=== PATIENT | male | born 1940 | race Caucasian/White ===

== ENCOUNTER → 2016-09-28 | Outpatient (CLI) | payer OTHER, MEDICARE ==
[~2016-09-28] MED LIST: ALBUAER2 INH; AMLO-110 PO; ASPI81TA28 PO; BROM0.07 OPR; CABE0.5T PO; CHOL100010 PO; DOCU-94 PO; DOXE10CA PO; LEVO100T PO; LORA-741 PO; MULT-506 PO; NAPR1TAB9 PO; ONDA8TAB6 PO; OXYC20TA50 PO; PRED1SUS3 OPR; PRED20TA PO; SYMIN160 INH; TEST1INJ2 SQ; VALA1TAB2 PO; [UNRECOGNIZED DRUG - OTHER] PO
== END | disposition home or self-care (01) ==
LOC: C.LABPBG 13:45
PROVIDERS: ATTEND Internal Medicine Endocrinology, Diabetes & Metabolism
DX: E03.8 Other specified hypothyroidism (principal)

== ENCOUNTER → 2016-10-18 | Outpatient (CLI) | payer OTHER, MEDICARE ==
[2016-10-18 15:52] LABS: HEMATOCRIT 49.6 % (42-52); MEAN CELL VOLUME 88.1 fL (80-100); MEAN CORPUSCULAR HEMOGLOBIN 30.2 pg (25-34); MEAN CORPUSCULAR HGB CONC 34.3 g/dl (32-36); MEAN PLATELET VOLUME 9.1 fL (7.4-10.4); PLATELET COUNT 107 K/uL (130-400); RED BLOOD COUNT 5.63 M/uL (4.7-6.1); WHITE BLOOD COUNT 9.86 K/uL (4.8-10.8)
== END | disposition home or self-care (01) ==
LOC: C.LAB1850 14:08
PROVIDERS: ATTEND Internal Medicine Pulmonary Disease
DX: R06.02 Shortness of breath (principal)

== ENCOUNTER → 2016-11-01 | Outpatient (CLI) | payer OTHER, MEDICARE ==
[2016-11-01 17:50] LABS: BASO % 0.7 %; BASO ABS # 0.07 K/uL (0-0.2); COMPLETE YES; EOS % 6.7 %; HEMATOCRIT 50.7 % (42-52); IG% 1.1 %; LYMPH % 38.9 %; LYMPH ABS # 3.64 K/uL (1.2-3.4); MEAN CELL VOLUME 88.6 fL (80-100); MEAN CORPUSCULAR HEMOGLOBIN 29.7 pg (25-34); MEAN CORPUSCULAR HGB CONC 33.5 g/dl (32-36); MEAN PLATELET VOLUME 9.7 fL (7.4-10.4); MONO % 7.3 %; NEUT % 45.3 %; PLATELET COUNT 114 K/uL (130-400); RED BLOOD COUNT 5.72 M/uL (4.7-6.1); WHITE BLOOD COUNT 9.36 K/uL (4.8-10.8)
== END | disposition home or self-care (01) ==
LOC: C.LABPBG 13:36
PROVIDERS: ATTEND Internal Medicine Pulmonary Disease
DX: Z00.00 Encounter for general adult medical examination without abnormal findings (principal); I10 Essential (primary) hypertension; E03.8 Other specified hypothyroidism; R06.02 Shortness of breath; I25.10 Atherosclerotic heart disease of native coronary artery without angina pectoris; E55.9 Vitamin D deficiency, unspecified

== ENCOUNTER → 2016-11-17 | Outpatient (CLI) | payer OTHER, MEDICARE | END | disposition home or self-care (01) | LOC: C.LAB 14:02 | PROVIDERS: ATTEND Internal Medicine Endocrinology, Diabetes & Metabolism | DX: E03.8 Other specified hypothyroidism (principal); E29.1 Testicular hypofunction ==

== ENCOUNTER → 2017-01-06 | Outpatient (CLI) | payer OTHER, MEDICARE ==
[2017-01-10 22:30] LABS: HUMAN GROWTH HORMONE 0.6 ng/mL (<=7.1)
== END | disposition home or self-care (01) ==
LOC: C.LABPBG 09:29
PROVIDERS: ATTEND Internal Medicine Endocrinology, Diabetes & Metabolism
DX: E29.1 Testicular hypofunction (principal); Z87.898 Personal history of other specified conditions; R53.83 Other fatigue

== ENCOUNTER → 2017-01-09 | Outpatient (CLI) | payer OTHER, MEDICARE ==
--- NOTE | 2017-01-09 12:25 | DIAGNOSTIC IMAGING REPORT ---
CT OF THE CHEST WITHOUT IV CONTRAST CLINICAL HISTORY: Adenocarcinoma. History of right upper lobectomy COMPARISON STUDY: 06/21/2016 CT DOSE: 654.12 mGy.cm TECHNIQUE: CT of the thorax was performed from the thoracic inlet to the lung bases. Images are reviewed in the axial, sagittal, and coronal planes. IV contrast was not administered for this examination. FINDINGS: Thyroid: Imaged portions of the thyroid gland are normal in appearance. Thoracic aorta: The thoracic aorta is normal in course and caliber, noting standard 3 vessel arch anatomy. Heart: The heart is within normal limits in size. There are coronary artery calcifications present. Lungs and pleural spaces: There is a small right pleural effusion which has decreased in size when compared the preceding study. There are postsurgical changes of a right upper lobectomy. There are no suspicious bony masses. There is no focal pulmonary consolidation. There is a 3 mm left lower lobe pulmonary nodule, similar in size the prior study. There is scattered calcified granulomas present. Mediastinum: There is been interval enlargement in the subcarinal adenopathy. There are enlarging mediastinal lymph nodes which are now mildly enlarged. Lou: There is probable hilar adenopathy although the hilar structures are difficult to assess without intravenous contrast Axilla: There is moderately bulky bilateral axillary lymphadenopathy. Upper abdomen: There are enlarging lymph nodes in the nuria hepatis gastrohepatic ligament and peripancreatic region. There is a suspected midline subcutaneous sebaceous cyst. Skeletal structures: There are no lytic or blastic osseous lesions. IMPRESSION: 1. Increasing pathologic axillary mediastinal, hilar and upper abdominal lymphadenopathy. Lymphoma is the diagnosis of exclusion. 2. Postsurgical changes of a right upper lobectomy. No evidence of local recurrence. Electronically signed by: Gideon Grande M.D. 01/09/2017 12:24 PM Dictated Date/Time: 01/09/2017 12:15 PM
== END | disposition home or self-care (01) ==
LOC: C.CTS 11:59
PROVIDERS: ATTEND Surgery
DX: C34.90 Malignant neoplasm of unspecified part of unspecified bronchus or lung (principal); R59.1 Generalized enlarged lymph nodes

== ENCOUNTER 2017-01-14 08:57 | Emergency (ER) | payer OTHER, MEDICARE ==
[~2017-01-14] VITALS: Ht 180.3 cm; Wt 93.4 kg
[~2017-01-14 08:57] MED LIST changes: -PRED20TA PO; -VALA1TAB2 PO
[2017-01-14 08:59] VITALS: TEMP 36.6; Ht 180.3 cm; Wt 93.4 kg
[2017-01-14] MEDS ORDERED: ONDANSETRON INJ 2 MG/ML 2 ML VIAL IV STA (09:07)
[2017-01-14] MEDS ORDERED: SODIUM CHLORIDE 0.9% 1000ML 1,000 ML IV STA (09:07)
[2017-01-14] MEDS ORDERED: SODIUM CHLORIDE 0.9% 1000ML 500 ML IV STA (09:07)
[2017-01-14 09:47] LABS: HEMATOCRIT 46.4 % (42-52); MEAN CELL VOLUME 87.1 fL (80-100); MEAN CORPUSCULAR HEMOGLOBIN 29.6 pg (25-34); MEAN CORPUSCULAR HGB CONC 34.1 g/dl (32-36); RED BLOOD COUNT 5.33 M/uL (4.7-6.1); WHITE BLOOD COUNT 6.47 K/uL (4.8-10.8)
--- NOTE | 2017-01-14 09:55 | EMERGENCY ROOM VISIT NOTE ---
History Report prepared by Kaitlin: Joyce Figueredo Under the Supervision of: Dr. Suman Awan M.D. First contact with patient: 09:03 Chief Complaint: KIDNEY STONE Stated Complaint: KIDNEY STONE History of Present Illness The patient is a 76 year old male who presents to the Emergency Room with complaints of persistent right flank pain starting 5 days ago. He has a history of kidney stones and believes that it might be one. He took an oxycodone and an Aleve which helped somewhat. He also started developing a rash on his back a couple days ago. He reports nausea and urinary frequency. He has been drinking a lot of water. He is not diabetic. He is currently not on steroids. Source of History: patient Onset: 5 days ago Position: other (right flank) Quality: other (pain) Timing: other (persistent) Modifying Factors (Relieving): other (oxycodone, Aleve) Associated Symptoms: + nausea, + rash Note: Pt reports urinary frequency. Review of Systems See HPI for pertinent positives & negatives. A total of 10 systems reviewed and were otherwise negative. Past Medical & Surgical Medical Problems: (1) HTN (hypertension) (2) Lung cancer (3) Non-Hodgkin lymphoma Family History Cancer Kidney disease Social History Smoking Status: Former Smoker Alcohol Use: none Marital Status: Housing Status: lives with significant other Occupation Status: retired Current/Historical Medications Scheduled Amlodipine (Norvasc), 5 MG PO NOON Aspirin (Aspirin Ec), 81 MG PO HS Bromfenac Sodium (Ophth) (Prolensa), 1 DROP OPR DAILY Cabergoline (Cabergoline), 0.25 MG PO 2XWK Cholecalciferol (Vitamin D), 1,000 INTER.UNIT PO QAM Docusate Sodium (Colace), 1 CAP PO HS Levothyroxine Sodium (Synthroid), 100 MCG PO QAM Lorazepam (Ativan), 0.5 MG PO HS Multivitamin (Multivitamin), 1 TAB PO QAM Naproxen (Aleve), 220 MG PO QAM Oxycodone Hcl (Oxycontin), 20 MG PO Q12 Prednisolone Acetate 1% Oph (Pred Forte 1% Oph), 1 DROP OPR DAILY Prednisone (Prednisone), 2 TAB PO DAILY Testosterone Cypionate (Testosterone Cypionate), 1 DOSE SQ EVERY 2 WEEKS Valacyclovir Hcl (Valtrex), 1,000 MG PO TID Scheduled PRN Albuterol (Ventolin Hfa), 2 PUFFS INH Q4-6 PRN for SOB/Wheezing Budesonide/Formoterol Fumarate (Symbicort 160/4.5 Inhaler ), 2 PUFFS INH BID PRN for Shortness of Breath Doxepin Hcl (Sinequan), 10 MG PO TID PRN for Anxiety Hydroxyzine Hcl (Atarax Unknown Dose), 25 MG PO HS PRN for Itching Ondansetron Hcl (Zofran), 8 MG PO Q6 PRN for Nausea Allergies Coded Allergies: Lisinopril (Verified Allergy, Unknown, itching, 06/07/16) Metoprolol (Verified Allergy, Unknown, itching, 06/07/16) Losartan (Verified Adverse Reaction, Unknown, RASH, 06/07/16) Physical Exam Vital Signs Date Time Temp Pulse Resp B/P Pulse Ox O2 Delivery O2 Flow Rate FiO2 01/14/17 10:26 62 16 129/67 94 Room Air 01/14/17 08:59 36.6 70 18 159/86 94 Room Air Physical Exam GENERAL: Patient is in no acute distress. HEENT: No acute trauma, normocephalic atraumatic, mucous membranes moist, no nasal congestion, no scleral icterus. NECK: No stridor, no adenopathy, no meningismus, trachea is midline. LUNGS: Clear to auscultation bilaterally, no wheeze, no rhonchi, breath sounds equal. HEART: Without murmurs gallops or rubs, regular rate and rhythm. ABDOMEN: Soft, nontender, bowel sounds positive, no hernias, no peritonitis. EXTREMITIES: No cyanosis or edema, full range of motion of all the joints without pain or difficulty, no signs for acute trauma. NEUROLOGIC: Oriented x 3, no acute motor or sensory deficits, no focal weakness. SKIN: Raised, reddened, patchy rash in a dermatomal distribution along the right flank wrapping around the right upper abdomen, no drainage. Medical Decision & Procedures ER Provider Diagnostic Interpretation: Radiology results as stated below per my review and radiologist interpretation: ABDOMEN AND PELVIS CT WITHOUT CONTRAST CT DOSE: 1608.99 mGy.cm HISTORY: Flank pain EVALUATE FLANK PAIN/HEMATURIA TECHNIQUE: Multiaxial CT images of the abdomen and pelvis were performed without the use of intravenous and oral contrast according to the standard department stone protocol. COMPARISON STUDY: 11/08/2011 FINDINGS: Lung bases are considered clear. Liver spleen and pancreas appear unremarkable. Please 1 nonobstructing left renal calcification. No evidence for hydronephrosis. Progressive mesenteric/retroperitoneal kali pathology. These are progressive compared to the prior study measure up to 3.5 cm. Mildly progressive upper abdominal nodes. Retroperitoneal nodes measure to 3.8 cm. . Bowel pattern overall is considered nonobstructive. Ureters normal in course and caliber. There is no evidence for an obstructing urinary tract calculus. Bladder is midline. There are no contained calcifications. Mild to moderate pelvic sidewall adenopathy is progressive from the prior study. Right-sided nodes measure up to 2.6 cm with the left-sided kali pathology within the pelvis measures 2.4 cm. There is a least mild inguinal adenopathy. Bowel pattern overall is nonobstructive. IMPRESSION: 1. Progressive abdominal and pelvic and to lesser extent inguinal kali pathology. 2. A lymphomatous process is a diagnosis of exclusion. 3. Nonobstructive bowel pattern. 4. left renal nephrocalcinosis considered nonobstructive. Electronically signed by: Yaakov Vasquez M.D. 01/14/2017 10:06 AM Dictated Date/Time: 01/14/2017 9:58 AM Laboratory Results 01/14/17 09:25 01/14/17 09:25 Test 01/14/17 09:25 01/14/17 10:20 Red Blood Count 5.33 M/uL (4.7-6.1) Mean Corpuscular Volume 87.1 fL (80-100) Mean Corpuscular Hemoglobin 29.6 pg (25-34) Mean Corpuscular Hemoglobin Concent 34.1 g/dl (32-36) RDW Standard Deviation 45.5 fL (36.4-46.3) RDW Coefficient of Variation 14.2 % (11.5-14.5) Mean Platelet Volume 9.0 fL (7.4-10.4) Platelet Estimate DECREASED Anion Gap 7.0 mmol/L (3-11) Est Creatinine Clear Calc Drug Dose 61.1 ml/min Estimated GFR () 67.7 Estimated GFR (Non- 58.4 BUN/Creatinine Ratio 9.4 (10-20) Calcium Level 8.8 mg/dl (8.5-10.1) Total Bilirubin 1.1 mg/dl (0.2-1) Aspartate Amino Transf (AST/SGOT) 35 U/L (15-37) Alanine Aminotransferase (ALT/SGPT) 43 U/L (12-78) Alkaline Phosphatase 79 U/L (45-117) Total Protein 6.9 gm/dl (6.4-8.2) Albumin 4.0 gm/dl (3.4-5.0) Globulin 2.9 gm/dl (2.5-4.0) Albumin/Globulin Ratio 1.4 (0.9-2) Urine Color YELLOW Urine Appearance CLEAR (CLEAR) Urine pH 7.0 (4.5-7.5) Urine Specific Delano 1.012 (1.000-1.030) Urine Protein NEG (NEG) Urine Glucose (UA) NEG (NEG) Urine Ketones NEG (NEG) Urine Occult Blood NEG (NEG) Urine Nitrite NEG (NEG) Urine Bilirubin NEG (NEG) Urine Urobilinogen NEG (NEG) Urine Leukocyte Esterase NEG (NEG) Laboratory results reviewed by me. Medications Administered Medications (Trade) Dose Ordered Sig/Maribel Route Start Time Stop Time Status Last Admin Dose Admin Sodium Chloride (Nss 1000ml) 500 ml @ 999 mls/hr Q31M STAT IV 01/14/17 09:07 01/14/17 09:37 DC 01/14/17 09:27 999 MLS/HR Ondansetron HCl 4 mg 4 mg NOW STAT IV 01/14/17 09:07 01/14/17 09:16 DC 01/14/17 09:27 4 MG Sodium Chloride (Nss 1000ml) 1,000 ml @ 200 mls/hr Q5H STAT IV 01/14/17 09:07 01/14/17 11:50 DC 01/14/17 09:27 200 MLS/HR Prednisone (PredniSONE TAB) 40 mg NOW STAT PO 01/14/17 09:07 01/14/17 09:16 DC 01/14/17 09:28 40 MG Valacyclovir HCl (Valtrex Tab) 1,000 mg NOW ONCE PO 01/14/17 09:15 01/14/17 09:16 DC 01/14/17 09:27 1,000 MG ED Course 0906: The patient was evaluated in room B9. A complete history and physical exam was performed. 0907: Prednisone 40 mg PO, NSS 1000 ml @ 200 mls/hr IV, Zofran Inj 4 mg IV, NSS 500 ml @ 999 mls/hr IV. 0915: Valacyclovir HCl 1000 mg PO. 1052: Reevaluated the patient. Discussed results and discharge instructions: He verbalized understanding and agreement. The patient is ready for discharge. Medical Decision Differential diagnoses considered include renal stone, musculoskeletal pain, pyelonephritis, renal failure, shingles, pneumonia. There is no leukocytosis or concerning anemia. No significant electrolyte abnormality, kidney failure or hepatitis. Urinalysis does not show hematuria or evidence for infection. Abdominal and pelvis CT shows adenopathy consistent with his history and his cancer. There was no ureteral obstruction, no hydronephrosis. No evidence for bowel obstruction. The patient did not want anything for pain. He was not toxic, he was not febrile. I believe his discomfort is from herpes zoster. He was given IV saline, IV Zofran, oral Valtrax and oral prednisone. The patient is being discharged with Valtrex and prednisone. He does have pain medication to use at home. He was encouraged to keep the area covered, he was warned about the spread of chickenpox. He was encouraged to return for worsening symptoms. Impression Primary Impression: Right flank pain Additional Impression: Herpes zoster Scribe Attestation The scribe's documentation has been prepared under my direction and personally reviewed by me in its entirety. I confirm that the note above accurately reflects all work, treatment, procedures, and medical decision making performed by me. Departure Information Dispostion Home / Self-Care Prescriptions Valacyclovir Hcl (VALTREX) 1 Gm Tab 1000 MG PO TID for 7 Days, #21 TAB Prov: Suman Awan M.D. 01/14/17 Prednisone (Prednisone) 20 Mg Tab 2 TAB PO DAILY for 5 Days, #10 TAB Prov: Suman Awan M.D. 01/14/17 Referrals Siddhartha Castle M.D. (PCP) Forms HOME CARE DOCUMENTATION FORM, IMPORTANT VISIT INFORMATION Patient Instructions My [facility] Additional Instructions valtrex 3x per day for 1 week prednisone as directed keep the rash covered--especially if it weeps follow with konrad osuna for a recheck return for fever or if worsening use your pain meds at home as prescribed Problem Qualifiers
--- NOTE | 2017-01-14 10:07 | DIAGNOSTIC IMAGING REPORT ---
ABDOMEN AND PELVIS CT WITHOUT CONTRAST CT DOSE: 1608.99 mGy.cm HISTORY: Flank pain EVALUATE FLANK PAIN/HEMATURIA TECHNIQUE: Multiaxial CT images of the abdomen and pelvis were performed without the use of intravenous and oral contrast according to the standard department stone protocol. COMPARISON STUDY: 11/08/2011 FINDINGS: Lung bases are considered clear. Liver spleen and pancreas appear unremarkable. Please 1 nonobstructing left renal calcification. No evidence for hydronephrosis. Progressive mesenteric/retroperitoneal kali pathology. These are progressive compared to the prior study measure up to 3.5 cm. Mildly progressive upper abdominal nodes. Retroperitoneal nodes measure to 3.8 cm. . Bowel pattern overall is considered nonobstructive. Ureters normal in course and caliber. There is no evidence for an obstructing urinary tract calculus. Bladder is midline. There are no contained calcifications. Mild to moderate pelvic sidewall adenopathy is progressive from the prior study. Right-sided nodes measure up to 2.6 cm with the left-sided kali pathology within the pelvis measures 2.4 cm. There is a least mild inguinal adenopathy. Bowel pattern overall is nonobstructive. IMPRESSION: 1. Progressive abdominal and pelvic and to lesser extent inguinal kali pathology. 2. A lymphomatous process is a diagnosis of exclusion. 3. Nonobstructive bowel pattern. 4. left renal nephrocalcinosis considered nonobstructive. Electronically signed by: Yaakov Vasquez M.D. 01/14/2017 10:06 AM Dictated Date/Time: 01/14/2017 9:58 AM
[2017-01-14 10:26] VITALS: BP 129/67; PULSE 62; O2SAT 94
[2017-01-14 10:33] LABS: PLATELET COUNT 84 K/uL (130-400); PLT ESTIMATE DECREASED
[2017-01-14 10:33] LABS: URINE APPEARANCE CLEAR (CLEAR); URINE BILIRUBIN NEG (NEG); URINE COLOR YELLOW; URINE NITRITE NEG (NEG); URINE SPECIFIC GRAVITY 1.012 (1.000-1.030); UROBILINOGEN NEG (NEG); ZZUR CULT IF INDIC CLEAN CATCH NO
[2017-01-14 10:36] LABS: MANUAL MICROSCOPIC REQUIRED? NO; REVIEW REQ? NO
[2017-01-14 10:43] LABS: BUN/CREATININE RATIO 9.4 (10-20); CALCIUM 8.8 mg/dl (8.5-10.1); CREATININE 1.2 mg/dl (0.60-1.40); POTASSIUM 4.4 mmol/L (3.5-5.1)
[2017-01-14 10:45] LABS: ALB/GLOB RATIO 1.4 (0.9-2)
[2017-01-14] MEDS ORDERED: PRED20TA PO (11:01)
[2017-01-14] MEDS ORDERED: VALA1TAB2 PO (11:01)
== END 2017-01-14 11:10 | disposition home or self-care (01) ==
LOC: C.EDB 08:59
DX: R10.30 Lower abdominal pain, unspecified (principal); B02.9 Zoster without complications; I10 Essential (primary) hypertension; Z85.72 Personal history of non-Hodgkin lymphomas; Z87.891 Personal history of nicotine dependence; Z79.82 Long term (current) use of aspirin; Z79.899 Other long term (current) drug therapy; Z88.8 Allergy status to other drugs, medicaments and biological substances; Z80.9 Family history of malignant neoplasm, unspecified; Z84.1 Family history of disorders of kidney and ureter

== ENCOUNTER → 2017-05-15 | Outpatient (CLI) | payer OTHER, MEDICARE ==
--- NOTE | 2017-05-15 12:25 | DIAGNOSTIC IMAGING REPORT ---
PET/CT SKULL-THIGH CLINICAL HISTORY: LYMPHOMA COMPARISON STUDY: 01/18/2017, 11/04/2015 FINDINGS: The patient was injected with 12.5 mCi of F 18 labeled FDG. Findings standard induction phase, PET/CT scanning is performed from the skull base the upper thigh region. Activity within the neck is felt to be physiologic. There is interval decrease in the size of a left subclavian tibial lymph node which currently measures 12 mm. This is not FDG avid. There are stable subcutaneous nodules within the upper back/spacer neck which are not FDG avid. These likely represent sebaceous cyst. Within the chest, there is been interval resolution of the pathologic axillary kali activity. The previously identified axillary lymph nodes are now of normal size. There is no pathologic mediastinal or hilar activity. There is no pathologic parenchymal activity. There is a trace right pleural effusion. Within the abdomen, there is no evidence of pathologic kali activity. The previously identified right inguinal lymph node is smaller in size and has normalized in activity. There is mild residual activity within the colon with decreased colonic wall thickening as compared the preceding study. There are no FDG avid bony lesions. IMPRESSION: 1. Treatment response. The previously identified pathologic lymph nodes have decreased in size, and no longer demonstrate pathologic FDG uptake 2. Persistent but diminished nonspecific colonic activity with decreased colonic wall thickening. Electronically signed by: Gideon Grande M.D. 05/15/2017 12:24 PM Dictated Date/Time: 05/15/2017 12:13 PM
== END | disposition home or self-care (01) ==
LOC: C.PET 09:21
PROVIDERS: ATTEND Internal Medicine Hematology
DX: C83.00 Small cell B-cell lymphoma, unspecified site (principal)

== ENCOUNTER → 2017-05-18 | Outpatient (CLI) | payer OTHER, MEDICARE ==
[2017-05-18 16:46] LABS: BASO % 1.3 %; BASO ABS # 0.05 K/uL (0-0.2); COMPLETE YES; EOS % 12.4 %; IG% 1.3 %; LYMPH % 19.8 %; LYMPH ABS # 0.75 K/uL (1.2-3.4); MEAN CELL VOLUME 90.9 fL (80-100); MEAN CORPUSCULAR HEMOGLOBIN 30.4 pg (25-34); MEAN CORPUSCULAR HGB CONC 33.4 g/dl (32-36); MEAN PLATELET VOLUME 8.5 fL (7.4-10.4); MONO % 10.6 %; NEUT % 54.6 %; PLATELET COUNT 124 K/uL (130-400); RED BLOOD COUNT 4.18 M/uL (4.7-6.1); WHITE BLOOD COUNT 3.78 K/uL (4.8-10.8)
[2017-05-18 16:51] LABS: URINE APPEARANCE CLOUDY (CLEAR); URINE BILIRUBIN NEG (NEG); URINE COLOR DK YELLOW; URINE NITRITE NEG (NEG); URINE PH 5.5 (4.5-7.5); URINE SPECIFIC GRAVITY 1.028 (1.000-1.030); UROBILINOGEN NEG (NEG); ZZUR CULT IF INDIC CLEAN CATCH NO
[2017-05-18 16:52] LABS: MANUAL MICROSCOPIC REQUIRED? NO; REVIEW REQ? NO
[2017-05-18 17:03] LABS: BLOOD UREA NITROGEN 12 mg/dl (7-18); CALCIUM 9.2 mg/dl (8.5-10.1); CARBON DIOXIDE 29 mmol/L (21-32); CHLORIDE 106 mmol/L (98-107); GLUCOSE 93 mg/dl (70-99); POTASSIUM 3.9 mmol/L (3.5-5.1); SODIUM 142 mmol/L (136-145)
[2017-05-18 17:14] LABS: THYROID STIMULATING HORMONE 0.295 uIu/ml (0.300-4.500)
== END | disposition home or self-care (01) ==
LOC: C.LABBC 14:29
PROVIDERS: ATTEND Physician Assistant Medical
DX: R42 Dizziness and giddiness (principal)

== ENCOUNTER → 2017-08-02 | Outpatient (CLI) | payer OTHER, MEDICARE | END | disposition home or self-care (01) | LOC: C.LAB1850 13:37 | PROVIDERS: ATTEND Internal Medicine Endocrinology, Diabetes & Metabolism | DX: Z87.898 Personal history of other specified conditions (principal); R53.83 Other fatigue; E22.9 Hyperfunction of pituitary gland, unspecified ==

== ENCOUNTER → 2018-04-11 | Outpatient (CLI) | payer OTHER, MEDICARE ==
[~2018-04-11] MED LIST changes: -AMLO-110 PO; +AMLO5TAB3 PO; +BRIM0.1S OPL; +ONDA-170 PO; -ONDA8TAB6 PO; -OXYC20TA50 PO
--- NOTE | 2018-04-11 11:47 | DIAGNOSTIC IMAGING REPORT ---
CHEST 2 VIEWS ROUTINE CLINICAL HISTORY: 77 years-old Male presenting with COUGH. TECHNIQUE: PA and lateral views of the chest were obtained. COMPARISON: Chest CT from 01/09/2017 and chest x-ray from 01/12/2016. FINDINGS: Prominence of pulmonary arteries as on prior exam. Cardiac silhouette normal in size. Atherosclerosis of aortic arch. A suture margin is evident at the right hilum system with prior right upper lobectomy. Pleural thickening on the right is unchanged and likely represents prominent extrapleural fat. No pleural effusion or pneumothorax. Degenerative changes of the thoracic spine. Upper abdomen normal. IMPRESSION: 1. No acute cardiopulmonary disease. 2. Postsurgical changes of right upper lobectomy. Electronically signed by: Brent Avilez M.D. 04/11/2018 11:46 AM Dictated Date/Time: 04/11/2018 11:43 AM
== END | disposition home or self-care (01) ==
LOC: C.RADBC 11:15
PROVIDERS: ATTEND Physician Assistant Medical
DX: R05 Cough (principal)

== ENCOUNTER 2019-03-14 12:39 | Inpatient (IN) ==
[2019-03-14] MEDS ORDERED: SODIUM CHLORIDE 0.9% 1000ML 1,000 ML IV STA (13:29)
[2019-03-14] MEDS ORDERED: ACETAMINOPHEN 500 MG TAB PO STA (13:56)
--- NOTE | 2019-03-14 14:10 | XRay Report ---
XR chest 1V portable CLINICAL HISTORY: 78 years-old Male presenting with fever. TECHNIQUE: Portable upright AP view of the chest was obtained. COMPARISON: 05/23/2018. FINDINGS: Right internal jugular Mediport terminates in the right brachiocephalic vein. Atherosclerosis of the aortic arch. Cardiac silhouette mildly enlarged. Suture margin projects over the right hilum. No foca l opacity. No large effusion or pneumothorax. Degenerative changes of the thoracic spine. Upper abdom en normal. IMPRESSION: 1. Postsurgical changes of the right lung suspected. No acute cardiopulmonary disease. Electronically signed by: Brent Avilez M.D. 03/14/2019 2:09 PM
[2019-03-14 14:33] LABS: Hematocrit (blood only) 32.7 % (42-52); Mean Corpuscular Hgb Conc 33.6 g/dL (32-36); Mean Corpuscular Volume 91.9 fL (80-100); Platelet Count 7 K/uL (130-400); RDW Coefficient of Variation 14.5 % (11.5-14.5); RDW Standard Deviation 49.1 fL (36.4-46.3); Red Blood Count 3.56 M/uL (4.7-6.1); White Blood Count 5.84 K/uL (4.8-10.8)
[2019-03-14 14:48] LABS: Carbon Dioxide 26 mmol/L (21-32); Chloride 103 mmol/L (98-107); Potassium 3.8 mmol/L (3.5-5.1); Sodium 134 mmol/L (136-145)
[2019-03-14 14:49] LABS: Anion Gap 5 (3-11); BUN Creatinine Ratio 11.3 (10-20); Blood Urea Nitrogen 12 mg/dl (7-18); Calcium 8.2 mg/dl (8.5-10.1); Creatinine Clr Calc Pharmacy 66.5 ml/min; Est GFR (African American) 77.5; Est GFR (Non-African American) 66.9; Glucose 86 mg/dl (70-99)
[2019-03-14 14:50] LABS: Alanine Aminotransferase 59 U/L (12-78); Albumin Level 3.1 gm/dl (3.4-5.0); Alkaline Phosphatase 109 U/L (45-117); Aspartate Aminotransferase 36 U/L (15-37); Bilirubin,Total 1.4 mg/dl (0.2-1); Globulin 3.1 gm/dl (2.5-4.0); Total Protein 6.2 gm/dl (6.4-8.2); Troponin I < 0.015 ng/ml (0-0.045)
[2019-03-14 15:25] LABS: Toxic Granulation 1+
[2019-03-14 15:43] LABS: ALC (manual) 5.22 K/uL (1.2-3.4); Basophils # (manual) 0.11 K/uL (0-0.2); Basophils % (manual) 1.8 %; Eosinophils # (manual) 0.16 K/uL (0-0.5); Eosinophils % (manual) 2.7 %; Lymphocytes # (manual) 5.22 K/uL (1.2-3.4); Lymphocytes % (manual) 89.3 %; Monocytes # (manual) 0.16 K/uL (0.11-0.59); Monocytes % (manual) 2.7 %; Neutrophils % (manual) 3.5 %
[2019-03-14] MEDS ORDERED: CEFEPIME 2,000 MG/20 ML VIAL IV STA (15:48)
[2019-03-14] MEDS ORDERED: VANCOMYCIN HCL 2,000 MG in SODIUM CHLORIDE 0.9% 500 ML IV ONE (16:05)
[2019-03-14] MEDS ORDERED: VANCOMYCIN CONSULT ACTIVE PRN (16:05)
[2019-03-14 16:37] LABS: Appearance Urine Cloudy (Clear); Bacteria Urine Automated Negative (Negative); Bilirubin Urine Negative (Negative); Blood Urine Trace (Negative); Color Urine Orange; Epithelial Cell Urine Auto 20-30 /lpf (0-5); Glucose Urine UA Negative (Negative); Ketones Urine Negative (Negative); Leukocyte Esterase Urine Negative (Negative); Nitrite Urine Negative (Negative); Protein Urine Trace (Negative); Specific Gravity Urine 1.018 (1.000-1.030); Urobilinogen Urine Negative (Negative); pH Urine 5.5 (4.5-7.5)
--- NOTE | 2019-03-14 16:45 | History & Physical Report ---
Date of Service March 14, 2019 Assessment & Plan (1) Fever: -Admit to tele -started on IV vancomycin and cefepime, continue -Neutropenic precautions -Follow a.m. CBC with differential, Neulasta injection was completed on 03/08/2019 -Consult oncology, Dr. Chaparro -No need for platelet transfusion at this time although plt = 7 ER attending held discussion with Dr. Mojica, oncologist at [facility], who recommended no need for transfusion at this time, thought it would take a few more days for plt count to increase with recent Neulasta injection. (2) History of non-Hodgkin's lymphoma: -Large B-cell lymphoma, initially diagnosed 2007 -Currently undergoing chemotherapy with R-ICE, initiated treatment with ICE portion on 03/04/19-03/07/19, and scheduled to have Rituxan starting tomorrow on 03/15/19. He had Neulasta inj on 03/08/19. - Had received a total of 6 cycles of R-CHOP, last dosing of this was September 28, 2018 - Follow with Dr. Mojica in [facility], oncology - HIM consult requested for records - PT/OT consults (3) Neutropenia: - Abs neutrophils = 0.20, monitor daily ANC with cbc w/ diff. (4) Thrombocytopenia: - Plt = 7, monitor daily, no transfusion at this time, see above. (5) History of adenocarcinoma of lung: -Right upper lobe adenocarcinoma S/PE resection followed by lobectomy and mediastinal lymph node dissection, November 2015 -Dr. Marcano -T1 N0 M0 (6) History of pituitary tumor: -History of such in 2001, s/p resection -Patient is on testosterone and thyroid hormone replacement therapy -Continue cabergoline 0.25 mg UD (7) Pituitary hypothyroidism: (8) Pituitary hypogonadism: (9) Benign prostatic hyperplasia with urinary obstruction: - Pt with c/o urinary incontinence, notes this specifically with R-CHOP therapy which ended in September, monitor for worsening sx during this chemo with R-ICE (10) Vitamin D deficiency: -Continue vitamin D supplementation (11) Restless leg syndrome: -Continue Requip 2 mg at night (12) Depression with anxiety: - Cont hydroxyzine 25 mg at bedtime (13) Coronary artery calcification: - cont asa 81 mg daily (14) Postherpetic neuralgia: -S/P zoster outbreak, 3 years ago, continue acyclovir (15) Gout: - hx of such, no acute flare, cont allopurinol (16) DVT prophylaxis: - lovenox sarahq, teds, ambulatory Dispo: From home, likely will be here for at least 2 days. History of Present Illness Primary Care Provider: Ryne Corrigan MD This is a 78 yo M with PMHx of NHL, currently undergoing treatment, BPH, chronic pain, CAD, depression with anxiety, herpetic neuropathy, history of adenocarcinoma of the lung status post lung resection, history of pituitary neoplasm, restless leg syndrome, and vitamin D deficiency. Patient's , daughter and son are in room with the patient. Pt is currently undergoing chemotherapy with R-ICE, initiated treatment with ICE portion on 03/04/19-03/07/19, and scheduled to have Rituxan starting tomorrow on 03/15/19. He had Neulasta inj on 03/08/19. Since then the pt has been having a low grade fever and has been taking tylenol intermittently. Patient's family members report that he spiked a temperature of 103 last evening, then had chills and tremors this morning. Upon attempting to get up out of bed, the patient had difficulty moving his legs. Patient's son reports that he eventually was able to get up and support all of his weight, with a partial one assist. Patient complains of having lost bladder control specifically during her last chemotherapy with R-CHOP, also increased diarrhea during this chemotherapy. He has not yet experienced that while being on R-ICE but seems very worried about this happening. He denies any acute complaints or specific symptoms other than this. Allergies Allergy/AdvReac Type Severity Reaction Status Date / Time lisinopril Allergy Mild itching Verified 03/14/19 14:14 metoprolol Allergy Mild itching Verified 03/14/19 14:14 losartan AdvReac Mild RASH Verified 03/14/19 14:14 Home Medications Home Medications Medication Instructions Recorded Confirmed Type testosterone cypionate 1.25 ml IM MONTHLY 05/10/18 03/14/19 History albuterol sulfate HFA 90 2 puff INHALATION Q4H PRN #18 gm 01/29/19 03/14/19 Rx mcg/actuation aerosol inhaler aspirin 81 mg tablet,delayed 81 mg PO DAILY #90 tab 01/29/19 03/14/19 Rx release cabergoline 0.5 mg tablet 0.25 mg PO DIRECTED #8 tab 01/29/19 03/14/19 Rx diclofenac 1 % topical gel 2 gm TOP ONCE #100 gm 01/29/19 03/14/19 Rx fluocinonide 0.05 % topical 1 appln TOP BID #30 gm 01/29/19 03/14/19 Rx ointment fluticasone 250 mcg-salmeterol 50 1 puffs INH BID #60 ea 01/29/19 03/14/19 Rx mcg/dose blistr powdr for inhalation hydroxyzine HCl 25 mg tablet 25 mg PO HS PRN #60 tab 01/29/19 03/14/19 Rx levothyroxine 125 mcg capsule 125 mcg PO QAM #90 cap 01/29/19 03/14/19 Rx metronidazole 0.75 % lotion 1 appln TOP BID #59 ml 01/29/19 03/14/19 Rx multivitamin tablet 1 tab PO DAILY #90 tab 01/29/19 03/14/19 Rx ondansetron 8 mg disintegrating 8 mg PO Q8H PRN #10 tab 01/29/19 03/14/19 Rx tablet ropinirole 2 mg tablet 2 mg PO HS #90 tab 01/29/19 03/14/19 Rx triamcinolone acetonide 0.1 % 1 appln TOP BID #80 gm 01/29/19 03/14/19 Rx topical cream acyclovir 400 mg PO BID 03/14/19 03/14/19 History allopurinol 300 mg PO QAM 03/14/19 03/14/19 History carboxymethylcellulose sodium 1 drp OPB TID 03/14/19 03/14/19 History [Refresh Tears] cholecalciferol (vitamin D3) 1,000 units PO QDL 03/14/19 03/14/19 History ciprofloxacin HCl 500 mg PO BID 03/14/19 03/14/19 History fluticasone propionate 2 sprays INTNAS DAILY PRN 03/14/19 03/14/19 History gabapentin 200 mg PO HS 03/14/19 03/14/19 History Past Med/Surg History Medical History Balance disorder (Acute) Benign prostatic hyperplasia with urinary obstruction (Acute) Cellulitis (Acute) Chronic pain (Acute) Coronary artery calcification (Acute) Cough (Acute) Depression with anxiety (Acute) Dermatitis (Acute) Elevated prolactin level (Acute) Fatigue (Acute) Herpes zoster (Acute) History of adenocarcinoma of lung (Acute) Infected sebaceous cyst (Acute) Lightheadedness (Acute) Low back pain (Acute) Lymphoma, small lymphocytic (Acute) Mild cognitive impairment (Acute) Obesity, Class I, BMI 30-34.9 (Acute) Pituitary hypothyroidism (Acute) Pituitary neoplasm (Acute) Pruritus (Acute) Seroma complicating a procedure (Acute) Non-Hodgkin lymphoma (Resolved) Anxiety (Acute) Erectile dysfunction (Acute) Glaucoma (Acute) Nephrolithiasis (Acute) Pituitary hypogonadism (Acute) Restless leg syndrome (Acute) Vitamin D deficiency (Acute) Encounter for pre-operative examination (Acute) Carcinoma of tonsil, palatine (Acute) Expected difficult intubation (Acute) Related to tonsillar mass, likely cancer. HTN (hypertension) (Chronic) BPH (benign prostatic hyperplasia) (Acute) Depression (Acute) History of pituitary tumor (Acute) Hypothyroidism Insomnia Lung cancer Postherpetic neuralgia Cancer LUNG CANCER BCC AND SCC TONSILLAR CANCER (RECENT DX) CHEMO CURRENTLY Chronic back pain Chronic obstructive pulmonary disease "MILD" GERD (gastroesophageal reflux disease) Glaucoma Kidney stones Non-Hodgkin lymphoma CHEMO (2017) Obesity Osteoarthritis Surgical History Difficult intubation DIRECT LARYNGOSCOPY/BIOPSY= 05/15/18= MULTIPLE ATTEMPTS AT AWAKE FIBEROPTIC. PATIENT GIVEN GLYCO FOR SECRETIONS THEN TRANSTRACHEAL BLOCK. SUCCESSFUL ETT 7. SEE ANESTHESIA PROGRESS NOTE 05/15/18 FOR FURTHER ANESTHESIA INTUBATION DETAILS. S/P lobectomy of lung H/O lymph node biopsy History of ankle surgery History of arthroscopy B/L KNEE History of cataract surgery B/L History of colonoscopy History of esophagogastroduodenoscopy History of knee surgery History of laryngoscopy DIRECT LARYNGOSCOPY/BIOPSY= 05/15/18 AT [facility] History of lithotripsy History of lobectomy of lung RT LOBE History of tooth extraction Family History Brother Cancer Mother Dementia Hypertension Social History Preferred Language: Italian Communication Ability: Effective Visual Impairment: No Limitations Clerical Associate Required: No Beliefs That Will Affect Care: None and Yazidism Yazidism Beliefs: Epis copalian Current Living Situation: Spouse Feels Safe at Home: Yes Safety Concerns: Feels Safe At This Time Smoking Status: Never smoker Tobacco Type: smokeless tobacco Cigarettes Per Day: QUIT "MANY" YEARS AGO Second Hand Exposure: No Hx Alcohol Use: No Hx Substance Use: No Review of Systems Review of Systems: Constitutional: As per HPI. Eyes: No diplopia, no worsening or blurred vision ENT: normal hearing, no trouble swallowing, no mucositis, no sore mouth Respiratory: No cough, sputum, dyspnea at rest or on exertion Cardiovascular: No chest pain, tightness or palpitations Abdomen: No pain, nausea, vomiting, diarrhea or constipation Musculoskeletal: No joint pain, calf pain, swelling Neurologic: + Generalized weakness earlier today, now resolved, no numbness/tingling, or balance problems Psychiatric: + Anxiety and depression, well controlled Skin: No rash or itch Physical Exam Physical Exam: General: awake, alert, no apparent distress, appears much younger than stated age Head: Normocephalic, atraumatic ENT: PERRL, EOMI, no pharyngeal exudate, mucous membranes moist Chest: Medi-port accessed in right chest wall, clear to auscultation, on room air, no adventitious breath sounds Cardiac: Regular rate and rhythm, no murmur, no JVD, normal peripheral pulses Abdominal: NABS x 4 quadrants, soft, nontender to palpation, no rebound, guarding or tenderness Extremities: Normal inspection, no peripheral edema or erythema, calfs nontender to palpation Psych: Normal mood and affect, + good spirits with family Neuro: AAO x 3, strength intact bilaterally and related 5/5, no motor deficits, speech is clear Skin: no rash or erythema Constitutional: WD/WN, vitals as above Eyes: normal visual ayala by confrontation and + anicteric sclerae Neck: normal visual inspection and trachea midline Respiratory: normal respiratory effort, lungs clear to auscultation Cardiovascular: Rate/Rhythm: regular rate and regular rhythm Gastrointestinal (Abdomen): Inspection/Auscultation: abdomen not distended Percussion/Palpation: abdomen soft; abdomen nontender Musculoskeletal: Head/Neck/Chest: normocephalic and head atraumatic Neg for peripheral LE edema, + pedal pulses Skin: no rashes, warm and dry Neurologic: awake; not confused Speech / Cognition: normal speech Psychiatric: A+Ox3, euthymic affect Lymphatic: Exam as done by Marva Mcgrath DO Results & Data Vital Signs (Past 12 Hours) Vital Signs Temp Pulse Resp BP Pulse Ox 03/14/19 14:31 82 25 H 96 03/14/19 14:30 75 17 111/65 97 03/14/19 14:21 78 26 H 97 03/14/19 14:19 80 23 119/69 96 03/14/19 13:01 38.2 C H 82 20 111/74 96 Diagnostic Findings XR chest 1V portable CLINICAL HISTORY: 78 years-old Male presenting with fever. TECHNIQUE: Portable upright AP view of the chest was obtained. COMPARISON: 05/23/2018. FINDINGS: Right internal jugular Mediport terminates in the right brachiocephalic vein. Atherosclerosis of the aortic arch. Cardiac silhouette mildly enlarged. Suture margin projects over the right hilum. No focal opacity. No large effusion or pneumothorax. Degenerative changes of the thoracic spine. Upper abdomen normal. IMPRESSION: 1. Postsurgical changes of the right lung suspected. No acute cardiopulmonary disease. ECG Additional Comments: 14-MAR-2019 13:37:01 [facility]-EDSTAT ROUTINE RETRIEVAL Normal sinus rhythm Normal ECG When compared with ECG of 10-MAY-2018 21:49, Premature ventricular complexes are no longer Present 25mm/s 10mm/mV 150Hz 9.0.8 12SL 241 SWATHI: 15 Referred by: ED Unconfirmed Vent. rate 82 BPM [place] interval 142 ms QRS duration 82 ms QT/QTc 370/432 ms P-R-T axes 44 50 61 Code Status & VTE Plan Code Status Full code-discussed with patient and family at bedside Supervising Physician Co-Signing Physician Notes Pt seen and examined by me. Denies chest pain or SOB. Tolerating PO without issue. States he was a bit disoriented earlier today and this is mostly resolved now. Agree with HPI/ROS as noted by PA See above for my exam in PE section Agree with plan as outlined above Neutropenic fever Non-Hodgkin's pt, follows with Dr. Snyder at [facility] Chemo and neulasta last week Abx coverage until cx neg No clear source on admission, but feeling better s/p IVF and abx Platelets are low, reported to me that [facility] onc is hopeful that this is just in the mitchell of neulasta tx and will improve on its own PG Care Time/CCT Total # of Minutes Spent Total Time Spent with Patient: Total time spent is greater than 50% in coordination of care (as documented) at patient's floor/unit and/or counseling patient: (1) Fever Fever type: unspecified Qualified Code(s): R50.9 - Fever, unspecified (2) Neutropenia Neutropenia type: unspecified Qualified Code(s): D70.9 - Neutropenia, unspecified
--- NOTE | 2019-03-14 18:05 | Emergency Department Note ---
Entered by Alina Ledesma acting as a scribe for Ramírez Cortés MD ED Provider Note CHIEF COMPLAINT: Fever HISTORY OF PRESENT ILLNESS: The patient is a 78 year old male who presents to the Emergency Room with complaints of a fever. The patient states that he has been experiencing a fever for the past 3 days. The patients reports that the patient received chemotherapy at [place] on . She states that the patient has lymphoma. She reports that the patient has appeared weaker after they returned from [place]. The patient denies taking any Tylenol. He states that he started Zepro yesterday, but states that he became disoriented so he did not take his dosage today. He notes that his oncologist is Dr. Gaming at [place]. Pt denies LOC, headache, chills, diaphoresis, visual changes, neck pain, chest pain, breathing difficulties, nausea, vomiting, abdominal pain, back pain, melena, hematochezia, urinary symptoms, numbness, lymphadenopathy, rash, or other complaints. REVIEW OF SYSTEMS: See HPI for pertinent positives and negatives. A total of ten systems were revi ewed and were otherwise negative. PMHx/PSHx: Lymphoma SOCIAL HISTORY: Patient lives at home. PHYSICAL EXAM: GENERAL: Awake, alert, tired-appearing, in no distress, port in right upper chest. HENT: Normocephalic, atraumatic. Oropharynx unremarkable. EYES: PERRL. Normal conjunctiva. Sclera non-icteric. NECK: Inspection normal. Non-tender. Supple. No nuchal rigidity. FROM. No masses. RESPIRATORY: Clear to auscultation. No wheezes. No rales. Normal respiratory ef fort. CARDIAC: Normal rate. Normal rhythm. No murmurs. No rubs. Extremities warm and well perfused. Pulses equal. No JVD. GI: Soft, non-distended. No tenderness to palpation. No rebound or guarding. No masses. RECTAL: Deferred. MUSCULOSKELETAL: Atraumatic. Chest examination reveals no tenderness. The back is symmetrical on inspection without obvious abnormality. There is no CVA tenderness to palpation. No joint edema. LOWER EXTREMITIES: Calves are equal size bilaterally and non-tender. No edema. No discoloration. NEURO: Normal sensorium. No sensory or motor deficits noted. SKIN: No rash or jaundice noted. EMERGENCY DEPARTMENT COURSE: 1355: Past medical records reviewed. The patient was evaluated in room A11B, and a complete history and physical examination were performed. 1545: I discussed the patient's case with Dr. Gaming- [facility]. 1552: I revaluated the patient and updated him on his results, he is resting comfortably. 1558: I discussed the patient's case with Dr. Gaming, she recommends that the patient will be admitted to [facility] for further evaluation. 1558: I reviewed the patient's case with Brain Putnam. Dr. Janie Putnam Hospitalist will evaluate the patient for further management. MEDICAL DECISION MAKING: Triage Nursing notes reviewed and agree them. Additional history obtained from family. The patient's history was concerning for fever and recent chemotherapy Differential diagnosis: Etiologies such febrile neutropenia, malignancy, pneumonia, influenza,men ingitis, urinary tract infection, sepsis, bacteremia, viral syndrome, as well as others were entertained. Physical examination: Patient was non--appearing with no focal findings. ER treatment provided: Oral Tylenol IV cefepime IV vancomycin On reassessment the patient felt better. Diagnostics interpreted by me: ECG: No acute ischemia. The labs revealed a normal white blood cell count in total however the patient was neutropenic with an ANC of 0.20. The patient does have mild anemia. He is significantly thrombocytopenic with a platelet count of 7. His chemistry panel and troponin were negative. Urinalysis pending. Imaging studies: Chest x-ray negative. Consultation: A consultation was placed with the patient's oncologist, Venita. The case was discussed and diagnostics were reviewed. She recommended IV cefepime and vancomycin with monitoring here. The patient and family were in agreement. A consultation was placed with the [facility] hospitalist, Dr. Mcgrath. The case was discussed and diagnostics were reviewed. [facility] recommendations given. The patient was evaluated in the ER for further treatment. IMPRESSION: Fever, neutropenia, thrombocytopenia, history of NHL PLAN: Admitted. The scribe's documentation has been prepared under my direction and personally reviewed by me in its entirety. I confirm that the note above accurately reflects all work, treatment, procedures, and medical decision making performed by me. Impression & Plan Fever, Neutropenia, Thrombocytopenia, History of non-Hodgkin's lymphoma Past Med/Surg History Medical History Balance disorder (Acute) Benign prostatic hyperplasia with urinary obstruction (Acute) Cellulitis (Acute) Chronic pain (Acute) Coronary artery calcification (Acute) Cough (Acute) Depression with anxiety (Acute) Dermatitis (Acute) Elevated prolactin level (Acute) Fatigue (Acute) Herpes zoster (Acute) History of adenocarcinoma of lung (Acute) Infected sebaceous cyst (Acute) Lightheadedness (Acute) Low back pain (Acute) Lymphoma, small lymphocytic (Acute) Mild cognitive impairment (Acute) Obesity, Class I, BMI 30-34.9 (Acute) Pituitary hypothyroidism (Acute) Pituitary neoplasm (Acute) Pruritus (Acute) Seroma complicating a procedure (Acute) Non-Hodgkin lymphoma (Resolved) Anxiety (Acute) Erectile dysfunction (Acute) Glaucoma (Acute) Nephrolithiasis (Acute) Pituitary hypogonadism (Acute) Restless leg syndrome (Acute) Vitamin D deficiency (Acute) Encounter for pre-operative examination (Acute) Carcinoma of tonsil, palatine (Acute) Expected difficult intubation (Acute) Related to tonsillar mass, likely cancer. HTN (hypertension) (Chronic) BPH (benign prostatic hyperplasia) (Acute) Depression (Acute) History of pituitary tumor (Acute) Hypothyroidism Insomnia Lung cancer Postherpetic neuralgia Cancer LUNG CANCER BCC AND SCC TONSILLAR CANCER (RECENT DX) CHEMO CURRENTLY Chronic back pain Chronic obstructive pulmonary disease "MILD" GERD (gastroesophageal reflux disease) Glaucoma Kidney stones Non-Hodgkin lymphoma CHEMO (2017) Obesity Osteoarthritis Surgical History Difficult intubation DIRECT LARYNGOSCOPY/BIOPSY= 05/15/18= MULTIPLE ATTEMPTS AT [facility]. PATIENT GIVEN GLYCO FOR SECRETIONS THEN TRANSTRACHEAL BLOCK. SUCCESSFUL ETT 7. SEE ANESTHESIA PROGRESS NOTE 05/15/18 FOR FURTHER ANESTHESIA INTUBATION DETAILS. S/P lobectomy of lung H/O lymph node biopsy History of ankle surgery History of arthroscopy B/L KNEE History of cataract surgery B/L History of colonoscopy History of esophagogastroduodenoscopy History of knee surgery History of laryngoscopy DIRECT LARYNGOSCOPY/BIOPSY= 05/15/18 AT [facility] History of lithotripsy History of lobectomy of lung RT LOBE History of tooth extraction Family History Brother Cancer Mother Dementia Hypertension Social History Preferred Language: [place] Communication Ability: Effective Visual Impairment: No Limitations Cupola Patcher Helper Required: No Beliefs That Will Affect Care: None and Buddhism Buddhism Beliefs: Yazidi Current Living Situation: Spouse Feels Safe at Home: Yes Safety Concerns: Feels Safe At This Time Smoking Status: Never smoker Tobacco Type: smokeless tobacco Cigarettes Per Day: QUIT "MANY" YEARS AGO Second Hand Exposure: No Hx Alcohol Use: No Hx Substance Use: No Results & Data Vital Signs Vital Signs - 24 hr 03/14/19 13:01 03/14/19 14:19 03/14/19 14:21 Temperature 38.2 C H Temperature Source Oral Sepsis Recent Fever Within 48 Hours Yes Sepsis New/Unexplained Change in Mental Status Yes Sepsis Action Taken by Nursing No Action Required Pulse Rate 82 80 78 Pulse Rate from SpO2 Sensor 80 77 Respiratory Rate 20 23 26 H Blood Pressure 111/74 119/69 Blood Pressure Mean 86 85 Blood Pressure Position Sitting Pulse Oximetry 96 96 97 Oxygen Delivery Method 03/14/19 14:30 03/14/19 14:31 03/14/19 15:00 Temperature Temperature Source Sepsis Recent Fever Within 48 Hours Sepsis New/Unexplained Change in Mental Status Sepsis Action Taken by Nursing Pulse Rate 75 82 77 Pulse Rate from SpO2 Sensor 76 81 77 Respiratory Rate 17 25 H 13 Blood Pressure 111/65 102/66 Blood Pressure Mean 80 78 Blood Pressure Position Pulse Oximetry 97 96 96 Oxygen Delivery Method Room Air 03/14/19 15:30 03/14/19 16:00 03/14/19 16:30 Temperature Temperature Source Sepsis Recent Fever Within 48 Hours Sepsis New/Unexplained Change in Mental Status Sepsis Action Taken by Nursing Pulse Rate 75 75 74 Pulse Rate from SpO2 Sensor 75 74 74 Respiratory Rate 13 27 H 29 H Blood Pressure 114/70 111/66 102/57 L Blood Pressure Mean 84 81 72 Blood Pressure Position Pulse Oximetry 96 95 96 Oxygen Delivery Method Room Air Room Air Room Air 03/14/19 17:00 03/14/19 17:14 03/14/19 17:30 Temperature Temperature Source Sepsis Recent Fever Within 48 Hours Sepsis New/Unexplained Change in Mental Status Sepsis Action Taken by Nursing Pulse Rate 76 74 Pulse Rate from SpO2 Sensor 74 74 Respiratory Rate 15 17 Blood Pressure 99/49 L 97/53 L Blood Pressure Mean 65 67 Blood Pressure Position Pulse Oximetry 96 95 Oxygen Delivery Method Room Air Room Air Room Air Home Medications Current Medication List: was personally reviewed by me Laboratory Data Attestation: I reviewed the patient's lab results. Result diagrams: 03/14/19 13:59 03/14/19 13:59 Lab Results 03/14/19 03/14/19 03/14/19 Range/Units 13:59 13:59 Unknown WBC 5.84 (4.8-10.8) K/uL RBC 3.56 L (4.7-6.1) M/uL Hgb 11.0 L (14.0-18.0) g/dL Hct 32.7 L (42-52) % MCV 91.9 (80-100) fL MCH 30.9 (25-34) pg MCHC 33.6 (32-36) g/dL RDW Std Deviation 49.1 H (36.4-46.3) fL RDW Coeff of Sveta 14.5 (11.5-14.5) % Plt Count 7 L* (130-400) K/uL Neutrophils % (Manual) 3.5 % Lymphocytes % (Manual) 89.3 % Monocytes % (Manual) 2.7 % Eosinophils % (Manual) 2.7 % Basophils % (Manual) 1.8 % Neutrophils # (Manual) 0.20 L (1.4-6.5) K/uL Total Absolute Neuts 0.20 L* (1.4-6.5) K/uL Lymphocytes # (Manual) 5.22 H (1.2-3.4) K/uL Total Abs Lymphocytes 5.22 H (1.2-3.4) K/uL Monocytes # (Manual) 0.16 (0.11-0.59) K/uL Eosinophils # (Manual) 0.16 (0-0.5) K/uL Basophils # (Manual) 0.11 (0-0.2) K/uL Toxic Granulation 1+ Sodium 134 L (136-145) mmol/L Potassium 3.8 (3.5-5.1) mmol/L Chloride 103 (98-107) mmol/L Carbon Dioxide 26 (21-32) mmol/L Anion Gap 5 (3-11) BUN 12 (7-18) mg/dl Creatinine 1.06 (0.6-1.4) mg/dl Est Cr Clr Drug Dosing 66.5 ml/min Est GFR ( Amer) 77.5 Est GFR (Non-Af Amer) 66.9 BUN/Creatinine Ratio 11.3 (10-20) Glucose 86 (70-99) mg/dl Calcium 8.2 L (8.5-10.1) mg/dl Total Bilirubin 1.4 H (0.2-1) mg/dl AST 36 (15-37) U/L ALT 59 (12-78) U/L Alkaline Phosphatase 109 (45-117) U/L Troponin I < 0.015 (0-0.045) ng/ml Total Protein 6.2 L (6.4-8.2) gm/dl Albumin 3.1 L (3.4-5.0) gm/dl Globulin 3.1 (2.5-4.0) gm/dl Albumin/Globulin Ratio 1.0 (0.9-2) Urine Color [place] Urine Appearance Cloudy A (Clear) Urine pH 5.5 (4.5-7.5) Ur Specific [place] 1.018 (1.000-1.030) Urine Protein Trace H (Negative) Urine Glucose (UA) Negative (Negative) Urine Ketones Negative (Negative) Urine Blood Trace H (Negative) Urine Nitrite Negative (Negative) Urine Bilirubin Negative (Negative) Urine Urobilinogen Negative (Negative) Ur Leukocyte Esterase Negative (Negative) Urine WBC (Auto) 1-5 (0-5) /hpf Urine RBC (Auto) 5-10 H (0-4) /hpf U Hyaline Cast (Auto) 10-30 H (0-5) /lpf U Epithel Cells (Auto) 20-30 H (0-5) /lpf Urine Bacteria (Auto) Negative (Negative) Administered Medications Sodium Chloride (Nss 1000ml) 1,000 mls @ 125 mls/hr IV .Q8H STA Stop: 03/14/19 21:28 Last Admin: 03/14/19 14:16 Dose: 125 mls/hr Documented by: [id number] Vancomycin HCl 2,000 mg/ (Sodium Chloride) 540 mls @ 200 mls/hr IV NOW ONE; Protocol Stop: 03/14/19 18:46 Last Admin: 03/14/19 16:46 Dose: 200 mls/hr Documented by: [id number] Discontinued Medications Acetaminophen (Tylenol) 1,000 mg PO NOW STA Stop: 03/14/19 13:57 Last Admin: 03/14/19 14:16 Dose: 1,000 mg Documented by: [id number] Cefepime HCl (Maxipime) 2,000 mg in 20 mls @ 5 mls/min IV NOW STA; Protocol Stop: 03/14/19 15:51 Last Admin: 03/14/19 16:45 Dose: 5 mls/min Documented by: [id number] Imaging Data Radiologist's Impression: Radiology results as stated below per my review and the radiologist's interpretation: XR chest 1V portable CLINICAL HISTORY: 78 years-old Male presenting with fever. TECHNIQUE: Portable upright AP view of the chest was obtained. COMPARISON: 05/23/2018. FINDINGS: Right internal jugular Mediport terminates in the right brachiocephalic vein. Atherosclerosis of the aortic arch. Cardiac silhouette mildly enlarged. Suture margin projects over the right hilum. No focal opacity. No large effusion or pneumothorax. Degenerative changes of the thoracic spine. Upper abdomen normal. IMPRESSION: 1. Postsurgical changes of the right lung suspected. No acute cardiopulmonary disease. Electronically signed by: Brent Avilez M.D. 03/14/2019 2:09 PM ECG Data Attestation: I personally reviewed and interpreted this ECG as follows: Indication: weakness Rate (beats per minute): 82 Rhythm: normal sinus Findings: no PAC, no PVC, no ST depression and no ST elevation Blood Pressure Blood Pressure Findings: Normal blood pressure Blood Pressure Disposition: did not require urgent referral Discharge Plan Visit Data Chief Complaint: Fever Stated Complaint: FEVER,STIFFNESS, ON CHEMO ED Provider: Ramírez Cortés Discharge Problem: Fever, Neutropenia, Thrombocytopenia, History of non-Hodgkin's lymphoma Patient Disposition: Being Evaluated by Hospitalist Forms Stand Alone Forms: My [employer] Prescriptions Prescriptions: No Action albuterol sulfate 90 mcg/actuation HFA aerosol inhaler 2 puff INHALATION Q4H PRN (Reason: Wheezing) Qty: 18 RF: 2 cabergoline 0.5 mg tablet 0.25 mg PO DIRECTED Qty: 8 RF: 1 levothyroxine 125 mcg capsule 125 mcg PO QAM Qty: 90 RF: 0 multivitamin tablet 1 tab PO DAILY Qty: 90 RF: 0 ondansetron 8 mg tablet,disintegrating 8 mg PO Q8H PRN (Reason: Nausea) Qty: 10 RF: 0 ropinirole 2 mg tablet 2 mg PO HS Qty: 90 RF: 0 fluticasone propion-salmeterol [Advair Diskus] 250-50 mcg/dose blister with device 1 puffs INH BID Qty: 60 RF: 3 aspirin [Adult Aspirin Regimen] 81 mg tablet,delayed release (DR/EC) 81 mg PO DAILY Qty: 90 RF: 3 diclofenac sodium [Voltaren] 1 % gel 2 gm TOP ONCE Qty: 100 RF: 0 fluocinonide 0.05 % ointment 1 appln TOP BID Qty: 30 RF: 1 hydroxyzine HCl 25 mg tablet 25 mg PO HS PRN (Reason: insomnia) Qty: 60 RF: 2 metronidazole [MetroLotion] 0.75 % lotion 1 appln TOP BID Qty: 59 RF: 0 triamcinolone acetonide 0.1 % cream 1 appln TOP BID Qty: 80 RF: 3 acyclovir 400 mg tablet 400 mg PO BID RF: 0 ciprofloxacin HCl 500 mg tablet 500 mg PO BID RF: 0 Refresh Tears 0.5 % Drops 1 drp OPB TID RF: 0 allopurinol 300 mg tablet 300 mg PO QAM RF: 0 gabapentin 100 mg capsule 200 mg PO HS RF: 0 fluticasone propionate 50 mcg/actuation spray,suspension 2 sprays INTNAS DAILY PRN (Reason: Congestion) RF: 0 cholecalciferol (vitamin D3) 1,000 unit capsule 1,000 units PO QDL RF: 0 testosterone cypionate 200 mg/mL Kit 1.25 ml IM MONTHLY RF: 0 Referrals Referrals: Ryne Corrigan MD [Primary Care Provider] - Discharge Problem: Fever Qualifiers: Fever type: unspecified Qualified Code(s): R50.9 - Fever, unspecified Neutropenia Qualifiers: Neutropenia type: unspecified Qualified Code(s): D70.9 - Neutropenia, unspecified The scribe's documentation has been prepared under my direction and personally reviewed by me in its entirety. I confirm that the note above accurately reflects all work, treatment, procedures, and medical decision making performed by me.
[2019-03-14] MEDS ORDERED: FLUTICASONE PROPIONATE NA SPR 16 GM BTL NAE PRN (19:29)
[2019-03-14] MEDS ORDERED: ONDANSETRON 8MG OD TAB PO PRN (19:29)
--- NOTE | 2019-03-14 20:39 | Pharmacy Report ---
Pharmacy Abx Dose Short Note - Date of Service March 14, 2019 - Assessment & Plan A/p Vanco/Cefepime ordered empirically. Pt's population p'kinetics: t1/2=11.5, ke=0.06. Vanco 2000mg IV x1 given in ER then Vanco (13mg/kg) q12 will check trough 03/16/19 @1530, reflective of Css goal trough 15-20mcg/mL Pharmacy will continue to follow and will adjust dose/frequency as necessary. Thank you.
[2019-03-14] MEDS: FLUTICASONE/SALMETEROL 250/50 (ADVAIR) 14 PUFF/1 INHALER INH SCH (21:07)
[2019-03-14] MEDS: TRIAMCINOLONE ACET 0.1% CR 15 GM TUBE TOP SCH (21:08)
[2019-03-14] MEDS: metroNIDAZOLE 0.75% TOPICAL GEL 45 GM TUBE TOP SCH (21:09)
[2019-03-14] MEDS: ARTIFICIAL TEARS OP OINT 3.5 GM TUBE OPB SCH (21:09)
[2019-03-14] MEDS: GABAPENTIN 100 MG CAP PO SCH (21:10)
[2019-03-14] MEDS: ROPINIROLE HCL 1 MG TABLET PO SCH (21:11)
[2019-03-14] MEDS: DICLOFENAC SOD 1% GEL 100 GM TUBE EXT SCH (21:11)
[2019-03-14] MEDS: FLUOCINONIDE 0.05% OINT 15 GM TUBE EXT SCH (21:12)
[2019-03-14] MEDS: ACYCLOVIR 400 MG TAB PO SCH (21:12)
[2019-03-14] MEDS ORDERED: ACETAMINOPHEN 325 MG TAB PO PRN (23:48)
[2019-03-15] MEDS: CEFEPIME 1,000 MG in SYRINGE 0 ML IV SCH ×4 (00:44→23:35)
[2019-03-15] MEDS: VANCOMYCIN HCL 1,250 MG in SODIUM CHLORIDE 0.9% 250 ML IV SCH ×2 (04:04→16:02)
[2019-03-15 05:12] LABS: Albumin Level 2.9 gm/dl (3.4-5.0); Calcium 8.1 mg/dl (8.5-10.1); Creatinine Clr Calc Pharmacy 67.7 ml/min; Est GFR (African American) 79.3; Est GFR (Non-African American) 68.4
[2019-03-15 05:15] LABS: Bilirubin,Total 1.4 mg/dl (0.2-1); Globulin 2.9 gm/dl (2.5-4.0); Total Protein 5.8 gm/dl (6.4-8.2)
[2019-03-15] MEDS: LEVOTHYROXINE SODIUM 125 MCG TABLET PO SCH (05:42)
[2019-03-15 06:09] LABS: Hematocrit (blood only) 30.7 % (42-52); Hemoglobin 10.4 g/dL (14.0-18.0); Mean Corpuscular Hgb Conc 33.9 g/dL (32-36); Mean Corpuscular Volume 91.9 fL (80-100); Mean Platelet Volume 9.8 fL (7.4-10.4); Platelet Count 4 K/uL (130-400); RDW Coefficient of Variation 14.6 % (11.5-14.5); RDW Standard Deviation 48.9 fL (36.4-46.3); Red Blood Count 3.34 M/uL (4.7-6.1); White Blood Count 4.84 K/uL (4.8-10.8)
[2019-03-15 06:11] LABS: Platelet Estimate SIGNIFIC DECREASED (Normal); Toxic Granulation 2+
[2019-03-15 06:13] LABS: ALC (manual) 4.12 K/uL (1.2-3.4); Lymphocytes # (manual) 4.12 K/uL (1.2-3.4); Lymphocytes % (manual) 85.1 %; Monocytes # (manual) 0.04 K/uL (0.11-0.59); Monocytes % (manual) 0.9 %
[2019-03-15 07:28] LABS: INR 1.2 (0.9-1.1); Prothrombin Time 11.7 Seconds (9.0-12.0)
[2019-03-15] MEDS: FLUTICASONE/SALMETEROL 250/50 (ADVAIR) 14 PUFF/1 INHALER INH SCH ×2 (08:57→19:59)
[2019-03-15] MEDS: ALLOPURINOL 300 MG TAB PO SCH (08:57)
[2019-03-15] MEDS: MULTIVITAMIN TAB PO SCH (08:57)
[2019-03-15] MEDS: ACYCLOVIR 400 MG TAB PO SCH ×2 (08:57→20:01)
[2019-03-15] MEDS: ARTIFICIAL TEARS OP OINT 3.5 GM TUBE OPB SCH ×3 (09:00→20:04)
[2019-03-15] MEDS: FLUOCINONIDE 0.05% OINT 15 GM TUBE EXT SCH ×2 (09:00→20:04)
[2019-03-15] MEDS ORDERED: ASPIRIN 81 MG ECTAB PO SCH (09:00)
[2019-03-15] MEDS: TRIAMCINOLONE ACET 0.1% CR 15 GM TUBE TOP SCH ×2 (09:00→20:00)
[2019-03-15] MEDS ORDERED: ENOXAPARIN INJ 40 MG/0.4 ML SYR SQ SCH (09:00)
[2019-03-15] MEDS: DICLOFENAC SOD 1% GEL 100 GM TUBE EXT SCH ×2 (09:01→20:00)
[2019-03-15] MEDS: metroNIDAZOLE 0.75% TOPICAL GEL 45 GM TUBE TOP SCH ×2 (09:01→20:04)
[2019-03-15] MEDS: CHOLECALCIFEROL 1,000 UNITS TAB PO SCH (10:45)
[2019-03-15 11:37] LABS: Influenza A virus by PCR Neg for Influ A (Neg); Influenza B virus by PCR Neg for Influ B (Neg)
[2019-03-15] MEDS ORDERED: SODIUM CHLORIDE 0.9% 250 ML IV PRN (15:16)
--- NOTE | 2019-03-15 16:25 | Hospitalist Progress Note ---
Date of Service March 15, 2019 Assessment & Plan (1) Fever: - Neutropenic fever following recent chemotherapy; has been afebrile >12 hours. - U/a negative; BC negative to date; CXR negative for PNA. - Continue Cefepime and Vancomycin IV for empiric coverage. - ID ppx: Acyclovir BID; does not currently take fungal ppx. - Follows with Dr. George Newberry, consider inpt consult. - Consider additional work up if fevers persist. (2) History of non-Hodgkin's lymphoma: - H/o Large B-Cell lymphoma, initially diagnosed in 2007. - Previously received R-CHOP; started cycle 1 ICE (has not received Rituximab infusion yet during cycle) from 03/04-03/07. - S/p Neulasta on 03/08/19. - [place] with Dr. George Newberry at [facility] and [place] [facility] [place] (3) Neutropenia: - In setting of recent chemotherapy (cycle 1 ICE). - Monitor CBC with diff daily. (4) Thrombocytopenia: - In setting of recent chemotherapy; plt count 4K today. - Will transfuse 1 unit platelets. - No evidence of active bleeding at this time. (5) History of adenocarcinoma of lung: - Right upper lobe adenocarcinoma S/PE resection followed by lobectomy and mediastinal lymph node dissection, November [address] Marcano. (6) History of pituitary tumor: - History of such in 2001, s/p resection - Patient is on testosterone and thyroid hormone replacement therapy - Continue cabergoline 0.25 mg UD (7) Pituitary hypothyroidism: - Followed as outpatient. - Continue Levothyroxine 125 mcg daily. - Most recent TSH is not documented -- likely obtained at outside hospital. (8) Pituitary hypogonadism: - Followed as outpatient. (9) Benign prostatic hyperplasia with urinary obstruction: - Developed urinary incontinence, notes this specifically with R-CHOP therapy. - Will monitor. (10) Vitamin D deficiency: - Continue vitamin D supplementation (11) Restless leg syndrome: - Continue Requip and Gabapentin as prescribed. (12) Depression with anxiety: - Cont hydroxyzine 25 mg qhs. (13) Coronary artery calcification: - Hold ASA in setting of thrombocytopenia. (14) Postherpetic neuralgia: - S/p herpes zoster; continue Acyclovir BID. (15) Gout: - Continue allopurinol. (16) DVT prophylaxis: - SCDs; hold pharmacologic ppx in setting of thrombocytopenia. Dispo: Discharge to home pending resolution of fevers (>24 hours). Supervising Physician Co-Signing Physician Notes Attending Attestation - Pt seen/examined, chart reviewed, care plan d/w LAILA Mccall. I agree w/ the lopez components of her documentation. Pt w/o fevers/chills. NO abd pain, cough, vomiting, rashes, etc. Tele stable overnight. Blood cx's neg to date. Flu PCR negative. Consent obtained during my visit to give platelet transfusion today. Exam- gen - looks younger than stated age, NAD, nontoxic mouth - no thrush, no mucositis heart - RRR, s1, s2 lungs - CTA b/l abd - soft NT ND BS+ ext - no edema A/P: Large B-Cell lymphoma - currently under Rx via [facility]. Neutropenic fever - fever resolved, cultures neg to date but not yet at 48 hours. Cont empiric antibiotics. Severe chemotherapy-associated thrombocytopenia - Tx 1 unit of apheresed platelets, irradiated. CBC in am. Bleeding precautions. Santos Barrientos MD Subjective Afebrile >12 hours. Pt. is feeling slightly better overall, more "coherent" today. Is eating/drinking as tolerated. Has cough with exertion, denies sputum production. C/o SOB with heavy exertion. Denies abd pain; last BM was yesterday. Review of Systems Review of Systems: All systems reviewed & are unremarkable except as noted in HPI & below Constitutional: + fever, + fatigue and + weakness; no chills and no anorexia Respiratory: + cough and + dyspnea on exertion; no dyspnea and no sputum production Cardiovascular: no chest pain, no palpitations and no edema Gastrointestinal: no abdominal pain, no nausea, no vomiting and no constipation Genitourinary: no dysuria and no difficulty urinating Musculoskeletal: no back pain and no joint pain Integumentary: no non-healing lesions Allergy / Immunological: no rash Physical Exam Physical Exam: General: Resting comfortably HEENT: NC/AT; PERRLA with EOMI; [place] conjunctiva, MMM. No erythema of posterior pharynx Neck: Supple and nontender Cardiac: RRR Lungs: CTA bilaterally; No rhonchi, wheezing, or rales Abdomen: Bowel normoactive X 4; Nontender to palpation Extremities: Warm. No edema present Neuro: No focal weakness Skin: No rash Results & Data Vital Signs (Past 12 Hours) Vital Signs Temp Pulse Pulse Resp BP Pulse Ox 03/15/19 11:02 36.7 C 94 H 19 103/66 96 03/15/19 08:00 73 03/15/19 07:12 36.8 C 81 20 102/63 98 Laboratory Results 03/15/19 03/15/19 03/15/19 Range/Units 10:40 07:05 04:42 WBC (4.8-10.8) K/uL RBC (4.7-6.1) M/uL Hgb (14.0-18.0) g/dL Hct (42-52) % MCV (80-100) fL MCH (25-34) pg MCHC (32-36) g/dL RDW Std Deviation (36.4-46.3) fL RDW Coeff of Sveta (11.5-14.5) % Plt Count (130-400) K/uL MPV (7.4-10.4) fL Neutrophils % (Manual) % Lymphocytes % (Manual) % Monocytes % (Manual) % Neutrophils # (Manual) (1.4-6.5) K/uL Total Absolute Neuts (1.4-6.5) K/uL Lymphocytes # (Manual) (1.2-3.4) K/uL Total Abs Lymphocytes (1.2-3.4) K/uL Monocytes # (Manual) (0.11-0.59) K/uL Toxic Granulation Platelet Estimate (Normal) PT 11.7 (9.0-12.0) Seconds INR 1.2 H (0.9-1.1) Sodium 137 (136-145) mmol/L Potassium 4.0 (3.5-5.1) mmol/L Chloride 106 (98-107) mmol/L Carbon Dioxide 26 (21-32) mmol/L Anion Gap 5.0 (3-11) BUN 11 (7-18) mg/dl Creatinine 1.04 (0.6-1.4) mg/dl Est Cr Clr Drug Dosing 67.7 ml/min Est GFR ( Amer) 79.3 Est GFR (Non-Af Amer) 68.4 BUN/Creatinine Ratio 11.0 (10-20) Glucose 88 (70-99) mg/dl Calcium 8.1 L (8.5-10.1) mg/dl Total Bilirubin 1.4 H (0.2-1) mg/dl AST 25 (15-37) U/L ALT 50 (12-78) U/L Alkaline Phosphatase 94 (45-117) U/L Total Protein 5.8 L (6.4-8.2) gm/dl Albumin 2.9 L (3.4-5.0) gm/dl Globulin 2.9 (2.5-4.0) gm/dl Albumin/Globulin Ratio 1.0 (0.9-2) Urine Color Urine Appearance (Clear) Urine pH (4.5-7.5) Ur Specific [place] (1.000-1.030) Urine Protein (Negative) Urine Glucose (UA) (Negative) Urine Ketones (Negative) Urine Blood (Negative) Urine Nitrite (Negative) Urine Bilirubin (Negative) Urine Urobilinogen (Negative) Ur Leukocyte Esterase (Negative) Urine WBC (Auto) (0-5) /hpf Urine RBC (Auto) (0-4) /hpf U Hyaline Cast (Auto) (0-5) /lpf U Epithel Cells (Auto) (0-5) /lpf Urine Bacteria (Auto) (Negative) Influenza Type A (PCR) Neg for Influ A (Neg) Influenza Type B (PCR) Neg for Influ B (Neg) Flow Cytometry Comment 03/15/19 03/14/19 03/14/19 Range/Units 04:42 Unknown 16:25 WBC 4.84 (4.8-10.8) K/uL RBC 3.34 L (4.7-6.1) M/uL Hgb 10.4 L (14.0-18.0) g/dL Hct 30.7 L (42-52) % MCV 91.9 (80-100) fL MCH 31.1 (25-34) pg MCHC 33.9 (32-36) g/dL RDW Std Deviation 48.9 H (36.4-46.3) fL RDW Coeff of Sveta 14.6 H (11.5-14.5) % Plt Count 4 L* (130-400) K/uL MPV 9.8 (7.4-10.4) fL Neutrophils % (Manual) 14.0 % Lymphocytes % (Manual) 85.1 % Monocytes % (Manual) 0.9 % Neutrophils # (Manual) 0.68 L (1.4-6.5) K/uL Total Absolute Neuts 0.68 L* (1.4-6.5) K/uL Lymphocytes # (Manual) 4.12 H (1.2-3.4) K/uL Total Abs Lymphocytes 4.12 H (1.2-3.4) K/uL Monocytes # (Manual) 0.04 L (0.11-0.59) K/uL Toxic Granulation 2+ Platelet Estimate SIGNIFIC DECREASED (Normal) PT (9.0-12.0) Seconds INR (0.9-1.1) Sodium (136-145) mmol/L Potassium (3.5-5.1) mmol/L Chloride (98-107) mmol/L Carbon Dioxide (21-32) mmol/L Anion Gap (3-11) BUN (7-18) mg/dl Creatinine (0.6-1.4) mg/dl Est Cr Clr Drug Dosing ml/min Est GFR ( Amer) Est GFR (Non-Af Amer) BUN/Creatinine Ratio (10-20) Glucose (70-99) mg/dl Calcium (8.5-10.1) mg/dl Total Bilirubin (0.2-1) mg/dl AST (15-37) U/L ALT (12-78) U/L Alkaline Phosphatase (45-117) U/L Total Protein (6.4-8.2) gm/dl Albumin (3.4-5.0) gm/dl Globulin (2.5-4.0) gm/dl Albumin/Globulin Ratio (0.9-2) Urine Color [place] Urine Appearance Cloudy A (Clear) Urine pH 5.5 (4.5-7.5) Ur Specific [place] 1.018 (1.000-1.030) Urine Protein Trace H (Negative) Urine Glucose (UA) Negative (Negative) Urine Ketones Negative (Negative) Urine Blood Trace H (Negative) Urine Nitrite Negative (Negative) Urine Bilirubin Negative (Negative) Urine Urobilinogen Negative (Negative) Ur Leukocyte Esterase Negative (Negative) Urine WBC (Auto) 1-5 (0-5) /hpf Urine RBC (Auto) 5-10 H (0-4) /hpf U Hyaline Cast (Auto) 10-30 H (0-5) /lpf U Epithel Cells (Auto) 20-30 H (0-5) /lpf Urine Bacteria (Auto) Negative (Negative) Influenza Type A (PCR) (Neg) Influenza Type B (PCR) (Neg) Flow Cytometry Comment Pending PG Care Time/CCT Total # of Minutes Spent Total Time Spent with Patient: Total time spent is greater than 50% in coordination of care (as documented) at patient's floor/unit and/or counseling patient: (1) Fever Fever type: unspecified Qualified Code(s): R50.9 - Fever, unspecified (2) Neutropenia Neutropenia type: unspecified Qualified Code(s): D70.9 - Neutropenia, unspecified
[2019-03-15] MEDS: GABAPENTIN 100 MG CAP PO SCH (20:00)
[2019-03-15] MEDS: ROPINIROLE HCL 1 MG TABLET PO SCH (20:01)
[2019-03-16] MEDS ORDERED: HEPARIN 100 UNIT/ML 5ML FLUSH FLUSH PRN (00:50)
[2019-03-16] MEDS: VANCOMYCIN HCL 1,250 MG in SODIUM CHLORIDE 0.9% 250 ML IV SCH (04:15)
[2019-03-16 05:41] LABS: BUN Creatinine Ratio 9.4 (10-20); Calcium 8.5 mg/dl (8.5-10.1); Creatinine Clr Calc Pharmacy 73.1 ml/min; Est GFR (African American) 86.3; Est GFR (Non-African American) 74.5
[2019-03-16 05:43] LABS: Albumin Globulin Ratio 0.9 (0.9-2); Bilirubin,Total 1.3 mg/dl (0.2-1); Globulin 3.2 gm/dl (2.5-4.0); Total Protein 6.2 gm/dl (6.4-8.2)
[2019-03-16 05:44] LABS: Hematocrit (blood only) 30.6 % (42-52); Hemoglobin 10.3 g/dL (14.0-18.0); Mean Corpuscular Hgb Conc 33.7 g/dL (32-36); Mean Corpuscular Volume 92.2 fL (80-100); Mean Platelet Volume 11.6 fL (7.4-10.4); Platelet Count 12 K/uL (130-400); RDW Coefficient of Variation 14.5 % (11.5-14.5); RDW Standard Deviation 48.9 fL (36.4-46.3); Red Blood Count 3.32 M/uL (4.7-6.1); White Blood Count 5.15 K/uL (4.8-10.8)
[2019-03-16] MEDS: LEVOTHYROXINE SODIUM 125 MCG TABLET PO SCH (06:12)
[2019-03-16 06:16] LABS: Basophils # (auto) 0.01 K/uL (0-0.2); Basophils % (auto) 0.2 %; Dohle Bodies 2+; Eosinophils # (auto) 0.08 K/uL (0-0.5); Eosinophils % (auto) 1.6 %; Immature Granulocytes # (auto) 0.07 K/uL (0.00-0.02); Immature Granulocytes % (auto) 1.4 %; Lymphocytes # (auto) 2.77 K/uL (1.2-3.4); Lymphocytes % (auto) 53.8 %; Monocytes # (auto) 0.44 K/uL (0.11-0.59); Monocytes % (auto) 8.5 %; Neutrophils # (auto) 1.78 K/uL (1.4-6.5); Neutrophils % (auto) 34.5 %; Polychromasia 1+; Toxic Granulation 2+
[2019-03-16] MEDS: TRIAMCINOLONE ACET 0.1% CR 15 GM TUBE TOP SCH (08:37)
[2019-03-16] MEDS: metroNIDAZOLE 0.75% TOPICAL GEL 45 GM TUBE TOP SCH (08:37)
[2019-03-16] MEDS: FLUTICASONE/SALMETEROL 250/50 (ADVAIR) 14 PUFF/1 INHALER INH SCH ×2 (08:37→08:57)
[2019-03-16] MEDS: FLUOCINONIDE 0.05% OINT 15 GM TUBE EXT SCH (08:38)
[2019-03-16] MEDS: ARTIFICIAL TEARS OP OINT 3.5 GM TUBE OPB SCH (08:38)
[2019-03-16] MEDS: MULTIVITAMIN TAB PO SCH (08:39)
[2019-03-16] MEDS: ACYCLOVIR 400 MG TAB PO SCH (08:39)
[2019-03-16] MEDS: ALLOPURINOL 300 MG TAB PO SCH (08:39)
[2019-03-16] MEDS: DICLOFENAC SOD 1% GEL 100 GM TUBE EXT SCH (08:40)
[2019-03-16] MEDS: CEFEPIME 1,000 MG in SYRINGE 0 ML IV SCH (09:08)
[2019-03-16] MEDS ORDERED: CIPROFLOXACIN 500 MG TAB PO SCH (09:15)
[2019-03-16] MEDS: CHOLECALCIFEROL 1,000 UNITS TAB PO SCH (13:50)
--- NOTE | 2019-03-16 14:51 | Discharge Summary ---
Date of Service March 16, 2019 Admission HPI Per Admitting Provider This is a 78 yo M with PMHx of NHL, currently undergoing treatment, BPH, chronic pain, CAD, depression with anxiety, herpetic neuropathy, history of adenocarcinoma of the lung status post lung resection, history of pituitary neoplasm, restless leg syndrome, and vitamin D deficiency. Patient's , daughter and son are in room with the patient. Pt is currently undergoing chemotherapy with R-ICE, initiated treatment with ICE portion on 03/04/19-03/07/19, and scheduled to have Rituxan starting tomorrow on 03/15/19. He had Neulasta inj on 03/08/19. Since then the pt has been having a low grade fever and has been taking tylenol intermittently. Patient's family members report that he spiked a temperature of 103 last evening, then had chills and tremors this morning. Upon attempting to get up out of bed, the patient had difficulty moving his legs. Patient's son reports that he eventually was able to get up and support all of his weight, with a partial one assist. Patient complains of having lost bladder control specifically during her last chemotherapy with R-CHOP, also increased diarrhea during this chemotherapy. He has not yet experienced that while being on R-ICE but seems very worried about this happening. He denies any acute complaints or specific symptoms other than this. Admission Exam Per Admitting Provider General: awake, alert, no apparent distress, appears much younger than stated age Head: Normocephalic, atraumatic ENT: PERRL, EOMI, no pharyngeal exudate, mucous membranes moist Chest: Medi-port accessed in right chest wall, clear to auscultation, on room air, no adventitious breath sounds Cardiac: Regular rate and rhythm, no murmur, no JVD, normal peripheral pulses Abdominal: NABS x 4 quadrants, soft, nontender to palpation, no rebound, guarding or tenderness Extremities: Normal inspection, no peripheral edema or erythema, calfs nontender to palpation Psych: Normal mood and affect, + good spirits with family Neuro: AAO x 3, strength intact bilaterally and related 5/5, no motor deficits, speech is clear Skin: no rash or erythema Principal Diagnosis Neutropenic Fever Discharge Exam General: Resting comfortably HEENT: NC/AT; PERRLA with EOMI; [place] conjunctiva, MMM. No erythema of posterior pharynx Neck: Supple and nontender Cardiac: RRR Lungs: CTA bilaterally; No rhonchi, wheezing, or rales Abdomen: Bowel normoactive X 4; Nontender to palpation Extremities: Warm. No edema present Neuro: No focal weakness Skin: No rash; mediport, no TTP or erythema. Discharge Data Allergies Allergy/AdvReac Type Severity Reaction Status Date / Time lisinopril Allergy Mild itching Verified 03/14/19 14:14 metoprolol Allergy Mild itching Verified 03/14/19 14:14 losartan AdvReac Mild RASH Verified 03/14/19 14:14 Consultations 03/14/19 16:05 ED Decision to Admit Stat 03/14/19 17:22 Consult Health Information Management Stat 03/14/19 19:29 Consult Case Management - Discharge Planning Routine Consult Oncology Routine Ordered Studies CXR 03/14/19 Hospital Course (1) Fever: Neutropenic fever following recent chemotherapy; afebrile >36 hours prior to discharge. U/a negative; BC negative to date; CXR negative for PNA. Received Cefepime and Vancomycin IV at admission; transitioned to Cipro 500 mg BID at discharge. ID ppx: Acyclovir BID; does not currently take fungal ppx. Follows with Dr. George Newberry and Dr. Snyder. (2) History of non-Hodgkin's lymphoma: H/o Large B-Cell lymphoma, initially diagnosed in 2007. Previously received R-CHOP; started cycle 1 ICE (has not received Rituximab infusion yet during cycle) from 03/04-03/07. S/p Neulasta on 03/08/19. Follows with Dr. George Newberry at [facility] and Dr. Snyder at [facility] [place]. (3) Neutropenia: In setting of recent chemotherapy (cycle 1 ICE). Likely reached mitchell, expect improvement in counts over next 3-4 days. (4) Thrombocytopenia: In setting of recent chemotherapy; plt count decreased to 4K on 03/15. Transfused 1 unit plt; post plt count was 12K. Will have f/u labs qMon/Thurs. (5) History of adenocarcinoma of lung: Right upper lobe adenocarcinoma S/PE resection followed by lobectomy and mediastinal lymph node dissection, November [address] Marcano. (6) History of pituitary tumor: History of such in 2001, s/p resection Patient is on testosterone and thyroid hormone replacement therapy Continued cabergoline 0.25 mg UD (7) Pituitary hypothyroidism: Followed as outpatient. Continued Levothyroxine 125 mcg daily. Most recent TSH is not documented -- likely obtained at outside hospital. (8) Pituitary hypogonadism: Followed as outpatient. (9) Benign prostatic hyperplasia with urinary obstruction: Developed urinary incontinence, notes this specifically with R-CHOP therapy. (10) Vitamin D deficiency: Continuef vitamin D supplementation (11) Restless leg syndrome: Continued Requip and Gabapentin as prescribed. (12) Depression with anxiety: Continued hydroxyzine 25 mg qhs. (13) Coronary artery calcification: Holding ASA in setting of thrombocytopenia. (14) Postherpetic neuralgia: S/p herpes zoster; continue Acyclovir BID. (15) Gout: Continuef allopurinol. (16) DVT prophylaxis: SCDs; hrld pharmacologic ppx in setting of thrombocytopenia. Stable for discharge to home on 03/16/19. Total Time Total Time Spent Total Time Spent (In Minutes): >30 minutes Total Time Includes: Examination of the Patient, Discharge Planning, Medication Reconciliation, Communication With Other Providers and Other Discharge Plan Discharge Items Patient Disposition: Home - Home Health Services Reason For Visit: FEBRILE NEUTROPENIA Discharge Diagnosis: Neutropenic Fever Condition: Good Discharge Goals: Decrease discomfort, Improve disease control, Improve function, Increase independence, Improve nutritional status and Prevent disease Activity: As commented below Exercise/Sports: None Exercise Comment: Due to low platelet levels and risk of bleeding. Non-emergency contact: Primary Care Provider and Oncologist Call non-emergency contact if: you have any medication questions, your symptoms worsen and your temperature is above 101 Follow-up/Referrals: Ryne Corrigan MD [Primary Care Provider] - George Newberry MD [Surgeon] - (Please follow up with Dr. Newberry in 5-7 days to discuss rescheduling Rituximab infusion.) Diet: Heart Healthy Addtl Provider Instructions: 1. Neutropenic Fever * Fevers are now resolved; please take Ciprofloxacin 500 mg twice daily at home. * Continue acyclovir 500 mg twice daily for anti-viral prophylaxis. * Please resume lab work every Monday and to monitor blood counts. * Please monitor temperature at home daily or if you begin to develop chills -- call your nurse navigator if temp is above 101 degrees F. 2. Non-Hodgkin's Lymphoma * Please schedule appointment with Dr. George Newberry to discuss rescheduling Rituximab infusion. * Please follow up at [facility] on 03/25/[address] Snyder. * Continue lab work monitoring as noted above. 3. Please schedule a follow up with your primary care provider in 1-2 weeks to discuss this hospital admission. Prescriptions: Continued albuterol sulfate 90 mcg/actuation HFA aerosol inhaler 2 puff INHALATION Q4H PRN (Reason: Wheezing) Qty: 18 RF: 2 cabergoline 0.5 mg tablet 0.25 mg PO DIRECTED Qty: 8 RF: 1 levothyroxine 125 mcg capsule 125 mcg PO QAM Qty: 90 RF: 0 multivitamin tablet 1 tab PO DAILY Qty: 90 RF: 0 ondansetron 8 mg tablet,disintegrating 8 mg PO Q8H PRN (Reason: Nausea) Qty: 10 RF: 0 ropinirole 2 mg tablet 2 mg PO HS Qty: 90 RF: 0 fluticasone propion-salmeterol [Advair Diskus] 250-50 mcg/dose blister with device 1 puffs INH BID Qty: 60 RF: 3 diclofenac sodium [Voltaren] 1 % gel 2 gm TOP ONCE Qty: 100 RF: 0 fluocinonide 0.05 % ointment 1 appln TOP BID Qty: 30 RF: 1 hydroxyzine HCl 25 mg tablet 25 mg PO HS PRN (Reason: insomnia) Qty: 60 RF: 2 metronidazole [MetroLotion] 0.75 % lotion 1 appln TOP BID Qty: 59 RF: 0 triamcinolone acetonide 0.1 % cream 1 appln TOP BID Qty: 80 RF: 3 acyclovir 400 mg tablet 400 mg PO BID RF: 0 ciprofloxacin HCl 500 mg tablet 500 mg PO BID RF: 0 Refresh Tears 0.5 % Drops 1 drp OPB TID RF: 0 allopurinol 300 mg tablet 300 mg PO QAM RF: 0 gabapentin 100 mg capsule 200 mg PO HS RF: 0 fluticasone propionate 50 mcg/actuation spray,suspension 2 sprays INTNAS DAILY PRN (Reason: Congestion) RF: 0 cholecalciferol (vitamin D3) 1,000 unit capsule 1,000 units PO QDL RF: 0 testosterone cypionate 200 mg/mL Kit 1.25 ml IM MONTHLY RF: 0 Discontinued aspirin [Adult Aspirin Regimen] 81 mg tablet,delayed release (DR/EC) 81 mg PO DAILY Qty: 90 RF: 3 Stand-Alone Forms: My [facility]/Other Patient Handouts: Neutropenia Discharge Orders: Discharge Order (Routine); Ordered 03/16/19 Ordered By: Danica Mccall Admission Data Admit Date/Time: 03/14/19 16:56 Attending Provider: Santos Barrientos Admit Provider: Marva Mcgrath Primary Care Provider: Ryne Corrigan Other Providers: Marva Mcgrath ; George Newberry Service: Telemetry Other Interventions: Discharge Summary Assessment (RN) Last Done: 03/16/19 13:46 Pending Studies at Discharge: Yes Studies:: Blood cultures 03/14: negative DC Date/Time DO NOT enter until pt leaves facility: 03/16/19 15:33 Supervising Physician Co-Signing Physician Notes Attending Attestation and Discharge Note: Pt seen/examined, chart reviewed, care plan d/w PA Danica Mccall. I agree w/ the lopez components of her discharge documentation. 78yo male with B-Cell lymphoma, currently getting Rx via [facility], who presented with neutropenic fever and severe chemo-induced thrombocytopenia. Admitted for both issues; received 1 unit apheresed platelets for low platelet count of 4; discharge platelet count of 12. Blood cx's neg while here. U/a unremarkable. CXR w/o pneumonia. Fevers resolved during the stay. Will d/c home on prophylactic cipro while awaiting neutropenic state to resolve. Exam- gen - looks younger than stated age, NAD, nontoxic mouth - no thrush, no mucositis heart - RRR, s1, s2 lungs - CTA b/l abd - soft NT ND BS+ ext - no edema f/u with his local oncologist (Dr Dominique Newberry) and/or [facility] in the next few days advised. Santos Barrientos MD
[2019-03-16] MEDS ORDERED: VANCOMYCIN TROUGH ONE (15:30)
== END 2019-03-16 15:33 | disposition home health service (06) | DRG 864 ==
LOC: ED 12:39 → SUATTDRO 16:56 → 2S 16:56
DX: E23.0 Hypopituitarism; Z85.6 Personal history of leukemia; N40.1 Benign prostatic hyperplasia with lower urinary tract symptoms; E03.9 Hypothyroidism, unspecified; M10.9 Gout, unspecified; R50.9 Fever, unspecified; I25.10 Atherosclerotic heart disease of native coronary artery without angina pectoris; B02.29 Other postherpetic nervous system involvement; D70.9 Neutropenia, unspecified; D69.6 Thrombocytopenia, unspecified; E55.9 Vitamin D deficiency, unspecified; Z85.72 Personal history of non-Hodgkin lymphomas

== ENCOUNTER 2019-06-06 12:28 | Inpatient (IN) ==
[2019-06-06] MEDS ORDERED: SODIUM CHLORIDE 0.9% 1000ML 1,000 ML IV SCH (12:45)
[2019-06-06] MEDS ORDERED: ACETAMINOPHEN 500 MG TAB PO STA (12:56)
--- NOTE | 2019-06-06 13:08 | XRay Report ---
XR chest 1V portable CLINICAL HISTORY: weakness COMPARISON STUDY: 03/14/2019 FINDINGS: There is elevation right hemidiaphragm. There is a right internal jugular A-Port central ve nous catheter. The heart is the upper limits of normal in size. There is no failure. There is no loba r consolidation. Slightly prominent right basilar markings likely represent atelectatic change[ IMPRESSION: Mild elevation of the right hemidiaphragm. No evidence of focal pulmonary consolidation. No evidence of failure. Electronically signed by: Gideon Grande M.D. 06/06/2019 1:06 PM
[2019-06-06 13:18] LABS: INR 1.1 (0.9-1.1); Prothrombin Time 11.4 Seconds (9.0-12.0)
[2019-06-06 13:22] LABS: Hematocrit (blood only) 35.9 % (42-52); Hemoglobin 11.9 g/dL (14.0-18.0); Mean Corpuscular Hemoglobin 34.1 pg (25-34); Mean Corpuscular Volume 102.9 fL (80-100); Mean Platelet Volume 9.8 fL (7.4-10.4); RDW Coefficient of Variation 15.2 % (11.5-14.5); RDW Standard Deviation 57.2 fL (36.4-46.3); Red Blood Count 3.49 M/uL (4.7-6.1); White Blood Count 11.21 K/uL (4.8-10.8)
[2019-06-06 13:25] LABS: Mean Corpuscular Hgb Conc 33.1 g/dL (32-36)
[2019-06-06 13:26] LABS: Platelet Count 26 K/uL (130-400)
[2019-06-06 13:28] LABS: Alanine Aminotransferase 105 U/L (12-78); Albumin Level 2.6 gm/dl (3.4-5.0); Aspartate Aminotransferase 50 U/L (15-37); BUN Creatinine Ratio 16.2 (10-20); Blood Urea Nitrogen 15 mg/dl (7-18); Carbon Dioxide 28 mmol/L (21-32); Chloride 100 mmol/L (98-107); Est GFR (African American) 88.5; Est GFR (Non-African American) 76.4; Glucose 91 mg/dl (70-99); Lipase 97 U/L (73-393); Potassium 3.9 mmol/L (3.5-5.1); Sodium 134 mmol/L (136-145)
[2019-06-06] MEDS ORDERED: CEFEPIME 2,000 MG/20 ML VIAL IV STA (13:33)
[2019-06-06 13:39] LABS: Albumin Globulin Ratio 0.8 (0.9-2); Alkaline Phosphatase 104 U/L (45-117); Bilirubin,Total 1.9 mg/dl (0.2-1); Globulin 3.2 gm/dl (2.5-4.0); Thyroid Stimulating Hormone 0.178 uIu/ml (0.300-4.500); Total Protein 5.8 gm/dl (6.4-8.2); Troponin I < 0.015 ng/ml (0-0.045)
[2019-06-06 13:49] LABS: Appearance Urine Clear (Clear); Bacteria Urine Automated Negative (Negative); Bilirubin Urine Negative (Negative); Blood Urine Negative (Negative); Cast Urine Automated 0 /lpf (0-5); Color Urine Yellow; Epithelial Cell Urine Auto 0-5 /lpf (0-5); Glucose Urine UA Negative (Negative); Ketones Urine Negative (Negative); Leukocyte Esterase Urine Negative (Negative); Nitrite Urine Negative (Negative); RBC Urine Automated 0-4 /hpf (0-4); Specific Gravity Urine 1.017 (1.000-1.030); Urobilinogen Urine Negative (Negative); pH Urine 8.5 (4.5-7.5)
[2019-06-06 13:54] LABS: Basophils # (auto) 0.01 K/uL (0-0.2); Basophils % (auto) 0.1 %; Immature Granulocytes # (auto) 0.16 K/uL (0.00-0.02); Immature Granulocytes % (auto) 1.4 %; Lymphocytes # (auto) 10.45 K/uL (1.2-3.4); Lymphocytes % (auto) 93.2 %; Monocytes # (auto) 0.23 K/uL (0.11-0.59); Monocytes % (auto) 2.1 %; Neutrophils # (auto) 0.36 K/uL (1.4-6.5); Neutrophils % (auto) 3.2 %; Smudge Cells Present
[2019-06-06 13:55] LABS: T4 Free Thyroxine 1.53 ng/dl (0.8-1.6)
[2019-06-06 14:03] LABS: Protein Urine 1+ (Negative); Sulfosalicylic Acid Urine Positive (Negative)
--- NOTE | 2019-06-06 15:39 | History & Physical Report ---
Date of Service June 06, 2019 Assessment & Plan (1) Neutropenic fever: Patient febrile at 39.1, tachycardic to 103 in ER, Neutrophil = 0.36, was 0 on 06/03/19. Blood pressure is stable. No obvious source of infection as yet - UA negative, CXR with no PNA, no rash/cellullitis. He does have mildly abnormal LFTs to include Tbili of 1.9, AST of 50 and ALT of 105. AP is normal. Elevated Procalcitonin at 0.71. -Follow cultures -Check RUQUS -Cefepime 2gm IV q 8 hours, first dose given in ER -NSS at 125mL/hr x 2 liters -If patient fails to improve will add Vancomycin, fungal culture -Oncology consultation - assistance appreciated -Neutropenic precautions Present on Admission?: Yes (2) Thrombocytopenia: Platelets = 26. No active bleeding. No petechiae -Continue to monitor -Transfuse if < 10 or active bleed Present on Admission?: Yes (3) Weakness: Patient with diffuse weakness, inability to walk. Most likely secondary to underlying infection. He is neurologically intact. No back pain/trauma or radicular symptoms. No evidence of cauda equina -PT/OT evaluation appreciated -Fall precautions -Treat ongoing medical issues -Continue to monitor Present on Admission?: Yes (4) Thrush: Small amount of thrush on right lateral tongue. No dysphagia/odynophagia -PO Nystatin Present on Admission?: Yes (5) Diffuse large B-cell lymphoma: Patient follows with [facility]. Last seen on 05/27/19. Presently undergoing chemotherapy with Venetoclax (decreased to 50mg daily as of 05/24), Rituxan q weekly x 6 treatments, last on 27 May 2019. Allopurinol prophylaxis. Last treatment on 27 May. -Continue to monitor blood counts -Treat for presumed infection as above -Oncology consultation appreciated -Continue Allopurinol -Holding antiemetics - Compazine, Zofran -Continue Neurontin - patient states that the bottom of his feet "feel funny", possible neuropathy. Consider increasing this medication Present on Admission?: Yes (6) Hypertension: Blood pressure stable at present. -Continue to monitor -Presently not on any medications Present on Admission?: Yes (7) Benign prostatic hyperplasia with urinary obstruction: Chronic. Stable. Patient urinating without difficulty -Currently no medications Present on Admission?: Yes (8) Restless leg syndrome: Chronic. Stable -Continue Requip (9) GERD (gastroesophageal reflux disease): Chronic. Stable -Continue Omeprazole Present on Admission?: Yes (10) Hypothyroidism: Chronic. TFTs suggest sick euthyroid -Continue Levoxyl 125mcg po daily Present on Admission?: Yes (11) COPD (chronic obstructive pulmonary disease): Chronic. Stable. No respiratory distress. No wheezing on exam. Adequ ate oxygenation on room air -Continue Advair -Albuterol PRN F/E/N - NSS at 125mL/hr x 2 liters, monitor electrolytes and replete as needed, regular diet as tolerated/neutropenic precautions Ppx - Hold chemoppx for now in setting of TCP. SCDs Code - Full per discussion with patient Disposition - Admit to medical floor with telemetry History of Present Illness Chief Complaint: Neutropenic fever Primary Care Provider: Ryne Corrigan MD Jem Clarke is a pleasant 78-year-old male with history of diffuse large B-cell lymphoma involving the supra and infra-diaphragmatic region diagnosed initially and 2007. He follows with Dr. Newberry of [facility] oncology. Presently on patient presently receiving Venetoclax 50 mg daily as of 05/24/2019. He was recently started on Rituxan q. weekly. Treatment last received on 05/27/2019. Patient had labs collected on 06/03/2019 which showed neutropenia, 0% neutrophils. He presents today with neutropenic fever and diffuse weakness. His symptoms began yesterday. His and [id number] had gone to [place] for an appointment and the patient was at home alone. He tried to get up around 9:20 but was weak and tired. States that both of his legs felt heavy and he was having a difficult time walking. He spent most of the day on the couch but continued to feel weak and tired. He did fairly okay overnight but required family assistance with ambulation. This morning the patient rolled off the couch onto the floor. He states he was unable to get up. His son helped him up and subsequently called EMS. He denies fevers, chills, sweats. Denies headache, visual disturbance, ear pain, sore throat. He did have some sores in his mouth about a week and a half ago but they have since resolved. He denies chest pain, palpitations, cough, shortness of breath, wheeze. Denies nausea, vomiting, abdominal pain, diarrhea or constipation. No rashes, joint swelling. No additional complaints at this time. ER course: Cefepime x2 g, Tylenol x1 g, normal saline Allergies Allergy/AdvReac Type Severity Reaction Status Date / Time lisinopril Allergy Mild itching Verified 06/06/19 14:19 metoprolol Allergy Mild itching Verified 06/06/19 14:19 losartan AdvReac Mild RASH Verified 06/06/19 14:19 Home Medications Home Medications Medication Instructions Recorded Confirmed Type ondansetron 8 mg disintegrating 8 mg PO Q8H PRN #10 tab 01/29/19 06/06/19 Rx tablet Refresh Tears 1 drp OPB QID PRN 03/14/19 06/06/19 History allopurinol [Zyloprim] 300 mg PO QAM 03/14/19 06/06/19 History albuterol sulfate [Ventolin HFA] 2 puff INHALATION Q4H PRN 06/06/19 06/06/19 History cabergoline 0.25 mg PO UD 06/06/19 06/06/19 History cholecalciferol (vitamin D3) 400 unit PO DAILY 06/06/19 06/06/19 History [Vitamin D3] clobetasol 1 applic TOPICAL BID PRN 06/06/19 06/06/19 History fexofenadine [Maura Allergy] 180 mg PO DAILY 06/06/19 06/06/19 History fluticasone propion-salmeterol 1 puffs INHALATION BID 06/06/19 06/06/19 History [Advair Diskus] gabapentin [Neurontin] 200 mg PO HS 06/06/19 06/06/19 History levothyroxine [Levoxyl] 125 mcg PO QAM 06/06/19 06/06/19 History bxwbmmzb-cxe-TR-lycopen-lutein 1 tab PO DAILY 06/06/19 06/06/19 History [Centrum Silver] omeprazole 20 mg PO DAILY 06/06/19 06/06/19 History prochlorperazine maleate 10 mg PO Q6H PRN 06/06/19 06/06/19 History [Compazine] ropinirole [Requip] 0.25 mg PO HS 06/06/19 06/06/19 History testosterone [AndroGel] 2 pump TOPICAL DAILY 06/06/19 06/06/19 History tobramycin-dexamethasone 1 drp TID PRN 06/06/19 06/06/19 History Past Med/Surg History Medical History Benign prostatic hyperplasia with urinary obstruction (Acute) Depression with anxiety (Acute) Non-Hodgkin lymphoma (Resolved) Erectile dysfunction (Acute) 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 Followed by endocrine. Managed with testosterone replacement. 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 Managed with levothyroxine supplementation Balance disorder Cellulitis Chronic back pain Chronic obstructive pulmonary disease "MILD" Dermatitis GERD (gastroesophageal reflux disease) Glaucoma Herpes zoster Infected sebaceous cyst Kidney stones Obesity Osteoarthritis Surgical History H/O lymph node biopsy History of ankle surgery History of arthroscopy B/L KNEE History of cataract surgery B/L History of colonoscopy History of esophagogastroduodenoscopy History of knee surgery History of laryngoscopy DIRECT LARYNGOSCOPY/BIOPSY= 05/15/18 AT [facility] History of lithotripsy History of lobectomy of lung RT LOBE History of tooth extraction S/P lobectomy of lung Family History Brother Cancer Mother Dementia Hypertension Social History Preferred Language: Micronesian Communication Ability: Effective Visual Impairment: No Limitations Wares Sorter Required: No Beliefs That Will Affect Care: None Current Living Situation: Spouse Other Information That Helps Us Care for You: No Feels Safe at Home: Yes Safety Concerns: Feels Safe At This Time Smoking Status: Never smoker Tobacco Type: smokeless tobacco ; Cigarettes Per Day: QUIT "MANY" YEARS AGO ; Second Hand Exposure: No ; Hx Alcohol Use: No Hx Substance Use: No Review of Systems Review of Systems: All systems reviewed & are unremarkable except as noted in HPI & below Physical Exam Physical Exam: General: patient resting comfortably, NAD, non-toxic in appearance, AA&O x 4 Skin: warm, dry, intact, no rashes or lesions, no jaundice or cellulitis, no petechiae HEENT: NC/AT, PERRL, EOMI, anicteric sclera, conjunctiva without injection, external ear normal to inspection and nontender, nares patent, moist mucus membranes, dentition intact, small amount of thrush on right lateral tongue, neck supple, trachea midline, no LAD, no thyromegaly, no JVD Heart: +S1/S2, regular, no m/r/g, port in anterior right chest wall, no erythema/drainage/tenderness Lungs: equal air entry bilaterally, no rales/rhonchi/wheezes Abd: +BS, soft, NT/ND, no masses/organomegaly/ascites, no spinal or cva tenderness, large lipoma on right upper back nontender, no RUQ tenderness Ext: warm, 2+ pulses in UE/LE bilaterally, no clubbing/cyanosis, trace edema Neuro: nonfocal, patient AA&O x 4, speech intact, no facial droop, moving all extremities on command with equal strength 5/5 Results & Data Vital Signs (Past 12 Hours) Vital Signs Temp Pulse Resp BP Pulse Ox 06/06/19 14:30 84 25 H 108/65 94 06/06/19 14:27 37.4 C 06/06/19 14:25 87 23 115/70 94 06/06/19 13:00 103 H 18 94 06/06/19 12:35 98 H 24 125/68 06/06/19 12:30 39.1 C H 103 H 18 125/68 94 Laboratory Results Lab Results 06/06/19 06/06/19 06/06/19 Range/Units 12:53 12:53 12:53 WBC 11.21 H (4.8-10.8) K/uL RBC 3.49 L (4.7-6.1) M/uL Hgb 11.9 L (14.0-18.0) g/dL Hct 35.9 L (42-52) % MCV 102.9 H (80-100) fL MCH 34.1 H (25-34) pg MCHC 33.1 (32-36) g/dL RDW Std Deviation 57.2 H (36.4-46.3) fL RDW Coeff of Sveta 15.2 H (11.5-14.5) % Plt Count 26 L* (130-400) K/uL MPV 9.8 (7.4-10.4) fL Immature Gran % (Auto) 1.4 % Neut % (Auto) 3.2 % Lymph % (Auto) 93.2 % Gilliam % (Auto) 2.1 % Eos % (Auto) 0.0 % Baso % (Auto) 0.1 % Immature Gran # (Auto) 0.16 H (0.00-0.02) K/uL Neut # (Auto) 0.36 L* (1.4-6.5) K/uL Lymph # (Auto) 10.45 H (1.2-3.4) K/uL Gilliam # (Auto) 0.23 (0.11-0.59) K/uL Eos # (Auto) 0.00 (0-0.5) K/uL Baso # (Auto) 0.01 (0-0.2) K/uL Smudge Cells Present PT 11.4 (9.0-12.0) Seconds INR 1.1 (0.9-1.1) Sodium 134 L (136-145) mmol/L Potassium 3.9 (3.5-5.1) mmol/L Chloride 100 (98-107) mmol/L Carbon Dioxide 28 (21-32) mmol/L Anion Gap 6.0 (3-11) BUN 15 (7-18) mg/dl Creatinine 0.95 (0.6-1.4) mg/dl Est Cr Clr Drug Dosing 76.0 ml/min Est GFR ( Amer) 88.5 Est GFR (Non-Af Amer) 76.4 BUN/Creatinine Ratio 16.2 (10-20) Glucose 91 (70-99) mg/dl POC Lactic Acid Dominic (0.90-1.70) mmol/L Calcium 8.0 L (8.5-10.1) mg/dl Phosphorus (2.5-4.9) mg/dl Magnesium 2.0 (1.8-2.4) mg/dl Total Bilirubin 1.9 H (0.2-1) mg/dl AST 50 H (15-37) U/L ALT 105 H (12-78) U/L Alkaline Phosphatase 104 (45-117) U/L Troponin I < 0.015 (0-0.045) ng/ml Total Protein 5.8 L (6.4-8.2) gm/dl Albumin 2.6 L (3.4-5.0) gm/dl Globulin 3.2 (2.5-4.0) gm/dl Albumin/Globulin Ratio 0.8 L (0.9-2) Lipase 97 (73-393) U/L Procalcitonin (0-0.5) ng/ml TSH 0.178 L (0.300-4.500) uIu/ml Free T4 1.53 (0.8-1.6) ng/dl Urine Color Urine Appearance (Clear) Urine pH (4.5-7.5) Ur Specific Mounds (1.000-1.030) Urine Protein (Negative) Urine Glucose (UA) (Negative) Urine Ketones (Negative) Urine Blood (Negative) Urine Nitrite (Negative) Urine Bilirubin (Negative) Urine Urobilinogen (Negative) Ur Leukocyte Esterase (Negative) Urine WBC (Auto) (0-5) /hpf Urine RBC (Auto) (0-4) /hpf U Hyaline Cast (Auto) (0-5) /lpf U Epithel Cells (Auto) (0-5) /lpf Urine Bacteria (Auto) (Negative) Blood Type Antibody Screen 06/06/19 06/06/19 06/06/19 Range/Units 12:53 13:00 13:13 WBC (4.8-10.8) K/uL RBC (4.7-6.1) M/uL Hgb (14.0-18.0) g/dL Hct (42-52) % MCV (80-100) fL MCH (25-34) pg MCHC (32-36) g/dL RDW Std Deviation (36.4-46.3) fL RDW Coeff of Sveta (11.5-14.5) % Plt Count (130-400) K/uL MPV (7.4-10.4) fL Immature Gran % (Auto) % Neut % (Auto) % Lymph % (Auto) % Gilliam % (Auto) % Eos % (Auto) % Baso % (Auto) % Immature Gran # (Auto) (0.00-0.02) K/uL Neut # (Auto) (1.4-6.5) K/uL Lymph # (Auto) (1.2-3.4) K/uL Gilliam # (Auto) (0.11-0.59) K/uL Eos # (Auto) (0-0.5) K/uL Baso # (Auto) (0-0.2) K/uL Smudge Cells PT (9.0-12.0) Seconds INR (0.9-1.1) Sodium (136-145) mmol/L Potassium (3.5-5.1) mmol/L Chloride (98-107) mmol/L Carbon Dioxide (21-32) mmol/L Anion Gap (3-11) BUN (7-18) mg/dl Creatinine (0.6-1.4) mg/dl Est Cr Clr Drug Dosing ml/min Est GFR ( Amer) Est GFR (Non-Af Amer) BUN/Creatinine Ratio (10-20) Glucose (70-99) mg/dl POC Lactic Acid Dmoinic 0.76 L (0.90-1.70) mmol/L Calcium (8.5-10.1) mg/dl Phosphorus (2.5-4.9) mg/dl Magnesium (1.8-2.4) mg/dl Total Bilirubin (0.2-1) mg/dl AST (15-37) U/L ALT (12-78) U/L Alkaline Phosphatase (45-117) U/L Troponin I (0-0.045) ng/ml Total Protein (6.4-8.2) gm/dl Albumin (3.4-5.0) gm/dl Globulin (2.5-4.0) gm/dl Albumin/Globulin Ratio (0.9-2) Lipase (73-393) U/L Procalcitonin 0.71 H (0-0.5) ng/ml TSH (0.300-4.500) uIu/ml Free T4 (0.8-1.6) ng/dl Urine Color Urine Appearance (Clear) Urine pH (4.5-7.5) Ur Specific Mounds (1.000-1.030) Urine Protein (Negative) Urine Glucose (UA) (Negative) Urine Ketones (Negative) Urine Blood (Negative) Urine Nitrite (Negative) Urine Bilirubin (Negative) Urine Urobilinogen (Negative) Ur Leukocyte Esterase (Negative) Urine WBC (Auto) (0-5) /hpf Urine RBC (Auto) (0-4) /hpf U Hyaline Cast (Auto) (0-5) /lpf U Epithel Cells (Auto) (0-5) /lpf Urine Bacteria (Auto) (Negative) Blood Type A Positive Antibody Screen NEGATIVE 06/06/19 06/06/19 Range/Units 13:29 17:39 WBC (4.8-10.8) K/uL RBC (4.7-6.1) M/uL Hgb (14.0-18.0) g/dL Hct (42-52) % MCV (80-100) fL MCH (25-34) pg MCHC (32-36) g/dL RDW Std Deviation (36.4-46.3) fL RDW Coeff of Sveta (11.5-14.5) % Plt Count (130-400) K/uL MPV (7.4-10.4) fL Immature Gran % (Auto) % Neut % (Auto) % Lymph % (Auto) % Gilliam % (Auto) % Eos % (Auto) % Baso % (Auto) % Immature Gran # (Auto) (0.00-0.02) K/uL Neut # (Auto) (1.4-6.5) K/uL Lymph # (Auto) (1.2-3.4) K/uL Gilliam # (Auto) (0.11-0.59) K/uL Eos # (Auto) (0-0.5) K/uL Baso # (Auto) (0-0.2) K/uL Smudge Cells PT (9.0-12.0) Seconds INR (0.9-1.1) Sodium (136-145) mmol/L Potassium (3.5-5.1) mmol/L Chloride (98-107) mmol/L Carbon Dioxide (21-32) mmol/L Anion Gap (3-11) BUN (7-18) mg/dl Creatinine (0.6-1.4) mg/dl Est Cr Clr Drug Dosing ml/min Est GFR ( Amer) Est GFR (Non-Af Amer) BUN/Creatinine Ratio (10-20) Glucose (70-99) mg/dl POC Lactic Acid Dominic (0.90-1.70) mmol/L Calcium (8.5-10.1) mg/dl Phosphorus 2.4 L (2.5-4.9) mg/dl Magnesium 2.0 (1.8-2.4) mg/dl Total Bilirubin (0.2-1) mg/dl AST (15-37) U/L ALT (12-78) U/L Alkaline Phosphatase (45-117) U/L Troponin I (0-0.045) ng/ml Total Protein (6.4-8.2) gm/dl Albumin (3.4-5.0) gm/dl Globulin (2.5-4.0) gm/dl Albumin/Globulin Ratio (0.9-2) Lipase (73-393) U/L Procalcitonin (0-0.5) ng/ml TSH (0.300-4.500) uIu/ml Free T4 (0.8-1.6) ng/dl Urine Color Yellow Urine Appearance Clear (Clear) Urine pH 8.5 H (4.5-7.5) Ur Specific Mounds 1.017 (1.000-1.030) Urine Protein 1+ H (Negative) Urine Glucose (UA) Negative (Negative) Urine Ketones Negative (Negative) Urine Blood Negative (Negative) Urine Nitrite Negative (Negative) Urine Bilirubin Negative (Negative) Urine Urobilinogen Negative (Negative) Ur Leukocyte Esterase Negative (Negative) Urine WBC (Auto) 1-5 (0-5) /hpf Urine RBC (Auto) 0-4 (0-4) /hpf U Hyaline Cast (Auto) 0 (0-5) /lpf U Epithel Cells (Auto) 0-5 (0-5) /lpf Urine Bacteria (Auto) Negative (Negative) Blood Type Antibody Screen Diagnostic Findings XR chest 1V portable CLINICAL HISTORY: weakness COMPARISON STUDY: 03/14/2019 FINDINGS: There is elevation right hemidiaphragm. There is a right internal jugular A-Port central venous catheter. The heart is the upper limits of normal in size. There is no failure. There is no lobar consolidation. Slightly prominent right basilar markings likely represent atelectatic change[ IMPRESSION: Mild elevation of the right hemidiaphragm. No evidence of focal pulmonary consolidation. No evidence of failure. Electronically signed by: Gideon Grande M.D. 06/06/2019 1:06 PM Dictated: 06/06/19 1306 Transcribed: 06/06/19 1306 ECG Additional Comments: Normal sinus rhythm Nonspecific ST and T wave abnormality Abnormal ECG When compared with ECG of 14-MAR-2019 13:37, No significant change was found Confirmed by Noel Dawson ([id number]) on 06/06/2019 8:10:02 PM Code Status & VTE Plan Code Status Full code VTE Prophylaxis Plan VTE Prophylaxis will be ordered: Yes PG Care Time/CCT Total # of Minutes Spent Total Time Spent with Patient: Total time spent is greater than 50% in coordination of care (as documented) at patient's floor/unit and/or counseling patient: (1) Diffuse large B-cell lymphoma Lymphoma site: multiple regions Qualified Code(s): C83.38 - Diffuse large B- cell lymphoma, lymph nodes of multiple sites (2) Hypothyroidism Hypothyroidism type: unspecified Qualified Code(s): E03.9 - Hypothyroidism, unspecified (3) COPD (chronic obstructive pulmonary disease) COPD type: unspecified COPD Qualified Code(s): J44.9 - Chronic obstructive pulmonary disease, unspecified (4) GERD (gastroesophageal reflux disease) Esophagitis presence: esophagitis presence not specified Qualified Code(s): K21.9 - Gastro-esophageal reflux disease without esophagitis (5) Hypertension Hypertension type: essential hypertension Qualified Code(s): I10 - Essential (primary) hypertension
[2019-06-06] MEDS ORDERED: ALBUTEROL HFA 8 GM INHALER INH PRN (17:27)
[2019-06-06] MEDS ORDERED: ONDANSETRON INJ 2 MG/ML 2 ML VIAL IV PRN (17:27)
[2019-06-06] MEDS ORDERED: TOBRAMYCIN/DEXAMETHASONE OPH SUSP 2.5 ML BTL PRN (17:27)
[2019-06-06] MEDS: SODIUM CHLORIDE 0.9% 1000ML 1,000 ML IV SCH (17:56)
[2019-06-06] MEDS ORDERED: ARTIFICIAL TEARS OP PRN (18:00)
[2019-06-06] MEDS: NYSTATIN SUSP 500,000 U/5 ML UDC PO SCH ×3 (18:16→20:12)
[2019-06-06 18:18] LABS: Phosphorus 2.4 mg/dl (2.5-4.9)
--- NOTE | 2019-06-06 19:18 | Emergency Department Note ---
Entered by Rosio Richardson acting as a scribe for History of Present Illness General Chief complaint: Weakness Source: patient and family Mode of arrival: ambulatory Limitations: no limitations History of Present Illness Onset (ago): day(s) 1 Radiation: non-radiation Pain Consistency: + constant Relieved By: + none Exacerbated By: + none Associated symptoms: + fever/chills and + other (-sore throat, +swelling in the legs, -abdominal pain, -diarrhea); no cough and no nausea/vomiting Treatments prior to arrival: none The patient is a 78 year old male who presents to the ED with complaints of weakness for the past 1 day. He is currently receiving chemotherapy for a history of diffuse large B-cell lymphoma and Non-Hodgkin's lymphoma. His last chemotherapy was last week. His Oncologist is Dr. Newberry with [facility]. He reports he has been so weak he has been unable to ambulate recently. He did have a fever of 102 degrees earlier today. The patient did receive a flu shot a few days [employer]. He states last night when he tried to go outside, he could not get his feet off the ground. His daughter in law reports he did not eat much yesterday, which may have exacerbated his symptoms. His family gave him protein shakes yesterday, and the patient seemed to "move a little better" after that. This morning, the patient did collapse to the ground while trying to get to the telephone, but states he did not sustain any injuries. The patient denies any recent cold symptoms like a cough or sore throat. His daughter in law admits to increased swelling in his legs. The patient last had a bowel movement earlier this morning. He denies any recent abdominal pain, nausea, vomiting or diarrhea. Home Medications Home Medications Medication Instructions Recorded Confirmed Type ondansetron 8 mg disintegrating 8 mg PO Q8H PRN #10 tab 01/29/19 06/06/19 Rx tablet Refresh Tears 1 drp OPB QID PRN 03/14/19 06/06/19 History allopurinol [Zyloprim] 300 mg PO QAM 03/14/19 06/06/19 History albuterol sulfate [Ventolin HFA] 2 puff INHALATION Q4H PRN 06/06/19 06/06/19 History cabergoline 0.25 mg PO UD 06/06/19 06/06/19 History cholecalciferol (vitamin D3) 400 unit PO DAILY 06/06/19 06/06/19 History [Vitamin D3] clobetasol 1 applic TOPICAL BID PRN 06/06/19 06/06/19 History fexofenadine [Maura Allergy] 180 mg PO DAILY 06/06/19 06/06/19 History fluticasone propion-salmeterol 1 puffs INHALATION BID 06/06/19 06/06/19 History [Advair Diskus] gabapentin [Neurontin] 200 mg PO HS 06/06/19 06/06/19 History levothyroxine [Levoxyl] 125 mcg PO QAM 06/06/19 06/06/19 History viftawkl-hij-OW-lycopen-lutein 1 tab PO DAILY 06/06/19 06/06/19 History [Centrum Silver] omeprazole 20 mg PO DAILY 06/06/19 06/06/19 History prochlorperazine maleate 10 mg PO Q6H PRN 06/06/19 06/06/19 History [Compazine] ropinirole [Requip] 0.25 mg PO HS 06/06/19 06/06/19 History testosterone [AndroGel] 2 pump TOPICAL DAILY 06/06/19 06/06/19 History tobramycin-dexamethasone 1 drp TID PRN 06/06/19 06/06/19 History Allergies Allergy/AdvReac Type Severity Reaction Status Date / Time lisinopril Allergy Mild itching Verified 06/06/19 14:19 metoprolol Allergy Mild itching Verified 06/06/19 14:19 losartan AdvReac Mild RASH Verified 06/06/19 14:19 Past Med/Surg History Medical History History of non-Hodgkin's lymphoma (Acute) Benign prostatic hyperplasia with urinary obstruction (Acute) Depression with anxiety (Acute) Non-Hodgkin lymphoma (Resolved) Erectile dysfunction (Acute) Glaucoma (Acute) 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 Followed by endocrine. Managed with testosterone replacement. 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) CHEMO CURRENTLY Cellulitis Chronic back pain Chronic obstructive pulmonary disease "MILD" Dermatitis GERD (gastroesophageal reflux disease) Glaucoma Herpes zoster Infected sebaceous cyst Kidney stones Non-Hodgkin lymphoma CHEMO (2017) Obesity Osteoarthritis Surgical History H/O lymph node biopsy History of ankle surgery History of arthroscopy B/L KNEE History of cataract surgery B/L History of colonoscopy History of esophagogastroduodenoscopy History of knee surgery History of laryngoscopy DIRECT LARYNGOSCOPY/BIOPSY= 05/15/18 AT [facility] History of lithotripsy History of lobectomy of lung RT LOBE History of tooth extraction S/P lobectomy of lung Family History Brother Cancer Mother Dementia Hypertension Social History Preferred Language: Syrian Communication Ability: Effective Visual Impairment: No Limitations Technical Advisor Required: No Beliefs That Will Affect Care: None Current Living Situation: Spouse Other Information That Helps Us Care for You: No Feels Safe at Home: Yes Safety Concerns: Feels Safe At This Time Smoking Status: Never smoker Tobacco Type: smokeless tobacco ; Cigarettes Per Day: QUIT "MANY" YEARS AGO ; Second Hand Exposure: No ; Hx Alcohol Use: No Hx Substance Use: No Review of Systems See HPI for pertinent positives & negatives. and A total of 10 systems reviewed and were otherwise negative Physical Exam Vital Signs Vital Signs - 24 hr 06/06/19 12:30 06/06/19 12:35 06/06/19 13:00 Temperature 39.1 C H Temperature Source Oral Sepsis Recent Fever Within 48 Hours Yes Sepsis New/Unexplained Change in Mental Status Yes Sepsis Action Taken by Nursing No Action Required Pulse Rate 103 H 98 H 103 H Pulse Rate from SpO2 Sensor Pulse Rhythm Regular Regular Respiratory Rate 18 24 18 Respiratory Effort / Characteristics Non-Labored Respiratory Depth Normal Respiratory Pattern Regular Blood Pressure 125/68 125/68 Blood Pressure Mean 87 87 Pulse Oximetry 94 94 Oxygen Delivery Method Room Air Room Air 06/06/19 14:25 06/06/19 14:27 06/06/19 14:30 Temperature 37.4 C Temperature Source Oral Sepsis Recent Fever Within 48 Hours Sepsis New/Unexplained Change in Mental Status Sepsis Action Taken by Nursing Pulse Rate 87 84 Pulse Rate from SpO2 Sensor 84 79 Pulse Rhythm Respiratory Rate 23 25 H Respiratory Effort / Characteristics Respiratory Depth Respiratory Pattern Blood Pressure 115/70 108/65 Blood Pressure Mean 85 79 Pulse Oximetry 94 94 Oxygen Delivery Method Room Air Room Air 06/06/19 15:00 06/06/19 15:30 Temperature Temperature Source Sepsis Recent Fever Within 48 Hours Sepsis New/Unexplained Change in Mental Status Sepsis Action Taken by Nursing Pulse Rate 82 81 Pulse Rate from SpO2 Sensor 77 81 Pulse Rhythm Respiratory Rate 11 L 24 Respiratory Effort / Characteristics Respiratory Depth Respiratory Pattern Blood Pressure 108/64 108/69 Blood Pressure Mean 78 82 Pulse Oximetry 94 90 Oxygen Delivery Method GENERAL: Awake, alert, fatigued-appearing HENT: Normocephalic, atraumatic.Slight yellowing of the face. EYES: Normal conjunctiva. Sclera non-icteric. NECK: Supple. No nuchal rigidity. RESPIRATORY: Clear to auscultation. No wheezes. Normal respiratory effort. CARDIAC: Normal rate. Normal rhythm. Extremities warm and well perfused. GI: Soft, non-distended. No tenderness to palpation. No rebound or guarding. RECTAL: Deferred. MUSCULOSKELETAL: Atraumatic. Chest examination reveals no tenderness. There is no CVA tenderness to palpation. LOWER EXTREMITIES: Calves are equal size bilaterally and non-tender. 2+ bilateral LE edema. NEURO: Normal sensorium. No sensory or motor deficits noted. No facial droop. No slurred speech. SKIN: Warm and dry. No rash or jaundice noted. Slight abrasion on sacrum no fluctuance or decub. Course 1246: The patient was evaluated in room C3 and a complete history and physical were performed. 1344: I reevaluated the patient. I discussed his results so far. 1412: [facility] The patient will be further evaluated. Consultations Consultation #1: I discussed the [facility] The patient will be further evaluated. Time: 14:12 Administered Medications Sodium Chloride (Nss 1000ml) 1,000 mls @ 125 mls/hr IV .Q8H BOBO Stop: 06/07/19 09:26 Last Admin: 06/06/19 17:56 Dose: 125 mls/hr Documented by: [id number] Nystatin (Mycostatin) 5 ml PO QID BOBO Stop: 06/16/19 17:26 Last Admin: 06/06/19 18:23 Dose: 5 ml Documented by: [id number] Discontinued Medications Acetaminophen (Tylenol) 1,000 mg PO NOW STA Stop: 06/06/19 12:57 Last Admin: 06/06/19 13:24 Dose: 1,000 mg Documented by: [id number] Sodium Chloride (Nss 1000ml) 1,000 mls @ 999 mls/hr IV .Q1H1M BOBO Stop: 06/06/19 13:45 Last Infusion: 06/06/19 14:30 Dose: 0 mls/hr Documented by: [id number] Admin: 06/06/19 13:23 Dose: 999 mls/hr Documented by: [id number] Cefepime HCl (Maxipime) 2,000 mg in 20 mls @ 5 mls/min IV NOW STA; Protocol Stop: 06/06/19 13:36 Last Admin: 06/06/19 14:25 Dose: 5 mls/min Documented by: [id number] Medical Decision Making Differential Diagnosis Differential Diagnosis includes but is not limited to dehydration, stroke, anemia, hypoglycemia, hyponatremia, hypernatremia, urinary tract infection, pneumonia, bronchitis, sepsis, gastroenteritis, additional abdominal pathology, metabolic abnormalities and infections. Medical Records Attestation: I reviewed the patient's medical records. Home Medications Current Medication List: was personally reviewed by me Laboratory Data Attestation: I reviewed the patient's lab results. Result diagrams: 06/06/19 12:53 06/06/19 12:53 Lab Results 06/06/19 06/06/19 06/06/19 Range/Units 12:53 12:53 12:53 WBC 11.21 H (4.8-10.8) K/uL RBC 3.49 L (4.7-6.1) M/uL Hgb 11.9 L (14.0-18.0) g/dL Hct 35.9 L (42-52) % MCV 102.9 H (80-100) fL MCH 34.1 H (25-34) pg MCHC 33.1 (32-36) g/dL RDW Std Deviation 57.2 H (36.4-46.3) fL RDW Coeff of Sveta 15.2 H (11.5-14.5) % Plt Count 26 L* (130-400) K/uL MPV 9.8 (7.4-10.4) fL Immature Gran % (Auto) 1.4 % Neut % (Auto) 3.2 % Lymph % (Auto) 93.2 % [place] % (Auto) 2.1 % Eos % (Auto) 0.0 % Baso % (Auto) 0.1 % Immature Gran # (Auto) 0.16 H (0.00-0.02) K/uL Neut # (Auto) 0.36 L* (1.4-6.5) K/uL Lymph # (Auto) 10.45 H (1.2-3.4) K/uL [place] # (Auto) 0.23 (0.11-0.59) K/uL Eos # (Auto) 0.00 (0-0.5) K/uL Baso # (Auto) 0.01 (0-0.2) K/uL Smudge Cells Present PT 11.4 (9.0-12.0) Seconds INR 1.1 (0.9-1.1) Sodium 134 L (136-145) mmol/L Potassium 3.9 (3.5-5.1) mmol/L Chloride 100 (98-107) mmol/L Carbon Dioxide 28 (21-32) mmol/L Anion Gap 6.0 (3-11) BUN 15 (7-18) mg/dl Creatinine 0.95 (0.6-1.4) mg/dl Est Cr Clr Drug Dosing 76.0 ml/min Est GFR ( Amer) 88.5 Est GFR (Non-Af Amer) 76.4 BUN/Creatinine Ratio 16.2 (10-20) Glucose 91 (70-99) mg/dl POC Lactic Acid Dominic (0.90-1.70) mmol/L Calcium 8.0 L (8.5-10.1) mg/dl Magnesium 2.0 (1.8-2.4) mg/dl Total Bilirubin 1.9 H (0.2-1) mg/dl AST 50 H (15-37) U/L ALT 105 H (12-78) U/L Alkaline Phosphatase 104 (45-117) U/L Troponin I < 0.015 (0-0.045) ng/ml Total Protein 5.8 L (6.4-8.2) gm/dl Albumin 2.6 L (3.4-5.0) gm/dl Globulin 3.2 (2.5-4.0) gm/dl Albumin/Globulin Ratio 0.8 L (0.9-2) Lipase 97 (73-393) U/L Procalcitonin (0-0.5) ng/ml TSH 0.178 L (0.300-4.500) uIu/ml Free T4 1.53 (0.8-1.6) ng/dl Urine Color Urine Appearance (Clear) Urine pH (4.5-7.5) Ur Specific [place] (1.000-1.030) Urine Protein (Negative) Urine Glucose (UA) (Negative) Urine Ketones (Negative) Urine Blood (Negative) Urine Nitrite (Negative) Urine Bilirubin (Negative) Urine Urobilinogen (Negative) Ur Leukocyte Esterase (Negative) Urine WBC (Auto) (0-5) /hpf Urine RBC (Auto) (0-4) /hpf U Hyaline Cast (Auto) (0-5) /lpf U Epithel Cells (Auto) (0-5) /lpf Urine Bacteria (Auto) (Negative) Blood Type Antibody Screen 06/06/19 06/06/19 06/06/19 Range/Units 12:53 13:00 13:13 WBC (4.8-10.8) K/uL RBC (4.7-6.1) M/uL Hgb (14.0-18.0) g/dL Hct (42-52) % MCV (80-100) fL MCH (25-34) pg MCHC (32-36) g/dL RDW Std Deviation (36.4-46.3) fL RDW Coeff of Sveta (11.5-14.5) % Plt Count (130-400) K/uL MPV (7.4-10.4) fL Immature Gran % (Auto) % Neut % (Auto) % Lymph % (Auto) % [place] % (Auto) % Eos % (Auto) % Baso % (Auto) % Immature Gran # (Auto) (0.00-0.02) K/uL Neut # (Auto) (1.4-6.5) K/uL Lymph # (Auto) (1.2-3.4) K/uL [place] # (Auto) (0.11-0.59) K/uL Eos # (Auto) (0-0.5) K/uL Baso # (Auto) (0-0.2) K/uL Smudge Cells PT (9.0-12.0) Seconds INR (0.9-1.1) Sodium (136-145) mmol/L Potassium (3.5-5.1) mmol/L Chloride (98-107) mmol/L Carbon Dioxide (21-32) mmol/L Anion Gap (3-11) BUN (7-18) mg/dl Creatinine (0.6-1.4) mg/dl Est Cr Clr Drug Dosing ml/min Est GFR ( Amer) Est GFR (Non-Af Amer) BUN/Creatinine Ratio (10-20) Glucose (70-99) mg/dl POC Lactic Acid Dominic 0.76 L (0.90-1.70) mmol/L Calcium (8.5-10.1) mg/dl Magnesium (1.8-2.4) mg/dl Total Bilirubin (0.2-1) mg/dl AST (15-37) U/L ALT (12-78) U/L Alkaline Phosphatase (45-117) U/L Troponin I (0-0.045) ng/ml Total Protein (6.4-8.2) gm/dl Albumin (3.4-5.0) gm/dl Globulin (2.5-4.0) gm/dl Albumin/Globulin Ratio (0.9-2) Lipase (73-393) U/L Procalcitonin 0.71 H (0-0.5) ng/ml TSH (0.300-4.500) uIu/ml Free T4 (0.8-1.6) ng/dl Urine Color Urine Appearance (Clear) Urine pH (4.5-7.5) Ur Specific [place] (1.000-1.030) Urine Protein (Negative) Urine Glucose (UA) (Negative) Urine Ketones (Negative) Urine Blood (Negative) Urine Nitrite (Negative) Urine Bilirubin (Negative) Urine Urobilinogen (Negative) Ur Leukocyte Esterase (Negative) Urine WBC (Auto) (0-5) /hpf Urine RBC (Auto) (0-4) /hpf U Hyaline Cast (Auto) (0-5) /lpf U Epithel Cells (Auto) (0-5) /lpf Urine Bacteria (Auto) (Negative) Blood Type A Positive Antibody Screen NEGATIVE 06/06/19 Range/Units 13:29 WBC (4.8-10.8) K/uL RBC (4.7-6.1) M/uL Hgb (14.0-18.0) g/dL Hct (42-52) % MCV (80-100) fL MCH (25-34) pg MCHC (32-36) g/dL RDW Std Deviation (36.4-46.3) fL RDW Coeff of Sveta (11.5-14.5) % Plt Count (130-400) K/uL MPV (7.4-10.4) fL Immature Gran % (Auto) % Neut % (Auto) % Lymph % (Auto) % [place] % (Auto) % Eos % (Auto) % Baso % (Auto) % Immature Gran # (Auto) (0.00-0.02) K/uL Neut # (Auto) (1.4-6.5) K/uL Lymph # (Auto) (1.2-3.4) K/uL [place] # (Auto) (0.11-0.59) K/uL Eos # (Auto) (0-0.5) K/uL Baso # (Auto) (0-0.2) K/uL Smudge Cells PT (9.0-12.0) Seconds INR (0.9-1.1) Sodium (136-145) mmol/L Potassium (3.5-5.1) mmol/L Chloride (98-107) mmol/L Carbon Dioxide (21-32) mmol/L Anion Gap (3-11) BUN (7-18) mg/dl Creatinine (0.6-1.4) mg/dl Est Cr Clr Drug Dosing ml/min Est GFR ( Amer) Est GFR (Non-Af Amer) BUN/Creatinine Ratio (10-20) Glucose (70-99) mg/dl POC Lactic Acid Dominic (0.90-1.70) mmol/L Calcium (8.5-10.1) mg/dl Magnesium (1.8-2.4) mg/dl Total Bilirubin (0.2-1) mg/dl AST (15-37) U/L ALT (12-78) U/L Alkaline Phosphatase (45-117) U/L Troponin I (0-0.045) ng/ml Total Protein (6.4-8.2) gm/dl Albumin (3.4-5.0) gm/dl Globulin (2.5-4.0) gm/dl Albumin/Globulin Ratio (0.9-2) Lipase (73-393) U/L Procalcitonin (0-0.5) ng/ml TSH (0.300-4.500) uIu/ml Free T4 (0.8-1.6) ng/dl Urine Color Yellow Urine Appearance Clear (Clear) Urine pH 8.5 H (4.5-7.5) Ur Specific [place] 1.017 (1.000-1.030) Urine Protein 1+ H (Negative) Urine Glucose (UA) Negative (Negative) Urine Ketones Negative (Negative) Urine Blood Negative (Negative) Urine Nitrite Negative (Negative) Urine Bilirubin Negative (Negative) Urine Urobilinogen Negative (Negative) Ur Leukocyte Esterase Negative (Negative) Urine WBC (Auto) 1-5 (0-5) /hpf Urine RBC (Auto) 0-4 (0-4) /hpf U Hyaline Cast (Auto) 0 (0-5) /lpf U Epithel Cells (Auto) 0-5 (0-5) /lpf Urine Bacteria (Auto) Negative (Negative) Blood Type Antibody Screen Imaging Data Radiologist's Impression: Radiology results as stated below per my review and the radiologist's interpretation: XR chest 1V portable CLINICAL HISTORY: weakness COMPARISON STUDY: 03/14/2019 FINDINGS: There is elevation right hemidiaphragm. There is a right internal jugular A-Port central venous catheter. The heart is the upper limits of normal in size. There is no failure. There is no lobar consolidation. Slightly prominent right basilar markings likely represent atelectatic change. IMPRESSION: Mild elevation of the right hemidiaphragm. No evidence of focal pulmonary consolidation. No evidence of failure. Electronically signed by: Gideon Grande M.D. 06/06/2019 1:06 PM ECG Data Attestation: I personally reviewed and interpreted this ECG as follows: Indication: weakness Rate (beats per minute): 95 Rhythm: normal sinus Findings: + other (Non specific t-wave changes, normal intervals); no PVC and no ST elevation Blood Pressure Blood Pressure Findings: Elevated blood pressure Blood Pressure Disposition: further management by hospitalist [place] Narrative Patient is a 78-year-old gentleman presenting via ambulance today with a complaint of weakness. Does unfortunately have a significant medical history including hypertension, hypothyroidism, non-Hodgkin's lymphoma, CAD, GERD, kidney stones reports over the last 24 hours increasing weakness. Is unable to get off the couch overnight. Had some Ensure but did not eat very much yesterday. Little bit of diarrhea this morning. Patient febrile upon arrival. Took Tylenol last night. Denies URI symptoms or significant cough. Denies abdominal pain. Some baseline lower extremity swelling. Patient does have a slight yellowish hue to his face that is reportedly new. Denies significant headache and does not appear grossly meningitic. Chemotherapy recently. Is on Cipro on Mondays. Patient given Tylenol here IV fluid. Broad infectious work- up was entertained. Cultures lactate sent. X-ray obtained. Lactate not significantly elevated today. WBC count of 11 however the patient is neutropenic. Thrombocytopenia persists with a platelet count of 26. Bilirubin and AST and ALT slightly elevated; unclear reason. TSH low free T4 pending. Chest x-ray evidence of pneumonia. Again I doubt meningitis. Benign abdomen. Urinalysis is negative. Discussed with the hospitalist and the patient admission given neutropenic fever of unclear source. Impression & Plan Neutropenic fever, Thrombocytopenia, Weakness Critical Care Time Critical Care Time: Yes Total Critical Care Time: 35 I have personally spent 35 minutes of critical care time in the direct management of this patient. This includes bedside care, interpretation of diagnostic studies, and testing, discussion with consultants, patient, and family members, and other required patient management activities. These 35 mi nutes is in excess of all separately billable procedures. Discharge Plan Visit Data *Final* Discharge Date/Time: 06/06/19 16:55 Chief Complaint: Weakness ED Provider: Ruddy Murray Discharge Problem: Neutropenic fever, Thrombocytopenia, Weakness Patient Disposition: Admitted As Inpatient Discharge Instructions Interventions: ED Discharge Assessment Last Done: 06/06/19 16:55 The scribe's documentation has been prepared under my direction and personally reviewed by me in its entirety. I confirm that the note above accurately reflects all work, treatment, procedures, and medical decision making performed by me.
[2019-06-06] MEDS: ACETAMINOPHEN 325 MG TAB PO PRN (20:10)
[2019-06-06] MEDS: FLUTICASONE/SALMETEROL 250/50 (ADVAIR) 14 PUFF/1 INHALER INH SCH (20:12)
[2019-06-06] MEDS: GABAPENTIN 100 MG CAP PO SCH (20:13)
[2019-06-06] MEDS: ROPINIROLE HCL 0.25 MG TABLET PO SCH (20:13)
[2019-06-06] MEDS: CEFEPIME 2,000 MG in SYRINGE 7.5 ML IV SCH (22:49)
[2019-06-07] MEDS: ACETAMINOPHEN 325 MG TAB PO PRN ×3 (01:39→23:37)
[2019-06-07] MEDS: SODIUM CHLORIDE 0.9% 1000ML 1,000 ML IV SCH (01:51)
[2019-06-07] MEDS: CEFEPIME 2,000 MG in SYRINGE 7.5 ML IV SCH ×3 (05:23→21:27)
[2019-06-07] MEDS: LEVOTHYROXINE SODIUM 125 MCG TABLET PO SCH (05:24)
[2019-06-07 06:16] LABS: Hematocrit (blood only) 31.5 % (42-52); Hemoglobin 10.6 g/dL (14.0-18.0); Mean Corpuscular Hemoglobin 34.5 pg (25-34); Mean Corpuscular Hgb Conc 33.7 g/dL (32-36); Mean Corpuscular Volume 102.6 fL (80-100); Platelet Count 19 K/uL (130-400); RDW Standard Deviation 55.9 fL (36.4-46.3); Red Blood Count 3.07 M/uL (4.7-6.1); White Blood Count 5.59 K/uL (4.8-10.8)
[2019-06-07 06:34] LABS: Albumin Level 2.2 gm/dl (3.4-5.0); Bilirubin Direct 0.6 mg/dl (0-0.2); Calcium 7.9 mg/dl (8.5-10.1); Est GFR (African American) 97.7; Est GFR (Non-African American) 84.3; Potassium 3.7 mmol/L (3.5-5.1)
[2019-06-07 06:38] LABS: Bilirubin,Total 1.3 mg/dl (0.2-1); Total Protein 5.2 gm/dl (6.4-8.2)
--- NOTE | 2019-06-07 07:07 | Ultrasound Report ---
US liver CLINICAL HISTORY: 78 years-old Male presenting with Abnormal LFTs. TECHNIQUE: Real-time grayscale and limited color Doppler ultrasound imaging of the abdomen limited to the right upper quadrant was performed. COMPARISON: CT from 01/14/2017. FINDINGS: Pancreas: Visualized portions of the pancreatic head and body normal. Liver: Normal echogenicity though mild heterogeneity of echotexture. The liver measures 13.4 cm in ma ximal sagittal dimension. No sonographic evidence of hepatic mass. Main portal vein patent with amarilys l directional flow. Biliary: No intrahepatic biliary ductal dilatation. Common bile duct measures up to 5 mm in diameter. Gallbladder: No evidence of gallstones, gallbladder wall thickening, gallbladder distention, or peric holecystic fluid or inflammatory change. Right kidney: Cortical thinning. No evidence of hydronephrosis. Ascites: None. Other: None. IMPRESSION: 1. No cholelithiasis or biliary ductal dilatation. 2. Nonspecific mild heterogeneity of liver parenchyma. Early steatosis or fibrosis not excluded. 3. Possible medical renal disease given suggestion of right renal cortical thinning. Electronically signed by: Brent Avilez M.D. 06/07/2019 7:04 AM
[2019-06-07 07:18] LABS: Basophils # (auto) 0.01 K/uL (0-0.2); Basophils % (auto) 0.2 %; Immature Granulocytes # (auto) 0.06 K/uL (0.00-0.02); Immature Granulocytes % (auto) 1.1 %; Lymphocytes # (auto) 4.91 K/uL (1.2-3.4); Lymphocytes % (auto) 87.8 %; Monocytes # (auto) 0.24 K/uL (0.11-0.59); Monocytes % (auto) 4.3 %; Neutrophils # (auto) 0.37 K/uL (1.4-6.5); Neutrophils % (auto) 6.6 %
[2019-06-07] MEDS: FEXOFENADINE HCL 180 MG TAB PO SCH (09:45)
[2019-06-07] MEDS: FLUTICASONE/SALMETEROL 250/50 (ADVAIR) 14 PUFF/1 INHALER INH SCH ×2 (09:45→20:07)
[2019-06-07] MEDS: allopurinoL 300 MG TAB PO SCH (09:46)
[2019-06-07] MEDS: NYSTATIN SUSP 500,000 U/5 ML UDC PO SCH ×4 (09:46→20:08)
[2019-06-07] MEDS: PANTOprazole 40 MG TAB PO SCH (09:46)
[2019-06-07] MEDS: HEPARIN 100 UNIT/ML 5ML FLUSH FLUSH PRN ×3 (10:17→21:27)
[2019-06-07] MEDS: TESTOSTERONE TOP SCH (13:32)
--- NOTE | 2019-06-07 17:25 | Family Medicine Progress Note ---
Date of Service June 07, 2019 Assessment & Plan (1) Neutropenic fever: #Neutropenic fever: On admission Patient febrile at 39.1, tachycardic to 103 in ER, Neutrophil = 0.36, was 0 on 06/03/19. Blood pressure is stable. No obvious source of infection as yet - UA negative, CXR with no PNA, no rash/cellullitis. He does have mildly abnormal LFTs to include Tbili of 1.9, AST of 50 and ALT of 105. AP is normal. Elevated Procalcitonin at 0.71. Patient did well overnight very mild fever at 8:00 yesterday evening. Today has been afebrile -Cultures still demonstrate no growth to date -RUQUS WNL -Continue Cefepime 2gm IV q 8 hours, pending culture results -Oncology consultation -Recommended a dose of Neupogen -Filgrastim 300 mcg subcu every 24 hours -Neutropenic precautions #Thrombocytopenia: Platelets = 26 on admission. No active bleeding. No petechiae -Continue to trend am cbc --> -Transfuse if < 10 or active bleed #Weakness: Patient with diffuse weakness, inability to walk. Most likely secondary to underlying infection. He is neurologically intact. No back pain/trauma or radicular symptoms. No evidence of cauda equina -PT/OT consulted -Fall precautions -Treat ongoing medical issues -Continue to monitor #Thrush: Small amount of thrush on right lateral tongue. No dysphagia/odynophagia, improving. -PO Nystatin #Diffuse large B-cell lymphoma: Patient follows with [facility]. Last seen on 05/27/19. Presently undergoing chemotherapy with Venetoclax (decreased to 50mg daily as of 05/24), Rituxan q weekly x 6 treatments, last on 27 May 2019. Allopurinol prophylaxis. Last treatment on 27 May. -Continue to trend daily CBC -Treat for presumed infection as above, DC antibiotics if cultures remain negative -Oncology consulted see above -Continue Allopurinol -Holding antiemetics - Compazine, Zofran -Continue Neurontin - patient states that the bottom of his feet "feel funny", possible neuropathy. Consider increasing this medication #Hypertension: Blood pressure stable at present. 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 Stable. Patient urinating without difficulty -Currently no medications -Could consider tamsulosin defer to outpatient PCP #Restless leg syndrome: Chronic. Stable -Continue Requip #GERD (gastroesophageal reflux disease): Chronic. Stable -Continue Omeprazole #Hypothyroidism: Chronic. TFTs suggest sick euthyroid -Continue Levoxyl 125mcg po daily #COPD (chronic obstructive pulmonary disease): Chronic. Stable. No respiratory distress. No wheezing on exam. Adequate oxygenation on room air -Continue Advair -Albuterol PRN FENa: Regular diet as tolerated neutropenic precautions Code Status: Full code DVT PPX:Holding chemoprophylaxis SCDs PT/OT: Consulted Dispo: MedSurg with telemetry Lamin Guerra MD PGY 2, FCM This chart was completed utilizing [employer] voice recognition software. Grammatical errors, random word insertions, pronoun errors, and in complete sentences are an occasional consequence of the system. Any questions or concerns about the content, text, or information contained within the body of this dictation should be addressed directly to the physician for clarification. Supervising Physician Co-Signing Physician Notes Attending attestation Pt seen and examined in concert with Dr. Ceja and Charlie. In agreement with the documented findings as noted in the resident documentation with any exceptions or additions as noted here. Overall feeling of weakness has improved since admission, sitting up and comfortable. On examination, S1/S2 nl RRR no MCG. CTAB. Abd NT/ND BS+ve Neutropenic fever w. diffuse large B cell lymphoma - oncology consultation - follow up cultures. Continue cefepime. Neupogen today at oncology recommendation 2/2 low ANC. Continue gabapentin and allopurinol Thrombocytopenia - trend CBC, transfuse at 10 or with symptoms Diffuse weakness - likely 2/2 infection - follow up PT/OT Else see resident documentation as noted. Subjective Patient laying in bed in no acute distress. Tolerating a diet, voiding, stooling, sleeping. Acute concerns are present related to mouth are otherwise patient is doing well. All questions answered Physical Exam Physical Exam: General: No acute distress HEENT: Normocephalic atraumatic, mouth sores present nasal congestion Neck: No significant lymphadenopathy, trachea midline, normal to visual inspection Cardiac: Regular rate and rhythm, normal S1, normal S2, I did not appreciated any significant murmurs rubs or gallops, I did not appreciate any significant pedal edema, No calf tenderness, capillary refill is less than 3 seconds Respiratory: Clear to auscultation bilaterally with symmetrical chest rise, I did not appreciate any significant wheezes, rales, rhonchi, no increased work of breathing GI: Normal bowel sounds, soft, nontender in all 4 quadrants, nondistended MSK: No sensory or motor changes, moves all extremities without issue, extremities are warm and well-perfused Skin: [place], clean, dry, intact. Neuro: Alert and oriented x4 Psych: Calm, cooperative, logical thought process Results & Data Vital Signs (Past 12 Hours) Vital Signs Temp Pulse Pulse Resp BP Pulse Ox 06/07/19 15:29 36.8 C 71 16 103/66 96 06/07/19 11:15 36.8 C 71 18 108/65 94 06/07/19 07:25 37.0 C 72 18 124/74 96 06/07/19 07:12 74 Laboratory Results 06/07/19 06/07/19 06/06/19 Range/Units 05:44 05:44 17:39 WBC 5.59 (4.8-10.8) K/uL RBC 3.07 L (4.7-6.1) M/uL Hgb 10.6 L (14.0-18.0) g/dL Hct 31.5 L (42-52) % MCV 102.6 H (80-100) fL MCH 34.5 H (25-34) pg MCHC 33.7 (32-36) g/dL RDW Std Deviation 55.9 H (36.4-46.3) fL RDW Coeff of Sveta 15.0 H (11.5-14.5) % Plt Count 19 L* (130-400) K/uL MPV 10.0 (7.4-10.4) fL Immature Gran % (Auto) 1.1 % Neut % (Auto) 6.6 % Lymph % (Auto) 87.8 % [place] % (Auto) 4.3 % Eos % (Auto) 0.0 % Baso % (Auto) 0.2 % Immature Gran # (Auto) 0.06 H (0.00-0.02) K/uL Neut # (Auto) 0.37 L* (1.4-6.5) K/uL Lymph # (Auto) 4.91 H (1.2-3.4) K/uL [place] # (Auto) 0.24 (0.11-0.59) K/uL Eos # (Auto) 0.00 (0-0.5) K/uL Baso # (Auto) 0.01 (0-0.2) K/uL Sodium 139 (136-145) mmol/L Potassium 3.7 (3.5-5.1) mmol/L Chloride 108 H (98-107) mmol/L Carbon Dioxide 27 (21-32) mmol/L Anion Gap 4.0 (3-11) BUN 13 (7-18) mg/dl Creatinine 0.83 (0.6-1.4) mg/dl Est Cr Clr Drug Dosing 87.0 ml/min Est GFR ( Amer) 97.7 Est GFR (Non-Af Amer) 84.3 BUN/Creatinine Ratio 16.0 (10-20) Glucose 88 (70-99) mg/dl Calcium 7.9 L (8.5-10.1) mg/dl Phosphorus 2.4 L (2.5-4.9) mg/dl Magnesium 2.0 (1.8-2.4) mg/dl Total Bilirubin 1.3 H (0.2-1) mg/dl Direct Bilirubin 0.6 H (0-0.2) mg/dl AST 31 (15-37) U/L ALT 76 (12-78) U/L Alkaline Phosphatase 93 (45-117) U/L Total Protein 5.2 L (6.4-8.2) gm/dl Albumin 2.2 L (3.4-5.0) gm/dl Medications Administered Current Inpatient Medications Acetaminophen (Tylenol) 650 mg PO Q4H PRN PRN Reason: pain/fever Stop: 07/06/19 17:26 Last Admin: 06/07/19 09:52 Dose: 650 mg Documented by: Albuterol (Ventolin Hfa) 2 puffs INH Q4H PRN PRN Reason: Wheezing Stop: 07/06/19 17:26 Allopurinol (Zyloprim) 300 mg PO QAM [facility] Stop: 07/07/19 08:59 Last Admin: 06/07/19 09:46 Dose: 300 mg Documented by: Artificial Tears (Artificial Tears) 1 drops OP QID PRN PRN Reason: DRY EYE Stop: 07/06/19 17:59 Fexofenadine HCl (Maura) 180 mg PO DAILY [facility] Stop: 07/07/19 08:59 Last Admin: 06/07/19 09:45 Dose: 180 mg Documented by: Filgrastim (Neupogen) 300 mcg SQ Q24H [facility]; Protocol Stop: 07/07/19 16:29 Gabapentin (Neurontin) 200 mg PO HS [facility] Stop: 07/06/19 20:59 Last Admin: 06/06/19 20:13 Dose: 200 mg Documented by: Heparin Sodium (Porcine) (Heparin Sod 100 Unit/Ml Flush) 5 ml FLUSH PRN PRN PRN Reason: Flush Stop: 07/07/19 09:49 Last Admin: 06/07/19 13:39 Dose: 5 ml Documented by: Cefepime HCl 2,000 mg/ Syringe 20 mls @ 5.5 mls/min IV Q8 [facility]; Protocol Stop: 06/08/19 21:59 Last Admin: 06/07/19 13:38 Dose: 5.5 mls/min Documented by: Levothyroxine Sodium (Synthroid) 125 mcg PO DAILYBB [facility] Stop: 07/07/19 06:29 Last Admin: 06/07/19 05:24 Dose: 125 mcg Documented by: Testosterone Topical Gel = Non-Formulary Patient's Own Med 1 ea TOP DAILY [facility] Stop: 07/07/19 11:59 Last Admin: 06/07/19 13:32 Dose: 1 ea Documented by: Nystatin (Mycostatin) 5 ml PO QID [facility] Stop: 06/16/19 17:26 Last Admin: 06/07/19 15:35 Dose: 5 ml Documented by: Ondansetron HCl (Zofran) 4 mg IV Q6H PRN PRN Reason: Nausea Stop: 07/06/19 17:26 Pantoprazole Sodium (Protonix) 40 mg PO DAILY [facility] Stop: 07/07/19 08:59 Last Admin: 06/07/19 09:46 Dose: 40 mg Documented by: Ropinirole HCl (Requip) 0.25 mg PO HS [facility] Stop: 07/06/19 20:59 Last Admin: 06/06/19 20:13 Dose: 0.25 mg Documented by: Fluticasone/Salmeterol (Advair Diskus 250/50) 1 puffs INH BID [facility] Stop: 07/06/19 20:59 Last Admin: 06/07/19 09:45 Dose: 1 puffs Documented by: Tobramycin/Dexamethasone (Tobradex Oph) 1 drops NA TID PRN PRN Reason: Unknown Stop: 07/06/19 17:26 PG Care Time/CCT Total # of Minutes Spent Total Time Spent with Patient: Total time spent is greater than 50% in coordination of care (as documented) at patient's floor/unit and/or counseling patient: Resident Activity Tracking Resident Involvement: Resident Care Provided Care Provided: Adult Hospital Medicine
[2019-06-07] MEDS: FILGRASTIM 300 MCG/ML VIAL SQ SCH (17:54)
[2019-06-07] MEDS: GABAPENTIN 100 MG CAP PO SCH (20:09)
[2019-06-07] MEDS: ROPINIROLE HCL 0.25 MG TABLET PO SCH (20:09)
[2019-06-08] MEDS: CEFEPIME 2,000 MG in SYRINGE 7.5 ML IV SCH ×2 (05:46→13:38)
[2019-06-08] MEDS: LEVOTHYROXINE SODIUM 125 MCG TABLET PO SCH (05:46)
[2019-06-08] MEDS: HEPARIN 100 UNIT/ML 5ML FLUSH FLUSH PRN ×2 (05:47→13:47)
[2019-06-08 06:38] LABS: Albumin Level 2.2 gm/dl (3.4-5.0); Bilirubin Direct 0.3 mg/dl (0-0.2); Bilirubin,Total 0.8 mg/dl (0.2-1); Total Protein 5.4 gm/dl (6.4-8.2)
[2019-06-08] MEDS: FLUTICASONE/SALMETEROL 250/50 (ADVAIR) 14 PUFF/1 INHALER INH SCH ×2 (07:39→20:48)
[2019-06-08] MEDS: FEXOFENADINE HCL 180 MG TAB PO SCH (07:40)
[2019-06-08] MEDS: allopurinoL 300 MG TAB PO SCH (07:40)
[2019-06-08] MEDS: PANTOprazole 40 MG TAB PO SCH (07:40)
[2019-06-08] MEDS: NYSTATIN SUSP 500,000 U/5 ML UDC PO SCH ×4 (07:40→20:49)
[2019-06-08] MEDS: TESTOSTERONE TOP SCH (07:43)
[2019-06-08 09:16] LABS: Hematocrit (blood only) 32.3 % (42-52); Hemoglobin 10.9 g/dL (14.0-18.0); Mean Corpuscular Hemoglobin 34.3 pg (25-34); Mean Corpuscular Hgb Conc 33.7 g/dL (32-36); Mean Corpuscular Volume 101.6 fL (80-100); Mean Platelet Volume 9.9 fL (7.4-10.4); Platelet Count 28 K/uL (130-400); RDW Coefficient of Variation 14.7 % (11.5-14.5); RDW Standard Deviation 54.8 fL (36.4-46.3); Red Blood Count 3.18 M/uL (4.7-6.1); White Blood Count 6.21 K/uL (4.8-10.8)
[2019-06-08 09:51] LABS: Basophils # (auto) 0.01 K/uL (0-0.2); Basophils % (auto) 0.2 %; Echinocytes 2+; Eosinophils # (auto) 0.01 K/uL (0-0.5); Eosinophils % (auto) 0.2 %; Immature Granulocytes # (auto) 0.14 K/uL (0.00-0.02); Immature Granulocytes % (auto) 2.3 %; Lymphocytes # (auto) 5.03 K/uL (1.2-3.4); Monocytes # (auto) 0.31 K/uL (0.11-0.59); Neutrophils # (auto) 0.71 K/uL (1.4-6.5); Neutrophils % (auto) 11.3 %; Smudge Cells Present
--- NOTE | 2019-06-08 10:59 | Family Medicine Progress Note ---
Date of Service June 08, 2019 Assessment & Plan (1) Neutropenic fever: - neutropenic precautions - empirically started on Cefepime 2gm IV q8; now stopped given pt has been afebrile >24 hours and no source of infection found - blood cultures negative at 48 hours - UA negative for infection - Lungs clear; no sign of consolidation or infection on CXR - no cellulitis noted on body - Generally appears to be asx for infection at this time. (2) Thrombocytopenia: - uptrending after brief dip yesterday - no active bleeds - holding DVT ppx at this time - monitoring closely (3) Thrush: - Nystatin swish (4) COPD (chronic obstructive pulmonary disease): - continuining home medications of advair disk - albuterol inhaler PRN (5) GERD (gastroesophageal reflux disease): - pantoprazole 40 PO daily (6) Diffuse large B-cell lymphoma: - Neupogen 300 mcg Q24H for neutropenia - oncology consult in place; appreciate recommendations for management of concurrent cancers (7) Adenocarcinoma of lung: (8) Pituitary macroadenoma: (9) Depression with anxiety: (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 Persaud. In agreement with the documented findings as noted in the resident documentation with any exceptions or additions as noted here. Feeling closer to baseline, still having residual weakness of b/l LE and unsteadiness of gait. On examination, S1/S2 nl RRR no MCG. CTAB. Abd NT/ND BS+ve Neutropenic fever in the setting of multiple neoplastic processes - oncology consultation appreciated. 24 hours afebrile and cultures negative without complaint or source of infection apparent. D/C abx. Continue gabapentin, allopurinol Thrombocytopenia - uptrending, monitor CBC Diffuse weakness - likely 2/2 infection - dispo to rehab, care management pending Else see resident documentation as noted. Subjective 78 M with extensive PMH of diffuse B cell lymphoma, adenocarcinoma of lung, recently diagnosed CLL/SLL who was admitted on 06/06 for neutropenic fever. Today he denies any fevers, chills, chest pain, SOB, N/V/C/D. He overall feels well, though he attests to feeling weaker than normal in his legs when trying to stand and walk around. He expressed interest in going to a physical therapy rehab placement after discharge to strengthen himself prior to going home. Review of Systems Constitutional: + weakness; no fever, no chills, no sweats, no fatigue and no malaise Respiratory: no cough, no change in sputum, no dyspnea and no pain on inspiration Cardiovascular: no chest pain, no dyspnea on exertion, no palpitations and no edema Gastrointestinal: no abdominal pain, no nausea, no vomiting, no cramping, no constipation and no diarrhea/loose stools Physical Exam Constitutional: cooperative; no acute distress and not ill appearing Neck: normal visual inspection Respiratory: normal respiratory effort and able to speak in complete sentences; no respiratory distress, no labored breathing, no retractions, no cough and no audible wheezes Auscultation: lungs clear to auscultation bilaterally; no crackles, no rales, no rhonchi and no wheezes Cardiovascular: Rate/Rhythm: regular rate and regular rhythm Heart Sounds: normal S1 and normal S2; no gallop, no murmur and no cardiac rub Vessels: posterior tibial pulses present Extremities: no pedal edema and no edema Gastrointestinal (Abdomen): Inspection/Auscultation: abdomen normal to inspection and normal bowel sounds; abdomen not distended Percussion/Palpation: abdomen soft; abdomen nontender, no guarding, abdomen not rigid and no abdominal mass Results & Data Vital Signs (Past 12 Hours) Vital Signs Temp Pulse Pulse Resp BP BP Pulse Ox 06/08/19 10:11 64 06/08/19 07:20 36.8 C 69 18 113/65 99 06/08/19 04:10 36.6 C 74 18 121/75 94 06/08/19 00:00 81 06/07/19 23:48 36.9 C 82 20 128/69 96 Laboratory Results WBC 6.21 K/uL (4.8-10.8) 06/08/19 05:25 RBC 3.18 M/uL (4.7-6.1) L 06/08/19 05:25 Hgb 10.9 g/dL (14.0-18.0) L 06/08/19 05:25 Hct 32.3 % (42-52) L 06/08/19 05:25 MCV 101.6 fL (80-100) H 06/08/19 05:25 MCH 34.3 pg (25-34) H 06/08/19 05:25 MCHC 33.7 g/dL (32-36) 06/08/19 05:25 RDW Std Deviation 54.8 fL (36.4-46.3) H 06/08/19 05:25 RDW Coeff of Sveta 14.7 % (11.5-14.5) H 06/08/19 05:25 Plt Count 28 K/uL (130-400) L* 06/08/19 05:25 MPV 9.9 fL (7.4-10.4) 06/08/19 05:25 Immature Gran % (Auto) 2.3 % 06/08/19 05:25 Neut % (Auto) 11.3 % 06/08/19 05:25 Lymph % (Auto) 81.0 % 06/08/19 05:25 [place] % (Auto) 5.0 % 06/08/19 05:25 Eos % (Auto) 0.2 % 06/08/19 05:25 Baso % (Auto) 0.2 % 06/08/19 05:25 Immature Gran # (Auto) 0.14 K/uL (0.00-0.02) H 06/08/19 05:25 Neut # (Auto) 0.71 K/uL (1.4-6.5) L* 06/08/19 05:25 Lymph # (Auto) 5.03 K/uL (1.2-3.4) H 06/08/19 05:25 [place] # (Auto) 0.31 K/uL (0.11-0.59) 06/08/19 05:25 Eos # (Auto) 0.01 K/uL (0-0.5) 06/08/19 05:25 Baso # (Auto) 0.01 K/uL (0-0.2) 06/08/19 05:25 Smudge Cells Present 06/08/19 05:25 Echinocytes 2+ 06/08/19 05:25 PT 11.4 Seconds (9.0-12.0) 06/06/19 12:53 INR 1.1 (0.9-1.1) 06/06/19 12:53 Sodium 139 mmol/L (136-145) 06/07/19 05:44 Potassium 3.7 mmol/L (3.5-5.1) 06/07/19 05:44 Chloride 108 mmol/L (98-107) H 06/07/19 05:44 Carbon Dioxide 27 mmol/L (21-32) 06/07/19 05:44 Anion Gap 4.0 (3-11) 06/07/19 05:44 BUN 13 mg/dl (7-18) 06/07/19 05:44 Creatinine 0.83 mg/dl (0.6-1.4) 06/07/19 05:44 Est Cr Clr Drug Dosing 87.0 ml/min 06/07/19 05:44 Est GFR ( Amer) 97.7 06/07/19 05:44 Est GFR (Non-Af Amer) 84.3 06/07/19 05:44 BUN/Creatinine Ratio 16.0 (10-20) 06/07/19 05:44 Glucose 88 mg/dl (70-99) 06/07/19 05:44 POC Lactic Acid Dominic 0.76 mmol/L (0.90-1.70) L 06/06/19 13:00 Calcium 7.9 mg/dl (8.5-10.1) L 06/07/19 05:44 Phosphorus 2.4 mg/dl (2.5-4.9) L 06/06/19 17:39 Magnesium 2.0 mg/dl (1.8-2.4) 06/06/19 17:39 Total Bilirubin 0.8 mg/dl (0.2-1) D 06/08/19 05:33 Direct Bilirubin 0.3 mg/dl (0-0.2) H 06/08/19 05:33 AST 29 U/L (15-37) 06/08/19 05:33 ALT 68 U/L (12-78) 06/08/19 05:33 Alkaline Phosphatase 98 U/L (45-117) 06/08/19 05:33 Troponin I < 0.015 ng/ml (0-0.045) 06/06/19 12:53 Total Protein 5.4 gm/dl (6.4-8.2) L 06/08/19 05:33 Albumin 2.2 gm/dl (3.4-5.0) L 06/08/19 05:33 Globulin 3.2 gm/dl (2.5-4.0) 06/06/19 12:53 Albumin/Globulin Ratio 0.8 (0.9-2) L 06/06/19 12:53 Lipase 97 U/L (73-393) 06/06/19 12:53 Procalcitonin 0.71 ng/ml (0-0.5) H 06/06/19 12:53 TSH 0.178 uIu/ml (0.300-4.500) L 06/06/19 12:53 Free T4 1.53 ng/dl (0.8-1.6) 06/06/19 12:53 Urine Color Yellow 06/06/19 13:29 Urine Appearance Clear (Clear) 06/06/19 13:29 Urine pH 8.5 (4.5-7.5) H 06/06/19 13:29 Ur Specific [place] 1.017 (1.000-1.030) 06/06/19 13:29 Urine Protein 1+ (Negative) H 06/06/19 13:29 Urine Glucose (UA) Negative (Negative) 06/06/19 13:29 Urine Ketones Negative (Negative) 06/06/19 13:29 Urine Blood Negative (Negative) 06/06/19 13:29 Urine Nitrite Negative (Negative) 06/06/19 13:29 Urine Bilirubin Negative (Negative) 06/06/19 13:29 Urine Urobilinogen Negative (Negative) 06/06/19 13:29 Ur Leukocyte Esterase Negative (Negative) 06/06/19 13:29 Urine WBC (Auto) 1-5 /hpf (0-5) 06/06/19 13:29 Urine RBC (Auto) 0-4 /hpf (0-4) 06/06/19 13:29 U Hyaline Cast (Auto) 0 /lpf (0-5) 06/06/19 13:29 U Epithel Cells (Auto) 0-5 /lpf (0-5) 06/06/19 13:29 Urine Bacteria (Auto) Negative (Negative) 06/06/19 13:29 Blood Type A Positive 06/06/19 13:13 Antibody Screen NEGATIVE 06/06/19 13:13 PG Care Time/CCT Total # of Minutes Spent Total Time Spent with Patient: Total time spent is greater than 50% in coordination of care (as documented) at patient's floor/unit and/or counseling patient: Resident Activity Tracking Resident Involvement: Resident Care Provided Care Provided: Adult Hospital Medicine (1) COPD (chronic obstructive pulmonary disease) COPD type: unspecified COPD Qualified Code(s): J44.9 - Chronic obstructive pulmonary disease, unspecified (2) GERD (gastroesophageal reflux disease) Esophagitis presence: esophagitis presence not specified Qualified Code(s): K21.9 - Gastro-esophageal reflux disease without esophagitis (3) Diffuse large B-cell lymphoma Lymphoma site: multiple regions Qualified Code(s): C83.38 - Diffuse large B- cell lymphoma, lymph nodes of multiple sites (4) Hypothyroidism Hypothyroidism type: unspecified Qualified Code(s): E03.9 - Hypothyroidism, unspecified
[2019-06-08] MEDS: ACETAMINOPHEN 325 MG TAB PO PRN (16:12)
[2019-06-08] MEDS: FILGRASTIM 300 MCG/ML VIAL SQ SCH (16:17)
[2019-06-08] MEDS: ROPINIROLE HCL 0.25 MG TABLET PO SCH (20:49)
[2019-06-08] MEDS: GABAPENTIN 100 MG CAP PO SCH (20:49)
[2019-06-09] MEDS: HEPARIN 100 UNIT/ML 5ML FLUSH FLUSH PRN (05:34)
[2019-06-09] MEDS: LEVOTHYROXINE SODIUM 125 MCG TABLET PO SCH (05:36)
[2019-06-09 06:16] LABS: Hematocrit (blood only) 33.7 % (42-52); Mean Corpuscular Hemoglobin 33.6 pg (25-34); Mean Corpuscular Hgb Conc 32.6 g/dL (32-36); Mean Corpuscular Volume 103.1 fL (80-100); Mean Platelet Volume 11.3 fL (7.4-10.4); Platelet Count 32 K/uL (130-400); RDW Coefficient of Variation 15.1 % (11.5-14.5); RDW Standard Deviation 57.2 fL (36.4-46.3); Red Blood Count 3.27 M/uL (4.7-6.1); White Blood Count 6.82 K/uL (4.8-10.8)
[2019-06-09 06:48] LABS: Albumin Level 2.4 gm/dl (3.4-5.0); BUN Creatinine Ratio 14.1 (10-20); Creatinine Clr Calc Pharmacy 73.8 ml/min; Est GFR (African American) 86.3; Est GFR (Non-African American) 74.5; Potassium 3.8 mmol/L (3.5-5.1)
[2019-06-09 06:50] LABS: Albumin Globulin Ratio 0.7 (0.9-2); Bilirubin,Total 0.7 mg/dl (0.2-1); Globulin 3.5 gm/dl (2.5-4.0); Total Protein 5.9 gm/dl (6.4-8.2)
--- NOTE | 2019-06-09 07:40 | Family Medicine Progress Note ---
Date of Service June 09, 2019 Assessment & Plan (1) Neutropenic fever: - neutropenic precautions - empirically started on Cefepime 2gm IV q8; now stopped given pt has been afebrile >24 hours and no source of infection found - blood cultures negative at 48 hours - UA negative for infection - Lungs clear; no sign of consolidation or infection on CXR - no cellulitis noted on body - Generally appears to be asx for infection at this time. (2) Thrombocytopenia: - uptrending after brief dip yesterday - no active bleeds - holding DVT ppx at this time - monitoring closely (3) Thrush: - Nystatin swish (4) COPD (chronic obstructive pulmonary disease): - continuining home medications of advair disk - albuterol inhaler PRN (5) GERD (gastroesophageal reflux disease): - pantoprazole 40 PO daily (6) Diffuse large B-cell lymphoma: - Neupogen 300 mcg Q24H for neutropenia - oncology consult in place; appreciate recommendations for management of concurrent cancers (7) Adenocarcinoma of lung: (8) Pituitary macroadenoma: (9) Depression with anxiety: (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 Persaud. In agreement with the documented findings as noted in the resident documentation with any exceptions or additions as noted here. Improved overall, though still complaining of weakness and unsteady gait while walking. On examination, S1/S2 nl RRR no MCG. CTAB. Abd NT/ND BS+ve Neutropenic fever in the setting of multiple neoplastic processes - oncology co nsultation - 24 hours afebrile w/ neg Cx. Off abx. Trend CBC, monitor for sx. Continue gabapentin, allopurinol Thrombocytopenia - uptrending, monitor CBC Diffuse weakness - likely 2/2 infection - dispo to rehab, care management pending Else see resident documentation as noted. Subjective Pleasant 78 yo m with extensive PMH admitted for neutropenic fever. Doing well today. No complaints of CP, SOB, N/V/D. COmplaining of mild constipation since being admitted. Afebrile, no chills. agree with PT/OT recommendation for physical therapy rehab. Will discuss with case management regarding placement. Review of Systems Constitutional: no fever, no chills, no body aches and no fatigue Respiratory: no cough and no dyspnea Cardiovascular: no chest pain, no dyspnea and no edema Gastrointestinal: + constipation; no abdominal pain, no nausea, no vomiting and no diarrhea/loose stools Physical Exam Constitutional: cooperative; no acute distress and not ill appearing Neck: normal visual inspection Respiratory: normal respiratory effort and able to speak in complete sentences; no respiratory distress, no labored breathing, no retractions, no cough and no audible wheezes Auscultation: lungs clear to auscultation bilaterally; no crackles, no rales, no rhonchi and no wheezes Cardiovascular: Rate/Rhythm: regular rate and regular rhythm Heart Sounds: normal S1 and normal S2; no gallop, no murmur and no cardiac rub Vessels: posterior tibial pulses present Extremities: no pedal edema and no edema Gastrointestinal (Abdomen): Inspection/Auscultation: abdomen normal to inspection and normal bowel sounds; abdomen not distended Percussion/Palpation: abdomen soft; abdomen nontender, no guarding, abdomen not rigid and no abdominal mass Results & Data Vital Signs (Past 12 Hours) Vital Signs Temp Pulse Pulse Resp BP BP Pulse Ox 06/09/19 06:40 36.6 C 77 19 115/73 93 06/09/19 04:24 37.0 C 81 20 116/73 95 06/09/19 00:00 84 06/08/19 23:38 37.0 C 79 20 115/73 93 06/08/19 21:00 36.8 C Laboratory Results WBC 6.82 K/uL (4.8-10.8) 06/09/19 05:39 RBC 3.27 M/uL (4.7-6.1) L 06/09/19 05:39 Hgb 11.0 g/dL (14.0-18.0) L 06/09/19 05:39 Hct 33.7 % (42-52) L 06/09/19 05:39 MCV 103.1 fL (80-100) H 06/09/19 05:39 MCH 33.6 pg (25-34) 06/09/19 05:39 MCHC 32.6 g/dL (32-36) 06/09/19 05:39 RDW Std Deviation 57.2 fL (36.4-46.3) H 06/09/19 05:39 RDW Coeff of Sveta 15.1 % (11.5-14.5) H 06/09/19 05:39 Plt Count 32 K/uL (130-400) L 06/09/19 05:39 MPV 11.3 fL (7.4-10.4) H 06/09/19 05:39 Immature Gran % (Auto) 2.8 % 06/09/19 05:39 Neut % (Auto) 12.3 % 06/09/19 05:39 Lymph % (Auto) 78.3 % 06/09/19 05:39 [place] % (Auto) 6.5 % 06/09/19 05:39 Eos % (Auto) 0.0 % 06/09/19 05:39 Baso % (Auto) 0.1 % 06/09/19 05:39 Immature Gran # (Auto) 0.19 K/uL (0.00-0.02) H 06/09/19 05:39 Neut # (Auto) 0.84 K/uL (1.4-6.5) L* 06/09/19 05:39 Lymph # (Auto) 5.34 K/uL (1.2-3.4) H 06/09/19 05:39 [place] # (Auto) 0.44 K/uL (0.11-0.59) 06/09/19 05:39 Eos # (Auto) 0.00 K/uL (0-0.5) 06/09/19 05:39 Baso # (Auto) 0.01 K/uL (0-0.2) 06/09/19 05:39 Smudge Cells Present 06/08/19 05:25 Tear Drop Cells 1+ 06/09/19 05:39 Echinocytes 2+ 06/08/19 05:25 PT 11.4 Seconds (9.0-12.0) 06/06/19 12:53 INR 1.1 (0.9-1.1) 06/06/19 12:53 Sodium 138 mmol/L (136-145) 06/09/19 05:39 Potassium 3.8 mmol/L (3.5-5.1) 06/09/19 05:39 Chloride 107 mmol/L (98-107) 06/09/19 05:39 Carbon Dioxide 26 mmol/L (21-32) 06/09/19 05:39 Anion Gap 5.0 (3-11) 06/09/19 05:39 BUN 14 mg/dl (7-18) 06/09/19 05:39 Creatinine 0.97 mg/dl (0.6-1.4) 06/09/19 05:39 Est Cr Clr Drug Dosing 73.8 ml/min 06/09/19 05:39 Est GFR ( Amer) 86.3 06/09/19 05:39 Est GFR (Non-Af Amer) 74.5 06/09/19 05:39 BUN/Creatinine Ratio 14.1 (10-20) 06/09/19 05:39 Glucose 70 mg/dl (70-99) 06/09/19 05:39 POC Lactic Acid Dominic 0.76 mmol/L (0.90-1.70) L 06/06/19 13:00 Calcium 8.0 mg/dl (8.5-10.1) L 06/09/19 05:39 Phosphorus 2.4 mg/dl (2.5-4.9) L 06/06/19 17:39 Magnesium 2.0 mg/dl (1.8-2.4) 06/06/19 17:39 Total Bilirubin 0.7 mg/dl (0.2-1) 06/09/19 05:39 Direct Bilirubin 0.3 mg/dl (0-0.2) H 06/08/19 05:33 AST 40 U/L (15-37) H 06/09/19 05:39 ALT 71 U/L (12-78) 06/09/19 05:39 Alkaline Phosphatase 111 U/L (45-117) 06/09/19 05:39 Troponin I < 0.015 ng/ml (0-0.045) 06/06/19 12:53 Total Protein 5.9 gm/dl (6.4-8.2) L 06/09/19 05:39 Albumin 2.4 gm/dl (3.4-5.0) L 06/09/19 05:39 Globulin 3.5 gm/dl (2.5-4.0) 06/09/19 05:39 Albumin/Globulin Ratio 0.7 (0.9-2) L 06/09/19 05:39 Lipase 97 U/L (73-393) 06/06/19 12:53 Procalcitonin 0.71 ng/ml (0-0.5) H 06/06/19 12:53 TSH 0.178 uIu/ml (0.300-4.500) L 06/06/19 12:53 Free T4 1.53 ng/dl (0.8-1.6) 06/06/19 12:53 Urine Color Yellow 06/06/19 13:29 Urine Appearance Clear (Clear) 06/06/19 13:29 Urine pH 8.5 (4.5-7.5) H 06/06/19 13:29 Ur Specific [place] 1.017 (1.000-1.030) 06/06/19 13:29 Urine Protein 1+ (Negative) H 06/06/19 13:29 Urine Glucose (UA) Negative (Negative) 06/06/19 13:29 Urine Ketones Negative (Negative) 06/06/19 13:29 Urine Blood Negative (Negative) 06/06/19 13:29 Urine Nitrite Negative (Negative) 06/06/19 13:29 Urine Bilirubin Negative (Negative) 06/06/19 13:29 Urine Urobilinogen Negative (Negative) 06/06/19 13:29 Ur Leukocyte Esterase Negative (Negative) 06/06/19 13:29 Urine WBC (Auto) 1-5 /hpf (0-5) 06/06/19 13:29 Urine RBC (Auto) 0-4 /hpf (0-4) 06/06/19 13:29 U Hyaline Cast (Auto) 0 /lpf (0-5) 06/06/19 13:29 U Epithel Cells (Auto) 0-5 /lpf (0-5) 06/06/19 13:29 Urine Bacteria (Auto) Negative (Negative) 06/06/19 13:29 Blood Type A Positive 06/06/19 13:13 Antibody Screen NEGATIVE 06/06/19 13:13 PG Care Time/CCT Total # of Minutes Spent Total Time Spent with Patient: Total time spent is greater than 50% in coordination of care (as documented) at patient's floor/unit and/or counseling patient: Resident Activity Tracking Resident Involvement: Resident Care Provided Care Provided: Adult [facility] (1) Diffuse large B-cell lymphoma Lymphoma site: multiple regions Qualified Code(s): C83.38 - Diffuse large B- cell lymphoma, lymph nodes of multiple sites (2) Hypothyroidism Hypothyroidism type: unspecified Qualified Code(s): E03.9 - Hypothyroidism, unspecified (3) COPD (chronic obstructive pulmonary disease) COPD type: unspecified COPD Qualified Code(s): J44.9 - Chronic obstructive pulmonary disease, unspecified (4) GERD (gastroesophageal reflux disease) Esophagitis presence: esophagitis presence not specified Qualified Code(s): K21.9 - Gastro-esophageal reflux disease without esophagitis
[2019-06-09 07:51] LABS: Basophils # (auto) 0.01 K/uL (0-0.2); Basophils % (auto) 0.1 %; Immature Granulocytes # (auto) 0.19 K/uL (0.00-0.02); Immature Granulocytes % (auto) 2.8 %; Lymphocytes # (auto) 5.34 K/uL (1.2-3.4); Lymphocytes % (auto) 78.3 %; Monocytes # (auto) 0.44 K/uL (0.11-0.59); Monocytes % (auto) 6.5 %; Neutrophils # (auto) 0.84 K/uL (1.4-6.5); Neutrophils % (auto) 12.3 %; Tear Drop Cells 1+
[2019-06-09] MEDS: FEXOFENADINE HCL 180 MG TAB PO SCH (09:29)
[2019-06-09] MEDS: FLUTICASONE/SALMETEROL 250/50 (ADVAIR) 14 PUFF/1 INHALER INH SCH ×2 (09:29→21:48)
[2019-06-09] MEDS: allopurinoL 300 MG TAB PO SCH (09:29)
[2019-06-09] MEDS: PANTOprazole 40 MG TAB PO SCH (09:29)
[2019-06-09] MEDS: TESTOSTERONE TOP SCH (09:29)
[2019-06-09] MEDS: NYSTATIN SUSP 500,000 U/5 ML UDC PO SCH ×4 (09:29→21:48)
[2019-06-09] MEDS ORDERED: DOCUSATE SODIUM 100 MG CAP PO PRN (10:20)
[2019-06-09] MEDS ORDERED: POLYETHYLENE (MIRALAX) 17 GM PACK PO PRN (10:20)
[2019-06-09] MEDS ORDERED: DOCUSATE SODIUM 100 MG CAP PO ONE (10:30)
[2019-06-09] MEDS: FILGRASTIM 300 MCG/ML VIAL SQ SCH (16:29)
[2019-06-09] MEDS: ACETAMINOPHEN 325 MG TAB PO PRN (18:38)
[2019-06-09] MEDS: GABAPENTIN 100 MG CAP PO SCH (21:48)
[2019-06-09] MEDS: ROPINIROLE HCL 0.25 MG TABLET PO SCH (21:48)
[2019-06-10] MEDS: LEVOTHYROXINE SODIUM 125 MCG TABLET PO SCH (05:32)
[2019-06-10] MEDS: HEPARIN 100 UNIT/ML 5ML FLUSH FLUSH PRN ×3 (05:34→12:23)
[2019-06-10 06:23] LABS: Hematocrit (blood only) 30.2 % (42-52); Hemoglobin 10.1 g/dL (14.0-18.0); Mean Corpuscular Hemoglobin 34.2 pg (25-34); Mean Corpuscular Hgb Conc 33.4 g/dL (32-36); Mean Corpuscular Volume 102.4 fL (80-100); Mean Platelet Volume 10.3 fL (7.4-10.4); Platelet Count 21 K/uL (130-400); RDW Coefficient of Variation 14.9 % (11.5-14.5); RDW Standard Deviation 55.7 fL (36.4-46.3); Red Blood Count 2.95 M/uL (4.7-6.1); White Blood Count 4.68 K/uL (4.8-10.8)
--- NOTE | 2019-06-10 06:52 | Discharge Summary ---
Date of Service June 10, 2019 Admission HPI Per Admitting Provider Jem Clarke is a pleasant 78-year-old male with history of diffuse large B-cell lymphoma involving the supra and infra-diaphragmatic region diagnosed initially and 2007. He follows with Dr. Newberry of [facility] oncology. Presently on patient presently receiving Venetoclax 50 mg daily as of 05/24/2019. He was recently started on Rituxan q. weekly. Treatment last received on 05/27/2019. Patient had labs collected on 06/03/2019 which showed neutropenia, 0% neutrophils. He presents today with neutropenic fever and diffuse weakness. His symptoms began yesterday. His and [id number] had gone to [facility] for an appointment and the patient was at home alone. He tried to get up around 9:20 but was weak and tired. States that both of his legs felt heavy and he was having a difficult time walking. He spent most of the day on the couch but continued to feel weak and tired. He did fairly okay overnight but required family assistance with ambulation. This morning the patient rolled off the couch onto the floor. He states he was unable to get up. His son helped him up and subsequently called EMS. He denies fevers, chills, sweats. Denies headache, visual disturbance, ear pain, sore throat. He did have some sores in his mouth about a week and a half ago but they have since resolved. He denies chest pain, palpitations, cough, shortness of breath, wheeze. Denies nausea, vomiting, abdominal pain, diarrhea or constipation. No rashes, joint swelling. No additional complaints at this time. ER course: Cefepime x2 g, Tylenol x1 g, normal saline Admission Exam Per Admitting Provider General: patient resting comfortably, NAD, non-toxic in appearance, AA&O x 4 Skin: warm, dry, intact, no rashes or lesions, no jaundice or cellulitis, no petechiae HEENT: NC/AT, PERRL, EOMI, anicteric sclera, conjunctiva without injection, external ear normal to inspection and nontender, nares patent, moist mucus membranes, dentition intact, small amount of thrush on right lateral tongue, neck supple, trachea midline, no LAD, no thyromegaly, no JVD Heart: +S1/S2, regular, no m/r/g, port in anterior right chest wall, no erythema/drainage/tenderness Lungs: equal air entry bilaterally, no rales/rhonchi/wheezes Abd: +BS, soft, NT/ND, no masses/organomegaly/ascites, no spinal or cva tenderness, large lipoma on right upper back nontender, no RUQ tenderness Ext: warm, 2+ pulses in UE/LE bilaterally, no clubbing/cyanosis, trace edema Neuro: nonfocal, patient AA&O x 4, speech intact, no facial droop, moving all extremities on command with equal strength 5/5 Principal Diagnosis Neutropenic Fever Discharge Exam Constitutional WD/WN, vitals as above Eyes PERRL, conjunctivae normal, anicteric sclerae ENMT external ear and nose normal, oropharynx normal Small oral ulcer present on R lower gum line Neck trachea midline, no thyromegaly Respiratory normal respiratory effort, lungs clear to auscultation Auscultation: no crackles, no rales, no rhonchi, no wheezes and no pleural rub Cardiovascular RRR, no murmur, no edema Heart Sounds: normal S1 and normal S2; no gallop, no murmur and no cardiac rub Gastrointestinal (Abdomen) normal bowel sounds, soft, nontender, no hepatosplenomegaly Skin no rashes, warm and dry No petechiae Psychiatric A+Ox3, euthymic affect Discharge Data Allergies Allergy/AdvReac Type Severity Reaction Status Date / Time lisinopril Allergy Mild itching Verified 06/06/19 14:19 metoprolol Allergy Mild itching Verified 06/06/19 14:19 losartan AdvReac Mild RASH Verified 06/06/19 14:19 Consultations 06/06/19 14:13 ED Decision to Admit Stat 06/06/19 17:27 Consult Oncology Routine Ordered Studies 06/06/19 17:27 US liver Routine US liver CLINICAL HISTORY: 78 years-old Male presenting with Abnormal LFTs. TECHNIQUE: Real-time grayscale and limited color Doppler ultrasound imaging of the abdomen limited to the right upper quadrant was performed. COMPARISON: CT from 01/14/2017. FINDINGS: Pancreas: Visualized portions of the pancreatic head and body normal. Liver: Normal echogenicity though mild heterogeneity of echotexture. The liver measures 13.4 cm in maximal sagittal dimension. No sonographic evidence of hepatic mass. Main portal vein patent with normal directional flow. Biliary: No intrahepatic biliary ductal dilatation. Common bile duct measures up to 5 mm in diameter. Gallbladder: No evidence of gallstones, gallbladder wall thickening, gallbladder distention, or pericholecystic fluid or inflammatory change. Right kidney: Cortical thinning. No evidence of hydronephrosis. Ascites: None. Other: None. IMPRESSION: 1. No cholelithiasis or biliary ductal dilatation. 2. Nonspecific mild heterogeneity of liver parenchyma. Early steatosis or fib rosis not excluded. 3. Possible medical renal disease given suggestion of right renal cortical thinning. Electronically signed by: Brent Avilez M.D. 06/07/2019 7:04 AM Dictated: 06/07/19701 Transcribed: 06/07/19701 Hospital Course (1) Neutropenic fever: Mr. Dowell arrived to [facility] on 06/06/19 with a fever of 39.1 degrees celcius, a HR of 103 and a WBC of 11.21 (neutrophil 3.2%). He was empirically started on Cefepime 2gm IV q8 and placed on neutropenic precautions. As for the infectious source: UA negative, CXR showed no sign of consolidation or infection, 2/2 blood cultures negative at 48 hours, and there was no cellulitis noted on body. Mr. Dowell was found to have a small oral ulcer on the R lower gum line, as well as nasal congestion throughout his hospital stay. He was discharged to an acute rehab facility (per recommendation by physical and occupational therapy). Oncology was consulted and recommended Mr. Dowell receive Neupogen injections, 300mcg per day during his hospitalization to improve his neutrophil count. This was discontinued at discharge as his ANC exceeded 1100. Outpatient items to do: monitor WBC and ANC with CBC (2) Thrombocytopenia: On admission, platelet count was 26 but dropped as low as 19. Etiology lik kyung chemotherapy regimen. Trended up to 21 at day of discharge. No active bleeds or petechiae present on physial exam. No transfusion preformed. Outpatient items to do: monitor CBC (3) Diffuse large B-cell lymphoma: On chemotherapy with Venteclox and receiving Rituxin treatments every 6 weeks. [facility]. Neupogen 300 mcg Q24H for neutropenia (4) Thrush: - Present on admission exam. Nystatin swish ordered. 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: (11) Restless leg syndrome: continuing home ropinirole and gabapentin regimen (12) Hypothyroidism: continuing 125 mcg of levothyroxine daily Total Time Total Time Spent Total Time Spent (In Minutes): see attending attestation Discharge Plan Discharge Items Patient Disposition: Transfer Inpatient Rehab Fac Reason For Visit: NEUTROPENIC FEVER Discharge Diagnosis: Neutropenic Fever Condition on Discharge: Good Activity: Resume your previous activity Non-emergency contact: Primary Care Provider and Oncologist Call non-emergency contact if: you have a fever Follow-up/Referrals: Ryne Corrigan MD [Primary Care Provider] - Diet: Regular Addtl Attending Provider Instructions: You were admitted to [facility] 06/06/19 to 06/10/19 for evaluation of a fever. Your fever was of great concern given your immunosuppression from chemotherapy and your B-cell lymphoma. Fever A chest xray was done, which showed no evidence of pneumonia. A urine analysis was done, which showed no evidence of infection. Both of the blood cultures drawn were negative for infectious growth. Thus, the source of your infection was unknown. You were initially started on IV antibiotics, but these were discontinued once your blood cultures returned as negative. The oncology doctors were consulted during your stay, who recommended you be treated with a medication called "Neupogen" which helps increase your neutrophil (white blood cell) count. This medication was discontinued at discharge as your neutrophil count improved. Please follow up routinely scheduled with your oncologist. Low Platelets Your platelet count was found to be low during your hospital stay, although you showed no signs of an active bleed. You did not require a platelet transfusion. The cause of your low platelets is likely from being on chemotherapy. Physical Therapy recommended you have an acute rehab stay following your hospitalization for continued therapy. Please follow up with your primary care doctor within one week after leaving the rehab facility. Pending Studies at Discharge: No Stand-Alone Forms: My [facility] Skilled Items Patient informed of condition?: Yes DNR: No Discharge Level of Care: Acute rehab Communicable Disease: No Discharge Prognosis: Stable Lines: None Urinary Catheter: No Medications and DC Order Prescriptions: Continued ondansetron 8 mg tablet,disintegrating 8 mg PO Q8H PRN (Reason: Nausea) Qty: 10 RF: 0 Refresh Tears 0.5 % Drops 1 drp OPB QID PRN (Reason: Dry Eye(S)) RF: 0 allopurinol [Zyloprim] 300 mg tablet 300 mg PO QAM RF: 0 fexofenadine [Maura Allergy] 180 mg Tablet 180 mg PO DAILY RF: 0 prochlorperazine maleate [Compazine] 10 mg Tablet 10 mg PO Q6H PRN (Reason: Nausea) RF: 0 ropinirole [Requip] 0.25 mg Tablet 0.25 mg PO HS RF: 0 omeprazole 20 mg Capsule,Delayed Release(Dr/Ec) 20 mg PO DAILY RF: 0 clobetasol 0.05 % solution 1 applic topical BID PRN (Reason: Dermatitis) RF: 0 tobramycin-dexamethasone 0.3-0.1 % drops,suspension 1 drp TID PRN (Reason: Unknown) RF: 0 cholecalciferol (vitamin D3) [Vitamin D3] 400 unit Capsule 400 unit PO DAILY RF: 0 Centrum Silver 0.4-300-250 mg-mcg-mcg Tablet 1 tab PO DAILY RF: 0 fluticasone propion-salmeterol [Advair Diskus] 250-50 mcg/dose blister with device 1 puffs inhalation BID RF: 0 levothyroxine [Levoxyl] 125 mcg tablet 125 mcg PO QAM RF: 0 cabergoline 0.5 mg tablet 0.25 mg PO UD RF: 0 gabapentin [Neurontin] 100 mg capsule 200 mg PO HS RF: 0 albuterol sulfate [Ventolin HFA] 90 mcg/actuation HFA aerosol inhaler 2 puff INHALATION Q4H PRN (Reason: Wheezing) RF: 0 testosterone [AndroGel] 20.25 mg/1.25 gram (1.62 %) gel in metered-dose pump 2 pump topical DAILY RF: 0 Discharge Orders: Discharge Order (Routine); Ordered 06/10/19 Ordered By: Deandra Ceja Admission Data Admit Date/Time: 06/06/19 15:32 Attending Provider: Addi Parish Admit Provider: Kathy Guerra Primary Care Provider: Ryne Corrigan Other Providers: George Newberry Other Interventions: Discharge Summary Assessment (RN) Last Done: 06/10/19 12:07 DC Date/Time DO NOT enter until pt leaves facility: 06/10/19 15:23 Supervising Physician Co-Signing Physician Notes Patient seen and examined with Dr. Ceja. I agree with their exam findings, review of systems, assessment and plan. I have personally reviewed the lab work and imaging from today. Patient feeling better compared to the time of admission, much more energy but still needs rehab. He is eating well. Reviewed labs, WBC up to normal Exam: AAOX3, NAD. Lungs CTA bilaterally, heart regular S1 and S2, no murmurs. Abdomen soft, NT, ND, +BS - Neutropenic fevers: resolved after several doses of Neupogen, WBC normal on discharge treated with Cefepime for several days, empirically no growth on cultures, no clear signs of infection still very weak, will go to rehab all questions answered please refer to resident's discharge summary for full details Resident Activity Tracking Resident Involvement: Resident Care Provided Care Provided: Adult Hospital Medicine
[2019-06-10 07:30] LABS: Basophils # (auto) 0.01 K/uL (0-0.2); Basophils % (auto) 0.2 %; Immature Granulocytes # (auto) 0.27 K/uL (0.00-0.02); Immature Granulocytes % (auto) 5.8 %; Lymphocytes # (auto) 3.25 K/uL (1.2-3.4); Lymphocytes % (auto) 69.4 %; Monocytes # (auto) 0.29 K/uL (0.11-0.59); Monocytes % (auto) 6.2 %; Neutrophils # (auto) 0.86 K/uL (1.4-6.5); Neutrophils % (auto) 18.4 %
[2019-06-10] MEDS: PANTOprazole 40 MG TAB PO SCH (07:36)
[2019-06-10] MEDS: FLUTICASONE/SALMETEROL 250/50 (ADVAIR) 14 PUFF/1 INHALER INH SCH (07:36)
[2019-06-10] MEDS: allopurinoL 300 MG TAB PO SCH (07:36)
[2019-06-10] MEDS: NYSTATIN SUSP 500,000 U/5 ML UDC PO SCH ×2 (07:37→12:53)
[2019-06-10] MEDS: TESTOSTERONE TOP SCH (07:37)
[2019-06-10] MEDS: FEXOFENADINE HCL 180 MG TAB PO SCH (07:37)
== END 2019-06-10 15:23 | DRG 809 ==
LOC: ED 12:28 → SUATTDRO 15:32 → 2W 15:32

== ENCOUNTER 2019-06-21 13:51 | Inpatient (IN) ==
[2019-06-21] MEDS ORDERED: ACETAMINOPHEN 325 MG TAB PO STA (14:24)
--- NOTE | 2019-06-21 14:45 | XRay Report ---
SINGLE VIEW CHEST CLINICAL HISTORY: Cough. FINDINGS: An AP, portable, upright chest radiograph is compared to study dated 06/06/2019 and correla shanice with chest CT dated 01/09/2017. The examination is degraded by portable technique, apical lordotic positioning, and patient rotation. A right internal jugular central venous infusion port is unchange d in position. The heart is enlarged noting atherosclerotic calcification of the thoracic aorta. The pulmonary vasculature is noncongested. Emphysema and chronic interstitial thickening are similar to p revious. There is postoperative change from right-sided pulmonary resection. There is patchy airspace consolidation seen at both lung bases, left greater than right. A small right pleural effusion is no shanice. No pneumothorax is seen. The skeletal structures are osteopenic. The bony thorax is grossly inta ct. IMPRESSION: 1. Cardiomegaly, emphysema, and postoperative change from right-sided pulmonary resection. 2. There is patchy airspace consolidation at both lung bases, left greater than right. The appearance is typical for pneumonia/aspiration pneumonitis. Clinical correlation will be required and radiograp hic follow-up to resolution is recommended. 3. There is a small right pleural effusion. Electronically signed by: Suman Dailey M.D. 06/21/2019 2:44 PM
[2019-06-21] MEDS ORDERED: CEFEPIME 2,000 MG/20 ML VIAL IV STA (14:58)
[2019-06-21 15:03] LABS: Hematocrit (blood only) 30.1 % (42-52); Mean Corpuscular Hemoglobin 32.7 pg (25-34); Mean Corpuscular Hgb Conc 33.2 g/dL (32-36); Mean Corpuscular Volume 98.4 fL (80-100); RDW Coefficient of Variation 14.9 % (11.5-14.5); RDW Standard Deviation 53.1 fL (36.4-46.3); Red Blood Count 3.06 M/uL (4.7-6.1); White Blood Count 4.29 K/uL (4.8-10.8)
[2019-06-21 15:32] LABS: Alanine Aminotransferase 37 U/L (12-78); Albumin Level 2.5 gm/dl (3.4-5.0); Aspartate Aminotransferase 41 U/L (15-37); BUN Creatinine Ratio 10.4 (10-20); Blood Urea Nitrogen 10 mg/dl (7-18); Calcium 8.2 mg/dl (8.5-10.1); Carbon Dioxide 27 mmol/L (21-32); Chloride 104 mmol/L (98-107); Est GFR (African American) 89.6; Est GFR (Non-African American) 77.3; Glucose 90 mg/dl (70-99); Potassium 3.6 mmol/L (3.5-5.1); Sodium 137 mmol/L (136-145)
[2019-06-21 15:36] LABS: Albumin Globulin Ratio 0.8 (0.9-2); Alkaline Phosphatase 142 U/L (45-117); Bilirubin,Total 0.7 mg/dl (0.2-1); Globulin 3.1 gm/dl (2.5-4.0); Total Protein 5.6 gm/dl (6.4-8.2); Troponin I 0.019 ng/ml (0-0.045)
[2019-06-21 15:47] LABS: Basophils # (auto) 0.03 K/uL (0-0.2); Basophils % (auto) 0.7 %; Eosinophils # (auto) 0.03 K/uL (0-0.5); Eosinophils % (auto) 0.7 %; Immature Granulocytes # (auto) 0.07 K/uL (0.00-0.02); Immature Granulocytes % (auto) 1.6 %; Lymphocytes # (auto) 2.06 K/uL (1.2-3.4); Mean Platelet Volume 9.4 fL (7.4-10.4); Monocytes # (auto) 0.57 K/uL (0.11-0.59); Monocytes % (auto) 13.3 %; Neutrophils # (auto) 1.53 K/uL (1.4-6.5); Neutrophils % (auto) 35.7 %; Platelet Count 36 K/uL (130-400)
--- NOTE | 2019-06-21 16:03 | History & Physical Report ---
Date of Service June 21, 2019 Assessment & Plan (1) Bilateral pneumonia: (2) Neutropenic fever: - Admit to tele - Likely secondary to multifocal pneumonia as described on CXR, WBC= 4.29, ANC>3500, this may be a false normal WBC in the setting of infection - Neutropenic precautions - Follow blood cultures x2 - Continue IV cefepime, started in the ER - UA appears clean, no other obvious signs of infection at this point, influenza swab negative, checking MRSA swab, will add vancomycin if positive. (3) Thrombocytopenia: -Platelet count = 36, monitor daily labs -Noted blood-tinged sputum as well as GI bleed with BRBPR with BM today -Follow repeat H&H at 2100 tonight, type and screen, blood consent has not been obtained, no need for whole blood or platelet transfusion at this time (4) BRBPR (bright red blood per rectum): - Repeat H&H as above, hemmocult all stools - Last colonscopy within past 6 yrs. I could not find most recent c-scope results in our system. (5) Diffuse large B-cell lymphoma: -Follows with Dr. George Newberry, [facility] as outpatient - consulted, appreciate recs -Allopurinol prophylaxis -Previously had been on acyclovir with hx of shingles, currently not on ppx, consider initiation if per oncology -No fungal ppx -Continue Neurontin for possibly neuropathy seconday to chemotherapy -Last cycle of chemotherapy was 06/04/2019, Venteclox, followed by dose of neupogen, next session has not been determined secondary to low blood counts and recent admissions. 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, s/p resection - Continue testosterone and thyroid hormone replacement therapy - Continue cabergoline 0.25 mg UD (8) Adenocarcinoma of lung: (9) COPD (chronic obstructive pulmonary disease): -Stable, does not wear supplemental O2 at baseline, continue levalbuterol nebs QID and Q2H prn, Advair inh BID (10) Hypertension: -BP well controlled, 102/59 at time of admission (11) Benign prostatic hyperplasia with urinary obstruction: -Reports no issues with urination, no hematuria -Bladder scan as needed, strict I's and O's - Cr.= 0.94 and BUN =10 (12) Sarcopenia: -Albumin equal 2.5, will order boost supplementation with meals and at bedtime, if patient appetite is severely poor then would request at least suggest drinking boost prior to going to bed at night. (13) Depression with anxiety: -Uses coping mechanisms, does not take medication, possibly gets some axiety stabilization with low-dose gabapentin at night (14) Hypothyroidism: -Continue levothyroxine 125 mcg daily (15) Vitamin D deficiency: -Continue vitamin D supplementation (16) Restless leg syndrome: -Continue Requip 0.25 mg nightly (17) GERD (gastroesophageal reflux disease): -stable, diminished issues with lack of appetite (18) DVT prophylaxis: teds, scds, no chemical ppx in setting of thrombocytopenia and GIB CODE: Full Dispo: From home, likely to remain in the hospital for at least 2 days. History of Present Illness Primary Care Provider: Ryne Corrigan MD This is a 78 yo M who has recently been admitted to our facility for two separate inpatient admissions for febrile neutropenia in the setting of Large B- cell lymphoma involving the supra and infra-diaphragnmatic region initially diagnosed in 2007, and today represents with similar presentation. Pt follow with Dr. Newberry of [facility] oncology. Pt is currently receiving Venetoclax chemotherapy, with last session being on 06/04/19. He has not since had chemo due to low blood counts. Other past medical hx includes HTN, HLD, thrombocytopenia, COPD, adenocarcinoma of the lung, pituitary macroadenoma, restless leg syndrome, hypothyroidism, depression with anxiety and thrush. His family including and son present at bedside support the history. He was previously discharged from our facility to [facility]. He left there this past Monday, but prior to leaving patient developed worsening difficulty breathing, cough, congestion, and today has coughed up blood tinged sputum. His notes that he developed intermittent fevers and chills, T-max = 102 during his stay at [facility]. Pt was being treated with Tylenol throughout his stay there. He reports that during the stay he was active only during PT sessions, otherwise felt very weak and was lying in bed. His reports that he did not come back up to his baseline since being in therapy. Pt also notes significant lack of appetite and food aversions. Also c/o difficulty with bowel movements, goes about 3 days in between having a routine bowel movement. Upon using the restroom this morning she had bright red blood on toilet paper. The patient nor his are able to quantify. He notes that he does have issues with constipation and admits to straining. He denies dark tarry stools or blood streaking in stool. Patient had a colonoscopy within the past 6 years and everything was normal to his knowledge. Recent admissions: 06/07/19-06/10/19 03/14/19-03/16/19 Allergies Allergy/AdvReac Type Severity Reaction Status Date / Time lisinopril Allergy Mild itching Verified 06/21/19 14:59 metoprolol Allergy Mild itching Verified 06/21/19 14:59 losartan AdvReac Mild RASH Verified 06/21/19 14:59 Home Medications Home Medications Medication Instructions Recorded Confirmed Type ondansetron 8 mg disintegrating 8 mg PO Q8H PRN #10 tab 01/29/19 06/21/19 Rx tablet allopurinol [Zyloprim] 300 mg PO QAM 03/14/19 06/21/19 History Centrum Silver 1 tab PO DAILY 06/06/19 06/21/19 History albuterol sulfate [Ventolin HFA] 2 puff INHALATION Q4H PRN 06/06/19 06/21/19 History cabergoline 0.25 mg PO UD 06/06/19 06/21/19 History cholecalciferol (vitamin D3) 400 unit PO DAILY 06/06/19 06/21/19 History [Vitamin D3] clobetasol 1 applic TOPICAL BID PRN 06/06/19 06/21/19 History fluticasone propion-salmeterol 1 puffs INHALATION BID 06/06/19 06/21/19 History [Advair Diskus] gabapentin [Neurontin] 200 mg PO HS 06/06/19 06/21/19 History levothyroxine [Levoxyl] 125 mcg PO QAM 06/06/19 06/21/19 History omeprazole 20 mg PO DAILY PRN 06/06/19 06/21/19 History ropinirole [Requip] 0.25 mg PO HS 06/06/19 06/21/19 History testosterone [AndroGel] 2 pump TOPICAL DAILY 06/06/19 06/21/19 History ciprofloxacin 500 mg tablet 500 mg PO BID #60 tab 06/19/19 06/21/19 Rx multivitamin tablet 1 tab PO DAILY #30 tab 06/19/19 06/21/19 Rx vitamin E topical cream 1 appln TOP TID PRN #60 gm 06/19/19 06/21/19 Rx docusate sodium 100 mg PO DAILY 06/21/19 06/21/19 History Past Med/Surg History Medical History Benign prostatic hyperplasia with urinary obstruction (Acute) Depression with anxiety (Acute) Non-Hodgkin lymphoma (Resolved) Erectile dysfunction (Acute) 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 Followed by endocrine. Managed with testosterone replacement. 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 Managed with levothyroxine supplementation Balance disorder Cellulitis Chronic back pain Chronic obstructive pulmonary disease "MILD" Dermatitis GERD (gastroesophageal reflux disease) Glaucoma Herpes zoster Infected sebaceous cyst Kidney stones Obesity Osteoarthritis Surgical History H/O lymph node biopsy History of ankle surgery History of arthroscopy B/L KNEE History of cataract surgery B/L History of colonoscopy History of esophagogastroduodenoscopy History of knee surgery History of laryngoscopy DIRECT LARYNGOSCOPY/BIOPSY= 05/15/18 AT [facility] History of lithotripsy History of lobectomy of lung RT LOBE History of tooth extraction S/P lobectomy of lung Family History Brother Cancer Mother Dementia Hypertension Social History Preferred Language: Hebrew Communication Ability: Effective Visual Impairment: No Limitations Building Wrecker Required: No Beliefs That Will Affect Care: None marital status: Current Living Situation: Spouse current occupational status: retired Other Information That Helps Us Care for You: No Feels Safe at Home: Yes Safety Concerns: Feels Safe At This Time Smoking Status: Former smoker Tobacco Type: smokeless tobacco ; Cigarettes Per Day: QUIT "MANY" YEARS AGO ; Second Hand Exposure: No ; Hx Alcohol Use: No Hx Substance Use: No Review of Systems Review of Systems: Constitutional: No fever, sweats or chills Eyes: No diplopia, no worsening or blurred vision ENT: normal hearing, no trouble swallowing Respiratory: Worsening cough, + blood tinged sputum, +dyspnea with nearly all activity Cardiovascular: No chest pain, tightness or palpitations Abdomen: No pain, +nausea with smelling certain foods, + food aversion, no vomiting, no diarrhead. + Constipation as per HPI, +BRBPR. Musculoskeletal: No joint pain, calf pain, + swelling BLE Neurologic: + generalized weakness,no numbness/tingling, uses walker for ambulation Psychiatric: + anxiety and depression on medication Skin: No rash or itch, + dry skin Physical Exam Physical Exam: General: awake, alert, no apparent distress, + pallor Head: Normocephalic, atraumatic ENT: PERRL, EOMI, no pharyngeal exudate, mucous membranes moist, no thrush Chest: Absent breath sounds at R base, otherwise clear throughout, + cough, + sputum at bedside is blood tinged and white, on 2 L via NC Cardiac: Regular rate and rhythm, no murmur, no JVD, normal peripheral pulses, good capillary refill Abdominal: NABS x 4 quadrants, soft, nontender to palpation, no rebound, guarding or tenderness Extremities: Normal inspection, 1+ peripheral edema BLE, no erythema, calfs nontender to palpation Psych: Normal mood and affect, + slightly anxious Neuro: AAO x 3, strength intact bilaterally and rated 4/5 throughout, no motor deficits, speech is clear, no peripheral sensory deficits Skin: no rash or erythema, + dry skin, + few small abrasions on lower extremities Results & Data Vital Signs (Past 12 Hours) Vital Signs Temp Pulse Pulse Resp BP BP Pulse Ox 06/21/19 16:01 77 20 102/59 L 93 06/21/19 15:01 88 95 06/21/19 14:18 84 L 06/21/19 13:56 38.1 C H 93 H 22 118/68 87 L Diagnostic Findings SINGLE VIEW CHEST CLINICAL HISTORY: Cough. FINDINGS: An AP, portable, upright chest radiograph is compared to study dated 06/06/2019 and correlated with chest CT dated 01/09/2017. The examination is degraded by portable technique, apical lordotic positioning, and patient rotation. A right internal jugular central venous infusion port is unchanged in position. The heart is enlarged noting atherosclerotic calcification of the thoracic aorta. The pulmonary vasculature is noncongested. Emphysema and chronic interstitial thickening are similar to previous. There is postoperative change from right-sided pulmonary resection. There is patchy airspace consolidation seen at both lung bases, left greater than right. A small right pleural effusion is noted. No pneumothorax is seen. The skeletal structures are osteopenic. The bony thorax is grossly intact. IMPRESSION: 1. Cardiomegaly, emphysema, and postoperative change from right-sided pulmonary resection. 2. There is patchy airspace consolidation at both lung bases, left greater than right. The appearance is typical for pneumonia/aspiration pneumonitis. Clinical correlation will be required and radiographic follow-up to resolution is recommended. 3. There is a small right pleural effusion. ECG Additional Comments: 21-JUN-2019 14:14:46 [facility]-EDSTAT ROUTINE RETRIEVAL Normal sinus rhythm Nonspecific ST and T wave abnormality Abnormal ECG When compared with ECG of 06-JUN-2019 12:32, Nonspecific T wave abnormality no longer evident in Lateral leads 25mm/s 10mm/mV 150Hz 9.0.9 12SL 241 SWATHI: 10 Referred by: ED Unconfirmed Vent. rate 90 BPM [place] interval 142 ms QRS duration 78 ms QT/QTc 374/457 ms P-R-T axes 42 45 40 Code Status & VTE Plan Code Status Full Code -discussed with the patient and family at bedside. Discussion was held regarding risks versus benefits of code, including broken ribs, organ puncture, low probability of survival and long recovery. Supervising Physician Co-Signing Physician Notes I have seen the patient with Alisha Membreno and agree with exam , assessment and plan. PG Care Time/CCT Total # of Minutes Spent Total Time Spent with Patient: Total time spent is greater than 50% in coordination of care (as documented) at patient's floor/unit and/or counseling patient: (1) Diffuse large B-cell lymphoma Lymphoma site: multiple regions Qualified Code(s): C83.38 - Diffuse large B- cell lymphoma, lymph nodes of multiple sites (2) Hypothyroidism Hypothyroidism type: unspecified Qualified Code(s): E03.9 - Hypothyroidism, unspecified (3) COPD (chronic obstructive pulmonary disease) COPD type: unspecified COPD Qualified Code(s): J44.9 - Chronic obstructive pulmonary disease, unspecified (4) Bilateral pneumonia Lung location: lower lobe of lung Pneumonia type: due to unspecified organism Qualified Code(s): J18.1 - Lobar pneumonia, unspecified organism (5) GERD (gastroesophageal reflux disease) Esophagitis presence: esophagitis presence not specified Qualified Code(s): K21.9 - Gastro-esophageal reflux disease without esophagitis (6) Hypertension Hypertension type: essential hypertension Qualified Code(s): I10 - Essential (primary) hypertension
[2019-06-21] MEDS ORDERED: ONDANSETRON 8MG OD TAB PO PRN (17:57)
[2019-06-21] MEDS ORDERED: NON-FORMULARY MEDICATION (Clobetasol 1 APPLN) TOP PRN (17:57)
[2019-06-21] MEDS ORDERED: ALBUTEROL HFA 8 GM INHALER INH PRN (17:57)
[2019-06-21] MEDS ORDERED: ONDANSETRON INJ 2 MG/ML 2 ML VIAL IV PRN (17:57)
[2019-06-21] MEDS ORDERED: VITAMIN E TOP PRN (17:57)
[2019-06-21] MEDS ORDERED: LEVALBUTEROL 1.25MG/0.5ML NEB NEB PRN (18:06)
[2019-06-21] MEDS ORDERED: PANTOprazole 40 MG TAB PO PRN (18:15)
[2019-06-21] MEDS ORDERED: PATIENT'S HEIGHT AND/OR WEIGHT NEEDED SCH (18:30)
[2019-06-21] MEDS: LEVALBUTEROL 1.25MG/0.5ML NEB NEB SCH (19:08)
--- NOTE | 2019-06-21 19:13 | Emergency Department Note ---
Entered by Jeannette Rabaog acting as a scribe for History of Present Illness General Chief complaint: Shortness of Breath/Dyspnea Stated complaint: PNEUMONIA Source: patient and family () Mode of arrival: ambulatory Limitations: no limitations History of Present Illness Provider complaint: Hypoxia Onset (ago): hour(s) (today) Location: chest Pain Consistency: + other (worsening) Maximum Pain Intensity: 10 Quality: + other (hypoxia) Associated symptoms: + cough (productive with white phlegm), + fever/chills and + other (Additional symptoms: hematochezia, chronic back pain, chronic ankle swelling. Denies: leg pain, abdominal pain); no chest pain, no nausea/vomiting and no shortness of breath The patient is a 78 year old male with a history of neutropenic fevers, non- Hodgkin lymphoma, BPH, restless leg syndrome, hypothyroidism, pituitary tumor, COPD, glaucoma, GERD, kidney stones, osteoarthritis, chronic back pain, and a lung lobectomy who presents to the Emergency Room with complaints of worsening hypoxia starting today. Per the patient's medical records, the patient's SpO2 was 88% at his PCP's office today, so he was referred to the ED. Per , the patient has been experiencing intermittent fevers for the past 2 weeks and was admitted to the hospital for neutropenic fevers. She states that, since his hospitalization, the patient's fevers have not resolved and that his temperature was still 100.4 F yesterday. She notes that his fevers only temporarily improve with Tylenol. Per , the patient also started experiencing a slightly productive cough with white phlegm 2 days ago during his last day at [facility]. She adds that the patient had some bright red hematochezia today. The patient also complains of chronic low back pain and ankle swelling but otherwise denies any vomiting, shortness of breath, chest pain, leg pain, black stools and abdominal pain. The indicates that the patient does not take any blood thinners and has no history of PEs. She mentions that the power port on his right side was last accessed 2 weeks ago during his hospitalization. Home Medications Home Medications Medication Instructions Recorded Confirmed Type ondansetron 8 mg disintegrating 8 mg PO Q8H PRN #10 tab 01/29/19 06/21/19 Rx tablet allopurinol [Zyloprim] 300 mg PO QAM 03/14/19 06/21/19 History Centrum Silver 1 tab PO DAILY 06/06/19 06/21/19 History albuterol sulfate [Ventolin HFA] 2 puff INHALATION Q4H PRN 06/06/19 06/21/19 History cabergoline 0.25 mg PO UD 06/06/19 06/21/19 History cholecalciferol (vitamin D3) 400 unit PO DAILY 06/06/19 06/21/19 History [Vitamin D3] clobetasol 1 applic TOPICAL BID PRN 06/06/19 06/21/19 History fluticasone propion-salmeterol 1 puffs INHALATION BID 06/06/19 06/21/19 History [Advair Diskus] gabapentin [Neurontin] 200 mg PO HS 06/06/19 06/21/19 History levothyroxine [Levoxyl] 125 mcg PO QAM 06/06/19 06/21/19 History omeprazole 20 mg PO DAILY PRN 06/06/19 06/21/19 History ropinirole [Requip] 0.25 mg PO HS 06/06/19 06/21/19 History testosterone [AndroGel] 2 pump TOPICAL DAILY 06/06/19 06/21/19 History ciprofloxacin 500 mg tablet 500 mg PO BID #60 tab 06/19/19 06/21/19 Rx multivitamin tablet 1 tab PO DAILY #30 tab 06/19/19 06/21/19 Rx vitamin E topical cream 1 appln TOP TID PRN #60 gm 06/19/19 06/21/19 Rx docusate sodium 100 mg PO DAILY 06/21/19 06/21/19 History Allergies Allergy/AdvReac Type Severity Reaction Status Date / Time lisinopril Allergy Mild itching Verified 06/21/19 14:59 metoprolol Allergy Mild itching Verified 06/21/19 14:59 losartan AdvReac Mild RASH Verified 06/21/19 14:59 Past Med/Surg History Medical History Benign prostatic hyperplasia with urinary obstruction (Acute) Depression with anxiety (Acute) Non-Hodgkin lymphoma (Resolved) Erectile dysfunction (Acute) 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 Followed by endocrine. Managed with testosterone replacement. 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 Managed with levothyroxine supplementation Balance disorder Cellulitis Chronic back pain Chronic obstructive pulmonary disease "MILD" Dermatitis GERD (gastroesophageal reflux disease) Glaucoma Herpes zoster Infected sebaceous cyst Kidney stones Obesity Osteoarthritis Surgical History H/O lymph node biopsy History of ankle surgery History of arthroscopy B/L KNEE History of cataract surgery B/L History of colonoscopy History of esophagogastroduodenoscopy History of knee surgery History of laryngoscopy DIRECT LARYNGOSCOPY/BIOPSY= 05/15/18 AT [facility] History of lithotripsy History of lobectomy of lung RT LOBE History of tooth extraction S/P lobectomy of lung Family History Brother Cancer Mother Dementia Hypertension Social History Preferred Language: [place] Communication Ability: Effective Visual Impairment: No Limitations Word Processor Required: No Beliefs That Will Affect Care: None marital status: Current Living Situation: Spouse current occupational status: retired Other Information That Helps Us Care for You: No Feels Safe at Home: Yes Safety Concerns: Feels Safe At This Time Smoking Status: Former smoker Tobacco Type: smokeless tobacco ; Cigarettes Per Day: QUIT "MANY" YEARS AGO ; Second Hand Exposure: No ; Hx Alcohol Use: No Hx Substance Use: No Review of Systems See HPI for pertinent positives & negatives. and A total of 10 systems reviewed and were otherwise negative Physical Exam Vital Signs Vital Signs - 24 hr 06/21/19 13:56 06/21/19 14:18 06/21/19 15:01 Temperature 38.1 C H Temperature Source Oral Sepsis Recent Fever Within 48 Hours Yes Sepsis New/Unexplained Change in Mental Status No Sepsis Action Taken by Nursing Physician Notified Oxygen Flow Rate - Titration 4 Pulse Oximetry Post Tiitration 98 Pulse Rate 93 H Pulse Rate [Right Finger] 88 Pulse Rhythm [Right Finger] Pulse Strength [Right Finger] Respiratory Rate 22 Respiratory Effort / Characteristics Non-Labored Short of Breath Respiratory Depth Normal Respiratory Pattern Regular Blood Pressure 118/68 Blood Pressure [Right Arm] Blood Pressure Mean 84 Blood Pressure Mean [Right Arm] Blood Pressure Position [Right Arm] Pulse Oximetry 87 L 84 L 95 Oxygen Delivery Method Room Air Nasal Cannula Nasal Cannula Oxygen Flow Rate 0 2 06/21/19 16:01 Temperature 36.8 C Temperature Source Oral Sepsis Recent Fever Within 48 Hours Sepsis New/Unexplained Change in Mental Status Sepsis Action Taken by Nursing Oxygen Flow Rate - Titration Pulse Oximetry Post Tiitration Pulse Rate Pulse Rate [Right Finger] 77 Pulse Rhythm [Right Finger] Regular Pulse Strength [Right Finger] Normal Respiratory Rate 20 Respiratory Effort / Characteristics Non-Labored Spontaneous Respiratory Depth Normal Respiratory Pattern Regular Blood Pressure Blood Pressure [Right Arm] 102/59 L Blood Pressure Mean Blood Pressure Mean [Right Arm] 73 Blood Pressure Position [Right Arm] Lying Pulse Oximetry 93 Oxygen Delivery Method Nasal Cannula Oxygen Flow Rate 2 Constitutional: Vital signs reviewed. Eyes: Pupils are equal round reactive to light. Conjunctiva are noninjected. ENT: Pharynx is clear without erythema or exudate. Mucous membranes are moist. Neck supple without meningeal signs. Respiratory: Mild expiratory wheezes bilaterally. Breath sounds are equal bilaterally. Cardiovascular: Regular rate and rhythm. No rubs or gallops. GI: Soft, nondistended and nontender. Bowel sounds are present. Musculoskeletal: No peripheral edema. No lower extremity tenderness. Integumentary: No cyanosis. Neurological: The patient is awake and alert. No focal deficits. Psychiatric: Normal affect. Course 1415: The patient was evaluated in room B10, and a complete history and physical examination were performed. 1550: I checked on the patient and discussed his test results with him. He is agreeable to admission. 1551: I reviewed the patient's case with Dr. Esquivel - [place], [place]. Dr. Esquivel will evaluate the patient for further management. Consultations Consultation #1: I reviewed the patient's case with Dr. Esquivel - [place], [place]. Dr. Esquivel will evaluate the patient for further management. Time: 15:51 Administered Medications Levalbuterol HCl (Xopenex 1.25mg/0.5ml Neb) 1.25 mg NEB Q6R BOBO Stop: 07/21/19 18:59 Last Admin: 06/21/19 19:08 Dose: 1.25 mg Documented by: [id number] Discontinued Medications Acetaminophen (Tylenol) 650 mg PO ONE STA Stop: 06/21/19 14:25 Last Admin: 06/21/19 15:11 Dose: 650 mg Documented by: [id number] Cefepime HCl (Maxipime) 2,000 mg in 20 mls @ 5 mls/min IV NOW STA; Protocol Stop: 06/21/19 15:01 Last Admin: 06/21/19 15:11 Dose: 5 mls/min Documented by: [id number] Medical Decision Making Differential Diagnosis Differential diagnosis includes: PNA, neutropenic fever, bronchitis, influenza, viral syndrome. Medical Records Attestation: I reviewed the patient's medical records. I did perform a limited focused review of portions of the patient's old chart on the electronic medical record. The patient was admitted to the hospital earlier this month for neutropenic fever. His chest x-rya and cultures were negative. He was given a Neupogen shot. The patient saw his PCP today for a fever and cough. His SpO2 was 88% and he was subsequently sent to the ED. Home Medications Current Medication List: was personally reviewed by me Laboratory Data Attestation: I reviewed the patient's lab results. Result diagrams: 06/21/19 14:48 06/21/19 14:48 Lab Results 06/21/19 06/21/19 06/21/19 Range/Units 14:48 14:48 15:00 WBC 4.29 L (4.8-10.8) K/uL RBC 3.06 L (4.7-6.1) M/uL Hgb 10.0 L (14.0-18.0) g/dL Hct 30.1 L (42-52) % MCV 98.4 (80-100) fL MCH 32.7 (25-34) pg MCHC 33.2 (32-36) g/dL RDW Std Deviation 53.1 H (36.4-46.3) fL RDW Coeff of Sveta 14.9 H (11.5-14.5) % Plt Count 36 L (130-400) K/uL MPV 9.4 (7.4-10.4) fL Immature Gran % (Auto) 1.6 % Neut % (Auto) 35.7 % Lymph % (Auto) 48.0 % Dale % (Auto) 13.3 % Eos % (Auto) 0.7 % Baso % (Auto) 0.7 % Immature Gran # (Auto) 0.07 H (0.00-0.02) K/uL Neut # (Auto) 1.53 (1.4-6.5) K/uL Lymph # (Auto) 2.06 (1.2-3.4) K/uL Dale # (Auto) 0.57 (0.11-0.59) K/uL Eos # (Auto) 0.03 (0-0.5) K/uL Baso # (Auto) 0.03 (0-0.2) K/uL Sodium 137 (136-145) mmol/L Potassium 3.6 (3.5-5.1) mmol/L Chloride 104 (98-107) mmol/L Carbon Dioxide 27 (21-32) mmol/L Anion Gap 6.0 (3-11) BUN 10 (7-18) mg/dl Creatinine 0.94 (0.6-1.4) mg/dl Est Cr Clr Drug Dosing Not Reportable Est GFR ( Amer) 89.6 Est GFR (Non-Af Amer) 77.3 BUN/Creatinine Ratio 10.4 (10-20) Glucose 90 (70-99) mg/dl Calcium 8.2 L (8.5-10.1) mg/dl Total Bilirubin 0.7 (0.2-1) mg/dl AST 41 H (15-37) U/L ALT 37 (12-78) U/L Alkaline Phosphatase 142 H (45-117) U/L Troponin I 0.019 (0-0.045) ng/ml Total Protein 5.6 L (6.4-8.2) gm/dl Albumin 2.5 L (3.4-5.0) gm/dl Globulin 3.1 (2.5-4.0) gm/dl Albumin/Globulin Ratio 0.8 L (0.9-2) Influenza Type A Ag Neg for Influ A (Neg) Influenza Type B Ag Neg for Influ B (Neg) Imaging Data Radiologist's Impression: Radiology results as stated below per my review and the radiologist's interpretation: SINGLE VIEW CHEST CLINICAL HISTORY: Cough. FINDINGS: An AP, portable, upright chest radiograph is compared to study dated 06/06/2019 and correlated with chest CT dated 01/09/2017. The examination is degr aded by portable technique, apical lordotic positioning, and patient rotation. A right internal jugular central venous infusion port is unchanged in position. The heart is enlarged noting atherosclerotic calcification of the thoracic aorta. The pulmonary vasculature is noncongested. Emphysema and chronic interstitial thickening are similar to previous. There is postoperative change from right-sided pulmonary resection. There is patchy airspace consolidation seen at both lung bases, left greater than right. A small right pleural effusion is noted. No pneumothorax is seen. The skeletal structures are osteopenic. The bony thorax is grossly intact. IMPRESSION: 1. Cardiomegaly, emphysema, and postoperative change from right-sided pulmonary resection. 2. There is patchy airspace consolidation at both lung bases, left greater than right. The appearance is typical for pneumonia/aspiration pneumonitis. Clinical correlation will be required and radiographic follow-up to resolution is recommended. 3. There is a small right pleural effusion. Electronically signed by: Suman Dailey M.D. 06/21/2019 2:44 PM ECG Data Attestation: I personally reviewed and interpreted this ECG as follows: Indication: other (hypoxia) Rate (beats per minute): 90 Rhythm: normal sinus Findings: + T-wave inversion; no PVC and no ST elevation Comparison ECG Date: from (06/06/19) Change: no significant change Blood Pressure Blood Pressure Findings: Low blood pressure Blood Pressure Disposition: further management by hospitalist BAYRON Lopez I did evaluate the patient as noted above. Patient is presenting with hypoxemia and fever and cough. He was placed in neutropenic precautions as he previously was neutropenic. IV access was established. The patient was placed on a continuous stitch welder. I did order and personally review the patient's 12- lead EKG as described above. Twelve-lead EKG shows some T wave inversions in lead V3. I did order and personally reviewed the images of the patient's chest x-ray as described above. He has bilateral pneumonia. I did order a urine analysis. I did order blood cultures. I did treat the patient with cefepime IV. I did order and review the patient's blood work as noted in the electronic medical record. He is not neutropenic. His hemoglobin is 10. Electrolytes are unremarkable. I did discuss the test results with the patient. I did recommend hospitalization due to his hypoxemia. I did discuss the case with the hospitalist and manager willow. Impression & Plan Bilateral pneumonia, Hypoxemia, Anemia, Bright red rectal bleeding Discharge Plan Visit Data *Final* Discharge Date/Time: 06/21/19 17:23 Chief Complaint: Shortness of Breath/Dyspnea Stated Complaint: PNEUMONIA ED Provider: Jem Olsen Discharge Problem: Bilateral pneumonia, Hypoxemia, Anemia, Bright red rectal bleeding Patient Disposition: Admitted As Inpatient Discharge Instructions Interventions: ED Discharge Assessment Last Done: 06/21/19 17:23 The scribe's documentation has been prepared under my direction and personally reviewed by me in its entirety. I confirm that the note above accurately reflects all work, treatment, procedures, and medical decision making performed by me.
[2019-06-21] MEDS: FLUTICASONE/SALMETEROL 250/50 (ADVAIR) 14 PUFF/1 INHALER INH SCH (21:04)
[2019-06-21] MEDS: guaiFENesin 600 MG TABCR PO SCH (21:07)
[2019-06-21] MEDS: GABAPENTIN 100 MG CAP PO SCH (21:07)
[2019-06-21] MEDS: ROPINIROLE HCL 0.25 MG TABLET PO SCH (21:08)
[2019-06-21 21:19] LABS: Hematocrit (blood only) 33.3 % (42-52); Hemoglobin 10.7 g/dL (14.0-18.0)
[2019-06-22 00:17] LABS: Appearance Urine Clear (Clear); Bilirubin Urine Negative (Negative); Blood Urine Negative (Negative); Color Urine Yellow; Glucose Urine UA Negative (Negative); Ketones Urine Negative (Negative); Leukocyte Esterase Urine Negative (Negative); Nitrite Urine Negative (Negative); Protein Urine Negative (Negative); Specific Gravity Urine 1.017 (1.000-1.030); Urobilinogen Urine Negative (Negative)
[2019-06-22] MEDS: CEFEPIME 1,000 MG in SYRINGE 0 ML IV SCH ×3 (00:21→15:50)
[2019-06-22] MEDS: LEVALBUTEROL 1.25MG/0.5ML NEB NEB SCH ×4 (01:14→18:41)
[2019-06-22] MEDS: LEVOTHYROXINE SODIUM 125 MCG TABLET PO SCH (06:13)
[2019-06-22 06:47] LABS: Hematocrit (blood only) 27.7 % (42-52); Hemoglobin 9.2 g/dL (14.0-18.0); Mean Corpuscular Hgb Conc 33.2 g/dL (32-36); Mean Corpuscular Volume 99.3 fL (80-100); RDW Coefficient of Variation 14.9 % (11.5-14.5); RDW Standard Deviation 53.7 fL (36.4-46.3); Red Blood Count 2.79 M/uL (4.7-6.1); White Blood Count 3.42 K/uL (4.8-10.8)
[2019-06-22 07:22] LABS: BUN Creatinine Ratio 9.7 (10-20); Est GFR (African American) 98.2; Est GFR (Non-African American) 84.7; Potassium 3.6 mmol/L (3.5-5.1)
[2019-06-22 07:25] LABS: Albumin Globulin Ratio 0.6 (0.9-2); Bilirubin,Total 0.8 mg/dl (0.2-1); Globulin 3.2 gm/dl (2.5-4.0); Total Protein 5.2 gm/dl (6.4-8.2)
[2019-06-22 07:53] LABS: Mean Platelet Volume 9.7 fL (7.4-10.4); Platelet Count 31 K/uL (130-400)
[2019-06-22 07:56] LABS: Basophils # (auto) 0.01 K/uL (0-0.2); Basophils % (auto) 0.3 %; Eosinophils # (auto) 0.03 K/uL (0-0.5); Eosinophils % (auto) 0.9 %; Immature Granulocytes # (auto) 0.06 K/uL (0.00-0.02); Immature Granulocytes % (auto) 1.8 %; Lymphocytes # (auto) 1.75 K/uL (1.2-3.4); Lymphocytes % (auto) 51.2 %; Monocytes # (auto) 0.58 K/uL (0.11-0.59); Neutrophils # (auto) 0.99 K/uL (1.4-6.5); Neutrophils % (auto) 28.8 %; Platelet Estimate SIGNIFIC DECREASED (Normal); Smudge Cells Present
[2019-06-22] MEDS: CHOLECALCIFEROL (VITAMIN D) 400 UNITS TABLET PO SCH (08:20)
[2019-06-22] MEDS: FLUTICASONE/SALMETEROL 250/50 (ADVAIR) 14 PUFF/1 INHALER INH SCH ×2 (08:20→19:38)
[2019-06-22] MEDS: guaiFENesin 600 MG TABCR PO SCH ×2 (08:21→19:39)
[2019-06-22] MEDS: ALLOPURINOL 300 MG TAB PO SCH (08:22)
[2019-06-22] MEDS: DOCUSATE SODIUM 100 MG CAP PO SCH (08:22)
[2019-06-22] MEDS: CEROVITE ADV FORMULA TAB PO SCH (08:26)
[2019-06-22] MEDS ORDERED: MULTIVITAMIN TAB PO SCH (09:00)
--- NOTE | 2019-06-22 10:39 | Hospitalist Progress Note ---
Date of Service June 22, 2019 Assessment & Plan (1) Bilateral pneumonia: (2) Neutropenic fever: Patient with likely multifocal pneumonia, complicated by B-cell lymphoma and neutropenia. Patient should continue on cefepime. Sputum culture was obtained and we are waiting for results. Blood culture also pending. Patient was continued leukopenia and neutropenia, and ANC is slightly lower today. We are awaiting hematology consultation. (3) Thrombocytopenia: Still thrombocytopenic with a platelet count of 31. Hemoglobin down 1 g, will monitor for further bleeding. Hematology to comment. (4) BRBPR (bright red blood per rectum): Secondary to thrombocytopenia. Continue to monitor hemoglobin. (5) Diffuse large B-cell lymphoma: Hematology/oncology consult to see patient, await further recommendations. 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, s/p resection - Continue testosterone and thyroid hormone replacement therapy - Continue cabergoline 0.25 mg UD (8) Adenocarcinoma of lung: (9) COPD (chronic obstructive pulmonary disease): -Stable, does not wear supplemental O2 at baseline, continue levalbuterol nebs QID and Q2H prn, Advair inh BID (10) Hypertension: -BP well controlled, 102/59 at time of admission (11) Benign prostatic hyperplasia with urinary obstruction: -Reports no issues with urination, no hematuria -Bladder scan as needed, strict I's and O's - Cr.= 0.94 and BUN =10 (12) Sarcopenia: -Albumin equal 2.5, will order boost supplementation with meals and at bedtime, if patient appetite is severely poor then would request at least suggest drinking boost prior to going to bed at night. (13) Depression with anxiety: -Uses coping mechanisms, does not take medication, possibly gets some anxiety stabilization with low-dose gabapentin at night (14) Hypothyroidism: -Continue levothyroxine 125 mcg daily (15) Vitamin D deficiency: -Continue vitamin D supplementation (16) Restless leg syndrome: -Continue Requip 0.25 mg nightly (17) GERD (gastroesophageal reflux disease): -stable, diminished issues with lack of appetite (18) DVT prophylaxis: teds, scds, no chemical ppx in setting of thrombocytopenia and GIB CODE: Full Dispo: From home, likely to remain in the hospital for at least 2 days. Subjective Patient in no acute distress, was febrile to 38C earlier this morning. Patient seems to be depressed and asked me "am I going to ?" when I arrived. Patient otherwise is in no acute cardiopulmonary distress. Review of Systems Review of Systems: All systems reviewed & are unremarkable except as noted in HPI & below Physical Exam Physical Exam: GENERAL: Non-toxic in appearance. Obese. INTEGUMENTARY: Warm, dry, and [place]. HEAD: Normocephalic. EYES: without scleral icterus or trauma. ENT/OROPHARYNX: clear and moist. LYMPHADENOPATHY/NECK: Is supple without lymphadenopathy or meningismus. RESPIRATORY: Good airflow bilaterally, very minimal end expiratory wheeze. No overt rales or rhonchi. CARDIOVASCULAR: Regular rate and rhythm. GI/ABDOMEN: Soft and nontender. No organomegaly or pulsatile mass. No rebound or guarding. Normal bowel sounds. EXTREMITIES: Warm and well perfused. BACK: No CVA tenderness. NEUROLOGICAL: Intact without focal deficits. PSYCHIATRIC: normal affect. MUSCULOSKELETAL: Normally developed with good muscle tone. Results & Data Vital Signs (Past 12 Hours) Vital Signs Temp Pulse Pulse Resp BP Pulse Ox 06/22/19 08:00 79 06/22/19 07:18 36.7 C 86 19 116/68 90 06/22/19 06:50 90 20 90 06/22/19 03:59 38.0 C H 92 H 19 128/67 99 06/22/19 01:16 86 16 92 06/22/19 00:12 36.8 C 80 19 113/69 94 PG Care Time/CCT Total # of Minutes Spent Total Time Spent with Patient: Total time spent is greater than 50% in coordination of care (as documented) at patient's floor/unit and/or counseling patient: (1) Bilateral pneumonia Lung location: lower lobe of lung Pneumonia type: due to unspecified organism Qualified Code(s): J18.1 - Lobar pneumonia, unspecified organism (2) Diffuse large B-cell lymphoma Lymphoma site: multiple regions Qualified Code(s): C83.38 - Diffuse large B- cell lymphoma, lymph nodes of multiple sites (3) COPD (chronic obstructive pulmonary disease) COPD type: unspecified COPD Qualified Code(s): J44.9 - Chronic obstructive pulmonary disease, unspecified (4) Hypertension Hypertension type: essential hypertension Qualified Code(s): I10 - Essential (primary) hypertension (5) Hypothyroidism Hypothyroidism type: unspecified Qualified Code(s): E03.9 - Hypothyroidism, unspecified (6) GERD (gastroesophageal reflux disease) Esophagitis presence: esophagitis presence not specified Qualified Code(s): K21.9 - Gastro-esophageal reflux disease without esophagitis
[2019-06-22] MEDS: ACETAMINOPHEN 325 MG TAB PO PRN (15:59)
[2019-06-22] MEDS: ROPINIROLE HCL 0.25 MG TABLET PO SCH (19:40)
[2019-06-22] MEDS: GABAPENTIN 100 MG CAP PO SCH (19:40)
[2019-06-23] MEDS: CEFEPIME 1,000 MG in SYRINGE 0 ML IV SCH ×3 (00:21→15:45)
[2019-06-23] MEDS: LEVALBUTEROL 1.25MG/0.5ML NEB NEB SCH ×4 (00:38→19:25)
[2019-06-23] MEDS: LEVOTHYROXINE SODIUM 125 MCG TABLET PO SCH (06:21)
[2019-06-23 06:56] LABS: Hematocrit (blood only) 28.5 % (42-52); Hemoglobin 9.3 g/dL (14.0-18.0); Mean Corpuscular Hemoglobin 32.4 pg (25-34); Mean Corpuscular Hgb Conc 32.6 g/dL (32-36); Mean Corpuscular Volume 99.3 fL (80-100); RDW Coefficient of Variation 14.9 % (11.5-14.5); RDW Standard Deviation 54.1 fL (36.4-46.3); Red Blood Count 2.87 M/uL (4.7-6.1); White Blood Count 2.85 K/uL (4.8-10.8)
[2019-06-23 07:23] LABS: Albumin Level 2.2 gm/dl (3.4-5.0); BUN Creatinine Ratio 8.5 (10-20); Calcium 7.9 mg/dl (8.5-10.1); Creatinine Clr Calc Pharmacy 79.2 ml/min; Est GFR (African American) 94.5; Est GFR (Non-African American) 81.5; Potassium 3.6 mmol/L (3.5-5.1)
[2019-06-23 07:26] LABS: Albumin Globulin Ratio 0.8 (0.9-2); Bilirubin,Total 0.7 mg/dl (0.2-1); Globulin 2.9 gm/dl (2.5-4.0); Total Protein 5.1 gm/dl (6.4-8.2)
[2019-06-23 07:36] LABS: Mean Platelet Volume 10.4 fL (7.4-10.4); Platelet Count 30 K/uL (130-400)
[2019-06-23 07:52] LABS: Basophils # (auto) 0.02 K/uL (0-0.2); Basophils % (auto) 0.7 %; Eosinophils # (auto) 0.02 K/uL (0-0.5); Eosinophils % (auto) 0.7 %; Immature Granulocytes # (auto) 0.06 K/uL (0.00-0.02); Immature Granulocytes % (auto) 2.1 %; Lymphocytes # (auto) 1.54 K/uL (1.2-3.4); Monocytes # (auto) 0.53 K/uL (0.11-0.59); Monocytes % (auto) 18.6 %; Neutrophils # (auto) 0.68 K/uL (1.4-6.5); Neutrophils % (auto) 23.9 %
[2019-06-23] MEDS: FLUTICASONE/SALMETEROL 250/50 (ADVAIR) 14 PUFF/1 INHALER INH SCH ×2 (08:29→19:48)
[2019-06-23] MEDS: DOCUSATE SODIUM 100 MG CAP PO SCH (08:30)
[2019-06-23] MEDS: guaiFENesin 600 MG TABCR PO SCH ×2 (08:30→19:49)
[2019-06-23] MEDS: ALLOPURINOL 300 MG TAB PO SCH (08:30)
[2019-06-23] MEDS: CHOLECALCIFEROL (VITAMIN D) 400 UNITS TABLET PO SCH (08:30)
[2019-06-23] MEDS: CEROVITE ADV FORMULA TAB PO SCH (08:30)
--- NOTE | 2019-06-23 13:19 | Hospitalist Progress Note ---
Date of Service June 23, 2019 Assessment & Plan (1) Bilateral pneumonia: (2) Neutropenic fever: Patient with likely multifocal pneumonia, complicated by B-cell lymphoma and neutropenia. Blood cultures have been negative so far. Sputum Gram stain and culture are pending. Continue cefepime as ordered for now. I do note that his neutropenia is worsening. We are waiting oncology consultation. (3) Thrombocytopenia: Thrombocytopenia stable with a platelet count of 30. This may be contributing to the patient's bleeding, both GI and pulmonary. (4) BRBPR (bright red blood per rectum): With ongoing hematochezia, will ask GI to evaluate. Options for diagnostics may be limited while the patient remains thrombocytopenic and being treated for active pneumonia. (5) Diffuse large B-cell lymphoma: Hematology/oncology consult to see patient, await further recommendations. 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, s/p resection - Continue testosterone and thyroid hormone replacement therapy - Continue cabergoline 0.25 mg UD (8) Adenocarcinoma of lung: (9) COPD (chronic obstructive pulmonary disease): -Stable, does not wear supplemental O2 at baseline, continue levalbuterol nebs QID and Q2H prn, Advair inh BID (10) Hypertension: -BP well controlled, 102/59 at time of admission (11) Benign prostatic hyperplasia with urinary obstruction: -Reports no issues with urination, no hematuria -Bladder scan as needed, strict I's and O's - Cr.= 0.94 and BUN =10 (12) Sarcopenia: -Albumin equal 2.5, will order boost supplementation with meals and at bedtime, if patient appetite is severely poor then would request at least suggest drinking boost prior to going to bed at night. (13) Depression with anxiety: -Uses coping mechanisms, does not take medication, possibly gets some anxiety stabilization with low-dose gabapentin at night (14) Hypothyroidism: -Continue levothyroxine 125 mcg daily (15) Vitamin D deficiency: -Continue vitamin D supplementation (16) Restless leg syndrome: -Continue Requip 0.25 mg nightly (17) GERD (gastroesophageal reflux disease): -stable, diminished issues with lack of appetite (18) DVT prophylaxis: teds, scds, no chemical ppx in setting of thrombocytopenia and GIB CODE: Full Dispo: From home, likely to remain in the hospital for at least 2 days. Subjective Patient seen with son and in room. Patient sitting in chair. He seems to be in somewhat better spirits today and is in no distress. I do note he is satting only 91% on 2 L. The patient does note that he had a bowel movement this morning that had some dark red blood with clots. This was not painful. He also has occasional blood-streaked sputum. He has been afebrile. Blood pressure has been low but stable. Review of Systems Review of Systems: All systems reviewed & are unremarkable except as noted in HPI & below Physical Exam Physical Exam: GENERAL: Non-toxic in appearance. INTEGUMENTARY: Warm, dry, and [place]. HEAD: Normocephalic. EYES: without scleral icterus or trauma. ENT/OROPHARYNX: clear and moist. LYMPHADENOPATHY/NECK: Is supple without lymphadenopathy or meningismus. RESPIRATORY: Lungs clear and equal. No rales or rhonchi. CARDIOVASCULAR: Regular rate and rhythm. GI/ABDOMEN: Soft and nontender. No organomegaly or pulsatile mass. No rebound or guarding. Normal bowel sounds. EXTREMITIES: Warm and well perfused. BACK: No CVA tenderness. NEUROLOGICAL: Intact without focal deficits. PSYCHIATRIC: normal affect. MUSCULOSKELETAL: Normally developed with good muscle tone. Results & Data Vital Signs (Past 12 Hours) Vital Signs Temp Pulse Pulse Resp BP Pulse Ox 06/23/19 12:13 37.0 C 86 19 99/65 L 94 06/23/19 07:08 36.7 C 87 19 109/68 90 06/23/19 07:00 88 06/23/19 06:49 78 20 93 06/23/19 02:38 37.0 C 88 19 100/63 95 PG Care Time/CCT Total # of Minutes Spent Total Time Spent with Patient: Total time spent is greater than 50% in coordination of care (as documented) at patient's floor/unit and/or counseling patient: (1) Bilateral pneumonia Lung location: lower lobe of lung Pneumonia type: due to unspecified organism Qualified Code(s): J18.1 - Lobar pneumonia, unspecified organism (2) Diffuse large B-cell lymphoma Lymphoma site: multiple regions Qualified Code(s): C83.38 - Diffuse large B- cell lymphoma, lymph nodes of multiple sites (3) COPD (chronic obstructive pulmonary disease) COPD type: unspecified COPD Qualified Code(s): J44.9 - Chronic obstructive pulmonary disease, unspecified (4) Hypertension Hypertension type: essential hypertension Qualified Code(s): I10 - Essential (primary) hypertension (5) Hypothyroidism Hypothyroidism type: unspecified Qualified Code(s): E03.9 - Hypothyroidism, unspecified (6) GERD (gastroesophageal reflux disease) Esophagitis presence: esophagitis presence not specified Qualified Code(s): K21.9 - Gastro-esophageal reflux disease without esophagitis
[2019-06-23] MEDS: ROPINIROLE HCL 0.25 MG TABLET PO SCH (19:50)
[2019-06-23] MEDS: GABAPENTIN 100 MG CAP PO SCH (19:50)
[2019-06-24] MEDS: CEFEPIME 1,000 MG in SYRINGE 0 ML IV SCH ×2 (00:44→08:17)
[2019-06-24] MEDS: LEVALBUTEROL 1.25MG/0.5ML NEB NEB SCH ×4 (01:09→18:52)
[2019-06-24] MEDS: LEVOTHYROXINE SODIUM 125 MCG TABLET PO SCH (06:14)
[2019-06-24 07:33] LABS: Hematocrit (blood only) 27.7 % (42-52); Hemoglobin 9.2 g/dL (14.0-18.0); Mean Corpuscular Hemoglobin 32.4 pg (25-34); Mean Corpuscular Hgb Conc 33.2 g/dL (32-36); Mean Corpuscular Volume 97.5 fL (80-100); RDW Coefficient of Variation 14.9 % (11.5-14.5); RDW Standard Deviation 52.9 fL (36.4-46.3); Red Blood Count 2.84 M/uL (4.7-6.1)
[2019-06-24 07:53] LABS: Albumin Level 2.2 gm/dl (3.4-5.0); BUN Creatinine Ratio 10.9 (10-20); Calcium 8.2 mg/dl (8.5-10.1); Creatinine Clr Calc Pharmacy 88.8 ml/min; Est GFR (African American) 99.2; Est GFR (Non-African American) 85.6; Potassium 3.4 mmol/L (3.5-5.1)
[2019-06-24 07:56] LABS: Albumin Globulin Ratio 0.8 (0.9-2); Bilirubin,Total 0.7 mg/dl (0.2-1); Globulin 2.9 gm/dl (2.5-4.0); Total Protein 5.1 gm/dl (6.4-8.2)
[2019-06-24 07:57] LABS: Mean Platelet Volume 11.2 fL (7.4-10.4); Platelet Count 37 K/uL (130-400)
[2019-06-24 08:01] LABS: Basophils # (auto) 0.01 K/uL (0-0.2); Basophils % (auto) 0.3 %; Eosinophils # (auto) 0.04 K/uL (0-0.5); Eosinophils % (auto) 1.3 %; Immature Granulocytes # (auto) 0.05 K/uL (0.00-0.02); Immature Granulocytes % (auto) 1.7 %; Lymphocytes # (auto) 1.75 K/uL (1.2-3.4); Lymphocytes % (auto) 58.3 %; Monocytes # (auto) 0.55 K/uL (0.11-0.59); Monocytes % (auto) 18.3 %; Neutrophils % (auto) 20.1 %; Tear Drop Cells 1+
[2019-06-24] MEDS: CEROVITE ADV FORMULA TAB PO SCH (08:17)
[2019-06-24] MEDS: CHOLECALCIFEROL (VITAMIN D) 400 UNITS TABLET PO SCH (08:17)
[2019-06-24] MEDS: DOCUSATE SODIUM 100 MG CAP PO SCH (08:17)
[2019-06-24] MEDS: FLUTICASONE/SALMETEROL 250/50 (ADVAIR) 14 PUFF/1 INHALER INH SCH ×2 (08:17→20:56)
[2019-06-24] MEDS: guaiFENesin 600 MG TABCR PO SCH ×2 (08:17→20:58)
[2019-06-24] MEDS: ALLOPURINOL 300 MG TAB PO SCH (08:17)
--- NOTE | 2019-06-24 10:42 | Gastrointestinal Consultation ---
Date of Consultation June 24, 2019 Assessment & Plan (1) BRBPR (bright red blood per rectum): Pt is a 78 y/o male w hx of diffuse B cell lymphoma (last chemo 06/04/19), neutropenic fever, pneumonia currently seen for one episode of BRBPR after straining during BM. Exam benign. His blood ct had been stable since admitted. Suspect outlet bleeding from ? hemorrhoid vs internal fissure. - Monitor H/H and transfuse prn - Avoid constipation, start Miralax 17g daily - Last colonoscopy in 2004, I was unable to pull up records. Consider outpt follow up colonoscopy upon DC Supervising Physician Co-Signing Physician Notes Attending attestation I have seen, examined this patient, and agree with the findings and above by our mid-level provider AURA Joya, with the following additions One small bm with streak of blood-no further bleeding Likely hemorrhoidal given history and lack of Hb change F/U with Dr. Newberry and if desire colonoscopy when counts recover, then can be arranged as outpt History of Present Illness Reason for Consultation: BRBPR Requesting Physician: Dr. Nain De La Paz Attending Physician: Dr. Jonn Rodriguez History of Present Illness Pt is a 78 y/o male currently seen for BRBPR x 4 day ago. He has a complex PMHx including Bcell lymphoma, neutropenic fever, pneumonia w blood tinged sputum currently on Cefepime. He has his last chemo session (Venotoclax) on 06/04/19. Recent blood counts reviewed - did have drop in H/H but it's since his last chemo. H/H stable since 4 days ago currently 05/24. Plt 37. Pt reports he was using bathroom a day prior to admission and noticed bright red blood on toilet paper. He denies rectal pain or itching. Denies hx of fissure or hemorrhoids. Denies associated abd pain, n/v. He did admit that day he was having cons tipation and strained during bowel movement. He did have hx of colonoscopy by Dr. Rivera in 2004, unfortunately I wasn't able to pull up images. . Allergies Allergy/AdvReac Type Severity Reaction Status Date / Time lisinopril Allergy Mild itching Verified 06/21/19 14:59 metoprolol Allergy Mild itching Verified 06/21/19 14:59 losartan AdvReac Mild RASH Verified 06/21/19 14:59 Home Medications Home Medications Medication Instructions Recorded Confirmed Type ondansetron 8 mg disintegrating 8 mg PO Q8H PRN #10 tab 01/29/19 06/21/19 Rx tablet allopurinol [Zyloprim] 300 mg PO QAM 03/14/19 06/21/19 History Centrum Silver 1 tab PO DAILY 06/06/19 06/21/19 History albuterol sulfate [Ventolin HFA] 2 puff INHALATION Q4H PRN 06/06/19 06/21/19 History cabergoline 0.25 mg PO UD 06/06/19 06/21/19 History cholecalciferol (vitamin D3) 400 unit PO DAILY 06/06/19 06/21/19 History [Vitamin D3] clobetasol 1 applic TOPICAL BID PRN 06/06/19 06/21/19 History fluticasone propion-salmeterol 1 puffs INHALATION BID 06/06/19 06/21/19 History [Advair Diskus] gabapentin [Neurontin] 200 mg PO HS 06/06/19 06/21/19 History levothyroxine [Levoxyl] 125 mcg PO QAM 06/06/19 06/21/19 History omeprazole 20 mg PO DAILY PRN 06/06/19 06/21/19 History ropinirole [Requip] 0.25 mg PO HS 06/06/19 06/21/19 History testosterone [AndroGel] 2 pump TOPICAL DAILY 06/06/19 06/21/19 History ciprofloxacin 500 mg tablet 500 mg PO BID #60 tab 06/19/19 06/21/19 Rx multivitamin tablet 1 tab PO DAILY #30 tab 06/19/19 06/21/19 Rx vitamin E topical cream 1 appln TOP TID PRN #60 gm 06/19/19 06/21/19 Rx docusate sodium 100 mg PO DAILY 06/21/19 06/21/19 History Patient History Medical History Benign prostatic hyperplasia with urinary obstruction (Acute) Depression with anxiety (Acute) Non-Hodgkin lymphoma (Resolved) Erectile dysfunction (Acute) 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 Followed by endocrine. Managed with testosterone replacement. 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 Managed with levothyroxine supplementation Balance disorder Cellulitis Chronic back pain Chronic obstructive pulmonary disease "MILD" Dermatitis GERD (gastroesophageal reflux disease) Glaucoma Herpes zoster Infected sebaceous cyst Kidney stones Obesity Osteoarthritis Surgical History H/O lymph node biopsy History of ankle surgery History of arthroscopy B/L KNEE History of cataract surgery B/L History of colonoscopy History of esophagogastroduodenoscopy History of knee surgery History of laryngoscopy DIRECT LARYNGOSCOPY/BIOPSY= 05/15/18 AT [facility] History of lithotripsy History of lobectomy of lung RT LOBE History of tooth extraction S/P lobectomy of lung Family History Brother Cancer Mother Dementia Hypertension Social History Preferred Language: Danish Communication Ability: Effective Visual Impairment: No 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 Required: No Beliefs That Will Affect Care: None marital status: Current Living Situation: Spouse current occupational status: retired Other Information That Helps Us Care for You: No Feels Safe at Home: Yes Safety Concerns: Feels Safe At This Time Smoking Status: Former smoker Tobacco Type: smokeless tobacco ; Cigarettes Per Day: QUIT "MANY" YEARS AGO ; Second Hand Exposure: No ; Hx Alcohol Use: No Hx Substance Use: No Review of Systems Review of Systems: All systems reviewed & are unremarkable except as noted in HPI & below Physical Exam Constitutional: well groomed, cooperative, comfortable and + lethargic Eyes: PERRL, conjunctivae normal, anicteric sclerae ENMT: external ear and nose normal, oropharynx normal Respiratory: normal respiratory effort, lungs clear to auscultation Cardiovascular: RRR, no murmur, no edema Gastrointestinal (Abdomen): normal bowel sounds, soft, nontender, no hepatosplenomegaly Rectal exam done w egg crater (Sudha machine records units supervisor) at bedside: no signs of int/external hemorrhoids, no skin tag/fissure. Noted speck of light brown stools on gloved finger Skin: no rashes, warm and dry no jaundice Psychiatric: A+Ox3, euthymic affect Lymphatic: no lymphedema Results & Data Vital Signs (Past 12 Hours) Vital Signs Temp Pulse Pulse Resp BP Pulse Ox 06/24/19 08:00 85 06/24/19 07:39 36.7 C 87 16 105/60 92 06/24/19 07:07 78 16 93 06/24/19 02:46 36.6 C 92 H 19 97/61 L 94 06/24/19 01:09 83 16 94 06/23/19 23:18 36.9 C 88 19 105/65 96
[2019-06-24] MEDS: POTASSIUM CHLORIDE 20 MEQ TABCR PO SCH ×2 (11:41→20:57)
[2019-06-24] MEDS: ACETAMINOPHEN 325 MG TAB PO PRN (15:05)
--- NOTE | 2019-06-24 15:50 | Hospitalist Progress Note ---
Date of Service June 24, 2019 Assessment & Plan (1) Pancytopenia due to antineoplastic chemotherapy: suspected that this is due to chemotherapy however, it has been over 3 weeks from last treatment could also be due to disease progression will reach out to Dr. Newberry to discuss use Neupogen for neutropenia platelets are 37 Hb > 9 and stable (2) Bilateral pneumonia: not due to aspiration, likely due to immunosuppression continue Cefepime 2gm IV q8 breathing is better, no fever, less sputum production and no recent hemoptysis will treat 7-10 days total (3) Thrombocytopenia: Thrombocytopenia stable with a platelet count of 37 no need for transfusion at this time (4) BRBPR (bright red blood per rectum): some episodes over the weekend appreciate GI consult, could follow up for colonoscopy outpatient most likely a rectal source such as hemorrhoids or fissure precipitated by thrombocytopenia Hb stable (5) Diffuse large B-cell lymphoma: Hematology/oncology consult - will d/w Dr. 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 Marcano was stage I, no further chemo/radiation needed (9) COPD (chronic obstructive pulmonary disease): -Stable, does not wear supplemental O2 at baseline, continue levalbuterol nebs QID and Q2H prn, Advair inh BID (10) Hypertension: -BP well controlled, 102/59 at time of admission (11) Benign prostatic hyperplasia with urinary obstruction: -Reports no issues with urination, no hematuria -Bladder scan as needed, strict I's and O's - Cr.= 0.94 and BUN =10 (12) Sarcopenia: -Albumin 2.5, continue supplements (13) Depression with anxiety: -Uses coping mechanisms, does not take medication, possibly gets some anxiety stabilization with low-dose gabapentin at night (14) Hypothyroidism: -Continue levothyroxine 125 mcg daily (15) Vitamin D deficiency: -Continue vitamin D supplementation (16) Restless leg syndrome: -Continue Requip 0.25 mg nightly (17) GERD (gastroesophageal reflux disease): -stable, diminished issues with lack of appetite (18) DVT prophylaxis: teds, scds, no chemical ppx in setting of thrombocytopenia and GIB CODE: Full Dispo: From home, he refuses to consider rehab again Subjective patient feeling better than when he was admitted, asks when he can go home still with cough, sputum production and occasional hemoptysis, but never kee blood, just blood tinged sputum no further hematochezia, appreciate GI consult, could consider colonoscopy outpatient patient is eating better he says he will never go back to [facility] for rehab, said that he had a terrible time there d/w pharmacy, will increase dose of Cefepime to 2gm q8 reviewed labs, WBC 3k and PMN are 0.6 Hb 9.2 and platelets 37 K slightly low at 3.4, Cr at baseline at 0.8 Review of Systems Review of Systems: All systems reviewed & are unremarkable except as noted in HPI & below Constitutional: + fatigue and + weakness; no fever, no chills and no sweats Respiratory: + cough, + dyspnea on exertion, + hemoptysis and + sputum production; no change in sputum and no pain with cough Cardiovascular: no chest pain, no palpitations, no syncope and no edema Gastrointestinal: + blood in stools; no abdominal pain, no nausea, no vomiting, no constipation, no diarrhea/loose stools and no melena Genitourinary: no dysuria and no hematuria Psychiatric: + depression and + irritability Physical Exam Constitutional: WD/WN, vitals as above Eyes: PERRL, conjunctivae normal, anicteric sclerae ENMT: external ear and nose normal, oropharynx normal Neck: trachea midline, no thyromegaly Respiratory: normal respiratory effort; no respiratory distress and no labored breathing Auscultation: + rhonchi (scattered, clear with cough); no crackles, no rales and no wheezes Cardiovascular: RRR, no murmur, no edema Gastrointestinal (Abdomen): normal bowel sounds, soft, nontender, no hepatosplenomegaly Musculoskeletal: no cyanosis or clubbing, extremities motor strength 5/5 Skin: no rashes, warm and dry Neurologic: patellar DTR's 2+ bilat, sensation intact and PERRL, EOMI, accommodation nl, no face palsy, no dysarthria Psychiatric: A+Ox3, euthymic affect Lymphatic: no cervical or axillary lymphadenopathy Results & Data Vital Signs (Past 12 Hours) Vital Signs Temp Pulse Pulse Resp BP BP Pulse Ox 06/24/19 15:20 37.5 C 88 19 100/62 94 06/24/19 11:19 06/24/19 11:06 36.8 C 86 18 96/54 L 95 06/24/19 08:00 85 06/24/19 07:39 36.7 C 87 16 105/60 92 06/24/19 07:07 78 16 93 Pulse Ox Pulse Ox Pulse Ox 06/24/19 15:20 06/24/19 11:19 98 91 88 L 06/24/19 11:06 06/24/19 08:00 06/24/19 07:39 06/24/19 07:07 Laboratory Results Laboratory Results - last 24 hr 06/24/19 06/24/19 07:13 07:13 WBC 3.00 L RBC 2.84 L Hgb 9.2 L Hct 27.7 L MCV 97.5 MCH 32.4 MCHC 33.2 RDW Std Deviation 52.9 H RDW Coeff of Sveta 14.9 H Plt Count 37 L MPV 11.2 H Immature Gran % (Auto) 1.7 Neut % (Auto) 20.1 Lymph % (Auto) 58.3 [place] % (Auto) 18.3 Eos % (Auto) 1.3 Baso % (Auto) 0.3 Immature Gran # (Auto) 0.05 H Neut # (Auto) 0.60 L* Lymph # (Auto) 1.75 [place] # (Auto) 0.55 Eos # (Auto) 0.04 Baso # (Auto) 0.01 Tear Drop Cells 1+ Sodium 141 Potassium 3.4 L Chloride 107 Carbon Dioxide 29 Anion Gap 5.0 BUN 9 Creatinine 0.80 Est Cr Clr Drug Dosing 88.8 Est GFR ( Amer) 99.2 Est GFR (Non-Af Amer) 85.6 BUN/Creatinine Ratio 10.9 Glucose 100 H Calcium 8.2 L Total Bilirubin 0.7 AST 39 H ALT 30 Alkaline Phosphatase 129 H Total Protein 5.1 L Albumin 2.2 L Globulin 2.9 Albumin/Globulin Ratio 0.8 L Medications Administered Current Inpatient Medications Acetaminophen (Tylenol) 650 mg PO Q4H PRN PRN Reason: Moderate Pain Stop: 07/21/19 17:56 Last Admin: 06/24/19 15:05 Dose: 650 mg Documented by: Albuterol (Ventolin Hfa) 2 puffs INH Q4H PRN PRN Reason: Wheezing Stop: 07/21/19 17:56 Allopurinol (Zyloprim) 300 mg PO QAM BOBO Stop: 07/22/19 08:59 Last Admin: 06/24/19 08:17 Dose: 300 mg Documented by: Gabapentin (Neurontin) 200 mg PO HS BOBO Stop: 07/21/19 20:59 Last Admin: 06/23/19 19:50 Dose: 200 mg Documented by: Guaifenesin (Mucinex) 1,200 mg PO Q12 BOBO Stop: 07/21/19 20:59 Last Admin: 06/24/19 08:17 Dose: 1,200 mg Documented by: Heparin Sodium (Porcine) (Heparin Sod 100 Unit/Ml Flush) 5 ml FLUSH PRN PRN PRN Reason: Flush Stop: 07/22/19 01:44 Cefepime HCl 2,000 mg/ Syringe 20 mls @ 5 mls/min IV Q8H BOBO Stop: 06/29/19 00:00 Levalbuterol HCl (Xopenex 1.25mg/0.5ml Neb) 1.25 mg NEB Q6R BOBO Stop: 07/21/19 18:59 Last Admin: 06/24/19 13:42 Dose: Not Given Documented by: Levalbuterol HCl (Xopenex 1.25mg/0.5ml Neb) 1.25 mg NEB Q2H PRN PRN Reason: Shortness Of Breath Stop: 07/21/19 18:05 Levothyroxine Sodium (Synthroid) 125 mcg PO DAILYBB BOBO Stop: 07/22/19 06:29 Last Admin: 06/24/19 06:14 Dose: 125 mcg Documented by: Miscellaneous (Order Awaiting Action) 1 ea N/A QS BOBO Stop: 07/21/19 18:29 Last Admin: 06/24/19 08:16 Dose: Not Given Documented by: Miscellaneous (Order Awaiting Action) 1 ea N/A QS BOBO Stop: 07/21/19 18:14 Last Admin: 06/24/19 08:16 Dose: Not Given Documented by: Multivitamins/Minerals (Multivitamin W/ Minerals Tab) 1 tab PO DAILY BOBO Stop: 07/22/19 08:59 Last Admin: 06/24/19 08:17 Dose: 1 tab Documented by: Ondansetron HCl (Zofran) 4 mg IV Q4H PRN PRN Reason: Nausea And Vomiting Stop: 07/21/19 17:56 Ondansetron HCl (Zofran Odt) 8 mg PO Q8H PRN PRN Reason: Nausea Stop: 07/21/19 17:56 Pantoprazole Sodium (Protonix) 40 mg PO DAILY PRN PRN Reason: Heartburn Stop: 07/21/19 18:14 Last Admin: 06/22/19 08:22 Dose: 40 mg Documented by: Polyethylene Glycol (Miralax Powder Packet) 17 gm PO DAILY BOBO Stop: 07/25/19 08:59 Potassium Chloride (Klor-Con M20) 20 meq PO BID BOBO Stop: 07/24/19 10:29 Last Admin: 06/24/19 11:41 Dose: 20 meq Documented by: Ropinirole HCl (Requip) 0.25 mg PO HS BOBO Stop: 07/21/19 20:59 Last Admin: 06/23/19 19:50 Dose: 0.25 mg Documented by: Fluticasone/Salmeterol (Advair Diskus 250/50) 1 puffs INH BID BOBO Stop: 07/21/19 20:59 Last Admin: 06/24/19 08:17 Dose: 1 puffs Documented by: Vitamin D (Vitamin D3) 400 units PO DAILY BOBO Stop: 07/22/19 08:59 Last Admin: 06/24/19 08:17 Dose: 400 units Documented by: PG Care Time/CCT Total # of Minutes Spent Total Time Spent with Patient: Total time spent is greater than 50% in coordination of care (as documented) at patient's floor/unit and/or counseling patient: (1) Diffuse large B-cell lymphoma Lymphoma site: multiple regions Qualified Code(s): C83.38 - Diffuse large B- cell lymphoma, lymph nodes of multiple sites (2) Hypothyroidism Hypothyroidism type: unspecified Qualified Code(s): E03.9 - Hypothyroidism, unspecified (3) COPD (chronic obstructive pulmonary disease) COPD type: unspecified COPD Qualified Code(s): J44.9 - Chronic obstructive pulmonary disease, unspecified (4) Bilateral pneumonia Lung location: lower lobe of lung Pneumonia type: due to unspecified organism Qualified Code(s): J18.1 - Lobar pneumonia, unspecified organism (5) GERD (gastroesophageal reflux disease) Esophagitis presence: esophagitis presence not specified Qualified Code(s): K21.9 - Gastro-esophageal reflux disease without esophagitis (6) Hypertension Hypertension type: essential hypertension Qualified Code(s): I10 - Essential (primary) hypertension
[2019-06-24] MEDS: CEFEPIME 2,000 MG in SYRINGE 7.5 ML IV SCH ×2 (16:18→23:19)
[2019-06-24] MEDS: HEPARIN 100 UNIT/ML 5ML FLUSH FLUSH PRN (16:22)
[2019-06-24] MEDS: ROPINIROLE HCL 0.25 MG TABLET PO SCH (20:57)
[2019-06-24] MEDS: GABAPENTIN 100 MG CAP PO SCH (20:57)
[2019-06-25] MEDS: LEVALBUTEROL 1.25MG/0.5ML NEB NEB SCH ×4 (00:52→19:48)
[2019-06-25] MEDS: LEVOTHYROXINE SODIUM 125 MCG TABLET PO SCH (06:10)
[2019-06-25 08:13] LABS: Hematocrit (blood only) 30.1 % (42-52); Hemoglobin 9.7 g/dL (14.0-18.0); Mean Corpuscular Hgb Conc 32.2 g/dL (32-36); Mean Corpuscular Volume 99.3 fL (80-100); RDW Coefficient of Variation 14.8 % (11.5-14.5); Red Blood Count 3.03 M/uL (4.7-6.1); White Blood Count 3.35 K/uL (4.8-10.8)
[2019-06-25] MEDS: CHOLECALCIFEROL (VITAMIN D) 400 UNITS TABLET PO SCH (08:13)
[2019-06-25] MEDS: guaiFENesin 600 MG TABCR PO SCH ×2 (08:13→20:38)
[2019-06-25] MEDS: CEROVITE ADV FORMULA TAB PO SCH (08:13)
[2019-06-25] MEDS: ALLOPURINOL 300 MG TAB PO SCH (08:13)
[2019-06-25] MEDS: FLUTICASONE/SALMETEROL 250/50 (ADVAIR) 14 PUFF/1 INHALER INH SCH ×2 (08:14→20:39)
[2019-06-25] MEDS: POTASSIUM CHLORIDE 20 MEQ TABCR PO SCH ×2 (08:14→20:39)
[2019-06-25] MEDS: POLYETHYLENE (MIRALAX) 17 GM PACK PO SCH (08:15)
[2019-06-25 08:20] LABS: Mean Platelet Volume 9.9 fL (7.4-10.4); Platelet Count 37 K/uL (130-400)
[2019-06-25] MEDS: CEFEPIME 2,000 MG in SYRINGE 7.5 ML IV SCH ×3 (08:20→23:32)
[2019-06-25 08:42] LABS: BUN Creatinine Ratio 13.2 (10-20); Calcium 8.8 mg/dl (8.5-10.1); Creatinine Clr Calc Pharmacy 85.1 ml/min; Est GFR (African American) 98.2; Est GFR (Non-African American) 84.7; Potassium 3.7 mmol/L (3.5-5.1)
[2019-06-25 09:18] LABS: Basophils # (auto) 0.02 K/uL (0-0.2); Basophils % (auto) 0.6 %; Eosinophils # (auto) 0.06 K/uL (0-0.5); Eosinophils % (auto) 1.8 %; Immature Granulocytes # (auto) 0.15 K/uL (0.00-0.02); Immature Granulocytes % (auto) 4.5 %; Lymphocytes # (auto) 1.98 K/uL (1.2-3.4); Lymphocytes % (auto) 59.1 %; Monocytes # (auto) 0.59 K/uL (0.11-0.59); Monocytes % (auto) 17.6 %; Neutrophils # (auto) 0.55 K/uL (1.4-6.5); Neutrophils % (auto) 16.4 %
[2019-06-25] MEDS ORDERED: FILGRASTIM 300 MCG/ML VIAL SQ ONE (12:00)
[2019-06-25] MEDS: ACETAMINOPHEN 325 MG TAB PO PRN (16:11)
[2019-06-25] MEDS: GABAPENTIN 100 MG CAP PO SCH (20:38)
[2019-06-25] MEDS: ROPINIROLE HCL 0.25 MG TABLET PO SCH (20:39)
--- NOTE | 2019-06-25 22:48 | Hospitalist Progress Note ---
Date of Service June 25, 2019 Assessment & Plan (1) Pancytopenia due to antineoplastic chemotherapy: suspected that this is due to chemotherapy however, it has been over 3 weeks from last treatment could also be due to disease progression discussed with Dr. Newberry on 06/25, he agrees with Neupogen to get PMN > 1.5 no need for platelet or PRBC transfusion will repeat CBC with diff in the morning goal is to improve PMN so he can be discharged and follow up with Dr. Newberry in clinic use Neupogen for neutropenia platelets are 37 Hb > 9 and stable (2) Bilateral pneumonia: not due to aspiration, likely due to immunosuppression continue Cefepime 2gm IV q8 breathing is better, no fever, less sputum production, very scant blood streaked sputum will continue antibiotics while PMN still low (3) Thrombocytopenia: Thrombocytopenia stable with a platelet count of 37 no need for transfusion at this time (4) BRBPR (bright red blood per rectum): some episodes over the weekend appreciate GI consult, could follow up for colonoscopy outpatient most likely a rectal source such as hemorrhoids or fissure precipitated by thrombocytopenia Hb stable (5) Diffuse large B-cell lymphoma: Hematology/oncology consult - appreciate call from Dr. 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 Marcano was stage I, no further chemo/radiation needed (9) COPD (chronic obstructive pulmonary disease): -Stable, does not wear supplemental O2 at baseline, continue levalbuterol nebs QID and Q2H prn, Advair inh BID (10) Hypertension: -BP well controlled, 102/59 at time of admission (11) Benign prostatic hyperplasia with urinary obstruction: -Reports no issues with urination, no hematuria -Bladder scan as needed, strict I's and O's - Cr.= 0.94 and BUN =10 (12) Sarcopenia: -Albumin 2.5, continue supplements eating better today encouraged him to have family bring in foods that he enjoys (13) Depression with anxiety: -Uses coping mechanisms, does not take medication, possibly gets some anxiety stabilization with low-dose gabapentin at night (14) Hypothyroidism: -Continue levothyroxine 125 mcg daily (15) Vitamin D deficiency: -Continue vitamin D supplementation (16) Restless leg syndrome: -Continue Requip 0.25 mg nightly (17) GERD (gastroesophageal reflux disease): -stable, diminished issues with lack of appetite (18) DVT prophylaxis: teds, scds, no chemical ppx in setting of thrombocytopenia and GIB CODE: Full Dispo: From home, he refuses to consider rehab again will be hospitalized until PMN improved Subjective patient frustrated that he cannot go home today discussed that his PMN are still very low at 0.55, will give Neupogen discussed that he is at risk for infection as long as his PMN remain low discussed case with Dr. Newberry, [facility], over the phone he agrees with neupogen, would want PMN > 1.5 prior to discharge is either due to chemotherapy or disease progression patient is eating okay, does not like hospital food intermittent cough, occasional blood streak in sputum but no kee hemoptysis he denies feeling weak Review of Systems Review of Systems: All systems reviewed & are unremarkable except as noted in HPI & below Constitutional: + fatigue; no fever Respiratory: + cough, + dyspnea on exertion, + hemoptysis (blood streaked sputum) and + sputum production Cardiovascular: no chest pain and no edema Gastrointestinal: no abdominal pain, no nausea, no vomiting, no constipation and no diarrhea/loose stools Physical Exam Constitutional: WD/WN, vitals as above Eyes: PERRL, conjunctivae normal, anicteric sclerae ENMT: external ear and nose normal, oropharynx normal Neck: trachea midline, no thyromegaly Respiratory: normal respiratory effort; no respiratory distress and no labored breathing Auscultation: + rhonchi (scattered, clear with cough); no crackles, no rales and no wheezes Cardiovascular: RRR, no murmur, no edema Gastrointestinal (Abdomen): normal bowel sounds, soft, nontender, no hepatosplenomegaly Musculoskeletal: no cyanosis or clubbing, extremities motor strength 5/5 Skin: no rashes, warm and dry Neurologic: patellar DTR's 2+ bilat, sensation intact and PERRL, EOMI, accommodation nl, no face palsy, no dysarthria Psychiatric: A+Ox3, euthymic affect Lymphatic: no cervical or axillary lymphadenopathy Results & Data Vital Signs (Past 12 Hours) Vital Signs Temp Pulse Resp BP BP Pulse Ox 06/25/19 19:50 71 16 96 06/25/19 19:34 36.6 C 78 21 101/64 99 06/25/19 15:13 36.9 C 87 23 101/58 L 91 06/25/19 14:16 90 06/25/19 13:11 89 18 96 Laboratory Results Laboratory Results - last 24 hr 06/25/19 06/25/19 08:02 08:02 WBC 3.35 L RBC 3.03 L Hgb 9.7 L Hct 30.1 L MCV 99.3 MCH 32.0 MCHC 32.2 RDW Std Deviation 53.0 H RDW Coeff of Sveta 14.8 H Plt Count 37 L MPV 9.9 Immature Gran % (Auto) 4.5 Neut % (Auto) 16.4 Lymph % (Auto) 59.1 [place] % (Auto) 17.6 Eos % (Auto) 1.8 Baso % (Auto) 0.6 Immature Gran # (Auto) 0.15 H Neut # (Auto) 0.55 L* Lymph # (Auto) 1.98 [place] # (Auto) 0.59 Eos # (Auto) 0.06 Baso # (Auto) 0.02 Sodium 140 Potassium 3.7 Chloride 106 Carbon Dioxide 27 Anion Gap 7.0 BUN 11 Creatinine 0.82 Est Cr Clr Drug Dosing 85.1 Est GFR ( Amer) 98.2 Est GFR (Non-Af Amer) 84.7 BUN/Creatinine Ratio 13.2 Glucose 114 H Calcium 8.8 Medications Administered Current Inpatient Medications Acetaminophen (Tylenol) 650 mg PO Q4H PRN PRN Reason: Moderate Pain Stop: 07/21/19 17:56 Last Admin: 06/25/19 16:11 Dose: 650 mg Documented by: Albuterol (Ventolin Hfa) 2 puffs INH Q4H PRN PRN Reason: Wheezing Stop: 07/21/19 17:56 Allopurinol (Zyloprim) 300 mg PO QAM [facility] Stop: 07/22/19 08:59 Last Admin: 06/25/19 08:13 Dose: 300 mg Documented by: Cabergoline (Cabergoline) 0.5 ea PO MoTh@0900 [facility] Stop: 07/27/19 08:59 Gabapentin (Neurontin) 200 mg PO HS [facility] Stop: 07/21/19 20:59 Last Admin: 06/25/19 20:38 Dose: 200 mg Documented by: Guaifenesin (Mucinex) 1,200 mg PO Q12 [facility] Stop: 07/21/19 20:59 Last Admin: 06/25/19 20:38 Dose: 1,200 mg Documented by: Heparin Sodium (Porcine) (Heparin Sod 100 Unit/Ml Flush) 5 ml FLUSH PRN PRN PRN Reason: Flush Stop: 07/22/19 01:44 Last Admin: 06/24/19 16:22 Dose: 5 ml Documented by: Cefepime HCl 2,000 mg/ Syringe 20 mls @ 5 mls/min IV Q8H [facility] Stop: 06/29/19 00:00 Last Admin: 06/25/19 16:12 Dose: 5 mls/min Documented by: Levalbuterol HCl (Xopenex 1.25mg/0.5ml Neb) 1.25 mg NEB Q6R [facility] Stop: 07/21/19 18:59 Last Admin: 06/25/19 19:48 Dose: 1.25 mg Documented by: Levalbuterol HCl (Xopenex 1.25mg/0.5ml Neb) 1.25 mg NEB Q2H PRN PRN Reason: Shortness Of Breath Stop: 07/21/19 18:05 Levothyroxine Sodium (Synthroid) 125 mcg PO DAILYBB [facility] Stop: 07/22/19 06:29 Last Admin: 06/25/19 06:10 Dose: 125 mcg Documented by: Multivitamins/Minerals (Multivitamin W/ Minerals Tab) 1 tab PO DAILY [facility] Stop: 07/22/19 08:59 Last Admin: 06/25/19 08:13 Dose: 1 tab Documented by: *Testosterone Topical Gel 1.62%* Non-Formulary Patient's Own Med 1 ea TOP QAM [facility] Stop: 07/26/19 08:59 Ondansetron HCl (Zofran) 4 mg IV Q4H PRN PRN Reason: Nausea And Vomiting Stop: 07/21/19 17:56 Ondansetron HCl (Zofran Odt) 8 mg PO Q8H PRN PRN Reason: Nausea Stop: 07/21/19 17:56 Pantoprazole Sodium (Protonix) 40 mg PO DAILY PRN PRN Reason: Heartburn Stop: 07/21/19 18:14 Last Admin: 06/22/19 08:22 Dose: 40 mg Documented by: Polyethylene Glycol (Miralax Powder Packet) 17 gm PO DAILY [facility] Stop: 07/25/19 08:59 Last Admin: 06/25/19 08:15 Dose: 17 gm Documented by: Potassium Chloride (Klor-Con M20) 20 meq PO BID [facility] Stop: 07/24/19 10:29 Last Admin: 06/25/19 20:39 Dose: 20 meq Documented by: Ropinirole HCl (Requip) 0.25 mg PO HS [facility] Stop: 07/21/19 20:59 Last Admin: 06/25/19 20:39 Dose: 0.25 mg Documented by: Fluticasone/Salmeterol (Advair Diskus 250/50) 1 puffs INH BID [facility] Stop: 07/21/19 20:59 Last Admin: 06/25/19 20:39 Dose: 1 puffs Documented by: Vitamin D (Vitamin D3) 400 units PO DAILY [facility] Stop: 07/22/19 08:59 Last Admin: 06/25/19 08:13 Dose: 400 units Documented by: PG Care Time/CCT Total # of Minutes Spent Total Time Spent with Patient: Total time spent is greater than 50% in coordination of care (as documented) at patient's floor/unit and/or counseling patient: (1) Diffuse large B-cell lymphoma Lymphoma site: multiple regions Qualified Code(s): C83.38 - Diffuse large B- cell lymphoma, lymph nodes of multiple sites (2) Hypothyroidism Hypothyroidism type: unspecified Qualified Code(s): E03.9 - Hypothyroidism, unspecified (3) COPD (chronic obstructive pulmonary disease) COPD type: unspecified COPD Qualified Code(s): J44.9 - Chronic obstructive pulmonary disease, unspecified (4) Bilateral pneumonia Lung location: lower lobe of lung Pneumonia type: due to unspecified organism Qualified Code(s): J18.1 - Lobar pneumonia, unspecified organism (5) GERD (gastroesophageal reflux disease) Esophagitis presence: esophagitis presence not specified Qualified Code(s): K21.9 - Gastro-esophageal reflux disease without esophagitis (6) Hypertension Hypertension type: essential hypertension Qualified Code(s): I10 - Essential (primary) hypertension
[2019-06-26] MEDS: LEVALBUTEROL 1.25MG/0.5ML NEB NEB SCH ×4 (00:15→19:02)
[2019-06-26] MEDS: LEVOTHYROXINE SODIUM 125 MCG TABLET PO SCH (04:56)
[2019-06-26 06:55] LABS: Hematocrit (blood only) 26.7 % (42-52); Mean Corpuscular Hemoglobin 32.8 pg (25-34); Mean Corpuscular Hgb Conc 33.7 g/dL (32-36); Mean Corpuscular Volume 97.4 fL (80-100); RDW Standard Deviation 53.4 fL (36.4-46.3); Red Blood Count 2.74 M/uL (4.7-6.1); White Blood Count 3.49 K/uL (4.8-10.8)
[2019-06-26 07:03] LABS: Mean Platelet Volume 9.6 fL (7.4-10.4); Platelet Count 32 K/uL (130-400)
[2019-06-26 07:28] LABS: BUN Creatinine Ratio 14.7 (10-20); Calcium 8.4 mg/dl (8.5-10.1); Creatinine Clr Calc Pharmacy 89.1 ml/min; Est GFR (African American) 100.2; Est GFR (Non-African American) 86.5; Potassium 3.9 mmol/L (3.5-5.1)
[2019-06-26 07:36] LABS: Basophils # (auto) 0.02 K/uL (0-0.2); Basophils % (auto) 0.6 %; Eosinophils # (auto) 0.07 K/uL (0-0.5); Immature Granulocytes # (auto) 0.26 K/uL (0.00-0.02); Immature Granulocytes % (auto) 7.4 %; Lymphocytes # (auto) 1.79 K/uL (1.2-3.4); Lymphocytes % (auto) 51.3 %; Monocytes # (auto) 0.58 K/uL (0.11-0.59); Monocytes % (auto) 16.6 %; Neutrophils # (auto) 0.77 K/uL (1.4-6.5); Neutrophils % (auto) 22.1 %; RBC Morphology Unremarkable
[2019-06-26] MEDS: CEFEPIME 2,000 MG in SYRINGE 7.5 ML IV SCH ×2 (08:26→16:52)
[2019-06-26] MEDS: TESTOSTERONE 1.62% TOP SCH (08:27)
[2019-06-26] MEDS: FLUTICASONE/SALMETEROL 250/50 (ADVAIR) 14 PUFF/1 INHALER INH SCH ×2 (08:27→20:56)
[2019-06-26] MEDS: ALLOPURINOL 300 MG TAB PO SCH (08:28)
[2019-06-26] MEDS: CEROVITE ADV FORMULA TAB PO SCH (08:28)
[2019-06-26] MEDS: POTASSIUM CHLORIDE 20 MEQ TABCR PO SCH ×2 (08:28→20:48)
[2019-06-26] MEDS: CHOLECALCIFEROL (VITAMIN D) 400 UNITS TABLET PO SCH (08:28)
[2019-06-26] MEDS: guaiFENesin 600 MG TABCR PO SCH ×2 (08:28→20:48)
[2019-06-26] MEDS: POLYETHYLENE (MIRALAX) 17 GM PACK PO SCH (08:29)
[2019-06-26] MEDS ORDERED: FILGRASTIM 300 MCG/ML VIAL SQ ONE (08:30)
--- NOTE | 2019-06-26 19:49 | Hospitalist Progress Note ---
Date of Service June 26, 2019 Assessment & Plan (1) Pancytopenia due to antineoplastic chemotherapy: suspected that this is due to chemotherapy however, it has been over 3 weeks from last treatment could also be due to disease progression discussed with Dr. Newberry on 06/25, he agrees with Neupogen to get PMN > 1.5 no need for platelet or PRBC transfusion PMN up to 0.77 today, Neupogen given this morning, repeat tomorrow goal is to improve PMN so he can be discharged and follow up with Dr. Newberry in clinic use Neupogen for neutropenia platelets are 32 Hb 9 and stable (2) Bilateral pneumonia: not due to aspiration, likely due to immunosuppression continue Cefepime 2gm IV q8 breathing is better, no fever, less sputum production, very scant blood streaked sputum will continue antibiotics while PMN still low admitted on 06/21, today is day 5 of antibiotics ideally should have 10 days (3) Thrombocytopenia: Thrombocytopenia stable with a platelet count of 32 no need for transfusion at this time some scant hemoptysis and GI bleeding, nothing severe (4) BRBPR (bright red blood per rectum): some episodes over the weekend appreciate GI consult, could follow up for colonoscopy outpatient most likely a rectal source such as hemorrhoids or fissure precipitated by thrombocytopenia Hb stable at 9 (5) Diffuse large B-cell lymphoma: Hematology/oncology consult - appreciate call from Dr. 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 Marcano was stage I, no further chemo/radiation needed (9) COPD (chronic obstructive pulmonary disease): -Stable, does not wear supplemental O2 at baseline, continue levalbuterol nebs QID and Q2H prn, Advair inh BID (10) Hypertension: -BP well controlled, 102/59 at time of admission (11) Benign prostatic hyperplasia with urinary obstruction: -Reports no issues with urination, no hematuria -Bladder scan as needed, strict I's and O's - Cr.= 0.94 and BUN =10 (12) Sarcopenia: -Albumin 2.5, continue supplements eating better today encouraged him to have family bring in foods that he enjoys (13) Depression with anxiety: -Uses coping mechanisms, does not take medication, possibly gets some anxiety stabilization with low-dose gabapentin at night (14) Hypothyroidism: -Continue levothyroxine 125 mcg daily (15) Vitamin D deficiency: -Continue vitamin D supplementation (16) Restless leg syndrome: -Continue Requip 0.25 mg nightly (17) GERD (gastroesophageal reflux disease): -stable, diminished issues with lack of appetite (18) DVT prophylaxis: teds, scds, no chemical ppx in setting of thrombocytopenia and GIB CODE: Full Dispo: From home, he refuses to consider rehab again will be hospitalized until PMN improved Subjective patient c/o fatigue today, says he is sleeping a lot breathing is stable, one coughing spell with some sputum and blood but otherwise okay still not eating great reviewed labs, PMN up to 0.77 after Neupogen platelets in 30's and Hb > 9 patient moved his bowels, no issues urinating all he wants is to go home and be with his family, frustrated that he is here Review of Systems Review of Systems: All systems reviewed & are unremarkable except as noted in HPI & below Constitutional: + fatigue and + weakness; no fever Respiratory: + cough, + dyspnea on exertion, + hemoptysis and + sputum production Cardiovascular: no chest pain Gastrointestinal: no abdominal pain, no nausea, no vomiting, no constipation and no diarrhea/loose stools Physical Exam Constitutional: WD/WN, vitals as above Eyes: PERRL, conjunctivae normal, anicteric sclerae ENMT: external ear and nose normal, oropharynx normal Neck: trachea midline, no thyromegaly Respiratory: normal respiratory effort; no respiratory distress and no labored breathing Auscultation: no crackles, no rales, no rhonchi and no wheezes Cardiovascular: RRR, no murmur, no edema Gastrointestinal (Abdomen): normal bowel sounds, soft, nontender, no hepatosplenomegaly Musculoskeletal: no cyanosis or clubbing, extremities motor strength 5/5 Skin: no rashes, warm and dry Neurologic: patellar DTR's 2+ bilat, sensation intact and PERRL, EOMI, accommodation nl, no face palsy, no dysarthria Psychiatric: A+Ox3, euthymic affect Lymphatic: no cervical or axillary lymphadenopathy Results & Data Vital Signs (Past 12 Hours) Vital Signs Temp Pulse Pulse Resp BP BP Pulse Ox 06/26/19 19:12 36.6 C 92 H 20 92/46 L 95 06/26/19 19:06 92 H 18 93 06/26/19 15:40 95 H 06/26/19 15:05 37.0 C 99 H 20 89/48 L 93 06/26/19 13:29 81 20 100 06/26/19 11:47 95 06/26/19 11:16 36.7 C 86 19 98/59 L 98 06/26/19 08:12 36.3 C L 85 19 108/65 92 Laboratory Results Laboratory Results - last 24 hr 06/26/19 06/26/19 06:38 06:38 WBC 3.49 L RBC 2.74 L Hgb 9.0 L Hct 26.7 L MCV 97.4 MCH 32.8 MCHC 33.7 RDW Std Deviation 53.4 H RDW Coeff of Sveta 15.0 H Plt Count 32 L MPV 9.6 Immature Gran % (Auto) 7.4 Neut % (Auto) 22.1 Lymph % (Auto) 51.3 [place] % (Auto) 16.6 Eos % (Auto) 2.0 Baso % (Auto) 0.6 Immature Gran # (Auto) 0.26 H Neut # (Auto) 0.77 L* Lymph # (Auto) 1.79 [place] # (Auto) 0.58 Eos # (Auto) 0.07 Baso # (Auto) 0.02 RBC Morphology Unremarkable Sodium 140 Potassium 3.9 Chloride 108 H Carbon Dioxide 26 Anion Gap 6.0 BUN 11 Creatinine 0.78 Est Cr Clr Drug Dosing 89.1 Est GFR ( Amer) 100.2 Est GFR (Non-Af Amer) 86.5 BUN/Creatinine Ratio 14.7 Glucose 84 Calcium 8.4 L Medications Administered Current Inpatient Medications Acetaminophen (Tylenol) 650 mg PO Q4H PRN PRN Reason: Moderate Pain Stop: 07/21/19 17:56 Last Admin: 06/25/19 16:11 Dose: 650 mg Documented by: Albuterol (Ventolin Hfa) 2 puffs INH Q4H PRN PRN Reason: Wheezing Stop: 07/21/19 17:56 Allopurinol (Zyloprim) 300 mg PO QAM [facility] Stop: 07/22/19 08:59 Last Admin: 06/26/19 08:28 Dose: 300 mg Documented by: Cabergoline (Cabergoline) 0.5 ea PO MoTh@0900 [facility] Stop: 07/27/19 08:59 Gabapentin (Neurontin) 200 mg PO HS [facility] Stop: 07/21/19 20:59 Last Admin: 06/25/19 20:38 Dose: 200 mg Documented by: Guaifenesin (Mucinex) 1,200 mg PO Q12 [facility] Stop: 07/21/19 20:59 Last Admin: 06/26/19 08:28 Dose: 1,200 mg Documented by: Heparin Sodium (Porcine) (Heparin Sod 100 Unit/Ml Flush) 5 ml FLUSH PRN PRN PRN Reason: Flush Stop: 07/22/19 01:44 Last Admin: 06/24/19 16:22 Dose: 5 ml Documented by: Cefepime HCl 2,000 mg/ Syringe 20 mls @ 5 mls/min IV Q8H [facility] Stop: 06/29/19 00:00 Last Admin: 06/26/19 16:52 Dose: 5 mls/min Documented by: Levalbuterol HCl (Xopenex 1.25mg/0.5ml Neb) 1.25 mg NEB Q6R [facility] Stop: 07/21/19 18:59 Last Admin: 06/26/19 19:02 Dose: 1.25 mg Documented by: Levalbuterol HCl (Xopenex 1.25mg/0.5ml Neb) 1.25 mg NEB Q2H PRN PRN Reason: Shortness Of Breath Stop: 07/21/19 18:05 Levothyroxine Sodium (Synthroid) 125 mcg PO DAILYBB [facility] Stop: 07/22/19 06:29 Last Admin: 06/26/19 04:56 Dose: 125 mcg Documented by: Multivitamins/Minerals (Multivitamin W/ Minerals Tab) 1 tab PO DAILY [facility] Stop: 07/22/19 08:59 Last Admin: 06/26/19 08:28 Dose: 1 tab Documented by: *Testosterone Topical Gel 1.62%* Non-Formulary Patient's Own Med 1 ea TOP QAM [facility] Stop: 07/26/19 08:59 Last Admin: 06/26/19 08:27 Dose: 1 ea Documented by: Ondansetron HCl (Zofran) 4 mg IV Q4H PRN PRN Reason: Nausea And Vomiting Stop: 07/21/19 17:56 Ondansetron HCl (Zofran Odt) 8 mg PO Q8H PRN PRN Reason: Nausea Stop: 07/21/19 17:56 Pantoprazole Sodium (Protonix) 40 mg PO DAILY PRN PRN Reason: Heartburn Stop: 07/21/19 18:14 Last Admin: 06/22/19 08:22 Dose: 40 mg Documented by: Polyethylene Glycol (Miralax Powder Packet) 17 gm PO DAILY [facility] Stop: 07/25/19 08:59 Last Admin: 06/26/19 08:29 Dose: Not Given Documented by: Potassium Chloride (Klor-Con M20) 20 meq PO BID [facility] Stop: 07/24/19 10:29 Last Admin: 06/26/19 08:28 Dose: 20 meq Documented by: Ropinirole HCl (Requip) 0.25 mg PO HS [facility] Stop: 07/21/19 20:59 Last Admin: 06/25/19 20:39 Dose: 0.25 mg Documented by: Fluticasone/Salmeterol (Advair Diskus 250/50) 1 puffs INH BID [facility] Stop: 07/21/19 20:59 Last Admin: 06/26/19 08:27 Dose: 1 puffs Documented by: Vitamin D (Vitamin D3) 400 units PO DAILY [facility] Stop: 07/22/19 08:59 Last Admin: 06/26/19 08:28 Dose: 400 units Documented by: PG Care Time/CCT Total # of Minutes Spent Total Time Spent with Patient: Total time spent is greater than 50% in coordination of care (as documented) at patient's floor/unit and/or counseling patient: (1) Bilateral pneumonia Lung location: lower lobe of lung Pneumonia type: due to unspecified organism Qualified Code(s): J18.1 - Lobar pneumonia, unspecified organism (2) Diffuse large B-cell lymphoma Lymphoma site: multiple regions Qualified Code(s): C83.38 - Diffuse large B- cell lymphoma, lymph nodes of multiple sites (3) COPD (chronic obstructive pulmonary disease) COPD type: unspecified COPD Qualified Code(s): J44.9 - Chronic obstructive pulmonary disease, unspecified (4) Hypertension Hypertension type: essential hypertension Qualified Code(s): I10 - Essential (primary) hypertension (5) Hypothyroidism Hypothyroidism type: unspecified Qualified Code(s): E03.9 - Hypothyroidism, unspecified (6) GERD (gastroesophageal reflux disease) Esophagitis presence: esophagitis presence not specified Qualified Code(s): K21.9 - Gastro-esophageal reflux disease without esophagitis
[2019-06-26] MEDS: GABAPENTIN 100 MG CAP PO SCH (20:49)
[2019-06-26] MEDS: ROPINIROLE HCL 0.25 MG TABLET PO SCH (20:49)
[2019-06-27] MEDS: CEFEPIME 2,000 MG in SYRINGE 7.5 ML IV SCH ×4 (00:20→23:43)
[2019-06-27] MEDS: LEVALBUTEROL 1.25MG/0.5ML NEB NEB SCH ×2 (00:25→07:03)
[2019-06-27] MEDS: LEVOTHYROXINE SODIUM 125 MCG TABLET PO SCH (06:14)
[2019-06-27 06:43] LABS: Hematocrit (blood only) 30.2 % (42-52); Hemoglobin 9.8 g/dL (14.0-18.0); Mean Corpuscular Hemoglobin 32.3 pg (25-34); Mean Corpuscular Hgb Conc 32.5 g/dL (32-36); Mean Corpuscular Volume 99.7 fL (80-100); RDW Coefficient of Variation 15.1 % (11.5-14.5); RDW Standard Deviation 54.8 fL (36.4-46.3); Red Blood Count 3.03 M/uL (4.7-6.1); White Blood Count 4.22 K/uL (4.8-10.8)
[2019-06-27 06:45] LABS: Mean Platelet Volume 9.6 fL (7.4-10.4); Platelet Count 34 K/uL (130-400)
[2019-06-27] MEDS ORDERED: LEVALBUTEROL HCL 1.25 MG/3 ML NEB NEB PRN (07:15)
[2019-06-27 07:35] LABS: Smudge Cells Present
[2019-06-27 07:36] LABS: ANC (manual) 0.56 K/uL (1.4-6.5); Lymphocytes % (manual) 73.4 %; Monocytes # (manual) 0.56 K/uL (0.11-0.59); Monocytes % (manual) 13.3 %; Neutrophils # (manual) 0.56 K/uL (1.4-6.5); Neutrophils % (manual) 13.3 %
[2019-06-27] MEDS ORDERED: FILGRASTIM 300 MCG/ML VIAL SQ ONE ×2 (08:22→12:00)
[2019-06-27] MEDS: TESTOSTERONE 1.62% TOP SCH (08:58)
[2019-06-27] MEDS: CEROVITE ADV FORMULA TAB PO SCH (08:58)
[2019-06-27] MEDS: guaiFENesin 600 MG TABCR PO SCH ×2 (08:59→21:22)
[2019-06-27] MEDS: CHOLECALCIFEROL (VITAMIN D) 400 UNITS TABLET PO SCH (08:59)
[2019-06-27] MEDS: POTASSIUM CHLORIDE 20 MEQ TABCR PO SCH ×2 (08:59→21:23)
[2019-06-27] MEDS: ALLOPURINOL 300 MG TAB PO SCH (08:59)
[2019-06-27] MEDS ORDERED: CABERGOLINE 0.5 MG PO SCH (09:00)
[2019-06-27] MEDS: FLUTICASONE/SALMETEROL 250/50 (ADVAIR) 14 PUFF/1 INHALER INH SCH ×2 (09:00→21:23)
[2019-06-27] MEDS: POLYETHYLENE (MIRALAX) 17 GM PACK PO SCH (09:01)
[2019-06-27] MEDS: LEVALBUTEROL HCL 1.25 MG/3 ML NEB NEB SCH ×2 (13:32→19:04)
--- NOTE | 2019-06-27 15:38 | Hospitalist Progress Note ---
Date of Service June 27, 2019 Assessment & Plan (1) Pancytopenia due to antineoplastic chemotherapy: initially suspected that this was due to chemotherapy however, it has been over 3 weeks from last treatment could also be due to disease progression discussed with Dr. Newberry on 06/25 and 06/27, he agrees with Neupogen to get PMN > 1.5 no need for platelet or PRBC transfusion PMN down to 0.55 today, will increase Neupogen to 480mcg goal is to improve PMN so he can be discharged and follow up with Dr. Newberry in clinic use Neupogen for neutropenia platelets are 34 Hb 9.8 and stable (2) Bilateral pneumonia: not due to aspiration, likely due to immunosuppression continue Cefepime 2gm IV q8 breathing is better, no fever, less sputum production, very scant blood streaked sputum will continue antibiotics while PMN still low admitted on 06/21, today is day 6 of antibiotics ideally should have 10 days, keep on IV until his PMN show some improvement (3) Thrombocytopenia: Thrombocytopenia stable with a platelet count of 34 no need for transfusion at this time some scant hemoptysis and GI bleeding, nothing severe nothing in a few days (4) BRBPR (bright red blood per rectum): some episodes over the weekend but nothing since that time appreciate GI consult, could follow up for colonoscopy outpatient most likely a rectal source such as hemorrhoids or fissure precipitated by thrombocytopenia Hb stable at 9.9 (5) Diffuse large B-cell lymphoma: Hematology/oncology consult - appreciate call from Dr. 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 Marcano was stage I, no further chemo/radiation needed (9) COPD (chronic obstructive pulmonary disease): -Stable, does not wear supplemental O2 at baseline, continue levalbuterol nebs QID and Q2H prn, Advair inh BID (10) Hypertension: -BP well controlled, 102/59 at time of admission (11) Benign prostatic hyperplasia with urinary obstruction: -Reports no issues with urination, no hematuria -Bladder scan as needed, strict I's and O's - Cr.= 0.94 and BUN =10 (12) Sarcopenia: -Albumin 2.5, continue supplements eating better today encouraged him to have family bring in foods that he enjoys (13) Depression with anxiety: -Uses coping mechanisms, does not take medication, possibly gets some anxiety stabilization with low-dose gabapentin at night (14) Hypothyroidism: -Continue levothyroxine 125 mcg daily (15) Vitamin D deficiency: -Continue vitamin D supplementation (16) Restless leg syndrome: -Continue Requip 0.25 mg nightly (17) GERD (gastroesophageal reflux disease): -stable, diminished issues with lack of appetite (18) DVT prophylaxis: teds, scds, no chemical ppx in setting of thrombocytopenia and GIB CODE: Full Dispo: From home, he refuses to consider rehab again will be hospitalized until PMN improved Subjective patient feeling fine today, just tired and with a poor appetite and frustrated being here PMN only 0.55 despite being 0.77 yesterday and getting Neupogen called to discuss with Dr. Newberry, he recommended giving extra Neupogen today for a total of 480mcg I updated the patient's at the bedside patient is breathing better, coughing a lot less no hemoptysis today took his oxygen off while I was in the room, no distress at all, saturations stayed in 88-90% range advised the RN to try to keep the oxygen off Review of Systems Review of Systems: All systems reviewed & are unremarkable except as noted in HPI & below Constitutional: + fatigue and + weakness; no fever Respiratory: + cough; no dyspnea, no dyspnea on exertion, no hemoptysis and no sputum production Cardiovascular: no chest pain and no edema Gastrointestinal: no abdominal pain, no nausea, no vomiting, no constipation and no diarrhea/loose stools Physical Exam Constitutional: WD/WN, vitals as above Eyes: PERRL, conjunctivae normal, anicteric sclerae ENMT: external ear and nose normal, oropharynx normal Neck: trachea midline, no thyromegaly Respiratory: normal respiratory effort; no respiratory distress and no labored breathing Auscultation: no crackles, no rales, no rhonchi and no wheezes Cardiovascular: RRR, no murmur, no edema Gastrointestinal (Abdomen): normal bowel sounds, soft, nontender, no hepatosplenomegaly Musculoskeletal: no cyanosis or clubbing, extremities motor strength 5/5 Skin: no rashes, warm and dry Neurologic: patellar DTR's 2+ bilat, sensation intact and PERRL, EOMI, accommodation nl, no face palsy, no dysarthria Psychiatric: A+Ox3, euthymic affect Lymphatic: no cervical or axillary lymphadenopathy Results & Data Vital Signs (Past 12 Hours) Vital Signs Temp Pulse Pulse Resp BP BP Pulse Ox 06/27/19 15:08 37.0 C 94 H 18 116/74 96 06/27/19 14:20 94 H 06/27/19 13:32 91 H 18 96 06/27/19 11:08 37.1 C 90 22 104/66 96 06/27/19 08:08 36.8 C 80 22 110/72 95 06/27/19 07:25 79 06/27/19 07:05 80 19 95 Laboratory Results Laboratory Results - last 24 hr 06/27/19 06:30 WBC 4.22 L RBC 3.03 L Hgb 9.8 L Hct 30.2 L MCV 99.7 MCH 32.3 MCHC 32.5 RDW Std Deviation 54.8 H RDW Coeff of Sveta 15.1 H Plt Count 34 L MPV 9.6 Neutrophils % (Manual) 13.3 Lymphocytes % (Manual) 73.4 Monocytes % (Manual) 13.3 Neutrophils # (Manual) 0.56 L Total Absolute Neuts 0.56 L* Lymphocytes # (Manual) 3.10 Total Abs Lymphocytes 3.10 Monocytes # (Manual) 0.56 Smudge Cells Present Medications Administered Current Inpatient Medications Acetaminophen (Tylenol) 650 mg PO Q4H PRN PRN Reason: Moderate Pain Stop: 07/21/19 17:56 Last Admin: 06/25/19 16:11 Dose: 650 mg Documented by: Albuterol (Ventolin Hfa) 2 puffs INH Q4H PRN PRN Reason: Wheezing Stop: 07/21/19 17:56 Allopurinol (Zyloprim) 300 mg PO QAM [facility] Stop: 07/22/19 08:59 Last Admin: 06/27/19 08:59 Dose: 300 mg Documented by: Cabergoline (Cabergoline) 0.5 ea PO MoTh@0900 [facility] Stop: 07/27/19 08:59 Last Admin: 06/27/19 09:00 Dose: 0.5 ea Documented by: Gabapentin (Neurontin) 200 mg PO HS [facility] Stop: 07/21/19 20:59 Last Admin: 06/26/19 20:49 Dose: 200 mg Documented by: Guaifenesin (Mucinex) 1,200 mg PO Q12 [facility] Stop: 07/21/19 20:59 Last Admin: 06/27/19 08:59 Dose: 1,200 mg Documented by: Heparin Sodium (Porcine) (Heparin Sod 100 Unit/Ml Flush) 5 ml FLUSH PRN PRN PRN Reason: Flush Stop: 07/22/19 01:44 Last Admin: 06/24/19 16:22 Dose: 5 ml Documented by: Cefepime HCl 2,000 mg/ Syringe 20 mls @ 5 mls/min IV Q8H [facility] Stop: 06/29/19 00:00 Last Admin: 06/27/19 15:44 Dose: 5 mls/min Documented by: Levalbuterol HCl (Xopenex 1.25mg/3ml Neb) 1.25 mg NEB Q6R [facility] Stop: 07/27/19 12:59 Last Admin: 06/27/19 13:32 Dose: 1.25 mg Documented by: Levalbuterol HCl (Xopenex 1.25mg/3ml Neb) 1.25 mg NEB Q2H PRN PRN Reason: SOB/WHEEZING Stop: 07/27/19 07:14 Levothyroxine Sodium (Synthroid) 125 mcg PO DAILYBB [facility]O Stop: 07/22/19 06:29 Last Admin: 06/27/19 06:14 Dose: 125 mcg Documented by: Multivitamins/Minerals (Multivitamin W/ Minerals Tab) 1 tab PO DAILY [facility] Stop: 07/22/19 08:59 Last Admin: 06/27/19 08:58 Dose: 1 tab Documented by: *Testosterone Topical Gel 1.62%* Non-Formulary Patient's Own Med 1 ea TOP QAM [facility] Stop: 07/26/19 08:59 Last Admin: 06/27/19 08:58 Dose: 1 ea Documented by: Ondansetron HCl (Zofran) 4 mg IV Q4H PRN PRN Reason: Nausea And Vomiting Stop: 07/21/19 17:56 Ondansetron HCl (Zofran Odt) 8 mg PO Q8H PRN PRN Reason: Nausea Stop: 07/21/19 17:56 Pantoprazole Sodium (Protonix) 40 mg PO DAILY PRN PRN Reason: Heartburn Stop: 07/21/19 18:14 Last Admin: 06/22/19 08:22 Dose: 40 mg Documented by: Polyethylene Glycol (Miralax Powder Packet) 17 gm PO DAILY [facility] Stop: 07/25/19 08:59 Last Admin: 06/27/19 09:01 Dose: 17 gm Documented by: Potassium Chloride (Klor-Con M20) 20 meq PO BID [facility] Stop: 07/24/19 10:29 Last Admin: 06/27/19 08:59 Dose: 20 meq Documented by: Ropinirole HCl (Requip) 0.25 mg PO HS [facility]O Stop: 07/21/19 20:59 Last Admin: 06/26/19 20:49 Dose: 0.25 mg Documented by: Fluticasone/Salmeterol (Advair Diskus 250/50) 1 puffs INH BID [facility] Stop: 07/21/19 20:59 Last Admin: 06/27/19 09:00 Dose: 1 puffs Documented by: Vitamin D (Vitamin D3) 400 units PO DAILY [facility] Stop: 07/22/19 08:59 Last Admin: 06/27/19 08:59 Dose: 400 units Documented by: PG Care Time/CCT Total # of Minutes Spent Total Time Spent with Patient: Total time spent is greater than 50% in coordination of care (as documented) at patient's floor/unit and/or counseling patient: (1) Bilateral pneumonia Lung location: lower lobe of lung Pneumonia type: due to unspecified organism Qualified Code(s): J18.1 - Lobar pneumonia, unspecified organism (2) Diffuse large B-cell lymphoma Lymphoma site: multiple regions Qualified Code(s): C83.38 - Diffuse large B- cell lymphoma, lymph nodes of multiple sites (3) COPD (chronic obstructive pulmonary disease) COPD type: unspecified COPD Qualified Code(s): J44.9 - Chronic obstructive pulmonary disease, unspecified (4) Hypertension Hypertension type: essential hypertension Qualified Code(s): I10 - Essential (primary) hypertension (5) Hypothyroidism Hypothyroidism type: unspecified Qualified Code(s): E03.9 - Hypothyroidism, unspecified (6) GERD (gastroesophageal reflux disease) Esophagitis presence: esophagitis presence not specified Qualified Code(s): K21.9 - Gastro-esophageal reflux disease without esophagitis
[2019-06-27 16:41] LABS: Hemoglobin 9.6 g/dL (14.0-18.0); Mean Corpuscular Hemoglobin 31.7 pg (25-34); Nucleated RBC # (auto) 0.02 K/uL (0-0); Nucleated RBC % (auto) 0.4 %; RDW Coefficient of Variation 14.9 % (11.5-14.5); RDW Standard Deviation 53.4 fL (36.4-46.3); Red Blood Count 3.03 M/uL (4.7-6.1); White Blood Count 4.43 K/uL (4.8-10.8)
[2019-06-27 17:49] LABS: Mean Platelet Volume 10.6 fL (7.4-10.4); Platelet Count 35 K/uL (130-400)
[2019-06-27 17:53] LABS: RBC Morphology Unremarkable
[2019-06-27 18:02] LABS: ALC (manual) 3.25 K/uL (1.2-3.4); Basophils # (manual) 0.05 K/uL (0-0.2); Basophils % (manual) 1.1 %; Eosinophils # (manual) 0.19 K/uL (0-0.5); Eosinophils % (manual) 4.4 %; Lymphocytes # (manual) 3.25 K/uL (1.2-3.4); Lymphocytes % (manual) 73.4 %; Monocytes # (manual) 0.35 K/uL (0.11-0.59); Monocytes % (manual) 7.8 %; Neutrophils # (manual) 0.59 K/uL (1.4-6.5); Neutrophils % (manual) 13.3 %; Smudge Cells Present
[2019-06-27] MEDS: ROPINIROLE HCL 0.25 MG TABLET PO SCH (21:22)
[2019-06-27] MEDS: GABAPENTIN 100 MG CAP PO SCH (21:22)
[2019-06-28] MEDS: LEVALBUTEROL HCL 1.25 MG/3 ML NEB NEB SCH ×2 (00:47→06:47)
[2019-06-28] MEDS: LEVOTHYROXINE SODIUM 125 MCG TABLET PO SCH (05:13)
[2019-06-28 06:50] LABS: Hematocrit (blood only) 31.1 % (42-52); Mean Corpuscular Hemoglobin 32.2 pg (25-34); Mean Corpuscular Hgb Conc 32.2 g/dL (32-36); RDW Coefficient of Variation 14.9 % (11.5-14.5); RDW Standard Deviation 53.4 fL (36.4-46.3); Red Blood Count 3.11 M/uL (4.7-6.1); White Blood Count 4.67 K/uL (4.8-10.8)
[2019-06-28 07:59] LABS: Mean Platelet Volume 9.2 fL (7.4-10.4); Platelet Count 31 K/uL (130-400)
[2019-06-28 08:02] LABS: Anisocytosis Present; Basophilic Stippling 1+; Platelet Estimate Decreased (Normal); Polychromasia 1+
[2019-06-28 08:03] LABS: ALC (manual) 3.08 K/uL (1.2-3.4); ANC (manual) 0.98 K/uL (1.4-6.5); Basophils # (manual) 0.04 K/uL (0-0.2); Basophils % (manual) 0.9 %; Eosinophils # (manual) 0.04 K/uL (0-0.5); Eosinophils % (manual) 0.9 %; Lymphocytes # (manual) 2.96 K/uL (1.2-3.4); Lymphocytes % (manual) 63.4 %; Metamyelocytes # (manual) 0.08 K/uL (0-0); Metamyelocytes % (manual) 1.7 %; Monocytes # (manual) 0.45 K/uL (0.11-0.59); Monocytes % (manual) 9.6 %; Neutrophils # (manual) 0.98 K/uL (1.4-6.5); Neutrophils % (manual) 20.9 %; Reactive Lymphocytes # (manual) 0.12 K/uL; Reactive Lymphocytes % (manual) 2.6 %
[2019-06-28] MEDS: guaiFENesin 600 MG TABCR PO SCH ×2 (08:03→20:45)
[2019-06-28] MEDS: CEROVITE ADV FORMULA TAB PO SCH (08:03)
[2019-06-28] MEDS: POTASSIUM CHLORIDE 20 MEQ TABCR PO SCH ×2 (08:03→20:45)
[2019-06-28] MEDS: CHOLECALCIFEROL (VITAMIN D) 400 UNITS TABLET PO SCH (08:04)
[2019-06-28] MEDS: POLYETHYLENE (MIRALAX) 17 GM PACK PO SCH (08:04)
[2019-06-28] MEDS: FLUTICASONE/SALMETEROL 250/50 (ADVAIR) 14 PUFF/1 INHALER INH SCH ×2 (08:04→20:44)
[2019-06-28] MEDS: CEFEPIME 2,000 MG in SYRINGE 7.5 ML IV SCH ×2 (08:04→15:29)
[2019-06-28] MEDS: ALLOPURINOL 300 MG TAB PO SCH (08:04)
[2019-06-28] MEDS: TESTOSTERONE 1.62% TOP SCH (08:05)
[2019-06-28] MEDS ORDERED: FILGRASTIM 480 MCG/1.6 ML VIAL SC ONE (08:10)
--- NOTE | 2019-06-28 09:37 | Hospitalist Progress Note ---
Date of Service June 28, 2019 Assessment & Plan (1) Pancytopenia due to antineoplastic chemotherapy: initially suspected that this was due to chemotherapy however, it has been over 3 weeks from last treatment could also be due to disease progression discussed with Dr. Newberry on 06/25 and 06/27, he agrees with Neupogen to get PMN > 1.5 no need for platelet or PRBC transfusion PMN up to 0.98 on Neupogen 480mcg, will give another dose of Neupogen 480mcg today repeat CBC in the morning goal is to improve PMN so he can be discharged and follow up with Dr. Newberry in clinic use Neupogen for neutropenia platelets are 31 (chronic issue) Hb 10.0 and stable (2) Bilateral pneumonia: not due to aspiration, likely due to immunosuppression continue Cefepime 2gm IV q8 breathing is better, no fever, less sputum production, no hemoptysis for a few days will continue antibiotics while PMN still low admitted on 06/21, today is day 7 of antibiotics ideally should have 10 days, keep on IV until his PMN show some improvement can send home on PO antibiotics if needed (3) Thrombocytopenia: Thrombocytopenia stable with a platelet count of 32 no need for transfusion at this time chronic issue, had this with Ibrutinib in the past some scant hemoptysis and GI bleeding, nothing severe nothing in a few days (4) BRBPR (bright red blood per rectum): some episodes over the weekend but nothing since that time appreciate GI consult, could follow up for colonoscopy outpatient most likely a rectal source such as hemorrhoids or fissure precipitated by thrombocytopenia Hb stable at 10 (5) Diffuse large B-cell lymphoma: Hematology/oncology consult - appreciate call from Dr. 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 Marcano was stage I, no further chemo/radiation needed (9) COPD (chronic obstructive pulmonary disease): -Stable, does not wear supplemental O2 at baseline, continue levalbuterol nebs QID and Q2H prn, Advair inh BID some slight hypoxia, will order 2 step for today, try to d/c home tomorrow (10) Benign prostatic hyperplasia with urinary obstruction: -Reports no issues with urination, no hematuria -Bladder scan as needed, strict I's and O's - Cr.= 0.94 and BUN =10 (11) Sarcopenia: -Albumin 2.5, continue supplements eating better today encouraged him to have family bring in foods that he enjoys (12) Depression with anxiety: -Uses coping mechanisms, does not take medication, possibly gets some anxiety stabilization with low-dose gabapentin at night (13) Hypothyroidism: -Continue levothyroxine 125 mcg daily (14) Vitamin D deficiency: -Continue vitamin D supplementation (15) Restless leg syndrome: -Continue Requip 0.25 mg nightly (16) GERD (gastroesophageal reflux disease): -stable, diminished issues with lack of appetite (17) DVT prophylaxis: teds, scds, no chemical ppx in setting of thrombocytopenia and GIB CODE: Full Dispo: From home, he refuses to consider rehab again get 2 step, try for d/c to home tomorrow transfer to medical floor, stable on monitor Subjective patient feeling well today, said that he ate more this morning he has no issues ambulating to the bathroom and back, denies light headedness his PMN up to 0.98, will give another dose of Neupogen 480mcg today minimal cough, no hemoptysis, no rectal bleeding no pain anywhere patient keeps saying that all he wants to do is go home to be with his family discussed that I was hopeful that he could go home tomorrow, depends on PMN count Review of Systems Review of Systems: All systems reviewed & are unremarkable except as noted in HPI & below Constitutional: no fever Respiratory: + cough; no dyspnea, no dyspnea on exertion, no hemoptysis and no sputum production Cardiovascular: no chest pain, no syncope and no edema Gastrointestinal: no abdominal pain, no nausea, no vomiting, no constipation and no diarrhea/loose stools Physical Exam Constitutional: WD/WN, vitals as above Eyes: PERRL, conjunctivae normal, anicteric sclerae ENMT: external ear and nose normal, oropharynx normal Neck: trachea midline, no thyromegaly Respiratory: normal respiratory effort; no respiratory distress and no labored breathing Auscultation: no crackles, no rales, no rhonchi and no wheezes Cardiovascular: RRR, no murmur, no edema Gastrointestinal (Abdomen): normal bowel sounds, soft, nontender, no hepatosplenomegaly Musculoskeletal: no cyanosis or clubbing, extremities motor strength 5/5 Skin: no rashes, warm and dry Neurologic: patellar DTR's 2+ bilat, sensation intact and PERRL, EOMI, accommodation nl, no face palsy, no dysarthria Psychiatric: A+Ox3, euthymic affect Lymphatic: no cervical or axillary lymphadenopathy Results & Data Vital Signs (Past 12 Hours) Vital Signs Temp Pulse Pulse Resp BP BP Pulse Ox 06/28/19 08:28 95 06/28/19 08:00 88 L 06/28/19 07:01 36.9 C 96 H 22 84/44 L 96 06/28/19 06:47 89 16 97 06/28/19 03:11 36.7 C 83 18 95/59 L 96 06/28/19 00:47 92 H 16 96 06/28/19 00:01 90 06/27/19 23:41 37.5 C 91 H 19 94/56 L 96 Laboratory Results Laboratory Results - last 24 hr 06/27/19 06/28/19 16:14 06:20 WBC 4.43 L 4.67 L RBC 3.03 L 3.11 L Hgb 9.6 L 10.0 L Hct 30.0 L 31.1 L MCV 99.0 100.0 MCH 31.7 32.2 MCHC 32.0 32.2 RDW Std Deviation 53.4 H 53.4 H RDW Coeff of Sveta 14.9 H 14.9 H Plt Count 35 L 31 L MPV 10.6 H 9.2 Absolute Nucleated RBC 0.02 H Nucleated RBC % (auto) 0.4 Neutrophils % (Manual) 13.3 20.9 Lymphocytes % (Manual) 73.4 63.4 Reactive Lymphs % (Man) 2.6 Monocytes % (Manual) 7.8 9.6 Eosinophils % (Manual) 4.4 0.9 Basophils % (Manual) 1.1 0.9 Metamyelocytes % (Man) 1.7 Neutrophils # (Manual) 0.59 L 0.98 L Total Absolute Neuts 0.59 L* 0.98 L* Lymphocytes # (Manual) 3.25 2.96 Reactive Lymphs # 0.12 Total Abs Lymphocytes 3.25 3.08 Monocytes # (Manual) 0.35 0.45 Eosinophils # (Manual) 0.19 0.04 Basophils # (Manual) 0.05 0.04 Metamyelocytes # (Man) 0.08 H Smudge Cells Present Platelet Estimate Decreased L RBC Morphology Unremarkable Polychromasia 1+ Basophilic Stippling 1+ Anisocytosis Present Medications Administered Current Inpatient Medications Acetaminophen (Tylenol) 650 mg PO Q4H PRN PRN Reason: Moderate Pain Stop: 07/21/19 17:56 Last Admin: 06/25/19 16:11 Dose: 650 mg Documented by: Albuterol (Ventolin Hfa) 2 puffs INH Q4H PRN PRN Reason: Wheezing Stop: 07/21/19 17:56 Allopurinol (Zyloprim) 300 mg PO QAM [facility] Stop: 07/22/19 08:59 Last Admin: 06/28/19 08:04 Dose: 300 mg Documented by: Cabergoline (Cabergoline) 0.5 ea PO MoTh@0900 [facility] Stop: 07/27/19 08:59 Last Admin: 06/27/19 09:00 Dose: 0.5 ea Documented by: Gabapentin (Neurontin) 200 mg PO HS [facility] Stop: 07/21/19 20:59 Last Admin: 06/27/19 21:22 Dose: 200 mg Documented by: Guaifenesin (Mucinex) 1,200 mg PO Q12 [facility] Stop: 07/21/19 20:59 Last Admin: 06/28/19 08:03 Dose: 1,200 mg Documented by: Heparin Sodium (Porcine) (Heparin Sod 100 Unit/Ml Flush) 5 ml FLUSH PRN PRN PRN Reason: Flush Stop: 07/22/19 01:44 Last Admin: 06/24/19 16:22 Dose: 5 ml Documented by: Cefepime HCl 2,000 mg/ Syringe 20 mls @ 5 mls/min IV Q8H [facility] Stop: 06/29/19 00:00 Last Admin: 06/28/19 08:04 Dose: 5 mls/min Documented by: Levalbuterol HCl (Xopenex 1.25mg/3ml Neb) 1.25 mg NEB Q6R [facility] Stop: 07/27/19 12:59 Last Admin: 06/28/19 06:47 Dose: 1.25 mg Documented by: Levalbuterol HCl (Xopenex 1.25mg/3ml Neb) 1.25 mg NEB Q2H PRN PRN Reason: SOB/WHEEZING Stop: 07/27/19 07:14 Levothyroxine Sodium (Synthroid) 125 mcg PO DAILYBB [facility] Stop: 07/22/19 06:29 Last Admin: 06/28/19 05:13 Dose: 125 mcg Documented by: Multivitamins/Minerals (Multivitamin W/ Minerals Tab) 1 tab PO DAILY [facility] Stop: 07/22/19 08:59 Last Admin: 06/28/19 08:03 Dose: 1 tab Documented by: *Testosterone Topical Gel 1.62%* Non-Formulary Patient's Own Med 1 ea TOP QAM [facility] Stop: 07/26/19 08:59 Last Admin: 06/28/19 08:05 Dose: 1 ea Documented by: Ondansetron HCl (Zofran) 4 mg IV Q4H PRN PRN Reason: Nausea And Vomiting Stop: 07/21/19 17:56 Ondansetron HCl (Zofran Odt) 8 mg PO Q8H PRN PRN Reason: Nausea Stop: 07/21/19 17:56 Pantoprazole Sodium (Protonix) 40 mg PO DAILY PRN PRN Reason: Heartburn Stop: 07/21/19 18:14 Last Admin: 06/22/19 08:22 Dose: 40 mg Documented by: Polyethylene Glycol (Miralax Powder Packet) 17 gm PO DAILY [facility] Stop: 07/25/19 08:59 Last Admin: 06/28/19 08:04 Dose: 17 gm Documented by: Potassium Chloride (Klor-Con M20) 20 meq PO BID [facility] Stop: 07/24/19 10:29 Last Admin: 06/28/19 08:03 Dose: 20 meq Documented by: Ropinirole HCl (Requip) 0.25 mg PO HS [facility] Stop: 07/21/19 20:59 Last Admin: 06/27/19 21:22 Dose: 0.25 mg Documented by: Fluticasone/Salmeterol (Advair Diskus 250/50) 1 puffs INH BID [facility] Stop: 07/21/19 20:59 Last Admin: 06/28/19 08:04 Dose: 1 puffs Documented by: Vitamin D (Vitamin D3) 400 units PO DAILY [facility] Stop: 07/22/19 08:59 Last Admin: 06/28/19 08:04 Dose: 400 units Documented by: PG Care Time/CCT Total # of Minutes Spent Total Time Spent with Patient: Total time spent is greater than 50% in coordination of care (as documented) at patient's floor/unit and/or counseling patient: (1) Bilateral pneumonia Lung location: lower lobe of lung Pneumonia type: due to unspecified organism Qualified Code(s): J18.1 - Lobar pneumonia, unspecified organism (2) Diffuse large B-cell lymphoma Lymphoma site: multiple regions Qualified Code(s): C83.38 - Diffuse large B- cell lymphoma, lymph nodes of multiple sites (3) COPD (chronic obstructive pulmonary disease) COPD type: unspecified COPD Qualified Code(s): J44.9 - Chronic obstructive pulmonary disease, unspecified (4) Hypothyroidism Hypothyroidism type: unspecified Qualified Code(s): E03.9 - Hypothyroidism, unspecified (5) GERD (gastroesophageal reflux disease) Esophagitis presence: esophagitis presence not specified Qualified Code(s): K21.9 - Gastro-esophageal reflux disease without esophagitis
[2019-06-28 10:32] LABS: ANC (manual) 0.59 K/uL (1.4-6.5)
[2019-06-28] MEDS: HEPARIN 100 UNIT/ML 5ML FLUSH FLUSH PRN (15:29)
[2019-06-28] MEDS: GABAPENTIN 100 MG CAP PO SCH (20:45)
[2019-06-28] MEDS: ROPINIROLE HCL 0.25 MG TABLET PO SCH (20:46)
[2019-06-29] MEDS: LEVOTHYROXINE SODIUM 125 MCG TABLET PO SCH (05:43)
[2019-06-29] MEDS: HEPARIN 100 UNIT/ML 5ML FLUSH FLUSH PRN ×2 (06:01→16:10)
[2019-06-29 06:27] LABS: Hematocrit (blood only) 30.1 % (42-52); Hemoglobin 9.8 g/dL (14.0-18.0); Mean Corpuscular Hemoglobin 32.5 pg (25-34); Mean Corpuscular Hgb Conc 32.6 g/dL (32-36); Mean Corpuscular Volume 99.7 fL (80-100); Nucleated RBC # (auto) 0.04 K/uL (0-0); Nucleated RBC % (auto) 0.5 %; RDW Coefficient of Variation 14.8 % (11.5-14.5); RDW Standard Deviation 53.5 fL (36.4-46.3); Red Blood Count 3.02 M/uL (4.7-6.1); White Blood Count 7.54 K/uL (4.8-10.8)
[2019-06-29 06:48] LABS: Mean Platelet Volume 11.2 fL (7.4-10.4); Platelet Count 37 K/uL (130-400)
[2019-06-29 07:51] LABS: ALC (manual) 6.04 K/uL (1.2-3.4); ANC (manual) 1.04 K/uL (1.4-6.5); Basophils # (manual) 0.07 K/uL (0-0.2); Basophils % (manual) 0.9 %; Eosinophils # (manual) 0.07 K/uL (0-0.5); Eosinophils % (manual) 0.9 %; Lymphocytes # (manual) 6.04 K/uL (1.2-3.4); Lymphocytes % (manual) 80.1 %; Monocytes % (manual) 2.6 %; Neutrophils # (manual) 1.04 K/uL (1.4-6.5); Neutrophils % (manual) 13.8 %; Promyelocytes # (manual) 0.13 K/uL (0-0); Promyelocytes % (manual) 1.7 %; Tear Drop Cells 1+; Toxic Granulation 1+
[2019-06-29] MEDS ORDERED: FILGRASTIM 480 MCG/1.6 ML VIAL SC ONE (08:30)
[2019-06-29] MEDS: FLUTICASONE/SALMETEROL 250/50 (ADVAIR) 14 PUFF/1 INHALER INH SCH (09:02)
[2019-06-29] MEDS: POTASSIUM CHLORIDE 20 MEQ TABCR PO SCH (09:03)
[2019-06-29] MEDS: CEROVITE ADV FORMULA TAB PO SCH (09:03)
[2019-06-29] MEDS: POLYETHYLENE (MIRALAX) 17 GM PACK PO SCH (09:03)
[2019-06-29] MEDS: guaiFENesin 600 MG TABCR PO SCH (09:03)
[2019-06-29] MEDS: TESTOSTERONE 1.62% TOP SCH (09:04)
[2019-06-29] MEDS: ALLOPURINOL 300 MG TAB PO SCH (09:04)
[2019-06-29] MEDS: CHOLECALCIFEROL (VITAMIN D) 400 UNITS TABLET PO SCH (09:04)
[2019-06-29] MEDS ORDERED: PEGFILGRASTIM 6 MG/0.6 ML SYR SQ ONE (13:00)
--- NOTE | 2019-06-29 15:03 | Discharge Summary ---
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 Pt follow with Dr. Newberry of [facility] oncology. Pt is currently receiving Venetoclax chemotherapy, with last session being on 06/04/19. He has not since had chemo due to low blood counts. Other past medical hx includes HTN, HLD, thrombocytopenia, COPD, adenocarcinoma of the lung, pituitary macroadenoma, restless leg syndrome, hypothyroidism, depression with anxiety and thrush. His family including and son present at bedside support the history. He was previously discharged from our facility to [facility]. He left there this past Monday, but prior to leaving patient developed worsening difficulty breathing, cough, congestion, and today has coughed up blood tinged sputum. His notes that he developed intermittent fevers and chills, T-max = 102 during his stay at [facility]. Pt was being treated with Tylenol throughout his stay there. He reports that during the stay he was active only during PT sessions, otherwise felt very weak and was lying in bed. His reports that he did not come back up to his baseline since being in therapy. Pt also notes significant lack of appetite and food aversions. Also c/o difficulty with bowel movements, goes about 3 days in between having a routine bowel movement. Upon using the restroom this morning she had bright red blood on toilet paper. The patient nor his are able to quantify. He notes that he does have issues with constipation and admits to straining. He denies dark tarry stools or blood streaking in stool. Patient had a colonoscopy within the past 6 years and everything was normal to his knowledge. Recent admissions: 06/07/19-06/10/19 03/14/19-03/16/19 Principal Diagnosis Bilateral pneumonia due to neutropenia Discharge Exam Constitutional WD/WN, vitals as above Eyes PERRL, conjunctivae normal, anicteric sclerae ENMT external ear and nose normal, oropharynx normal Neck trachea midline, no thyromegaly Respiratory normal respiratory effort; no respiratory distress and no labored breathing Auscultation: no crackles, no rales, no rhonchi and no wheezes Cardiovascular RRR, no murmur, no edema Gastrointestinal (Abdomen) normal bowel sounds, soft, nontender, no hepatosplenomegaly Musculoskeletal no cyanosis or clubbing, extremities motor strength 5/5 Skin no rashes, warm and dry Neurologic patellar DTR's 2+ bilat, sensation intact and PERRL, EOMI, accommodation nl, no face palsy, no dysarthria Psychiatric Orientation: alert and oriented x 3 Affect: + depressed affect Mood: + depressed mood Lymphatic no cervical or axillary lymphadenopathy Discharge Data Allergies Allergy/AdvReac Type Severity Reaction Status Date / Time lisinopril Allergy Mild itching Verified 06/21/19 14:59 metoprolol Allergy Mild itching Verified 06/21/19 14:59 losartan AdvReac Mild RASH Verified 06/21/19 14:59 Consultations 06/21/19 15:50 ED Decision to Admit Stat 06/21/19 17:57 Consult Case Management - Discharge Planning Routine Consult Oncology Routine 06/23/19 13:20 Consult Gastroenterology Routine Hospital Course (1) Pancytopenia due to antineoplastic chemotherapy: initially suspected that this was due to chemotherapy however, it has been over 3 weeks from last treatment could also be due to disease progression as he has a very large percentage of lymphocytes discussed with Dr. Newberry on 06/25 and 06/27, he agrees with Neupogen to get PMN up to normal levels no need for platelet or PRBC transfusion PMN up to 1.1 on Neupogen 480mcg for two days will give a dose of Neulasta to try to keep PMN up after discharge patient is very depressed, no longer wants to be in hospital, just wants to be with his family received Neupogen 5 days in a row, 300mcg for three days then 480mcg for two days gave Neulasta on day of discharge to try to provide his with a stable PMN count after discharge discussed with him that this likely would be short term and his PMN would drop again platelets in 30's the entire visit Hb 10.0 and stable long discussion with patient that his pancytopenia more than likely related to h is lymphocytic leukemia or B cell lymphoma discussed that he is very weak and debilitated, may not be a candidate for further chemo based on poor performance status he is depressed but accepting of this discussed importance of hand hygiene, avoiding any friends or family who might be sick, wearing mask in public he will follow up this week with Dr. Newberry, [facility], to discuss the next steps, may need to consider palliative approach (2) Bilateral pneumonia: not due to aspiration, likely due to immunosuppression treated with Cefepime 2gm IV q8 breathing is better, no fever, less sputum production, no hemoptysis for 5 days completed 8 days of antibiotics, no further treatment on discharge now that PMN up HYPOXIA: still requiring minimal amount of oxygen 2 step performed, needs 2L NC at all times arranged for home oxygen prior to discharge (3) Thrombocytopenia: Thrombocytopenia stable with a platelet count in 30's entire visit no need for transfusion at this time chronic issue, had this with Ibrutinib in the past some scant hemoptysis and GI bleeding, nothing severe nothing in a few days (4) BRBPR (bright red blood per rectum): some episodes over a week ago but nothing since that time appreciate GI consult, could follow up for colonoscopy outpatient most likely a rectal source such as hemorrhoids or fissure precipitated by thrombocytopenia Hb stable at 10 (5) Diffuse large B-cell lymphoma: Hematology/oncology consult - appreciate call from Dr. Newberry will plan to follow up in clinic close after discharge lymphoma/lymphocytic leukemia could be affecting bone marrow at this time patient unsure if he wants any further treatment performance status is poor (weakness, malnutrition) and he may not even withstand treatment if indicated may need palliative care 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, s/p resection - Continue testosterone and thyroid hormone replacement therapy - Continue cabergoline 0.25 mg UD (8) Adenocarcinoma of lung: s/p resection by Dr. Marcano was stage I, no further chemo/radiation needed (9) COPD (chronic obstructive pulmonary disease): -Stable, does not wear supplemental O2 at baseline, continue levalbuterol nebs QID and Q2H prn, Advair inh BID some slight hypoxia, will order 2 step for today, try to d/c home tomorrow (10) Benign prostatic hyperplasia with urinary obstruction: -Reports no issues with urination, no hematuria -Bladder scan as needed, strict I's and O's - Cr.= 0.94 and BUN =10 (11) Sarcopenia: -Albumin 2.5, continue supplements eating better today encouraged him to have family bring in foods that he enjoys (12) Depression with anxiety: right now he is depressed about his situation he just wants to go home and be with his family he fears dying in the hospital (13) Hypothyroidism: -Continue levothyroxine 125 mcg daily (14) Vitamin D deficiency: -Continue vitamin D supplementation (15) Restless leg syndrome: -Continue Requip 0.25 mg nightly (16) GERD (gastroesophageal reflux disease): -stable, diminished issues with lack of appetite (17) DVT prophylaxis: teds, scds, no chemical ppx in setting of thrombocytopenia and GIB CODE: Full Dispo: go home he is very weak but refuses to ever consider going back to rehab, had a terrible experience at [facility] will have home services and home therapy on discharge he lives with his , his family is helpful Total Time Total Time Spent Total Time Spent (In Minutes): 45 minutes Total Time Includes: Examination of the Patient, Discharge Planning, Medication Reconciliation, Communication With Other Providers (Dr. Newberry) and Other (discussed discharge plan with over the phone) Discharge Plan Discharge Items Patient Disposition: Home - Home Health Services Reason For Visit: PNEUMONIA, FEBRILE NEUTROPENIA, GI BLEED Discharge Diagnosis: Pancytopenia due to lymphoma/leukemia Neutropenia Pneumonia due to immunocompromised status Hypoxic respiratory failure Weakness Condition on Discharge: Fair Goals: get rest and improve nutritional status get stronger with home therapy avoid any sick contacts, strict hand washing follow up closely with Dr. Newberry Activity: Per Instructions section Lifting: None Bathing: No limitations Exercise/Sports: Gradually increase as tolerated Driving/Machine Use: cannot drive due to weakness Weightbearing: Full weightbearing Non-emergency contact: Primary Care Provider and Oncologist Call non-emergency contact if: you have any medication questions, your symptoms worsen and you have a fever Follow-up/Referrals: Ryne Corrigan MD [Primary Care Provider] - Diet: Regular Addtl Attending Provider Instructions: Medications: no changes Neutropenia with bilateral pneumonia WBC is normal, neutrophil count up to > 1 you received Neulasta to try to maintain a better neutrophil count after discharge you completed 8 days of IV antibiotics, no further antibiotics needed as we discussed, Dr. Newberry is not sure if this is due to chemotherapy or due to leukemia/lymphoma recommend close follow up with him this week, call his office on Monday you need to get rest but also start to work with therapy, home therapy has been arranged on discharge use your walker around the house and when you leave the house to help prevent falls NEUTROPENIA avoid any sick contacts, no family or friends should visit if they are ill practice good hand washing by both you and family members good oral hygiene with brushing teeth twice a day Focus on improving strength, improving nutrition, use protein supplements (ie Boost, Ensure) Hypoxia: due to pneumonia, deconditioning use 2 L at all times, take portable oxygen with you when you leave the hospital Pending Studies at Discharge: No Stand-Alone Forms: My [facility] Spoqa, Smoking Cessation Medications and DC Order Prescriptions: Continued multivitamin [Daily Multi-Vitamin] tablet 1 tab PO DAILY Qty: 30 RF: 0 vitamin E cream 1 appln TOP TID PRN (Reason: skin irritation) Qty: 60 RF: 0 ondansetron 8 mg tablet,disintegrating 8 mg PO Q8H PRN (Reason: Nausea) Qty: 10 RF: 0 allopurinol [Zyloprim] 300 mg tablet 300 mg PO QAM RF: 0 ropinirole [Requip] 0.25 mg Tablet 0.25 mg PO HS RF: 0 omeprazole 20 mg Capsule,Delayed Release(Dr/Ec) 20 mg PO DAILY PRN (Reason: Heartburn) RF: 0 clobetasol 0.05 % solution 1 applic topical BID PRN (Reason: Dermatitis) RF: 0 cholecalciferol (vitamin D3) [Vitamin D3] 400 unit Capsule 400 unit PO DAILY RF: 0 Centrum Silver 0.4-300-250 mg-mcg-mcg Tablet 1 tab PO DAILY RF: 0 fluticasone propion-salmeterol [Advair Diskus] 250-50 mcg/dose blister with device 1 puffs inhalation BID RF: 0 levothyroxine [Levoxyl] 125 mcg tablet 125 mcg PO QAM RF: 0 cabergoline 0.5 mg tablet 0.25 mg PO UD RF: 0 gabapentin [Neurontin] 100 mg capsule 200 mg PO HS RF: 0 albuterol sulfate [Ventolin HFA] 90 mcg/actuation HFA aerosol inhaler 2 puff INHALATION Q4H PRN (Reason: Wheezing) RF: 0 testosterone [AndroGel] 20.25 mg/1.25 gram (1.62 %) gel in metered-dose pump 2 pump topical DAILY RF: 0 docusate sodium 100 mg capsule 100 mg PO DAILY RF: 0 Discontinued ciprofloxacin HCl [Cipro] 500 mg tablet 500 mg PO BID Qty: 60 RF: 0 Discharge Orders: Discharge Order (Routine); Ordered 06/29/19 Ordered By: Addi Parish Admission Data Admit Date/Time: 06/21/19 16:45 Attending Provider: Addi Parish Admit Provider: Carlin Esquivel Primary Care Provider: Ryne Corrigan Other Providers: [facility],Home Healthcare ; Carlin Esquivel ; George Newberry ; Jonn Rodriguez Other Interventions: Discharge Summary Assessment (RN) Last Done: 06/29/19 15:40 DC Date/Time DO NOT enter until pt leaves facility: 06/29/19 16:25
--- NOTE | 2019-07-02 17:06 | Hematology/Oncology Prog Note ---
Date of Service July 02, 2019 Subjective He was admitted at [facility] for febrile neutropenia, I spoke with the hospitalist regarding his case, I know him from the previous office visits, he is a case of B-cell CLL and diffuse large B-cell lymphoma, disease has further progressed, lately receiving Venetoclax and Rituxan, I advised hospitalist to proceed with Neupogen treatment for treatment of neutropenia and will see how he does. Please note that I did not see him in the hospital but spoke with the hospitalist.
== END 2019-06-29 16:25 | disposition home health service (06) | DRG 194 ==
LOC: ED 13:51 → SUATTDRO 16:45 → 2S 16:45 → 2W 06-28 11:10

== ENCOUNTER 2021-07-24 08:06 | Observation (INO) ==
--- NOTE | 2021-07-24 08:30 | Emergency Department Note ---
Impression & Plan Breath shortness, Pleural effusion, Pancytopenia ED Provider Note NAME: OFELIA WHITE AGE: 80 SEX: M : 1940 ARRIVES VIA: Ambulance INFORMANT: Patient ED PROVIDER(S): Hang Espinosa DO CHIEF COMPLAINT: shortness of breath HPI: Patient is an 80-year-old male who presents to the ER for shortness of breath. He has a past medical history anemia, insomnia, COPD, depression, large B-cell lymphoma currently undergoing treatment as well as adenocarcinoma of the lung. Last chemo was several days ago. He denies any chest pain but admits to shortness of breath which is worsened since this past . No belly pain, nausea, vomiting, or diarrhea. No dysuria, urgency, or frequency. Admits to chronic swelling of the right lower extremity larger than the left. ROS: See above HPI for pertinent positives & negatives. A total of 10 systems reviewed and were otherwise negative. PAST MEDICAL HISTORY:See Below PAST SURGICAL HISTORY:See Below FAMILY HISTORY:See Below SOCIAL HISTORY:See Below HOME MEDICATIONS:See Below ALLERGIES:See Below VITALS:See Below PHYSICAL EXAMINATION: GENERAL: Sitting up in bed, alert, chronically ill-appearing, disheveled EYE EXAM: normal conjunctiva. PERRL and EOM's grossly intact. OROPHARYNX: no exudate, no erythema, lips, buccal mucosa, and tongue normal and mucous membranes are moist NECK: supple, no nuchal rigidity, no adenopathy, non-tender LUNGS: Diminished breath sounds on the right. Normal chest wall mechanics HEART: no murmurs, S1 normal and S2 normal ABDOMEN: abdomen soft, non-tender, normo-active bowel sounds, no masses, no rebound or guarding. UPPER EXTREMITIES: upper extremities are grossly normal. LOWER EXTREMITIES: Right leg larger than left NEURO EXAM: Normal sensorium, cranial nerves II-XII grossly intact, normal speech, no gross weakness of arms, no gross weakness of legs. MEDICAL DECISION MAKING: Patient is 80-year-old male who presents the ER with a past medical history of chemo and adenocarcinoma for shortness of breath. IV was established blood was obtained. Labs show pancytopenia with a white count of 3 and hemoglobin of 9 and platelets of 58. These are fairly consistent with previous. INR unremarkable. BMP with slightly elevated chloride. LFTs bilirubin was unremarkable. Troponin was negative. Lipase unremarkable. Covid and influenza were negative. Chest x-ray shows a large right pleural effusion opacifying nearly the entirety of the right lung. Patient has been dipping down into the mid 80s with ambulation at home. He was discussed with hospitalist admitted for further work-up and likely drainage of his pleural effusion. Triage Nursing notes reviewed. Limited review of prior medical records performed Vital Signs: reviewed and remarkable for no significant abnormalities Differential diagnosis: Differential diagnoses includes but is not limited to pneumonia, bronchitis, COPD/Asthma exacerbation, pneumothorax, pulmonary embolism, congestive heart failure, acute coronary syndrome ER treatment provided: See below Diagnostics interpreted by me: ECG: Sinus rhythm rate 73 Normal axis No PVCs Poor baseline QTC 425 Low voltage Cardiac Monitoring: An order was placed for continuous cardiac monitoring. The monitor shows a rate of 71with sinus rhythm. Laboratory studies: As stated above and show below. Imaging studies: Portable AP upright 1 view shows complete opacification of right lung due to pleural effusion Consultation(s): Discussed with hospitalist no testing for further evaluation Procedures: none Critical Care: None Past Med/Surg History Medical History Adenocarcinoma of lung S/p wedge resection of RUL followed by lobectomy and mediastinal lymph node dissection (12/11). 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 Initialed diagnosed 2007. Previously received intermittent prednisone, chlorambucil, bendamustine, Rituxan. PET-CT (02/12) demonstrated increase in size, number and FDG of lymphadenopathy particularly in the neck. Initiated on ibrutinib (04/14) for CLL but then held (05/15) due to enarged L tonsil with narrowing of adjacent airway. Biopsy revealing diffuse large b-cell lymphoma. S/p 6 cycles of R-CHOP (10/16) with significant improvement in PET scan. S/p 1 cyhcle RICE (03/15). Currently managed with Venetoclax (04/15). Managed with allopruinol for ppx Erectile dysfunction Generalized osteoarthritis Multiple previous injuries, primarily of R shoulder, low back. Receiving corticosteroid injections previously. Followed by ortho GERD (gastroesophageal reflux disease) Glaucoma History of herpes zoster Episode of zoster (01/11) of R chest. Complicated with post-herpetic neuralgia. Originally prescribed opiates but has been discontinued. Kidney stones Nephrolithiasis Pancytopenia due to antineoplastic chemotherapy Pituitary hypogonadism Port-A-Cath in place right chest wall Prolactin secreting pituitary adenoma Restless leg syndrome SCC (squamous cell carcinoma) Vitamin D deficiency Surgical History H/O lymph node biopsy H/O Mohs micrographic surgery for skin cancer History of ankle surgery History of arthroscopy B/L KNEE History of cataract surgery B/L History of colonoscopy History of esophagogastroduodenoscopy History of laryngoscopy DIRECT LARYNGOSCOPY/BIOPSY= 05/15/18 AT [facility] History of lithotripsy History of lobectomy of lung RT LOBE History of tooth extraction Family History Brother Cancer Mother Dementia Hypertension Other No family history of adverse response to anesthesia No family history of bleeding disorder Denies family history of Ovarian cancer Prostate cancer Diabetes Myocardial infarction Breast cancer Colorectal cancer Stroke Social History (Updated 07/24/21 @ 10:51 by Lucero Morataya MD) Smoking Status: Former smoker Tobacco Type: Cigarettes and Smokeless Tobacco (Dip or Chew) Age Started Using Tobacco: 17; Age Quit Using Tobacco: 78; packs per day: 0.5; Years Smoked: 50; Cigarettes Per Day: QUIT "MANY" YEARS AGO; Second Hand Exposure: No; Hx Alcohol Use: No Hx Substance Use: No Preferred Language: Polish Communication Ability: Effective Visual Impairment: Limited Hearing Ability: Normal 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 Required: No Beliefs That Will Affect Care: None marital status: Current Living Situation: Spouse current occupational status: retired How many Children do You have: 2 Feels Safe at Home: Yes Childhood Exposure to Second-Hand Smoke: Yes (stepdad did ) caffeine: Yes (coffee) Dental Care, Regularly: Yes Physical Activity Frequency: Does not Exercise Seatbelt Use: always Sunscreen Use: No Assistive Devices: Cane, Denture - Upper and Walker Allergies Allergies Allergy/AdvReac Type Severity Reaction Status Date / Time lisinopril Allergy Mild itching Verified 07/24/21 12:02 metoprolol Allergy Mild itching Verified 07/24/21 12:02 losartan AdvReac Mild RASH Verified 07/24/21 12:02 Home Meds Home Medications Medication Instructions Recorded Confirmed cholecalciferol (vitamin D3) 10 400 unit PO DAILY 06/06/19 07/24/21 mcg (400 unit) capsule (Vitamin D3) [id number] acid 0.4 1 tab PO DAILY 06/06/19 07/24/21 mg-lycopene 300 mcg-lutein 250 mcg tablet (Centrum Silver) allopurinol 100 mg tablet 200 mg PO DAILY 02/06/20 07/24/21 loratadine 10 mg tablet (Claritin) 10 mg PO DAILY PRN 02/06/20 07/24/21 acalabrutinib 100 mg capsule 100 mg PO Q12H 02/18/21 07/24/21 ondansetron HCl 8 mg tablet 8 mg PO Q8H PRN 02/18/21 07/24/21 prochlorperazine maleate 10 mg 10 mg PO Q6H PRN 02/18/21 07/24/21 tablet (Compazine) cabergoline 0.5 mg tablet 0.25 mg PO 2XWK 07/24/21 07/24/21 mupirocin 2 % topical ointment 1 applic TOPICAL BID 07/24/21 07/24/21 ropinirole 2 mg tablet 2 mg PO HS 07/24/21 07/24/21 timolol maleate 0.25 % eye drops 1 drp OPB UD 07/24/21 07/24/21 Previous Rx's Medication Instructions Recorded albuterol sulfate 90 mcg/actuation 2 puff INHALATION Q4H PRN #18 g 06/15/20 aerosol inhaler (Ventolin HFA) fluticasone 250 mcg-salmeterol 50 1 inh INHALATION BID PRN #60 ea 07/22/20 mcg/dose blistr powdr for inhalation (Advair Diskus) testosterone 20.25 mg/1.25 gram 2 pump TOPICAL DAILY #225 gm 05/05/21 (1.62 %) transdermal gel pump (AndroGel) levothyroxine 112 mcg tablet 112 mcg PO QAM #30 tab 06/01/21 gabapentin 100 mg capsule 200 mg PO HS #60 cap 07/09/21 Oxygen Home #1 ea 07/23/21 Results & Data (ED) Vital Signs Vital Signs - 24 hr 07/24/21 08:08 07/24/21 08:35 07/24/21 09:00 Temperature 36.8 C Temperature Source Oral Pulse Rate 74 65 65 Pulse Rate [Right Finger] Pulse Rate from SpO2 Sensor 64 65 Respiratory Rate 20 21 12 Blood Pressure 93/53 L Blood Pressure [Right Arm] Blood Pressure Mean 66 Blood Pressure Mean [Right Arm] Pulse Oximetry 96 95 96 Oxygen Delivery Method Room Air Oxygen Flow Rate Sepsis New/Unexplained Change in Mental Status No Sepsis Action Taken by Nursing No Action Required 07/24/21 09:02 07/24/21 10:00 07/24/21 10:04 Temperature Temperature Source Pulse Rate 90 Pulse Rate [Right Finger] 64 58 L Pulse Rate from SpO2 Sensor Respiratory Rate 16 22 Blood Pressure Blood Pressure [Right Arm] 102/63 111/51 L Blood Pressure Mean Blood Pressure Mean [Right Arm] 76 71 Pulse Oximetry 97 88 L 100 Oxygen Delivery Method Room Air Room Air Nasal Cannula Oxygen Flow Rate 2 Sepsis New/Unexplained Change in Mental Status Sepsis Action Taken by Nursing 07/24/21 10:30 07/24/21 11:00 07/24/21 11:30 Temperature Temperature Source Pulse Rate 75 92 H 89 Pulse Rate [Right Finger] Pulse Rate from SpO2 Sensor 75 92 H Respiratory Rate 20 24 Blood Pressure 106/59 L Blood Pressure [Right Arm] Blood Pressure Mean 74 Blood Pressure Mean [Right Arm] Pulse Oximetry 100 97 Oxygen Delivery Method Oxygen Flow Rate Sepsis New/Unexplained Change in Mental Status Sepsis Action Taken by Nursing 07/24/21 12:06 07/24/21 12:30 Temperature Temperature Source Pulse Rate 80 74 Pulse Rate [Right Finger] Pulse Rate from SpO2 Sensor 84 74 Respiratory Rate 12 16 Blood Pressure 113/62 Blood Pressure [Right Arm] Blood Pressure Mean 79 Blood Pressure Mean [Right Arm] Pulse Oximetry 98 Oxygen Delivery Method Oxygen Flow Rate Sepsis New/Unexplained Change in Mental Status Sepsis Action Taken by Nursing Laboratory Data Result diagrams: 07/24/21 08:58 07/24/21 08:58 Lab Results 07/24/21 07/24/21 07/24/21 Range/Units 08:58 08:58 08:58 WBC 3.60 L (4.8-10.8) K/uL RBC 2.93 L (4.7-6.1) M/uL Hgb 9.2 L (14.0-18.0) g/dL Hct 29.5 L (42-52) % MCV 100.7 H (80-100) fL MCH 31.4 (25-34) pg MCHC 31.2 L (32-36) g/dL RDW Std Deviation 56.6 H (36.4-46.3) fL RDW Coeff of Sveta 15.4 H (11.5-14.5) % Plt Count 58 L (130-400) K/uL MPV 10.1 (7.4-10.4) fL Immature Gran % (Auto) 0.6 % Neut % (Auto) 36.9 % Lymph % (Auto) 56.1 % [place] % (Auto) 5.0 % Eos % (Auto) 1.1 % Baso % (Auto) 0.3 % Neut # (Auto) 1.33 L (1.4-6.5) K/uL Lymph # (Auto) 2.02 (1.2-3.4) K/uL [place] # (Auto) 0.18 (0.11-0.59) K/uL Eos # (Auto) 0.04 (0-0.5) K/uL Baso # (Auto) 0.01 (0-0.2) K/uL Immature Gran # (Auto) 0.02 (0.00-0.02) K/uL PT (9.0-12.0) Seconds INR (0.9-1.1) APTT (21.0-31.0) Seconds PTT Ratio Sodium 143 (136-145) mmol/L Potassium 3.7 (3.5-5.1) mmol/L Chloride 108 H (98-107) mmol/L Carbon Dioxide 27 (21-32) mmol/L Anion Gap 8.0 (3-11) BUN 12 (7-18) mg/dl Creatinine 1.11 (0.6-1.4) mg/dl Est Cr Clr Drug Dosing 60.6 ml/min Est GFR ( Amer) 72.3 ml/min Est GFR (Non-Af Amer) 62.4 ml/min BUN/Creatinine Ratio 10.5 (10-20) Glucose 90 (70-99) mg/dl Calcium 7.9 L (8.5-10.1) mg/dl Total Bilirubin 1.3 H (0.2-1) mg/dl AST 24 (15-37) U/L ALT 12 (12-78) U/L Alkaline Phosphatase 148 H (45-117) U/L Troponin I < 0.015 (0-0.045) ng/ml Total Protein 5.2 L (6.4-8.2) gm/dl Albumin 2.4 L (3.4-5.0) gm/dl Globulin 2.8 (2.5-4.0) gm/dl Albumin/Globulin Ratio 0.9 (0.9-2) Lipase 73 (73-393) U/L Fluid Neutrophils % Fluid Lymphocytes % Fluid Eosinophils % Fluid Meso/Macro/[place] % Fluid Comment Pleural Fluid Source Pleural Color Pleural Appearance Pleural pH (7.3-7.4) Pleural WBC /uL Pleural RBC /uL Pleural Other Cells % Pleural Total Protein Pleural LDH Pleural Glucose SARS-CoV-2 (PCR) (Negative) Influ A Molecular Assay Negative (Negative) Influ B Molecular Assay Negative (Negative) 07/24/21 07/24/21 07/24/21 Range/Units 08:58 08:58 Unknown WBC (4.8-10.8) K/uL RBC (4.7-6.1) M/uL Hgb (14.0-18.0) g/dL Hct (42-52) % MCV (80-100) fL MCH (25-34) pg MCHC (32-36) g/dL RDW Std Deviation (36.4-46.3) fL RDW Coeff of Sveta (11.5-14.5) % Plt Count (130-400) K/uL MPV (7.4-10.4) fL Immature Gran % (Auto) % Neut % (Auto) % Lymph % (Auto) % [place] % (Auto) % Eos % (Auto) % Baso % (Auto) % Neut # (Auto) (1.4-6.5) K/uL Lymph # (Auto) (1.2-3.4) K/uL [place] # (Auto) (0.11-0.59) K/uL Eos # (Auto) (0-0.5) K/uL Baso # (Auto) (0-0.2) K/uL Immature Gran # (Auto) (0.00-0.02) K/uL PT 10.7 (9.0-12.0) Seconds INR 1.1 (0.9-1.1) APTT 39.9 H (21.0-31.0) Seconds PTT Ratio 1.5 Sodium (136-145) mmol/L Potassium (3.5-5.1) mmol/L Chloride (98-107) mmol/L Carbon Dioxide (21-32) mmol/L Anion Gap (3-11) BUN (7-18) mg/dl Creatinine (0.6-1.4) mg/dl Est Cr Clr Drug Dosing ml/min Est GFR ( Amer) ml/min Est GFR (Non-Af Amer) ml/min BUN/Creatinine Ratio (10-20) Glucose (70-99) mg/dl Calcium (8.5-10.1) mg/dl Total Bilirubin (0.2-1) mg/dl AST (15-37) U/L ALT (12-78) U/L Alkaline Phosphatase (45-117) U/L Troponin I (0-0.045) ng/ml Total Protein (6.4-8.2) gm/dl Albumin (3.4-5.0) gm/dl Globulin (2.5-4.0) gm/dl Albumin/Globulin Ratio (0.9-2) Lipase (73-393) U/L Fluid Neutrophils % Not Reportable Fluid Lymphocytes % Not Reportable Fluid Eosinophils % Not Reportable Fluid Meso/Macro/[place] % Not Reportable Fluid Comment Pleural Fluid Source RIGHT LUNG Pleural Color RED Pleural Appearance BLOODY Pleural pH (7.3-7.4) Pleural WBC 2249 /uL Pleural RBC 1041054 /uL Pleural Other Cells % Pleural Total Protein Cancelled Pleural LDH Cancelled Pleural Glucose Cancelled SARS-CoV-2 (PCR) NEGATIVE (Negative) Influ A Molecular Assay (Negative) Influ B Molecular Assay (Negative) 07/24/21 Range/Units Unknown WBC (4.8-10.8) K/uL RBC (4.7-6.1) M/uL Hgb (14.0-18.0) g/dL Hct (42-52) % MCV (80-100) fL MCH (25-34) pg MCHC (32-36) g/dL RDW Std Deviation (36.4-46.3) fL RDW Coeff of Sveta (11.5-14.5) % Plt Count (130-400) K/uL MPV (7.4-10.4) fL Immature Gran % (Auto) % Neut % (Auto) % Lymph % (Auto) % [place] % (Auto) % Eos % (Auto) % Baso % (Auto) % Neut # (Auto) (1.4-6.5) K/uL Lymph # (Auto) (1.2-3.4) K/uL [place] # (Auto) (0.11-0.59) K/uL Eos # (Auto) (0-0.5) K/uL Baso # (Auto) (0-0.2) K/uL Immature Gran # (Auto) (0.00-0.02) K/uL PT (9.0-12.0) Seconds INR (0.9-1.1) APTT (21.0-31.0) Seconds PTT Ratio Sodium (136-145) mmol/L Potassium (3.5-5.1) mmol/L Chloride (98-107) mmol/L Carbon Dioxide (21-32) mmol/L Anion Gap (3-11) BUN (7-18) mg/dl Creatinine (0.6-1.4) mg/dl Est Cr Clr Drug Dosing ml/min Est GFR ( Amer) ml/min Est GFR (Non-Af Amer) ml/min BUN/Creatinine Ratio (10-20) Glucose (70-99) mg/dl Calcium (8.5-10.1) mg/dl Total Bilirubin (0.2-1) mg/dl AST (15-37) U/L ALT (12-78) U/L Alkaline Phosphatase (45-117) U/L Troponin I (0-0.045) ng/ml Total Protein (6.4-8.2) gm/dl Albumin (3.4-5.0) gm/dl Globulin (2.5-4.0) gm/dl Albumin/Globulin Ratio (0.9-2) Lipase (73-393) U/L Fluid Neutrophils % Fluid Lymphocytes % Fluid Eosinophils % Fluid Mes[place]/Macro/[place] % Fluid Comment Pleural Fluid Source Pleural Color Pleural Appearance Pleural pH 7.18 L (7.3-7.4) Pleural WBC /uL Pleural RBC /uL Pleural Other Cells % Pleural Total Protein Pleural LDH Pleural Glucose SARS-CoV-2 (PCR) (Negative) Influ A Molecular Assay (Negative) Influ B Molecular Assay (Negative) Administered Medications Discontinued Medications Ioversol (Optiray 320 100ml) 95 ml IV ONCE ONE Stop: 07/24/21 13:06 Last Admin: 07/24/21 13:06 Dose: 95 ml Documented by: [id number] Imaging Data Radiologist's Impression: Chest X-Ray 07/24/21 08:26 SINGLE VIEW CHEST CLINICAL HISTORY: Atypical chest pain. FINDINGS: An AP, portable, upright chest radiograph is compared to study dated 03/11/2021 and correlated with chest CT dated 01/09/2017. A right internal jugular central venous infusion port is in place. The heart is top normal in size noting atherosclerotic calcification of the thoracic aorta. Postoperative change is noted in the right lung. There is a large right pleural effusion with near- complete atelectasis of the right lung. There is mild leftward shift of mediastinum. The left lung appears clear noting basilar atelectasis. No pneumothorax is seen. The skeletal structures are osteopenic. The bony thorax is grossly intact. IMPRESSION: 1. Large right pleural effusion with near-complete atelectasis of the right lung. This has significantly increased in size from the 03/11/2021 examination. 2. The left lung appears clear. ACT 112: Negative or not required by law. Electronically signed by: Suman Dailey M.D. 07/24/2021 8:57 AM Venous Doppler Study 07/24/21 08:26 ULTRASOUND RIGHT LOWER EXTREMITY VENOUS CLINICAL HISTORY: Right leg swelling. COMPARISON STUDY: No priors. TECHNIQUE: Real-time, grayscale, and color Doppler sonography of the deep veins of the right lower extremity was performed from the inguinal crease to the calf. Compression and augmentation were utilized. FINDINGS: There is no sonographic evidence of deep venous thrombosis identified in the right lower extremity. The common femoral, superficial femoral, and popliteal veins are patent and normally compressible. The greater saphenous vein and the profunda femoris vein at the junction with the common femoral vein are clear. The visualized calf veins are patent. IMPRESSION: There is no sonographic evidence of deep venous thrombosis identified in the right lower extremity. ACT 112: Negative or not required by law. Electronically signed by: Suman Dailey M.D. 07/24/2021 9:55 AM Chest X-Ray 07/24/21 11:52 SINGLE VIEW CHEST CLINICAL HISTORY: Status post thoracentesis. FINDINGS: An AP, portable, upright chest radiograph is compared to study performed earlier the same day 07/24/2021 and correlated with chest CT dated . A right internal jugular central venous infusion port is in place. The heart is top normal in size noting atherosclerotic calcification of the thoracic aorta. Postoperative change is noted in the right lung. There is a large right pleural effusion with near-complete atelectasis of the right lung. The left lung appears clear noting basilar atelectasis. No pneumothorax is seen. The skeletal structures are osteopenic. The bony thorax is grossly intact. IMPRESSION: 1. Large right pleural effusion with near-complete atelectasis of the right lung. This has modestly decreased in size from today's earlier examination. 2. No pneumothorax is identified post procedure. 3. The left lung appears clear. ACT 112: Negative or not required by law. Electronically signed by: Suman Dailey M.D. 07/24/2021 1:[address] 07/24/21 12:05 CT SCAN OF THE CHEST WITH IV CONTRAST CLINICAL HISTORY: Hemothorax. COMPARISON STUDY: Chest CT dated 01/09/2017. Chest x-rays dated 07/24/2021. PET/CT dated 06/01/2020. TECHNIQUE: Following the IV administration of 95 cc of Optiray 320, CT scan of the thorax was performed from the thoracic inlet to the upper abdomen. Images are reviewed in the axial, sagittal, and coronal planes. IV contrast was administered without complication. A dose lowering technique was utilized adhering to the principles of ALARA. There is streak artifact from the patient's necklace. Examination is degraded by motion artifact, as well as by significant streak artifact from the arms which could not be elevated above the chest. CT DOSE: 728.94 mGycm FINDINGS: Thyroid: Imaged portions of the thyroid gland are normal in size and att enuation. Thoracic aorta: There is atherosclerotic calcification of the thoracic aorta, which is normal in caliber and demonstrates bovine variant arch anatomy. No dissection is seen. Lower neck: There is bilateral supraclavicular lymphadenopathy, right greater than left. The largest node on image #38 measures 2.9 x 0 cm. Pulmonary vasculature: The main pulmonary arteries are dilated suggesting pulmonary artery hypertension. There are no filling defects identified in the central pulmonary vessels to indicate pulmonary embolus. Note that this examination was not protocoled for evaluation of the pulmonary arteries. Heart: The heart is normal in size and without pericardial effusion. The co ronary arteries are densely calcified. Lungs and pleural spaces: Again seen is postoperative change from right-sided pulmonary resection. There is compensatory hyperinflation of the left lung. There is a moderate to large complex right pleural effusion/collection with significant atelectasis/consolidation of the right lower lung. There is associated pleural thickening. No pneumothorax is seen. The trachea and central airways are patent. There are scattered calcified granulomas. The left lung is clear noting foci of scarring/atelectasis. Calcified pleural plaque is noted in the right lung on image #185. Mediastinum: There are numerous enlarged mediastinal lymph nodes. A calcification containing subcarinal node measures 3.3 x 2.4 cm. A right peritracheal node on image #89 measures 2.2 x 1.2 cm. Lou: There calcification containing hilar nodes. No hilar adenopathy is seen. Axillae: There is bulky right axillary and subpectoral lymphadenopathy. A node on image #172 measures 8.2 x 3.6 cm. There are mildly enlarged left axillary and subpectoral nodes. A left subpectoral node on image #77 measures 1.9 x 1.2 cm. Upper abdomen: The spleen appears enlarged. A small hiatal hernia is noted. There are numerous mildly enlarged upper abdominal lymph nodes. A gastrohepatic node on image #284 measures 1.4 x 1.0 cm. Skeletal structures: The skeletal structures are osteopenic. Degenerative change is noted in the shoulders and thoracic spine. No lytic or blastic bony lesions are seen. IMPRESSION: 1. Streak and motion compromised examination. 2. There is a moderate to large complex right pleural effusion/collection as above with overlying pleural thickening. The sterility of this fluid cannot be assessed by imaging. 3. There is associated atelectasis/consolidation of the right lower lung. Correlate clinically for evidence of pneumonia. 4. There is postoperative change and volume loss in the right lung. 5. The left lung appears clear. 6. There is bulky right axillary and subpectoral lymphadenopathy, as well as pathologically enlarged nodes in the lower neck, left axilla, mediastinum, and upper abdomen. The appearance favors a lymphoproliferative disorder, and this has progressed as compared to the 2019 PET/CT. Correlate with the patient's oncological history. 7. The spleen appears enlarged. 8. Additional findings as above. ACT 112: Negative or not required by law. Electronically signed by: Suman Dailey M.D. 07/24/2021 1:25 PM Discharge Plan Visit Data Chief Complaint: Shortness of Breath/Dyspnea Stated Complaint: SOB ED Provider: Hang Espinosa Discharge Problem: Breath shortness, Pleural effusion, Pancytopenia Forms Stand Alone Forms: [facility] Prescriptions Prescriptions: No Action albuterol sulfate [Ventolin HFA] 90 mcg/actuation HFA aerosol inhaler 2 puff INHALATION Q4H PRN (Reason: Wheezing) Qty: 18 RF: 3 fluticasone propion-salmeterol [Advair Diskus] 250-50 mcg/dose blister with de vice 1 inh inhalation BID PRN (Reason: COPD) Qty: 60 RF: 3 testosterone [AndroGel] 20.25 mg/1.25 gram (1.62 %) gel in metered-dose pump 2 pump topical DAILY Qty: 225 RF: 0 levothyroxine 112 mcg tablet 112 mcg PO QAM Qty: 30 RF: 2 gabapentin 100 mg capsule 200 mg PO HS Qty: 60 RF: 1 loratadine [Claritin] 10 mg tablet 10 mg PO DAILY PRN (Reason: seasonal allergies) RF: 0 allopurinol 100 mg tablet 200 mg PO DAILY RF: 0 (DME) Oxygen Home Liters Per Minute See Rx Instructions .Route Qty: 1 RF: 0 cholecalciferol (vitamin D3) [Vitamin D3] 400 unit Capsule 400 unit PO DAILY RF: 0 Centrum Silver 0.4-300-250 mg-mcg-mcg Tablet 1 tab PO DAILY RF: 0 timolol maleate 0.25 % drops 1 drp OPB UD RF: 0 mupirocin 2 % ointment 1 applic TOPICAL BID RF: 0 cabergoline 0.5 mg tablet 0.25 mg PO 2XWK RF: 0 ropinirole 2 mg tablet 2 mg PO HS RF: 0 acalabrutinib 100 mg Capsule 100 mg PO Q12H RF: 0 ondansetron HCl [Zofran] 8 mg Tablet 8 mg PO Q8H PRN (Reason: Nausea) RF: 0 prochlorperazine maleate [Compazine] 10 mg Tablet 10 mg PO Q6H PRN (Reason: Nausea) RF: 0 Referrals Referrals: Mahesh Anderson DO [Primary Care Provider] -
--- NOTE | 2021-07-24 08:58 | XRay Report ---
SINGLE VIEW CHEST CLINICAL HISTORY: Atypical chest pain. FINDINGS: An AP, portable, upright chest radiograph is compared to study dated 03/11/2021 and correlat ed with chest CT dated 01/09/2017. A right internal jugular central venous infusion port is in place. The heart is top normal in size noting atherosclerotic calcification of the thoracic aorta. Postopera tive change is noted in the right lung. There is a large right pleural effusion with near-complete at electasis of the right lung. There is mild leftward shift of mediastinum. The left lung appears clear noting basilar atelectasis. No pneumothorax is seen. The skeletal structures are osteopenic. The bon y thorax is grossly intact. IMPRESSION: 1. Large right pleural effusion with near-complete atelectasis of the right lung. This has significan tly increased in size from the 03/11/2021 examination. 2. The left lung appears clear. ACT 112: Negative or not required by law. Electronically signed by: Suman Dailey M.D. 07/24/2021 8:57 AM
[2021-07-24 09:22] LABS: Hematocrit (blood only) 29.5 % (42-52); Hemoglobin 9.2 g/dL (14.0-18.0); Mean Corpuscular Hemoglobin 31.4 pg (25-34); Mean Corpuscular Hgb Conc 31.2 g/dL (32-36); Mean Corpuscular Volume 100.7 fL (80-100); Mean Platelet Volume 10.1 fL (7.4-10.4); Platelet Count 58 K/uL (130-400); RDW Coefficient of Variation 15.4 % (11.5-14.5); RDW Standard Deviation 56.6 fL (36.4-46.3); Red Blood Count 2.93 M/uL (4.7-6.1)
[2021-07-24 09:36] LABS: Alanine Aminotransferase 12 U/L (12-78); Albumin Level 2.4 gm/dl (3.4-5.0); Aspartate Aminotransferase 24 U/L (15-37); BUN Creatinine Ratio 10.5 (10-20); Blood Urea Nitrogen 12 mg/dl (7-18); Calcium 7.9 mg/dl (8.5-10.1); Carbon Dioxide 27 mmol/L (21-32); Chloride 108 mmol/L (98-107); Creatinine Clr Calc Pharmacy 60.6 ml/min; Est GFR (African American) 72.3 ml/min; Est GFR (Non-African American) 62.4 ml/min; Glucose 90 mg/dl (70-99); Lipase 73 U/L (73-393); Potassium 3.7 mmol/L (3.5-5.1); Sodium 143 mmol/L (136-145)
[2021-07-24 09:41] LABS: Albumin Globulin Ratio 0.9 (0.9-2); Alkaline Phosphatase 148 U/L (45-117); Bilirubin,Total 1.3 mg/dl (0.2-1); Globulin 2.8 gm/dl (2.5-4.0); Total Protein 5.2 gm/dl (6.4-8.2); Troponin I < 0.015 ng/ml (0-0.045)
[2021-07-24 09:52] LABS: Basophils # (auto) 0.01 K/uL (0-0.2); Basophils % (auto) 0.3 %; Eosinophils # (auto) 0.04 K/uL (0-0.5); Eosinophils % (auto) 1.1 %; Immature Granulocytes # (auto) 0.02 K/uL (0.00-0.02); Immature Granulocytes % (auto) 0.6 %; Lymphocytes # (auto) 2.02 K/uL (1.2-3.4); Lymphocytes % (auto) 56.1 %; Monocytes # (auto) 0.18 K/uL (0.11-0.59); Neutrophils # (auto) 1.33 K/uL (1.4-6.5); Neutrophils % (auto) 36.9 %
[2021-07-24 09:53] LABS: Influenza A virus by PCR Negative (Negative); Influenza B virus by PCR Negative (Negative)
--- NOTE | 2021-07-24 09:56 | Ultrasound Report ---
ULTRASOUND RIGHT LOWER EXTREMITY VENOUS CLINICAL HISTORY: Right leg swelling. COMPARISON STUDY: No priors. TECHNIQUE: Real-time, grayscale, and color Doppler sonography of the deep veins of the right lower ex tremity was performed from the inguinal crease to the calf. Compression and augmentation were utilize d. FINDINGS: There is no sonographic evidence of deep venous thrombosis identified in the right lower ex tremity. The common femoral, superficial femoral, and popliteal veins are patent and normally paramjit sible. The greater saphenous vein and the profunda femoris vein at the junction with the common femor al vein are clear. The visualized calf veins are patent. IMPRESSION: There is no sonographic evidence of deep venous thrombosis identified in the right lower extremity. ACT 112: Negative or not required by law. Electronically signed by: Suman Dailey M.D. 07/24/2021 9:55 AM
--- NOTE | 2021-07-24 10:27 | History & Physical Report ---
Date of Service July 24, 2021 Assessment & Plan (1) Pleural effusion: Plan: With large right-sided pleural effusion causing acute respiratory failure with hypoxia and shortness of breath He had a pleural effusion on chest x-ray in 02/2021 but it has now grown much larger Appreciate pulmonology consultation and thoracentesis which did show hemothorax Could be secondary to malignancy versus spontaneous hemothorax secondary to chronic thrombocytopenia. It should be noted that a common side effect of his acalabrutinib is hemorrhage and perhaps this is playing a role? CT chest after thoracentesis showed moderate to large complex right pleural effusion/collection with pleural thickening and associated atelectasis/consolidation of right lower lung as well as known bulky right axillary and subpectoral lymphadenopathy as well as pathologically enlarged lymph nodes in the lower neck, left axilla, mediastinum, and upper abdomen progressed from 2019 PET/CT. As per my discussion with pulmonology, recommendation would be for consultation with thoracic surgery for VATS decortication if the patient so chooses to be aggressive with his care. Otherwise, he may be a candidate for palliative measure with a Pleurx catheter if platelets remain greater than 50 K. A chest tube with MIST-2 protocol is not an option due to the nature of the hemothorax and the use of TPA I discussed these options with the patient in the evening of admission and he and his would like to think it over before making a decision 1 way or the other. Either way, the patient would like to go home in the morning with supplemental O2 if he qualifies for such, and follow-up with pulmonology as an outpatient. If he decides he would like to pursue thoracic surgery, he prefers to do so as an outpatient. -He will need a two-step walk test in the morning -Continue supplemental O2 to keep pulse ox greater than 88% -Continue to follow-up on pleural fluid studies, flow cytometry, cytology after discharge -Recommend follow-up with Dr. Logan as an outpatient within 2 weeks after dis charge -He is not on any antiplatelet drugs or anticoagulation -The patient's is also going to contact Dr. Newberry of [facility] oncology and inform him of this latest development on Monday morning (2) Acute respiratory failure with hypoxia: Plan: As above, secondary to large hemothorax He will need a two-step walk test prior to discharge (3) Pancytopenia: Plan: Secondary to chemotherapy No need for transfusional support at this point Follow CBC in the morning (4) Adenocarcinoma of lung: Plan: Status post right upper lobectomy in 11/2015 Following cytology on pleural effusion as above (5) Diffuse large B-cell lymphoma: Plan: Currently undergoing chemotherapy with acalabrutinib-recently had the dose increased to 100 mg p.o. twice daily about 1 month ago reports that patient has had more malaise and low appetite and increasing shortness of breath since that time Continue acalabrutinib for now, but needs close follow-up with oncology to determine if he should continue at the same dose Follow CBC Follows with Dr. Newberry of [facility] oncology Continue antiemetics as needed -Continue home allopurinol which is presumably for lymphoma? (6) COPD (chronic obstructive pulmonary disease): Plan: Continue home maintenance inhalers, albuterol as needed (7) Prolactin secreting pituitary adenoma: Plan: Status post resection Continue home testosterone, levothyroxine, and cabergoline Follows with endocrinology, Dr. Selby (8) Central hypothyroidism: Plan: As above (9) Restless leg syndrome: Plan: Continue home gabapentin and ropinirole (10) Pituitary hypogonadism: Plan: As above (11) Benign prostatic hyperplasia with urinary obstruction: Plan: No acute issues Not on medications for this currently (12) Nephrolithiasis: Plan: Has a left-sided ureteral stone and is followed by urology, but not causing him any pain, symptoms, or renal failure or UTI at this point UA here not collected but asymptomatic so no need to (13) Splenomegaly: Plan: Noted on CT abdomen/pelvis Likely related to his lymphoma This can explain his chronic thrombocytopenia Plan: DVT prophylaxis-SCDs only, venous Doppler right lower extremity negative on admission Disposition-admit to medical floor with telemetry Full code History of Present Illness Chief Complaint: Shortness of breath Primary Care Provider: Mahesh Anderson, This patient is an 80-year-old male with a history of adenocarcinoma of the lung s/p RUL lobectomy and mediastinal lymph node dissection 11/2015, diffuse large B- cell lymphoma of the tonsils status post R-CHOP, 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 His reports at home over Thanksgiving, they went to their son's house for dinner and he was grayish in color and his pulse ox was in the mid 80s with ambulation. His oxygen levels did return to the 90s when he was at rest. In the ER, he was found to have a large right-sided pleural effusion and his pulse ox was dropping into the mid 80s with ambulation. He has some panc ytopenia which may be secondary to chemotherapy. He has been afebrile. He does continue to express a desire to go home as soon as possible, but was agreeable to thoracentesis after admission. I did discuss his care with the forming machine tender. His laboratory values were significant for pancytopenia, and a mildly elevated bilirubin and alkaline phosphatase. His Covid-19 test and influenza a/B were n egative. Allergies Allergy/AdvReac Type Severity Reaction Status Date / Time lisinopril Allergy Mild itching Verified 07/24/21 12:02 metoprolol Allergy Mild itching Verified 07/24/21 12:02 losartan AdvReac Mild RASH Verified 07/24/21 12:02 Home Medications Medication Instructions Recorded Confirmed Type cholecalciferol (vitamin D3) 10 400 unit PO DAILY 06/06/19 07/24/21 History mcg (400 unit) capsule (Vitamin D3) settjazl-rbj-zddvc acid 0.4 1 tab PO DAILY 06/06/19 07/24/21 History mg-lycopene 300 mcg-lutein 250 mcg tablet (Centrum Silver) allopurinol 100 mg tablet 200 mg PO DAILY 02/06/20 07/24/21 History loratadine 10 mg tablet (Claritin) 10 mg PO DAILY PRN 02/06/20 07/24/21 History albuterol sulfate 90 mcg/actuation 2 puff INHALATION Q4H PRN #18 g 06/15/20 07/24/21 Rx aerosol inhaler (Ventolin HFA) fluticasone 250 mcg-salmeterol 50 1 inh INHALATION BID PRN #60 ea 07/22/20 07/24/21 Rx mcg/dose blistr powdr for inhalation (Advair Diskus) acalabrutinib 100 mg capsule 100 mg PO Q12H 02/18/21 07/24/21 History ondansetron HCl 8 mg tablet 8 mg PO Q8H PRN 02/18/21 07/24/21 History prochlorperazine maleate 10 mg 10 mg PO Q6H PRN 02/18/21 07/24/21 History tablet (Compazine) testosterone 20.25 mg/1.25 gram 2 pump TOPICAL DAILY #225 gm 05/05/21 07/24/21 Rx (1.62 %) transdermal gel pump (AndroGel) levothyroxine 112 mcg tablet 112 mcg PO QAM #30 tab 06/01/21 07/24/21 Rx gabapentin 100 mg capsule 200 mg PO HS #60 cap 07/09/21 07/24/21 Rx Oxygen Home #1 ea 07/23/21 07/24/21 Rx cabergoline 0.5 mg tablet 0.25 mg PO 2XWK 07/24/21 07/24/21 History mupirocin 2 % topical ointment 1 applic TOPICAL BID 07/24/21 07/24/21 History ropinirole 2 mg tablet 2 mg PO HS 07/24/21 07/24/21 History timolol maleate 0.25 % eye drops 1 drp OPB UD 07/24/21 07/24/21 History Past Med/Surg History Medical History Adenocarcinoma of lung S/p wedge resection of RUL followed by lobectomy and mediastinal lymph node dissection (12/11). 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 Initialed diagnosed 2007. Previously received intermittent prednisone, chlorambucil, bendamustine, Rituxan. PET-CT (02/12) demonstrated increase in size, number and FDG of lymphadenopathy particularly in the neck. Initiated on ibrutinib (04/14) for CLL but then held (05/15) due to enarged L tonsil with narrowing of adjacent airway. Biopsy revealing diffuse large b-cell lymphoma. S/p 6 cycles of R-CHOP (10/16) with significant improvement in PET scan. S/p 1 cyhcle RICE (03/15). Currently managed with Venetoclax (04/15). Managed with allopruinol for ppx Erectile dysfunction Generalized osteoarthritis Multiple previous injuries, primarily of R shoulder, low back. Receiving corticosteroid injections previously. Followed by ortho GERD (gastroesophageal reflux disease) Glaucoma History of herpes zoster Episode of zoster (01/11) of R chest. Complicated with post-herpetic n euralgia. Originally prescribed opiates but has been discontinued. Kidney stones Nephrolithiasis Pancytopenia due to antineoplastic chemotherapy Pituitary hypogonadism Port-A-Cath in place right chest wall Prolactin secreting pituitary adenoma Restless leg syndrome SCC (squamous cell carcinoma) Vitamin D deficiency Surgical History H/O lymph node biopsy H/O Mohs micrographic surgery for skin cancer History of ankle surgery History of arthroscopy B/L KNEE History of cataract surgery B/L History of colonoscopy History of esophagogastroduodenoscopy History of laryngoscopy DIRECT LARYNGOSCOPY/BIOPSY= 05/15/18 AT [facility] History of lithotripsy History of lobectomy of lung RT LOBE History of tooth extraction Family History Brother Cancer Mother Dementia Hypertension Other No family history of adverse response to anesthesia No family history of bleeding disorder Denies family history of Ovarian cancer Prostate cancer Diabetes Myocardial infarction Breast cancer Colorectal cancer Stroke Social History (Updated 07/24/21 @ 18:31 by Lucero Morataya MD) Smoking Status: Former smoker Tobacco Type: Cigarettes and Smokeless Tobacco (Dip or Chew) Age Started Using Tobacco: 17; Age Quit Using Tobacco: 78; packs per day: 0.5; Years Smoked: 50; Cigarettes Per Day: QUIT "MANY" YEARS AGO; Second Hand Exposure: No; Hx Alcohol Use: No Hx Substance Use: No Preferred Language: Yi Communication Ability: Effective Visual Impairment: Limited Hearing Ability: Normal Membership Manager Required: No Beliefs That Will Affect Care: None marital status: Current Living Situation: Spouse current occupational status: retired How many Children do You have: 2 Feels Safe at Home: Yes Safety Concerns: Feels Safe At This Time Childhood Exposure to Second-Hand Smoke: Yes (stepdad did ) caffeine: Yes (coffee) Dental Care, Regularly: Yes Physical Activity Frequency: Does not Exercise Seatbelt Use: always Sunscreen Use: No Assistive Devices: Cane, Denture - Upper and Walker Review of Systems 2 Review of Systems: All systems reviewed & are unremarkable except as noted in HPI & below He reports very poor appetite for several weeks No issues with constipation or diarrhea consistently No blood in his stools or urine No vomiting but has almost daily nausea Denies chest pain No abdominal pain He does report generalized weakness No focal weakness or facial droop Physical Exam Constitutional: WD/WN, vitals as above Eyes: PERRL, conjunctivae normal, anicteric sclerae ENMT: external ear and nose normal, oropharynx normal Neck: trachea midline, no thyromegaly Respiratory: normal respiratory effort; no cough and not tachypneic Auscultation: + diminished lung sounds (In entire right hemithorax); no wheezes Cardiovascular: RRR, no murmur, no edema Chest (Breasts): Chest: + vascular access device or port (Right side of chest without surrounding erythema) Gastrointestinal (Abdomen): normal bowel sounds, soft, nontender, no hepatosplenomegaly Musculoskeletal: Extremities: extremities normal to inspection; no cyanosis and no clubbing Skin: no rashes, warm and dry Neurologic: moves all extremities and awake; no focal motor deficits Psychiatric: A+Ox3, euthymic affect Lymphatic: no lymphedema Results & Data Results & Data ([facility]) Vital Signs (Past 12 Hours) Vital Signs Temp Pulse Pulse Resp BP BP Pulse Ox 07/24/21 10:04 100 07/24/21 10:00 58 L 16 111/51 L 88 L 07/24/21 09:02 64 16 102/63 97 07/24/21 08:08 36.8 C 74 20 93/53 L 96 Laboratory Results 07/24/21 07/24/21 07/24/21 Range/Units 08:58 08:58 08:58 WBC (4.8-10.8) K/uL RBC (4.7-6.1) M/uL Hgb (14.0-18.0) g/dL Hct (42-52) % MCV (80-100) fL MCH (25-34) pg MCHC (32-36) g/dL RDW Std Deviation (36.4-46.3) fL RDW Coeff of Sveta (11.5-14.5) % Plt Count (130-400) K/uL MPV (7.4-10.4) fL Immature Gran % (Auto) % Neut % (Auto) % Lymph % (Auto) % Haskell % (Auto) % Eos % (Auto) % Baso % (Auto) % Neut # (Auto) (1.4-6.5) K/uL Lymph # (Auto) (1.2-3.4) K/uL Haskell # (Auto) (0.11-0.59) K/uL Eos # (Auto) (0-0.5) K/uL Baso # (Auto) (0-0.2) K/uL Immature Gran # (Auto) (0.00-0.02) K/uL Sodium 143 (136-145) mmol/L Potassium 3.7 (3.5-5.1) mmol/L Chloride 108 H (98-107) mmol/L Carbon Dioxide 27 (21-32) mmol/L Anion Gap 8.0 (3-11) BUN 12 (7-18) mg/dl Creatinine 1.11 (0.6-1.4) mg/dl Est Cr Clr Drug Dosing 60.6 ml/min Est GFR ( Amer) 72.3 ml/min Est GFR (Non-Af Amer) 62.4 ml/min BUN/Creatinine Ratio 10.5 (10-20) Glucose 90 (70-99) mg/dl Calcium 7.9 L (8.5-10.1) mg/dl Total Bilirubin 1.3 H (0.2-1) mg/dl AST 24 (15-37) U/L ALT 12 (12-78) U/L Alkaline Phosphatase 148 H (45-117) U/L Troponin I < 0.015 (0-0.045) ng/ml Total Protein 5.2 L (6.4-8.2) gm/dl Albumin 2.4 L (3.4-5.0) gm/dl Globulin 2.8 (2.5-4.0) gm/dl Albumin/Globulin Ratio 0.9 (0.9-2) Lipase 73 (73-393) U/L SARS-CoV-2 (PCR) NEGATIVE (Negative) Influ A Molecular Assay Negative (Negative) Influ B Molecular Assay Negative (Negative) 07/24/21 Range/Units 08:58 WBC 3.60 L (4.8-10.8) K/uL RBC 2.93 L (4.7-6.1) M/uL Hgb 9.2 L (14.0-18.0) g/dL Hct 29.5 L (42-52) % MCV 100.7 H (80-100) fL MCH 31.4 (25-34) pg MCHC 31.2 L (32-36) g/dL RDW Std Deviation 56.6 H (36.4-46.3) fL RDW Coeff of Sveta 15.4 H (11.5-14.5) % Plt Count 58 L (130-400) K/uL MPV 10.1 (7.4-10.4) fL Immature Gran % (Auto) 0.6 % Neut % (Auto) 36.9 % Lymph % (Auto) 56.1 % Haskell % (Auto) 5.0 % Eos % (Auto) 1.1 % Baso % (Auto) 0.3 % Neut # (Auto) 1.33 L (1.4-6.5) K/uL Lymph # (Auto) 2.02 (1.2-3.4) K/uL Haskell # (Auto) 0.18 (0.11-0.59) K/uL Eos # (Auto) 0.04 (0-0.5) K/uL Baso # (Auto) 0.01 (0-0.2) K/uL Immature Gran # (Auto) 0.02 (0.00-0.02) K/uL Sodium (136-145) mmol/L Potassium (3.5-5.1) mmol/L Chloride (98-107) mmol/L Carbon Dioxide (21-32) mmol/L Anion Gap (3-11) BUN (7-18) mg/dl Creatinine (0.6-1.4) mg/dl Est Cr Clr Drug Dosing ml/min Est GFR ( Amer) ml/min Est GFR (Non-Af Amer) ml/min BUN/Creatinine Ratio (10-20) Glucose (70-99) mg/dl Calcium (8.5-10.1) mg/dl Total Bilirubin (0.2-1) mg/dl AST (15-37) U/L ALT (12-78) U/L Alkaline Phosphatase (45-117) U/L Troponin I (0-0.045) ng/ml Total Protein (6.4-8.2) gm/dl Albumin (3.4-5.0) gm/dl Globulin (2.5-4.0) gm/dl Albumin/Globulin Ratio (0.9-2) Lipase (73-393) U/L SARS-CoV-2 (PCR) (Negative) Influ A Molecular Assay (Negative) Influ B Molecular Assay (Negative) Diagnostic Findings Chest x-ray image personally reviewed by me and agree with the following report: Chest X-Ray 07/24/21 08:26 SINGLE VIEW CHEST CLINICAL HISTORY: Atypical chest pain. FINDINGS: An AP, portable, upright chest radiograph is compared to study dated 03/11/2021 and correlated with chest CT dated 01/09/2017. A right internal jugular central venous infusion port is in place. The heart is top normal in size noting atherosclerotic calcification of the thoracic aorta. Postoperative change is noted in the right lung. There is a large right pleural effusion with near- complete atelectasis of the right lung. There is mild leftward shift of mediastinum. The left lung appears clear noting basilar atelectasis. No pneumothorax is seen. The skeletal structures are osteopenic. The bony thorax is grossly intact. IMPRESSION: 1. Large right pleural effusion with near-complete atelectasis of the right lung. This has significantly increased in size from the 03/11/2021 examination. 2. The left lung appears clear. ACT 112: Negative or not required by law. Electronically signed by: Suman Dailey M.D. 07/24/2021 8:57 AM Venous Doppler Study 07/24/21 08:26 ULTRASOUND RIGHT LOWER EXTREMITY VENOUS CLINICAL HISTORY: Right leg swelling. COMPARISON STUDY: No priors. TECHNIQUE: Real-time, grayscale, and color Doppler sonography of the deep veins of the right lower extremity was performed from the inguinal crease to the calf. Compression and augmentation were utilized. FINDINGS: There is no sonographic evidence of deep venous thrombosis identified in the right lower extremity. The common femoral, superficial femoral, and popliteal veins are patent and normally compressible. The greater saphenous vein and the profunda femoris vein at the junction with the common femoral vein are clear. The visualized calf veins are patent. IMPRESSION: There is no sonographic evidence of deep venous thrombosis identified in the right lower extremity. ACT 112: Negative or not required by law. Electronically signed by: Suman Dailey M.D. 07/24/2021 9:55 AM ECG Additional Comments: ECG on 07/24/2021 at 8:12 AM with normal sinus rhythm, rate 73, no ischemic changes, otherwise normal Code Status & VTE Plan Code Status Full code VTE Prophylaxis Plan VTE Prophylaxis will be ordered: Yes PG Care Time/CCT Total # of Minutes Spent Total Time Spent with Patient: Total time spent is greater than 50% in coordination of care (as documented) at patient's floor/unit and/or counseling patient: Coding Level of Care Code 22538 Initial Inpt Care Lvl 3 Diagnoses Prolactin secreting pituitary adenoma D35.2 Central hypothyroidism E03.8 COPD (chronic obstructive pulmonary disease) J44.9 COPD type: unspecified COPD Restless leg syndrome G25.81 Pituitary hypogonadism E23.0 Diffuse large B-cell lymphoma C83.38 Lymphoma site: multiple regions Benign prostatic hyperplasia with urinary obstruction N40.1; N13.8 Adenocarcinoma of lung C34.90 Pleural effusion J90 Acute respiratory failure with hypoxia J96.01 Pancytopenia D61.818 Nephrolithiasis N20.0 Splenomegaly R16.1 (1) Diffuse large B-cell lymphoma Lymphoma site: multiple regions Qualified Code(s): C83.38 - Diffuse large B- cell lymphoma, lymph nodes of multiple sites (2) COPD (chronic obstructive pulmonary disease) COPD type: unspecified COPD Qualified Code(s): J44.9 - Chronic obstructive pulmonary disease, unspecified
[2021-07-24 11:09] LABS: INR 1.1 (0.9-1.1); Partial Thromboplastin Ratio 1.5; Partial Thromboplastin Time 39.9 Seconds (21.0-31.0); Prothrombin Time 10.7 Seconds (9.0-12.0)
--- NOTE | 2021-07-24 11:54 | Procedure Note ---
Procedure Note Date of Service July 24, 2021 Note Procedure: Diagnostic therapeutic ultrasound-guided catheter thoracentesis Heel Gouger: Dr. Dominick Logan Indication: Pleural effusion Consent: Signed by patient and verified with timeout prior to procedure Anesthesia: 8 mL's 1% lidocaine without epinephrine local. Procedure: Consent was verified and timeout performed. Appropriate imaging studies were reviewed prior to the procedure. Patient was placed in a seated position and limited thoracic ultrasound was performed of the bilateral chest. Imaging was not saved due to technical issues. A large right-sided pleural effusion was identified with minimal effusion on the left. Site appropriate for thoracentesis was selected. The skin was prepped and draped in normal sterile fashion. Lidocaine was used for local analgesia. Fluid was aspirated via the finder needle. A small skin larry was made with the scalpel and the catheter over the needle apparatus was advanced over the rib into the pleural space. Using the syringe one-way valve system, a total of 1500mL's of dark, almost black bloody fluid was removed. Procedure was terminated due to patient experiencing some chest pain. The catheter was removed and observed to be intact. A sterile dressing was applied. Post procedure chest x-ray was ordered. Given the hemothorax and pain, CT of the chest recommended Fluid was sent for cytology including flow cytometry, spun hematocrit, LDH, total protein, glucose, Gram stain and culture, cell count differential, and pH The patient tolerated the procedure well without obvious complication Coding CPT Codes Pulmonary/Thoracic - Pulmonary and Thoracic: 80071 Thoracentesis w imaging ([id number]) [facility] [place] Procedure Codes (Charges) Pulmonary/Thoracic Procedure 1: Pulmonary and Thoracic: 10197 Thoracentesis w imaging
--- NOTE | 2021-07-24 12:06 | Pulmonary Consultation ---
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 On thoracentesis this appears to be bloody. Spontaneous hemothorax is possible due to the patient's chronic thrombocytopenia however pleural metastasis would also be in the differential. He underwent thoracentesis in the emergency room with removal about 1.5 L of bloody fluid and we had to stop due to chest pain. Recommendations: 1. Pleural effusion: We will send pleural fluid studies for routine chemical, microbiologic, and cytologic analysis. I have requested flow cytometry as well. Is unlikely these results will be available before the first part of next week. We will request follow-up imaging as well as a CT scan of the chest with contrast to see if there is any extravasation although the dark nature of the blood makes me think that this has been developing over a prolonged period of time. He is at risk for fibrothorax. I have requested a spine hematocrit on t he fluid. If it is elevated, he would likely require thoracic surgical intervention if he wishes to pursue aggressive interventions. This would necessitate transfer to either [facility] or [facility] (favor [facility] given that is where his oncologist is). If we are merely to pursue palliative measures, could consider placement of an indwelling pleural catheter as long as his platelet counts remain above 50,000. 2. We will follow up with results of the CT scan and pleural fluid studies. 3. Continue oxygen titrated to keep saturations at or above 88%. The patient requests repeatedly about going home. From a pulmonary perspective, if he feels better after the thoracentesis and no pneumothorax is identified on the follow-up chest x-ray, he can go home and have this evaluated as an outpatient. Thanks for the opportunity participating in the care of this patient. We will continue to follow if he remains in the hospital or I would be happy to arrange outpatient follow-up with him as needed. History of Present Illness History of Present Illness Asked by hospitalist to assist in evaluation management of this patient with large right-sided effusion. History is obtained from reviewed electronic medical record and discussion with the patient and his . Patient is an 80-year-old male with a complex hematologic history. He had a history of adenocarcinoma resected about 4 5 years ago with negative lymph no gloria. Is a history of small lymphocytic lymphoma diagnosed in 2007 and then in 2019 was diagnosed with chronic lymphocytic leukemia small lymphocytic lymphoma which was histologically aggressive. He is currently under the care of Dr. Newberry and [facility] oncology as well as [facility]. He has been on a variety of chemotherapeutic agents in the past including prednisone chlorambucil bendamustine and Rituxan. Most recently he was treated with venetoclax and duvelisib and most recently acalabrutinib. He was last seen by oncology back in April with plans to see him back in 3 months. The patient presented to the emergency room today complaining of increasing shortness of breath. He feels poorly. He does not report any trauma. No fevers but he does endorse chills some of which are causing rigors. He had a chest x-ray performed in the emergency room revealing a large pleural effusion and pulmonary was consulted. The patient has had pleural effusions noted on imaging dating back several months but has never undergone thoracentesis previously. Allergies Allergy/AdvReac Type Severity Reaction Status Date / Time lisinopril Allergy Mild itching Verified 07/24/21 12:02 metoprolol Allergy Mild itching Verified 07/24/21 12:02 losartan AdvReac Mild RASH Verified 07/24/21 12:02 Home Medications Medication Instructions Recorded Confirmed Type cholecalciferol (vitamin D3) 10 400 unit PO DAILY 06/06/19 04/12/21 History mcg (400 unit) capsule (Vitamin D3) brxzmxxq-vdn-mrmrb acid 0.4 1 tab PO DAILY 06/06/19 04/12/21 History mg-lycopene 300 mcg-lutein 250 mcg tablet (Centrum Silver) allopurinol 100 mg tablet 100 mg PO BID 02/06/20 04/12/21 History loratadine 10 mg tablet (Claritin) 10 mg PO DAILY PRN 02/06/20 04/12/21 History albuterol sulfate 90 mcg/actuation 2 puff INHALATION Q4H PRN #18 g 06/15/20 04/12/21 Rx aerosol inhaler (Ventolin HFA) fluticasone 250 mcg-salmeterol 50 1 inh INHALATION BID PRN #60 ea 07/22/20 04/12/21 Rx mcg/dose blistr powdr for inhalation (Advair Diskus) acalabrutinib 100 mg capsule 100 mg PO Q12H 02/18/21 04/12/21 History ondansetron HCl 8 mg tablet 8 mg PO Q8H PRN 02/18/21 04/12/21 History prochlorperazine maleate 10 mg 10 mg PO Q6H PRN 02/18/21 04/12/21 History tablet (Compazine) testosterone 20.25 mg/1.25 gram 2 pump TOPICAL DAILY #225 gm 05/05/21 Rx (1.62 %) transdermal gel pump (AndroGel) levothyroxine 112 mcg tablet 112 mcg PO QAM #30 tab 06/01/21 Rx gabapentin 100 mg capsule 200 mg PO HS #60 cap 07/09/21 Rx Oxygen Home #1 ea 07/23/21 07/23/21 Rx cabergoline 0.5 mg tablet 0.25 mg PO 2XWK 07/24/21 07/24/21 History mupirocin 2 % topical ointment 1 applic TOPICAL BID 07/24/21 07/24/21 History ropinirole 2 mg tablet 2 mg PO HS 07/24/21 07/24/21 History timolol maleate 0.25 % eye drops 1 drp OPB UD 07/24/21 07/24/21 History Patient History Medical History Adenocarcinoma of lung S/p wedge resection of RUL followed by lobectomy and mediastinal lymph node dissection (12/11). 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 Initialed diagnosed 2007. Previously received intermittent prednisone, chlorambucil, bendamustine, Rituxan. PET-CT (02/12) demonstrated increase in size, number and FDG of lymphadenopathy particularly in the neck. Initiated on ibrutinib (04/14) for CLL but then held (05/15) due to enarged L tonsil with narrowing of adjacent airway. Biopsy revealing diffuse large b-cell lymphoma. S/p 6 cycles of R-CHOP (10/16) with significant improvement in PET scan. S/p 1 cyhcle RICE (03/15). Currently managed with Venetoclax (04/15). Managed with allopruinol for ppx Erectile dysfunction Generalized osteoarthritis Multiple previous injuries, primarily of R shoulder, low back. Receiving corticosteroid injections previously. Followed by ortho GERD (gastroesophageal reflux disease) Glaucoma History of herpes zoster Episode of zoster (01/11) of R chest. Complicated with post-herpetic neuralgia. Originally prescribed opiates but has been discontinued. Kidney stones Nephrolithiasis Pancytopenia due to antineoplastic chemotherapy Pituitary hypogonadism Port-A-Cath in place right chest wall Prolactin secreting pituitary adenoma Restless leg syndrome SCC (squamous cell carcinoma) Vitamin D deficiency Surgical History H/O lymph node biopsy H/O Mohs micrographic surgery for skin cancer History of ankle surgery History of arthroscopy B/L KNEE History of cataract surgery B/L History of colonoscopy History of esophagogastroduodenoscopy History of laryngoscopy DIRECT LARYNGOSCOPY/BIOPSY= 05/15/18 AT [facility] History of lithotripsy History of lobectomy of lung RT LOBE History of tooth extraction Family History Brother Cancer Mother Dementia Hypertension Other No family history of adverse response to anesthesia No family history of bleeding disorder Denies family history of Ovarian cancer Prostate cancer Diabetes Myocardial infarction Breast cancer Colorectal cancer Stroke Social History (Updated 07/24/21 @ 10:51 by Lucero Morataya MD) Smoking Status: Former smoker Tobacco Type: Cigarettes and Smokeless Tobacco (Dip or Chew) Age Started Using Tobacco: 17; Age Quit Using Tobacco: 78; packs per day: 0.5; Years Smoked: 50; Cigarettes Per Day: QUIT "MANY" YEARS AGO; Second Hand Exposure: No; Hx Alcohol Use: No Hx Substance Use: No Preferred Language: Bermudian Communication Ability: Effective Visual Impairment: Limited Hearing Ability: Normal Floor Refinisher Required: No Beliefs That Will Affect Care: None marital status: Current Living Situation: Spouse current occupational status: retired How many Children do You have: 2 Feels Safe at Home: Yes Childhood Exposure to Second-Hand Smoke: Yes (stepdad did ) caffeine: Yes (coffee) Dental Care, Regularly: Yes Physical Activity Frequency: Does not Exercise Seatbelt Use: always Sunscreen Use: No Assistive Devices: Cane, Denture - Upper and Walker Review of Systems Review of Systems: Please refer to admission H&P Physical Exam Constitutional: + ill appearing Elderly male no conversational dyspnea Neck: trachea midline, no thyromegaly Respiratory: Decreased breath sounds with dullness to percussion in the right lower lung ayala Cardiovascular: RRR, no murmur, no edema Gastrointestinal (Abdomen): normal bowel sounds, soft, nontender, no hepatosplenomegaly Musculoskeletal: Extremities: extremities normal to inspection Skin: no rashes, warm and dry Neurologic: Nonfocal exam Lymphatic: no cervical lymphadenopathy Results & Data Results & Data ([facility]) Vital Signs (Past 12 Hours) Vital Signs Temp Pulse Pulse Resp BP BP Pulse Ox 07/24/21 10:04 100 07/24/21 10:00 58 L 16 111/51 L 88 L 07/24/21 09:02 64 16 102/63 97 07/24/21 08:08 36.8 C 74 20 93/53 L 96 Laboratory Results 07/24/21 08:58 07/24/21 08:58 INR 1.1 Diagnostic Findings Chest x-ray from today independently reviewed demonstrating a large right pleural effusion with clear lung ayala on the left PG Care Time/CCT Total # of Minutes Spent Total Time Spent with Patient: Total time spent is greater than 50% in coordination of care (as documented) at patient's floor/unit and/or counseling patient: Coding Level of Care Code 41073 Initial Inpt Care Lvl 3 Diagnoses Acute respiratory failure with hypoxia J96.01 Pleural effusion J90 Diffuse large B-cell lymphoma C83.38 Lymphoma site: multiple regions Adenocarcinoma of lung C34.90
--- NOTE | 2021-07-24 12:38 | Electrocardiogram Report ---
Test Reason : Blood Pressure : / mmHG Vent. Rate : 073 BPM Atrial Rate : 073 BPM P-R Int : 170 ms QRS Dur : 078 ms QT Int : 386 ms P-R-T Axes : 050 038 041 degrees QTc Int : 425 ms Normal sinus rhythm Normal ECG When compared with ECG of 11-MAR-2021 09:33, Premature atrial complexes are no longer Present Confirmed by Noel Dawson ([id number]) on 07/24/2021 12:37:54 PM Referred By: REFERRED SELF Confirmed By:Richard Dawson
[2021-07-24 12:59] LABS: Appearance Pleural Fluid BLOODY; Color Pleural Fluid RED; RBC Pleural Fluid (A) 1186000 /uL; Source Pleural Fluid RIGHT LUNG; WBC Pleural Fluid (A) 2249 /uL
--- NOTE | 2021-07-24 13:03 | XRay Report ---
SINGLE VIEW CHEST CLINICAL HISTORY: Status post thoracentesis. FINDINGS: An AP, portable, upright chest radiograph is compared to study performed earlier the same d ay 07/24/2021 and correlated with chest CT dated 01/09/2017. A right internal jugular central venous i nfusion port is in place. The heart is top normal in size noting atherosclerotic calcification of the thoracic aorta. Postoperative change is noted in the right lung. There is a large right pleural effu natacha with near-complete atelectasis of the right lung. The left lung appears clear noting basilar ate lectasis. No pneumothorax is seen. The skeletal structures are osteopenic. The bony thorax is grossly intact. IMPRESSION: 1. Large right pleural effusion with near-complete atelectasis of the right lung. This has modestly d ecreased in size from today's earlier examination. 2. No pneumothorax is identified post procedure. 3. The left lung appears clear. ACT 112: Negative or not required by law. Electronically signed by: Suman Dailey M.D. 07/24/2021 1:01 PM
[2021-07-24] MEDS ORDERED: OPTIRAY 320 100ml IV ONE (13:05)
--- NOTE | 2021-07-24 13:27 | CT Scan Report ---
CT SCAN OF THE CHEST WITH IV CONTRAST CLINICAL HISTORY: Hemothorax. COMPARISON STUDY: Chest CT dated 01/09/2017. Chest x-rays dated 07/24/2021. PET/CT dated 06/01/2020. TECHNIQUE: Following the IV administration of 95 cc of Optiray 320, CT scan of the thorax was perform ed from the thoracic inlet to the upper abdomen. Images are reviewed in the axial, sagittal, and enrico nal planes. IV contrast was administered without complication. A dose lowering technique was utilize d adhering to the principles of ALARA. There is streak artifact from the patient's necklace. Examinat ion is degraded by motion artifact, as well as by significant streak artifact from the arms which cou ld not be elevated above the chest. CT DOSE: 728.94 mGycm FINDINGS: Thyroid: Imaged portions of the thyroid gland are normal in size and attenuation. Thoracic aorta: There is atherosclerotic calcification of the thoracic aorta, which is normal in vivien nolvia and demonstrates bovine variant arch anatomy. No dissection is seen. Lower neck: There is bilateral supraclavicular lymphadenopathy, right greater than left. The largest node on image #38 measures 2.9 x 0 cm. Pulmonary vasculature: The main pulmonary arteries are dilated suggesting pulmonary artery hypertensi on. There are no filling defects identified in the central pulmonary vessels to indicate pulmonary em bolus. Note that this examination was not protocoled for evaluation of the pulmonary arteries. Heart: The heart is normal in size and without pericardial effusion. The coronary arteries are densel y calcified. Lungs and pleural spaces: Again seen is postoperative change from right-sided pulmonary resection. Th ere is compensatory hyperinflation of the left lung. There is a moderate to large complex right pleur al effusion/collection with significant atelectasis/consolidation of the right lower lung. There is a ssociated pleural thickening. No pneumothorax is seen. The trachea and central airways are patent. Th ere are scattered calcified granulomas. The left lung is clear noting foci of scarring/atelectasis. C alcified pleural plaque is noted in the right lung on image #185. Mediastinum: There are numerous enlarged mediastinal lymph nodes. A calcification containing subcarin al node measures 3.3 x 2.4 cm. A right peritracheal node on image #89 measures 2.2 x 1.2 cm. Lou: There calcification containing hilar nodes. No hilar adenopathy is seen. Axillae: There is bulky right axillary and subpectoral lymphadenopathy. A node on image #172 measures 8.2 x 3.6 cm. There are mildly enlarged left axillary and subpectoral nodes. A left subpectoral node on image #77 measures 1.9 x 1.2 cm. Upper abdomen: The spleen appears enlarged. A small hiatal hernia is noted. There are numerous mildly enlarged upper abdominal lymph nodes. A gastrohepatic node on image #284 measures 1.4 x 1.0 cm. Skeletal structures: The skeletal structures are osteopenic. Degenerative change is noted in the shou lders and thoracic spine. No lytic or blastic bony lesions are seen. IMPRESSION: 1. Streak and motion compromised examination. 2. There is a moderate to large complex right pleural effusion/collection as above with overlying ple ural thickening. The sterility of this fluid cannot be assessed by imaging. 3. There is associated atelectasis/consolidation of the right lower lung. Correlate clinically for ev idence of pneumonia. 4. There is postoperative change and volume loss in the right lung. 5. The left lung appears clear. 6. There is bulky right axillary and subpectoral lymphadenopathy, as well as pathologically enlarged nodes in the lower neck, left axilla, mediastinum, and upper abdomen. The appearance favors a lymphop roliferative disorder, and this has progressed as compared to the 2019 PET/CT. Correlate with the pat ient's oncological history. 7. The spleen appears enlarged. 8. Additional findings as above. ACT 112: Negative or not required by law. Electronically signed by: Suman Dailey M.D. 07/24/2021 1:25 PM
[2021-07-24] MEDS ORDERED: ALBUTEROL HFA 8 GM INHALER INH PRN (14:50)
[2021-07-24] MEDS ORDERED: ONDANSETRON INJ 2 MG/ML 2 ML VIAL IV PRN (14:50)
[2021-07-24] MEDS ORDERED: POLYETHYLENE (MIRALAX) 17 GM PACK PO PRN (14:50)
[2021-07-24] MEDS ORDERED: PROCHLORPERAZINE MALEATE 10 MG TAB PO PRN (14:50)
[2021-07-24] MEDS ORDERED: ONDANSETRON 8MG OD TAB PO PRN (14:50)
[2021-07-24] MEDS ORDERED: ACETAMINOPHEN 325 MG TAB PO PRN (14:50)
[2021-07-24] MEDS: [UNRECOGNIZED DRUG - OTHER] PO SCH (20:57)
[2021-07-24] MEDS: allopurinoL 100 MG TAB PO SCH (20:59)
[2021-07-24] MEDS ORDERED: GABAPENTIN 100 MG CAP PO SCH (21:00)
[2021-07-24] MEDS ORDERED: rOPINIRole HCL 2 MG TABLET PO SCH (21:00)
[2021-07-25] MEDS ORDERED: LEVOTHYROXINE SODIUM 112 MCG TABLET PO SCH (06:30)
[2021-07-25 08:03] LABS: Hematocrit (blood only) 29.5 % (42-52); Hemoglobin 8.9 g/dL (14.0-18.0); Mean Corpuscular Hemoglobin 30.7 pg (25-34); Mean Corpuscular Hgb Conc 30.2 g/dL (32-36); Mean Corpuscular Volume 101.7 fL (80-100); RDW Coefficient of Variation 15.2 % (11.5-14.5); RDW Standard Deviation 56.2 fL (36.4-46.3); White Blood Count 2.82 K/uL (4.8-10.8)
[2021-07-25 08:05] LABS: Platelet Count 48 K/uL (130-400)
[2021-07-25 08:20] LABS: Basophils # (auto) 0.01 K/uL (0-0.2); Basophils % (auto) 0.4 %; Eosinophils # (auto) 0.04 K/uL (0-0.5); Eosinophils % (auto) 1.4 %; Immature Granulocytes # (auto) 0.01 K/uL (0.00-0.02); Immature Granulocytes % (auto) 0.4 %; Lymphocytes # (auto) 1.64 K/uL (1.2-3.4); Lymphocytes % (auto) 58.2 %; Monocytes # (auto) 0.11 K/uL (0.11-0.59); Monocytes % (auto) 3.9 %; Neutrophils # (auto) 1.01 K/uL (1.4-6.5); Neutrophils % (auto) 35.7 %; Polychromasia 1+
[2021-07-25 08:23] LABS: Albumin Level 2.3 gm/dl (3.4-5.0); BUN Creatinine Ratio 10.2 (10-20); Bilirubin Direct 0.6 mg/dl (0-0.2); Calcium 7.9 mg/dl (8.5-10.1); Creatinine Clr Calc Pharmacy 65.5 ml/min; Est GFR (African American) 79.1 ml/min; Est GFR (Non-African American) 68.3 ml/min; Potassium 3.8 mmol/L (3.5-5.1)
[2021-07-25 08:25] LABS: Bilirubin,Total 1.5 mg/dl (0.2-1); Total Protein 4.9 gm/dl (6.4-8.2)
[2021-07-25] MEDS: allopurinoL 100 MG TAB PO SCH (08:54)
[2021-07-25] MEDS: [UNRECOGNIZED DRUG - OTHER] PO SCH (08:54)
[2021-07-25] MEDS ORDERED: FLUTICASONE/VILANTEROL 200/25MCG 14 PUFFS/INHALER INH SCH (09:00)
[2021-07-25] MEDS ORDERED: TESTOSTERONE 1.62% TOP SCH (09:00)
[2021-07-25] MEDS ORDERED: Nursing to Pharmacy Communication SCH (09:00)
--- NOTE | 2021-07-25 09:53 | Pulmonology Progress Note ---
Date of Service July 25, 2021 Assessment & Plan (1) Acute respiratory failure with hypoxia: (2) Pleural effusion: (3) Diffuse large B-cell lymphoma: Lymphoma site: multiple regions Qualified Code(s): C83.38 - Diffuse large B-cell lymphoma, lymph nodes of multiple sites (4) Adenocarcinoma of lung: Plan: Impression: 80-year-old male undergoing chemotherapy for lymphoma/leukemia now with hemothorax and evidence of a split pleural sign on CT imaging Recommendations: 1. Hemothorax: Awaiting cytology but suspect this is related to malignancy. We were unable to evacuate the fluid. Strongly recommended the patient be evaluated by thoracic surgery for consideration of video-assisted thoracoscopic decortication. We could place a 14 Bulgarian pigtail catheter in the space and drained that way however given that there already appears to be a pleural peel identified on the scan, I do not think this would likely alleviate the patient's pleural process. In addition he developed significant pain with thoracentesis suggesting a component of entrapped or trapped lung. Intrapleural fibrinolysis is contraindicated given the hemothorax so I do not think that would be an option. If the patient were to pursue only palliative options, we could consider placement of an indwelling pleural drain (Pleurx catheter). The patient and his would like to be evaluated by thoracic surgery. They request [facility] or [facility]. If we were to pursue an indwelling pleural drain, would like his platelet counts above 50,000. 2. Continue oxygen titrated to keep saturations at or above 88%. 3. Recommend holding any anticoagulants or antiplatelet agents. His thrombocytopenia may be contributing 4. Given the progression of adenopathy noted on the CT scan, consultation with palliative care and consideration of hospice may be an appropriate alternative. Deferred to primary service Discussed with hospitalist Admission and Anticipated Discharge Date Admission Date: July 24, 2021 Subjective Patient seen and examined. Discussed with patient and at bedside. He feels somewhat better after the thoracentesis yesterday. He continues to perseverate about going home and cannot recall much of the events from yesterday Review of Systems Review of Systems: Other Unreliable due to the patient's mental status Physical Exam Constitutional: + ill appearing Neck: trachea midline, no thyromegaly Cardiovascular: RRR, no murmur, no edema Gastrointestinal (Abdomen): normal bowel sounds, soft, nontender, no hepatosplenomegaly Musculoskeletal: Extremities: extremities normal to inspection Skin: no rashes, warm and dry Lymphatic: no cervical lymphadenopathy Results & Data Results & Data ([facility]) Vital Signs (Past 12 Hours) Vital Signs Temp Pulse Pulse Pulse Pulse Pulse Resp 07/25/21 09:40 104 H 85 92 H 82 07/25/21 08:00 36.7 C 75 18 07/25/21 04:28 37.1 C 69 18 07/24/21 23:19 36.8 C 68 16 Resp Resp Resp Resp BP Pulse Ox Pulse Ox 07/25/21 09:40 22 20 20 16 95 07/25/21 08:00 93/56 L 98 07/25/21 04:28 108/67 96 07/24/21 23:19 99/59 L 95 Pulse Ox Pulse Ox Pulse Ox 07/25/21 09:40 88 L 96 95 07/25/21 08:00 07/25/21 04:28 07/24/21 23:19 Laboratory Results Pleural fluid studies: Gram stain culture pending. Cell count differentials were not able to be performed due to the bloody nature of the specimen. Hematocrit on the pleural fluid was 24, equal to the patient's systemic hematocrit Diagnostic Findings Post procedure chest x-ray demonstrated improved aeration in the right hemithorax with persistent pleural effusion. CT of the chest independently reviewed. CT SCAN OF THE CHEST WITH IV CONTRAST CLINICAL HISTORY: Hemothorax. COMPARISON STUDY: Chest CT dated 01/09/2017. Chest x-rays dated 07/24/2021. PET/CT dated 06/01/2020. TECHNIQUE: Following the IV administration of 95 cc of Optiray 320, CT scan of the thorax was performed from the thoracic inlet to the upper abdomen. Images are reviewed in the axial, sagittal, and coronal planes. IV contrast was administered without complication. A dose lowering technique was utilized adhering to the principles of ALARA. There is streak artifact from the patient's necklace. Examination is degraded by motion artifact, as well as by significant streak artifact from the arms which could not be elevated above the chest. CT DOSE: 728.94 mGycm FINDINGS: Thyroid: Imaged portions of the thyroid gland are normal in size and attenuation. Thoracic aorta: There is atherosclerotic calcification of the thoracic aorta, which is normal in caliber and demonstrates bovine variant arch anatomy. No dissection is seen. Lower neck: There is bilateral supraclavicular lymphadenopathy, right greater than left. The largest node on image #38 measures 2.9 x 0 cm. Pulmonary vasculature: The main pulmonary arteries are dilated suggesting pulmonary artery hypertension. There are no filling defects identified in the central pulmonary vessels to indicate pulmonary embolus. Note that this examination was not protocoled for evaluation of the pulmonary arteries. Heart: The heart is normal in size and without pericardial effusion. The co ronary arteries are densely calcified. Lungs and pleural spaces: Again seen is postoperative change from right-sided pulmonary resection. There is compensatory hyperinflation of the left lung. There is a moderate to large complex right pleural effusion/collection with significant atelectasis/consolidation of the right lower lung. There is associated pleural thickening. No pneumothorax is seen. The trachea and central airways are patent. There are scattered calcified granulomas. The left lung is clear noting foci of scarring/atelectasis. Calcified pleural plaque is noted in the right lung on image #185. Mediastinum: There are numerous enlarged mediastinal lymph nodes. A calcification containing subcarinal node measures 3.3 x 2.4 cm. A right peritracheal node on image #89 measures 2.2 x 1.2 cm. Lou: There calcification containing hilar nodes. No hilar adenopathy is seen. Axillae: There is bulky right axillary and subpectoral lymphadenopathy. A node on image #172 measures 8.2 x 3.6 cm. There are mildly enlarged left axillary and subpectoral nodes. A left subpectoral node on image #77 measures 1.9 x 1.2 cm. Upper abdomen: The spleen appears enlarged. A small hiatal hernia is noted. There are numerous mildly enlarged upper abdominal lymph nodes. A gastrohepatic node on image #284 measures 1.4 x 1.0 cm. Skeletal structures: The skeletal structures are osteopenic. Degenerative change is noted in the shoulders and thoracic spine. No lytic or blastic bony lesions are seen. IMPRESSION: 1. Streak and motion compromised examination. 2. There is a moderate to large complex right pleural effusion/collection as above with overlying pleural thickening. The sterility of this fluid cannot be assessed by imaging. 3. There is associated atelectasis/consolidation of the right lower lung. Correlate clinically for evidence of pneumonia. 4. There is postoperative change and volume loss in the right lung. 5. The left lung appears clear. 6. There is bulky right axillary and subpectoral lymphadenopathy, as well as pathologically enlarged nodes in the lower neck, left axilla, mediastinum, and upper abdomen. The appearance favors a lymphoproliferative disorder, and this has progressed as compared to the 2019 PET/CT. Correlate with the patient's oncological history. 7. The spleen appears enlarged. 8. Additional findings as above. PG Care Time/CCT Total # of Minutes Spent Total Time Spent with Patient: Total time spent is greater than 50% in coordination of care (as documented) at patient's floor/unit and/or counseling patient: Coding Level of Care Code 70951 Subseq Hosp Care Lvl 3 Diagnoses Acute respiratory failure with hypoxia J96.01 Pleural effusion J90 Diffuse large B-cell lymphoma C83.38 Lymphoma site: multiple regions Adenocarcinoma of lung C34.90
--- NOTE | 2021-07-25 11:23 | Communication Note ---
Date of Service: July 25, 2021 By CMS guidelines, a determination that the admission or continued stay is not medically necessary has been made by a member of the UR committee and a physician for this hospital stay, therefore a Code 44 will be completed and the Inpatient admission will be changed to outpatient. Santos Barrientos MD member, Utilization Review committee
[2021-07-25] MEDS ORDERED: HEPARIN 100 UNIT/ML 5ML FLUSH ONE (12:08)
--- NOTE | 2021-07-25 16:31 | Discharge Summary ---
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 His reports at home over Thanksgiving, they went to their son's house for dinner and he was grayish in color and his pulse ox was in the mid 80s with ambulation. His oxygen levels did return to the 90s when he was at rest. In the ER, he was found to have a large right-sided pleural effusion and his pulse ox was dropping into the mid 80s with ambulation. He has some pancytopenia which may be secondary to chemotherapy. He has been afebrile. He does continue to express a desire to go home as soon as possible, but was agreeable to thoracentesis after admission. 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 His laboratory values were significant for pancytopenia, and a mildly elevated bilirubin and alkaline phosphatase. His Covid-19 test and influenza a/B were negative. Principal Diagnosis Pleural effusion/hemothorax - Likely a result of cancer Discharge Exam Constitutional WD/WN, vitals as above Eyes EOM intact bilaterally; no conjunctival abnormality ENMT external ear and nose normal, oropharynx normal Neck trachea midline, no thyromegaly normal visual inspection Respiratory normal respiratory effort, lungs clear to auscultation no respiratory distress Cardiovascular RRR, no murmur, no edema Gastrointestinal (Abdomen) Inspection/Auscultation: abdomen normal to inspection; abdomen not distended Musculoskeletal no cyanosis or clubbing, extremities motor strength 5/5 Skin no rashes, warm and dry Neurologic moves all extremities and awake Psychiatric Orientation: alert, oriented to person and cooperative Discharge Data Allergies Allergy/AdvReac Type Severity Reaction Status Date / Time lisinopril Allergy Mild itching Verified 07/24/21 12:02 metoprolol Allergy Mild itching Verified 07/24/21 12:02 losartan AdvReac Mild RASH Verified 07/24/21 12:02 Consultations 07/24/21 09:42 ED Decision to Admit Stat 07/24/21 14:50 Consult Pulmonology Routine Ordered Studies 07/24/21 08:26 US venous doppler LE RT Stat 07/24/21 12:05 CT chest diagnostic w con Routine Hospital Course (1) Pleural effusion: With large right-sided pleural effusion causing acute respiratory failure with hypoxia and shortness of breath He had a pleural effusion on chest x-ray in 02/2021 but it has now grown much larger Appreciate pulmonology consultation and thoracentesis which did show hemothorax Could be secondary to malignancy versus spontaneous hemothorax secondary to chronic thrombocytopenia. It should be noted that a common side effect of his acalabrutinib is hemorrhage and perhaps this is playing a role? CT chest after thoracentesis showed moderate to large complex right pleural effusion/collection with pleural thickening and associated atelecta sis/consolidation of right lower lung as well as known bulky right axillary and subpectoral lymphadenopathy as well as pathologically enlarged lymph nodes in the lower neck, left axilla, mediastinum, and upper abdomen progressed from 2019 PET/CT. As per my discussion with pulmonology, recommendation would be for consultation with thoracic surgery for VATS decortication if the patient so chooses to be aggressive with his care. Otherwise, he may be a candidate for palliative measure with a Pleurx catheter if platelets remain greater than 50 K. A chest tube with MIST-2 protocol is not an option due to the nature of the hemothorax and the use of TPA I discussed these options with the patient in the evening of admission and he and his would like to think it over before making a decision 1 way or the other. Either way, the patient would like to go home in the morning with supplemental O2 if he qualifies for such, and follow-up with pulmonology as an outpatient. If he decides he would like to pursue thoracic surgery, he prefers to do so as an outpatient. -Continue to follow-up on pleural fluid studies, flow cytometry, cytology after discharge -Recommend follow-up with Dr. Logan as an outpatient within 2 weeks after discharge -He is not on any antiplatelet drugs or anticoagulation -The patient's is also going to contact Dr. Newberry of [facility] oncology and inform him of this latest development on Monday morning -> Did well on day of discharge. Required home O2 which was arranged. Arranged home PT/OT/RN as well. Will follow up with thoracic surgery at [facility] or [facility] before coming back to pulmonary as pulmonary would only be able to do a palliative Pleur-X catheter. Patient was insistent on going home and will follow up as outpatient with his oncologist as well. (2) Acute respiratory failure with hypoxia: As above, secondary to large hemothorax He will need a two-step walk test prior to discharge (3) Pancytopenia: Secondary to chemotherapy No need for transfusional support at this point Follow CBC in the morning (4) Adenocarcinoma of lung: Status post right upper lobectomy in 11/2015 Following cytology on pleural effusion as above (5) Diffuse large B-cell lymphoma: Currently undergoing chemotherapy with acalabrutinib-recently had the dose increased to 100 mg p.o. twice daily about 1 month ago reports that patient has had more malaise and low appetite and increasing shortness of breath since that time Continue acalabrutinib for now, but needs close follow-up with oncology to determine if he should continue at the same dose Follow CBC Follows with Dr. Newberry of [facility] oncology Continue antiemetics as needed -Continue home allopurinol which is presumably for lymphoma? 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 Selby (8) Central hypothyroidism: As above (9) Restless leg syndrome: Continue home gabapentin and ropinirole (10) Pituitary hypogonadism: As above (11) Benign prostatic hyperplasia with urinary obstruction: No acute issues Not on medications for this currently (12) Nephrolithiasis: Has a left-sided ureteral stone and is followed by urology, but not causing him any pain, symptoms, or renal failure or UTI at this point UA here not collected but asymptomatic so no need to (13) Splenomegaly: Noted on CT abdomen/pelvis Likely related to his lymphoma This can explain his chronic thrombocytopenia DVT prophylaxis-SCDs only, venous Doppler right lower extremity negative on admission Disposition-admit to medical floor with telemetry Full code Total Time Total Time Spent Total Time Spent (In Minutes): 35 Discharge Plan Discharge Items Patient Disposition: Home - Home Health Services Reason For Visit: PLEURAL EFFUSION Discharge Diagnosis: Pleural effusion Activity: Resume your previous activity Non-emergency contact: Primary Care Provider and Oncologist Call non-emergency contact if: your symptoms worsen Follow-up/Referrals: George Newberry MD [Surgeon] - (Please see Dr. Newberry next week.) Mahesh Anderson DO [Primary Care Provider] - Diet: Regular Addtl Attending Provider Instructions: Mr. Dowell, You were admitted to the hospital with a pleural effusion which is fluid that builds up between your lung and your rib cage. Dr. Logan (our lung doctor) drained this fluid which made you breath much better. There can be many reasons for this fluid to build up there, but cancer is a common cause. We have arranged home oxygen for you. Please see Dr. Newberry next week. Please follow up with thoracic surgery at [facility] or [facility]. Of note, the [facility] pulmonary department can put in a palliative catheter, but if you want full, aggressive treatment of this issue, you will need to see a thoracic surgeon. The pulmonary department cannot do surgery on this issue, so you should follow up with a thoracic surgeon first to determine what surgical options there are. Pending Studies at Discharge: Yes Studies:: Analysis of the fluid that was by your lung Stand-Alone Forms: My [facility] [employer] [facility], Smoking Cessation Medications and DC Order Prescriptions: Continued albuterol sulfate [Ventolin HFA] 90 mcg/actuation HFA aerosol inhaler 2 puff INHALATION Q4H PRN (Reason: Wheezing) Qty: 18 RF: 3 fluticasone propion-salmeterol [Advair Diskus] 250-50 mcg/dose blister with device 1 inh inhalation BID PRN (Reason: COPD) Qty: 60 RF: 3 testosterone [AndroGel] 20.25 mg/1.25 gram (1.62 %) gel in metered-dose pump 2 pump topical DAILY Qty: 225 RF: 0 levothyroxine 112 mcg tablet 112 mcg PO QAM Qty: 30 RF: 2 gabapentin 100 mg capsule 200 mg PO HS Qty: 60 RF: 1 loratadine [Claritin] 10 mg tablet 10 mg PO DAILY PRN (Reason: seasonal allergies) RF: 0 allopurinol 100 mg tablet 200 mg PO DAILY RF: 0 (DME) Oxygen Home Liters Per Minute See Rx Instructions .Route Qty: 1 RF: 0 cholecalciferol (vitamin D3) [Vitamin D3] 400 unit Capsule 400 unit PO DAILY RF: 0 Centrum Silver 0.4-300-250 mg-mcg-mcg Tablet 1 tab PO DAILY RF: 0 timolol maleate 0.25 % drops 1 drp OPB UD RF: 0 mupirocin 2 % ointment 1 applic TOPICAL BID RF: 0 cabergoline 0.5 mg tablet 0.25 mg PO 2XWK RF: 0 ropinirole 2 mg tablet 2 mg PO HS RF: 0 acalabrutinib 100 mg Capsule 100 mg PO Q12H RF: 0 ondansetron HCl 8 mg Tablet 8 mg PO Q8H PRN (Reason: Nausea) RF: 0 prochlorperazine maleate [Compazine] 10 mg Tablet 10 mg PO Q6H PRN (Reason: Nausea) RF: 0 Discharge Orders: Discharge Order (Routine); Ordered 07/25/21 Ordered By: Toro Jackson Admission Data Admit Date/Time: 07/24/21 11:26 Attending Provider: Toro Jackson Admit Provider: Lucero Morataya Primary Care Provider: Mahesh Anderson Other Providers: Dominick Logan ; Toro Jackson ; [facility],Home Healthcare Other Interventions: Discharge Summary Assessment (RN) Last Done: 07/25/21 12:37 Coding Level of Care Code 01871 OBS Care - Discharge Diagnoses Pleural effusion J90 Acute respiratory failure with hypoxia J96.01 Pancytopenia D61.818 Adenocarcinoma of lung C34.90 Diffuse large B-cell lymphoma C83.38 Lymphoma site: multiple regions COPD (chronic obstructive pulmonary disease) J44.9 COPD type: unspecified COPD Prolactin secreting pituitary adenoma D35.2 Central hypothyroidism E03.8 Restless leg syndrome G25.81 Pituitary hypogonadism E23.0 Benign prostatic hyperplasia with urinary obstruction N40.1; N13.8 Nephrolithiasis N20.0 Splenomegaly R16.1
[2021-07-26] MEDS ORDERED: CABERGOLINE PO SCH (09:00)
== END 2021-07-25 12:39 | disposition home health service (06) ==
LOC: ED 08:06 → INTOOBSV 11:26 → SUATTDRO 11:26 → EDINP 11:26

== ENCOUNTER 2021-08-02 04:58 | Inpatient (IN) ==
[2021-08-02 06:18] LABS: Hemoglobin 10.5 g/dL (14.0-18.0); Mean Corpuscular Hgb Conc 30.9 g/dL (32-36); Mean Corpuscular Volume 100.3 fL (80-100); RDW Standard Deviation 55.1 fL (36.4-46.3); Red Blood Count 3.39 M/uL (4.7-6.1); White Blood Count 3.88 K/uL (4.8-10.8)
[2021-08-02 06:25] LABS: Mean Platelet Volume 11.5 fL (7.4-10.4); Platelet Count 50 K/uL (130-400)
[2021-08-02 06:29] LABS: INR 1.2 (0.9-1.1); Partial Thromboplastin Ratio 1.3; Partial Thromboplastin Time 34.7 Seconds (21.0-31.0); Prothrombin Time 11.9 Seconds (9.0-12.0)
[2021-08-02 06:45] LABS: Alanine Aminotransferase 15 (12-78); Albumin Level 2.8 gm/dl (3.4-5.0); Aspartate Aminotransferase 32 U/L (15-37); BUN Creatinine Ratio 9.5 (10-20); Blood Urea Nitrogen 14 mg/dl (7-18); Calcium 8.9 mg/dl (8.5-10.1); Carbon Dioxide 27 mmol/L (21-32); Chloride 103 mmol/L (98-107); Est GFR (African American) 53.2 ml/min; Est GFR (Non-African American) 45.9 ml/min; Glucose 106 mg/dl (70-99); Potassium 3.9 mmol/L (3.5-5.1); Sodium 137 mmol/L (136-145)
--- NOTE | 2021-08-02 06:49 | XRay Report ---
XR chest 1V portable CLINICAL HISTORY: Dyspnea. COMPARISON STUDY: 07/24/2021 TECHNIQUE: 1 view of the chest FINDINGS: Single frontal view of the chest demonstrates the cardiomediastinal silhouette to be within normal li mits. Compared to the previous examination, there is again evidence for large right pleural effusion and right lung atelectasis with only minimal aeration remaining present. Left hemithorax remains radha r. There is no change in right jugular catheter. There is no left pleural effusion. There is no evide nce for vascular congestion. There is no acute osseous pathology. IMPRESSION: Compared to the previous examination, large right pleural effusion with near complete ate lectasis the right lung is again seen. Left hemithorax remains clear. ACT 112: Negative or not required by law. Electronically signed by: Ru Yap M.D. 08/02/2021 6:47 AM
[2021-08-02 06:51] LABS: Alkaline Phosphatase 163 U/L (45-117); Bilirubin,Total 2.2 mg/dl (0.2-1); Globulin 2.8 gm/dl (2.5-4.0); NT Pro B Type Natriuretic Pept 1639 pg/ml (0-1800); Total Protein 5.6 gm/dl (6.4-8.2); Troponin I < 0.015 ng/ml (0-0.045)
[2021-08-02 07:03] LABS: Base Excess VBG 2.6 mEq/L; HCO3 VBG 28 mmol/L; PCO2 VBG 48 mmHg (38-50); PO2 VBG 23 mmHg; pH VBG 7.39 (7.36-7.41)
[2021-08-02 07:06] LABS: Oxygen Saturation VBG < 60.0 %
[2021-08-02 07:06] LABS: ALC (manual) 2.16 K/uL (1.2-3.4); ANC (manual) 1.55 K/uL (1.4-6.5); Basophils # (manual) 0.03 K/uL (0-0.2); Basophils % (manual) 0.9 %; Large Granular Lymph # (manua 1.18 K/uL; Large Granular Lymph % (manual) 30.4 %; Lymphocytes # (manual) 0.98 K/uL (1.2-3.4); Lymphocytes % (manual) 25.2 %; Monocytes % (manual) 2.6 %; Myelocytes # (manual) 0.03 K/uL (0-0); Myelocytes % (manual) 0.9 %; Neutrophils # (manual) 1.55 K/uL (1.4-6.5)
[2021-08-02] MEDS ORDERED: PIPERACILL/TAZOBAC CONSULT ACTIVE PRN (08:09)
[2021-08-02] MEDS ORDERED: PIPERACILLIN/TAZOBACTAM 4.5 GM/120 ML BAG IV ONE (08:09)
[2021-08-02] MEDS ORDERED: ONDANSETRON INJ 2 MG/ML 2 ML VIAL IV STA (08:09)
[2021-08-02] MEDS: SODIUM CHLORIDE 0.9% 1000ML 1,000 ML IV SCH ×2 (09:09→16:02)
[2021-08-02] MEDS ORDERED: SODIUM CHLORIDE 0.9% 1000ML 1,000 ML IV ONE (09:33)
[2021-08-02] MEDS ORDERED: VANCOMYCIN HCL 1,750 MG in SODIUM CHLORIDE 0.9% 500 ML IV ONE (09:33)
[2021-08-02] MEDS ORDERED: VANCOMYCIN CONSULT ACTIVE PRN (09:33)
[2021-08-02 10:14] LABS: Influenza A virus by PCR Negative (Neg); Influenza B virus by PCR Negative (Neg); RSV by PCR Negative (Neg)
--- NOTE | 2021-08-02 10:27 | History & Physical Report ---
Date of Service August 02, 2021 Assessment & Plan (1) Recurrent right pleural effusion: Plan: Known loculated hemothorax Discussed with pulmonology, CT chest and planning on PleurX catheter tomorrow after platelet transfusions. (2) Pneumonia: Plan: Vancomycin (pending MRSA nose swab) + Zosyn Procalcitonin minimally elevated (3) Pancytopenia due to antineoplastic chemotherapy: Plan: Holding acalabrutinib for 6 weeks per patient (4) Chronic respiratory failure with hypoxia: Plan: Aim O2 sats > 90%, secondary to right pleural effusion (5) Prolactin secreting pituitary adenoma: Plan: Continue cabergoline, levothyroxine and testosterone (6) Diffuse large B-cell lymphoma: Plan: Holding acalabrutinib Consult palliative care (7) Benign prostatic hyperplasia with urinary obstruction: Plan: Noted history of this. (8) RUQ abdominal pain: Plan: US gallbladder to assess for cholecystitis as a cause of fever although suspect this is unlikely. Plan: VTE Prophylaxis - SCDs only, chemical prophylaxis deferred due to thrombocytopenia Diet - regular Disposition - admit to med/tele Admission and Anticipated Discharge Date Admission Date: August 02, 2021 History of Present Illness Chief Complaint: Shortness of breath, fever Primary Care Provider: Mahesh Anderson DO Jem Dowell is an 80 year old male with diffuse B-cell lymphoma who presents to the ER with shortness of breath and fever. He has a recent history of right non-traumatic hemothorax, hospitalized here from July 24 - 2020 with thoracocentesis showing no malignant cells. He is not on any antiplatelets or anticoagulants. He was followed up by Dr Stratton at [facility] who recommended PleurX catheter placement that was planned for today however he spiked a fever therefore recommend he comes to the ER. He is short of breath but this is not acutely worse and wears 2LPM O2 at home. He has a complex oncological history best summarized in recent oncology notes but with right upper lobe lung adenocarcinoma [id number] s/p wedge resection followed by lobectomy, diffuse large cell B-cell lymphoma diagnosed initial diagnosed 2007 with intermittent prednisone, clorambucil, bendamustine and rituxin, subsequently spread to his neck causing airway narrowing in 2017 and started on ibrutinib, R-CHOP 09/2018 and 1 cycle of RICE 02/2019. He received Venetoclax and Duvelisib and is now maintained on acalabrutinib. Per patient and his this has been held for 6 weeks due to pancytopenia. ER physician discussed case with [facility] for possible transfer. This will be discussed at their multi disciplinary meeting around 1pm however given he has already been deemed not a VATS candidate and Plaurx can be placed here likelihood is not to recommend transfer at this time. Allergies Allergy/AdvReac Type Severity Reaction Status Date / Time lisinopril Allergy Mild itching Verified 07/24/21 12:02 metoprolol Allergy Mild itching Verified 07/24/21 12:02 losartan AdvReac Mild RASH Verified 07/24/21 12:02 Home Medications Medication Instructions Recorded Confirmed Type cholecalciferol (vitamin D3) 10 400 unit PO DAILY 06/06/19 08/02/21 History mcg (400 unit) capsule (Vitamin D3) xpsytqyx-voj-zrxsn acid 0.4 1 tab PO DAILY 06/06/19 08/02/21 History mg-lycopene 300 mcg-lutein 250 mcg tablet (Centrum Silver) allopurinol 100 mg tablet 200 mg PO DAILY 02/06/20 08/02/21 History loratadine 10 mg tablet (Claritin) 10 mg PO DAILY PRN 02/06/20 08/02/21 History albuterol sulfate 90 mcg/actuation 2 puff INHALATION Q4H PRN #18 g 06/15/20 08/02/21 Rx aerosol inhaler (Ventolin HFA) fluticasone 250 mcg-salmeterol 50 1 inh INHALATION BID PRN #60 ea 07/22/20 08/02/21 Rx mcg/dose blistr powdr for inhalation (Advair Diskus) acalabrutinib 100 mg capsule 100 mg PO Q12H 02/18/21 08/02/21 History ondansetron HCl 8 mg tablet 8 mg PO Q8H PRN 02/18/21 08/02/21 History prochlorperazine maleate 10 mg 10 mg PO Q6H PRN 02/18/21 08/02/21 History tablet (Compazine) testosterone 20.25 mg/1.25 gram 2 pump TOPICAL DAILY #225 gm 05/05/21 08/02/21 Rx (1.62 %) transdermal gel pump (AndroGel) levothyroxine 112 mcg tablet 112 mcg PO QAM #30 tab 10/05/21 12/06/21 Rx gabapentin 100 mg capsule 200 mg PO HS #60 cap 07/09/21 08/02/21 Rx Oxygen Home #1 ea 07/23/21 07/27/21 Rx cabergoline 0.5 mg tablet 0.25 mg PO 2XWK 07/24/21 08/02/21 History mupirocin 2 % topical ointment 1 applic TOPICAL BID 07/24/21 08/02/21 History ropinirole 2 mg tablet 2 mg PO HS 07/24/21 08/02/21 History timolol maleate 0.25 % eye drops 1 drp OPB UD 07/24/21 08/02/21 History Past Med/Surg History Medical History Adenocarcinoma of lung S/p wedge resection of RUL followed by lobectomy and mediastinal lymph node dissection (12/11). 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 Initialed diagnosed 2007. Previously received intermittent prednisone, chlorambucil, bendamustine, Rituxan. PET-CT (02/12) demonstrated increase in size, number and FDG of lymphadenopathy particularly in the neck. Initiated on ibrutinib (04/14) for CLL but then held (05/15) due to enarged L tonsil with narrowing of adjacent airway. Biopsy revealing diffuse large b-cell lymphoma. S/p 6 cycles of R-CHOP (10/16) with significant improvement in PET scan. S/p 1 cyhcle RICE (03/15). Currently managed with Venetoclax (04/15). Managed with allopruinol for ppx Erectile dysfunction Generalized osteoarthritis Multiple previous injuries, primarily of R shoulder, low back. Receiving corticosteroid injections previously. Followed by ortho GERD (gastroesophageal reflux disease) Glaucoma History of herpes zoster Episode of zoster (01/11) of R chest. Complicated with post-herpetic neuralgia. Originally prescribed opiates but has been discontinued. Kidney stones Nephrolithiasis Pancytopenia due to antineoplastic chemotherapy Pituitary hypogonadism Port-A-Cath in place right chest wall Prolactin secreting pituitary adenoma Restless leg syndrome SCC (squamous cell carcinoma) Vitamin D deficiency Surgical History H/O lymph node biopsy H/O Mohs micrographic surgery for skin cancer History of ankle surgery History of arthroscopy B/L KNEE History of cataract surgery B/L History of colonoscopy History of esophagogastroduodenoscopy History of laryngoscopy DIRECT LARYNGOSCOPY/BIOPSY= 05/15/18 AT [facility] History of lithotripsy History of lobectomy of lung RT LOBE History of tooth extraction Family History Brother Cancer Mother Dementia Hypertension Other No family history of adverse response to anesthesia No family history of bleeding disorder Denies family history of Ovarian cancer Prostate cancer Diabetes Myocardial infarction Breast cancer Colorectal cancer Stroke Social History Smoking Status: Former smoker Tobacco Type: Cigarettes and Smokeless Tobacco (Dip or Chew) Age Started Using Tobacco: 17; Age Quit Using Tobacco: 78; packs per day: 0.5; Years Smoked: 50; Cigarettes Per Day: QUIT "MANY" YEARS AGO; Second Hand Exposure: No; Do You Dip or Chew Tobacco: Yes; Hx Alcohol Use: No Hx Substance Use: No Preferred Language: Tajik Communication Ability: Effective Visual Impairment: Limited Hearing Ability: Normal 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 Required: No Beliefs That Will Affect Care: None marital status: Current Living Situation: Spouse current occupational status: retired How many Children do You have: 2 Feels Safe at Home: Yes Safety Concerns: Feels Safe At This Time Childhood Exposure to Second-Hand Smoke: Yes (stepdad did ) caffeine: Yes (coffee) Dental Care, Regularly: Yes Physical Activity Frequency: Does not Exercise Seatbelt Use: always Sunscreen Use: No Assistive Devices: Oxygen - Continuous Physical Exam Constitutional: well developed; + not well nourished and no acute distress ENMT: Mouth: + dry oral mucous membranes Neck: trachea midline, no thyromegaly Respiratory: + retractions, + uses accessory muscles and able to speak in complete sentences Auscultation: + breath sounds absent (right mid zone and base), + diminished lung sounds (right apex) and + rhonchi (b/l); no crackles, no rales and no wheezes Cardiovascular: Rate/Rhythm: regular rate and regular rhythm Heart Sounds: + murmur (systolic RUSB 2/6) Extremities: normal capillary refill and + pedal edema; no calf tenderness Gastrointestinal (Abdomen): Inspection/Auscultation: normal bowel sounds Percussion/Palpation: + abdomen tender (RUQ) and abdomen soft; no guarding and abdomen not rigid Musculoskeletal: no cyanosis or clubbing, extremities motor strength 5/5 Skin: no rashes, warm and dry Neurologic: moves all extremities and awake; not confused Psychiatric: A+Ox3, euthymic affect Results & Data Results & Data ([facility]) Vital Signs (Past 12 Hours) Vital Signs Temp Pulse Pulse Resp BP BP Pulse Ox 08/02/21 09:22 100 H 18 99 08/02/21 08:09 95 H 18 97/62 L 95 08/02/21 06:29 98 08/02/21 05:33 37.0 C 94 H 20 122/79 100 Laboratory Results Abnormal lab results 08/02/21 08/02/21 08/02/21 Range/Units 06:00 06:08 06:08 WBC (4.8-10.8) K/uL RBC (4.7-6.1) M/uL Hgb (14.0-18.0) g/dL Hct (42-52) % MCHC (32-36) g/dL RDW Std Deviation (36.4-46.3) fL RDW Coeff of Sveta (11.5-14.5) % Plt Count (130-400) K/uL Neut # (Auto) (1.4-6.5) K/uL Lymph # (Auto) (1.2-3.4) K/uL [place] # (Auto) (0.11-0.59) K/uL Immature Gran # (Auto) (0.00-0.02) K/uL Lymphocytes # (Manual) 0.98 L (1.2-3.4) K/uL Monocytes # (Manual) 0.10 L (0.11-0.59) K/uL Myelocytes # (Manual) 0.03 H (0-0) K/uL Creatinine 1.43 H (0.6-1.4) mg/dl BUN/Creatinine Ratio 9.5 L (10-20) Glucose 106 H (70-99) mg/dl Lactate (0.4-2.0) mmol/L Calcium (8.5-10.1) mg/dl Total Bilirubin 2.2 H (0.2-1) mg/dl Alkaline Phosphatase 163 H (45-117) U/L Total Protein 5.6 L (6.4-8.2) gm/dl Albumin 2.8 L (3.4-5.0) gm/dl Procalcitonin 0.52 H (0-0.5) ng/ml 08/02/21 08/02/21 08/02/21 Range/Units 08:50 10:55 16:17 WBC 2.66 L (4.8-10.8) K/uL RBC 2.91 L (4.7-6.1) M/uL Hgb 8.8 L (14.0-18.0) g/dL Hct 29.0 L (42-52) % MCHC 30.3 L (32-36) g/dL RDW Std Deviation 54.6 H (36.4-46.3) fL RDW Coeff of Sveta 15.0 H (11.5-14.5) % Plt Count 36 L (130-400) K/uL Neut # (Auto) 1.29 L (1.4-6.5) K/uL Lymph # (Auto) 1.02 L (1.2-3.4) K/uL [place] # (Auto) 0.08 L (0.11-0.59) K/uL Immature Gran # (Auto) 0.26 H (0.00-0.02) K/uL Lymphocytes # (Manual) (1.2-3.4) K/uL Monocytes # (Manual) (0.11-0.59) K/uL Myelocytes # (Manual) (0-0) K/uL Creatinine (0.6-1.4) mg/dl BUN/Creatinine Ratio (10-20) Glucose (70-99) mg/dl Lactate 3.6 H* 3.5 H* (0.4-2.0) mmol/L Calcium (8.5-10.1) mg/dl Total Bilirubin (0.2-1) mg/dl Alkaline Phosphatase (45-117) U/L Total Protein (6.4-8.2) gm/dl Albumin (3.4-5.0) gm/dl Procalcitonin (0-0.5) ng/ml 08/02/21 Range/Units 16:17 WBC (4.8-10.8) K/uL RBC (4.7-6.1) M/uL Hgb (14.0-18.0) g/dL Hct (42-52) % MCHC (32-36) g/dL RDW Std Deviation (36.4-46.3) fL RDW Coeff of Sveta (11.5-14.5) % Plt Count (130-400) K/uL Neut # (Auto) (1.4-6.5) K/uL Lymph # (Auto) (1.2-3.4) K/uL [place] # (Auto) (0.11-0.59) K/uL Immature Gran # (Auto) (0.00-0.02) K/uL Lymphocytes # (Manual) (1.2-3.4) K/uL Monocytes # (Manual) (0.11-0.59) K/uL Myelocytes # (Manual) (0-0) K/uL Creatinine 1.45 H (0.6-1.4) mg/dl BUN/Creatinine Ratio (10-20) Glucose (70-99) mg/dl Lactate (0.4-2.0) mmol/L Calcium 8.2 L (8.5-10.1) mg/dl Total Bilirubin (0.2-1) mg/dl Alkaline Phosphatase (45-117) U/L Total Protein (6.4-8.2) gm/dl Albumin (3.4-5.0) gm/dl Procalcitonin (0-0.5) ng/ml Diagnostic Findings XR chest 1V portable CLINICAL HISTORY: Dyspnea. COMPARISON STUDY: 07/24/2021 TECHNIQUE: 1 view of the chest FINDINGS: Single frontal view of the chest demonstrates the cardiomediastinal silhouette to be within normal limits. Compared to the previous examination, there is again evidence for large right pleural effusion and right lung atelectasis with only minimal aeration remaining present. Left hemithorax remains clear. There is no change in right jugular catheter. There is no left pleural effusion. There is no evidence for vascular congestion. There is no acute osseous pathology. IMPRESSION: Compared to the previous examination, large right pleural effusion with near complete atelectasis the right lung is again seen. Left hemithorax remains clear. Medications Administered ER Medications Given: Zosyn 4.5g IV NSS 1L bolus Ondansetron 4mg IV Vancomycin 1750mg IV ECG Rate (beats per minute): 98 Rhythm: normal sinus Findings: + PVC and + T-wave inversion (Lateral) Comparison ECG Date: from (July 24, 2021) Change: the following changes noted (TWI now present) Code Status & VTE Plan Code Status DNR/DNI as discussed with patient and his VTE Prophylaxis Plan VTE Prophylaxis will be ordered: No PG Care Time/CCT Total # of Minutes Spent Total Time Spent with Patient: Total time spent is greater than 50% in coordination of care (as documented) at patient's floor/unit and/or counseling patient: Coding Level of Care Code 58358 Initial Inpt Care Lvl 3 Diagnoses Recurrent right pleural effusion J90 Pneumonia J18.9 Pancytopenia due to antineoplastic chemotherapy D61.810; T45.1X5A Chronic respiratory failure with hypoxia J96.11 Prolactin secreting pituitary adenoma D35.2 Diffuse large B-cell lymphoma C83.38 Lymphoma site: multiple regions Benign prostatic hyperplasia with urinary obstruction N40.1; N13.8 RUQ abdominal pain R10.11 (1) Diffuse large B-cell lymphoma Lymphoma site: multiple regions Qualified Code(s): C83.38 - Diffuse large B- cell lymphoma, lymph nodes of multiple sites
--- NOTE | 2021-08-02 11:36 | Pulmonary Consultation ---
Date of Consultation August 02, 2021 Assessment & Plan (1) Recurrent right pleural effusion: (2) Acute respiratory failure with hypoxia: (3) Prolactin secreting pituitary adenoma: (4) COPD (chronic obstructive pulmonary disease): COPD type: unspecified COPD Qualified Code(s): J44.9 - Chronic obstructive pulmonary disease, unspecified (5) Diffuse large B-cell lymphoma: Lymphoma site: multiple regions Qualified Code(s): C83.38 - Diffuse large B-cell lymphoma, lymph nodes of multiple sites (6) Adenocarcinoma of lung: Attending: Dr. Logan Impression: 80-year-old male with a history of adenocarcinoma of the lung, prolactin secreting pituitary adenoma, non-Hodgkin's B-cell lymphoma, thrombocytopenia, hypothyroidism, chronic anemia, chemotherapy, COPD, RLS, depression with anxiety, chronic low back pain, BPH. Patient presents to the emergency department with shortness of breath. He has complete opacification of the right lung secondary to layering pleural effusion. Was evaluated [facility] for VATS procedure and was told that he was too ill. He was sent home at that time. Plan was to place a palliative Pleurx catheter. Patient presented here with shortness of breath. Long discussion with patient, , son. Will change focus of care to palliative. Patient with shortness of breath and chronic weakness. states that he has trouble going from the bed to the bathroom at home. Patient currently saturating 99% with 3 L/min via nasal cannula. No chest pain or tightness. Positive for nausea no vomiting. Patient with urge for frequent defecation. No evidence of bleeding per patient and nurses report. Patient's reports the patient had fever at home of 101 F. Procalcitonin 0.52. WBCs 3.88. Platelet count 50,000. Lactic acid 3.5. INR 1.2 Recommendations: 1. Recurrent right pleural effusion: * We will plan on palliative Pleurx catheter tomorrow * Palliative care consulted and case discussed at length with the [facility] * Most likely reactive to chemotherapy/non-Hodgkin's lymphoma. Appears to be layered and most likely has some component of hemothorax * Will need to administer platelets when available. We will then administer second unit of platelets well perform the procedure tomorrow. * Check a CBC in the morning * INR 1.2 * Telephone consent with patient present with on the telephone. 2. COPD: * Home medications include albuterol HFA inhaler, Advair * Supplemental oxygen to maintain SaO2 between 88 and 92% * No PFTs available for review * Focus care on palliation * No outpatient follow-up as needed in the pulmonary office 3. Thrombocytopenia: * Patient undergoing palliative chemo therapy for B-cell lymphoma * Follow with Dr. George Newberry of [facility] * At this time chemotherapy has been held for least 6 weeks due to patient's acute illness. * Will transfuse 1 unit of platelets today and another unit with procedure tomorrow then focus on palliation 4. Hypoxia: * Most likely multifactorial to COPD and patient's opacification of the right lung secondary to pleural effusion * Continue supplemental oxygen for palliation as above * Hopefully the patient's hypoxia improves once fluid is drained from the right pleural space. 5. CODE STATUS: * Patient presented as a full resuscitation * Lengthy discussion with patient, , son who are all in agreement that focus should be on quality of life rather than heroic measures * Will change CODE STATUS to level V -DNR/DNI * Continue with treatment of antibiotics and procedures for palliation * Further management per hospitalist team. Dr. Maciel was present during the discussion with family Thank you very much for including us in the care of this patient. We will continue to follow along pending Pleurx catheter placement. Please refer to Dr. Logan's addendum for further recommendations. Supervising Physician Co-Signing Physician Notes Seen and examined. Discussed with PRABHU and agree with AP as noted. Will plan for palliative pleurex once plts are available. He can follow up with his oncologist as outpatient. Case management setting up hospice. History of Present Illness Reason for Consultation: Opacification of right lung secondary to pleural effusion Requesting Physician: Dr. Maciel Attending Physician: Dr. Maciel History of Present Illness Attending: Dr. Logan This is an 80-year-old male that was diagnosed with non-Hodgkin's lymphoma in 2007. He has been receiving chemotherapy at the direction of Dr. George Newberry for palliative care. The family knows that this is not a curative process for his lymphoma but only to improve symptoms. Patient was evaluated at [facility] for possibility of VATS procedure. Due to the patient's illness and thrombocytopenia it was determined the patient would not be a good candidate. A Pleurx catheter was offered palliatively understanding that this is probably a layered loculated pleural effusion. At that time, family deferred as they wanted to talk to Dr. Newberry because he was currently receiving c hemotherapy. Per the report of the patient and his , chemotherapy has been held for at least the next 6 weeks. Patient is extremely weak and tired and reports that he suffers from the side effects of chemotherapy. He currently has nausea and had fever of 101 Fahrenheit over the weekend. After long discussion with the patient and his , it was determined that patient's CODE STATUS will be changed to DNR/DNI and the focus will be on palliation. Platelets will be ordered and when they arrive, we will plan on transfusing platelets while performing placement of Pleurx catheter for palli ative purposes. Risk versus benefits were discussed with the and the patient. Consent was delegated by Dr. Logan and was obtained and would be placed on the chart for procedure to be completed later by Dr. Logan. At this time, patient's and son are expected to come back to the emergency department to continue discussion on treatment plan for palliation and return home on hospice. Patient did have an elevated procalcitonin at 0.52. With reported fever, patient will receive IV antibiotics while organizing treatment plan and discharge home. Allergies Allergy/AdvReac Type Severity Reaction Status Date / Time lisinopril Allergy Mild itching Verified 07/24/21 12:02 metoprolol Allergy Mild itching Verified 07/24/21 12:02 losartan AdvReac Mild RASH Verified 07/24/21 12:02 Home Medications Medication Instructions Recorded Confirmed Type cholecalciferol (vitamin D3) 10 400 unit PO DAILY 06/06/19 08/02/21 History mcg (400 unit) capsule (Vitamin D3) [id number] acid 0.4 1 tab PO DAILY 06/06/19 08/02/21 History mg-lycopene 300 mcg-lutein 250 mcg tablet (Centrum Silver) allopurinol 100 mg tablet 200 mg PO DAILY 02/06/20 08/02/21 History loratadine 10 mg tablet (Claritin) 10 mg PO DAILY PRN 02/06/20 08/02/21 History albuterol sulfate 90 mcg/actuation 2 puff INHALATION Q4H PRN #18 g 06/15/20 08/02/21 Rx aerosol inhaler (Ventolin HFA) fluticasone 250 mcg-salmeterol 50 1 inh INHALATION BID PRN #60 ea 07/22/20 08/02/21 Rx mcg/dose blistr powdr for inhalation (Advair Diskus) acalabrutinib 100 mg capsule 100 mg PO Q12H 02/18/21 08/02/21 History ondansetron HCl 8 mg tablet 8 mg PO Q8H PRN 02/18/21 08/02/21 History prochlorperazine maleate 10 mg 10 mg PO Q6H PRN 02/18/21 08/02/21 History tablet (Compazine) testosterone 20.25 mg/1.25 gram 2 pump TOPICAL DAILY #225 gm 05/05/21 08/02/21 Rx (1.62 %) transdermal gel pump (AndroGel) levothyroxine 112 mcg tablet 112 mcg PO QAM #30 tab 06/01/21 08/02/21 Rx gabapentin 100 mg capsule 200 mg PO HS #60 cap 07/09/21 08/02/21 Rx Oxygen Home #1 ea 07/23/21 07/27/21 Rx cabergoline 0.5 mg tablet 0.25 mg PO 2XWK 07/24/21 08/02/21 History mupirocin 2 % topical ointment 1 applic TOPICAL BID 07/24/21 08/02/21 History ropinirole 2 mg tablet 2 mg PO HS 07/24/21 08/02/21 History timolol maleate 0.25 % eye drops 1 drp OPB UD 07/24/21 08/02/21 History Patient History Medical History Adenocarcinoma of lung S/p wedge resection of RUL followed by lobectomy and mediastinal lymph node dissection (12/11). 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 Initialed diagnosed 2007. Previously received intermittent prednisone, chlorambucil, bendamustine, Rituxan. PET-CT (6/18) demonstrated increase in size, number and FDG of lymphadenopathy particularly in the neck. Initiated on ibrutinib (04/14) for CLL but then held (05/15) due to enarged L tonsil with narrowing of adjacent airway. Biopsy revealing diffuse large b-cell lymphoma. S/p 6 cycles of R-CHOP (10/16) with significant improvement in PET scan. S/p 1 cyhcle RICE (03/15). Currently managed with Venetoclax (04/15). Managed with allopruinol for ppx Erectile dysfunction Generalized osteoarthritis Multiple previous injuries, primarily of R shoulder, low back. Receiving corticosteroid injections previously. Followed by ortho GERD (gastroesophageal reflux disease) Glaucoma History of herpes zoster Episode of zoster (01/11) of R chest. Complicated with post-herpetic neuralgia. Originally prescribed opiates but has been discontinued. Kidney stones Nephrolithiasis Pancytopenia due to antineoplastic chemotherapy Pituitary hypogonadism Port-A-Cath in place right chest wall Prolactin secreting pituitary adenoma Restless leg syndrome SCC (squamous cell carcinoma) Vitamin D deficiency Surgical History H/O lymph node biopsy H/O Mohs micrographic surgery for skin cancer History of ankle surgery History of arthroscopy B/L KNEE History of cataract surgery B/L History of colonoscopy History of esophagogastroduodenoscopy History of laryngoscopy DIRECT LARYNGOSCOPY/BIOPSY= 05/15/18 AT [facility] History of lithotripsy History of lobectomy of lung RT LOBE History of tooth extraction Family History Brother Cancer Mother Dementia Hypertension Other No family history of adverse response to anesthesia No family history of bleeding disorder Denies family history of Ovarian cancer Prostate cancer Diabetes Myocardial infarction Breast cancer Colorectal cancer Stroke Social History Smoking Status: Former smoker Tobacco Type: Cigarettes and Smokeless Tobacco (Dip or Chew) Age Started Using Tobacco: 17; Age Quit Using Tobacco: 78; packs per day: 0.5; Years Smoked: 50; Cigarettes Per Day: QUIT "MANY" YEARS AGO; Second Hand Exposure: No; Hx Alcohol Use: No Hx Substance Use: No Preferred Language: Greek Communication Ability: Effective Visual Impairment: Limited Hearing Ability: Normal Seo Associate Required: No Beliefs That Will Affect Care: None marital status: Current Living Situation: Spouse current occupational status: retired How many Children do You have: 2 Feels Safe at Home: Yes Childhood Exposure to Second-Hand Smoke: Yes (stepdad did ) caffeine: Yes (coffee) Dental Care, Regularly: Yes Physical Activity Frequency: Does not Exercise Seatbelt Use: always Sunscreen Use: No Assistive Devices: Contacts and Walker Review of Systems Review of Systems: All systems reviewed & are unremarkable except as noted in Subjective Physical Exam Physical Exam: GENERAL : No acute distress. Acutely ill. No respiratory distress with supplemental oxygen in place EYES: No icterus, gaze conjugate NOSE: No evidence of epistaxis MOUTH: No lesions or candidiasis. Mucosa dry NECK: Supple LUNGS: Bibasilar crackles. Decreased breath sounds in the right. No appreciated for bronchospasms. HEART: Regular, rate controlled ABDOMEN: Soft, NT, ND, BS Present EXTREMITIES: Bilateral LE edema, pedal pulses intact NEURO: A&OX3 Results & Data Results & Data ([facility]) Vital Signs (Past 12 Hours) Vital Signs Temp Pulse Pulse Resp BP BP Pulse Ox 08/02/21 11:19 101 H 18 103/59 L 95 08/02/21 09:22 100 H 18 99 08/02/21 08:09 95 H 18 97/62 L 95 08/02/21 06:29 98 08/02/21 05:33 37.0 C 94 H 20 122/79 100 Laboratory Results 08/02/21 06:08 08/02/21 06:08 COVID-19 Results 08/02/21 09:15 SARS-CoV-2 (PCR) NEGATIVE INR 1.2 (0.9-1.1) H 08/02/21 06:08 Diagnostic Findings Chest X-Ray 08/02/21 05:34 XR chest 1V portable CLINICAL HISTORY: Dyspnea. COMPARISON STUDY: 07/24/2021 TECHNIQUE: 1 view of the chest FINDINGS: Single frontal view of the chest demonstrates the cardiomediastinal silhouette to be within normal limits. Compared to the previous examination, there is again evidence for large right pleural effusion and right lung atelectasis with only minimal aeration remaining present. Left hemithorax remains clear. There is no change in right jugular catheter. There is no left pleural effusion. There is no evidence for vascular congestion. There is no acute osseous pathology. IMPRESSION: Compared to the previous examination, large right pleural effusion with near complete atelectasis the right lung is again seen. Left hemithorax remains clear. ACT 112: Negative or not required by law. Electronically signed by: Ru Yap M.D. 08/02/2021 6:47 AM PG Care Time/CCT Total # of Minutes Spent Total Time Spent with Patient: Total time spent is greater than 50% in coordination of care (as documented) at patient's floor/unit and/or counseling patient:70 minutes including discussion with patient, repeat visit to have discussion with and son, repeat visit to discuss treatment plan with patient and son. Coding Level of Care Code 41802 Initial Inpt Care Lvl 3 Diagnoses Recurrent right pleural effusion J90 Acute respiratory failure with hypoxia J96.01 Prolactin secreting pituitary adenoma D35.2 COPD (chronic obstructive pulmonary disease) J44.9 COPD type: unspecified COPD Diffuse large B-cell lymphoma C83.38 Lymphoma site: multiple regions Adenocarcinoma of lung C34.90 Time Spent (min) 70
--- NOTE | 2021-08-02 12:15 | Ultrasound Report ---
US gallbladder Limited abdomen CLINICAL HISTORY: RUQ pain, assess for cholecystitis, CBD dilatation. COMPARISON: 06/07/2019 TECHNIQUE: Multiple grayscale and color images of the right upper quadrant of the abdomen. FINDINGS: This is a limited examination due to overlying bowel gas. Pancreas: The entire pancreas is not well seen. There is a hypoechoic density present in the region o f the nuria hepatis measuring approximately 3.8 x 3.3 x 3.3 cm. This is not well-defined by ultrasoun d and follow-up CT is recommended. Liver: The liver is homogeneous in echogenicity There is no evidence for a focal mass. There is no in trahepatic biliary duct dilatation. Gallbladder: There is again evidence for cholelithiasis with no evidence for wall thickening or shirley cholecystic edema. There was reportedly a negative sonographic Tompkins's sign. Common Bile Duct: (CBD): It is normal in size measuring 6 mm. Inferior Vena Cava (IVC): The imaged IVC is patent. Right kidney: There is no evidence for hydronephrosis, calculus or gross renal mass. The kidney is n ormal in size. IMPRESSION: 1. Examination of the pancreas due to overlying bowel gas. However, there is a hypoechoic density in the nuria hepatis adjacent to the head of the pancreas. This is of uncertain etiology and follow-up C T of the abdomen with contrast is recommended. 2. There is again evidence for cholelithiasis with no ultrasound evidence for acute cholecystitis. ACT 112: Positive. There are findings on this exam that require communication between the performing entity and the patient following Patient Test Result Information Act ([place] Act 112) guidelines. Electronically signed by: Ru Yap M.D. 08/02/2021 12:13 PM
--- NOTE | 2021-08-02 12:15 | CT Scan Report ---
CT chest diagnostic wo con CLINICAL HISTORY: pleural effusion, needed prior to pleurX placement TECHNIQUE: Multidetector row helical CT of the chest was performed. Coronal and sagittal reformations were obtained. Automated dose lowering techniques and/or adjustment according to patient size were u tilized for this exam. Comparison: None available at the time of this dictation. FINDINGS: Lungs and pleura: There is a large right pleural effusion with mild pleural thickening and associated atelectasis. Postsurgical changes are seen in the right lung. Heart and pericardium: Heart size is normal. No pericardial effusion. Vessels: The pulmonary trunk measures 35 mm in diameter. Mediastinum and perla: Multiple enlarged mediastinal lymph nodes are seen measuring up to 14 mm in jose meter. Addition, there is a partially calcified subcarinal mass measuring 48 x 27 mm. Chest wall and lower neck: Numerous enlarged lymph nodes are seen most prominent in the right axilla measuring up to 26 mm, as well as in the bilateral supraclavicular chains measuring up to 13 mm on th e left and 15 mm right. Left axillary lymph nodes measure up to 13 mm in diameter. Abdomen: Subcentimeter retroperitoneal and para-aortic nodes are seen. Bones: Unremarkable. IMPRESSION: 1. Larger pleural effusion with associated atelectasis. 2. Diffusely enlarged lymph nodes, most prominent in the right axilla. 3. Additional findings as above. ACT 112: Negative or not required by law. Electronically signed by: Addi Javier M.D. 08/02/2021 12:14 PM
[2021-08-02] MEDS ORDERED: ACETAMINOPHEN 325 MG TAB ONE (14:02)
--- NOTE | 2021-08-02 15:56 | Electrocardiogram Report ---
Test Reason : Blood Pressure : / mmHG Vent. Rate : 098 BPM Atrial Rate : 098 BPM P-R Int : 146 ms QRS Dur : 082 ms QT Int : 330 ms P-R-T Axes : 040 047 151 degrees QTc Int : 421 ms Sinus rhythm with Premature supraventricular complexes Abnormal ECG When compared with ECG of 24-JUL-2021 08:12, Premature supraventricular complexes are now Present Nonspecific T wave abnormality, worse in Inferior leads T wave inversion now evident in Lateral leads Confirmed by Nirav Foley ([id number]) on 08/02/2021 3:56:24 PM Referred By: Confirmed By:Nirav Foley
[2021-08-02] MEDS ORDERED: POLYETHYLENE (MIRALAX) 17 GM PACK PO PRN (16:07)
[2021-08-02] MEDS ORDERED: ONDANSETRON INJ 2 MG/ML 2 ML VIAL IV PRN (16:07)
[2021-08-02] MEDS ORDERED: SODIUM CHLORIDE 0.9% 250 ML IV PRN (16:07)
[2021-08-02] MEDS ORDERED: PROCHLORPERAZINE MALEATE 10 MG TAB PO PRN (16:07)
[2021-08-02] MEDS ORDERED: ONDANSETRON HCL 8 MG PO PRN (16:07)
[2021-08-02 16:33] LABS: Hemoglobin 8.8 g/dL (14.0-18.0); Mean Corpuscular Hemoglobin 30.2 pg (25-34); Mean Corpuscular Hgb Conc 30.3 g/dL (32-36); Mean Corpuscular Volume 99.7 fL (80-100); RDW Standard Deviation 54.6 fL (36.4-46.3); Red Blood Count 2.91 M/uL (4.7-6.1); White Blood Count 2.66 K/uL (4.8-10.8)
[2021-08-02 16:40] LABS: Mean Platelet Volume 9.5 fL (7.4-10.4); Platelet Count 36 K/uL (130-400)
[2021-08-02 16:52] LABS: BUN Creatinine Ratio 10.2 (10-20); Calcium 8.2 mg/dl (8.5-10.1); Creatinine Clr Calc Pharmacy 47.7 ml/min; Est GFR (African American) 52.3 ml/min; Est GFR (Non-African American) 45.2 ml/min; Potassium 3.8 mmol/L (3.5-5.1)
[2021-08-02] MEDS ORDERED: PIPERACILLIN/TAZOBACTAM 3.375 GM in DEXTROSE 5% 100 ML IV ONE (17:00)
[2021-08-02 17:09] LABS: Basophils # (auto) 0.01 K/uL (0-0.2); Basophils % (auto) 0.4 %; Dohle Bodies 1+; Immature Granulocytes # (auto) 0.26 K/uL (0.00-0.02); Immature Granulocytes % (auto) 9.8 %; Lymphocytes # (auto) 1.02 K/uL (1.2-3.4); Lymphocytes % (auto) 38.3 %; Monocytes # (auto) 0.08 K/uL (0.11-0.59); Neutrophils # (auto) 1.29 K/uL (1.4-6.5); Neutrophils % (auto) 48.5 %; Polychromasia 1+; Tear Drop Cells Occasional
--- NOTE | 2021-08-02 17:19 | Pharmacy Report ---
Pharmacy Abx Dose Short Note - Date of Service August 02, 2021 - Assessment & Plan Assessment * 80 year old M receiving Zosyn and vanco for treatment of pleural effusion / HAP * Dosing based on AUC estimation Plan * Vancomycin 1250 mg IV q24h * Trough 08/04 @ 0830 Pharmacy will continue to follow and will adjust dose/frequency as necessary. Thank you.
[2021-08-02] MEDS: ACETAMINOPHEN 325 MG TAB PO PRN (18:26)
[2021-08-02 18:31] LABS: SARS CoV2 RNA(COVID-19) InHosp NEGATIVE (Negative)
[2021-08-02] MEDS: GABAPENTIN 100 MG CAP PO SCH (21:58)
[2021-08-02] MEDS: TIMOLOL GFS 0.5% OPH SOLN 74 DROPS/5 ML BTL OPB SCH (21:58)
[2021-08-02] MEDS: rOPINIRole HCL 2 MG TABLET PO SCH (21:59)
[2021-08-02] MEDS: PIPERACILLIN/TAZOBACTAM 3.375 GM in DEXTROSE 5% 100 ML IV SCH (23:59)
[2021-08-03] MEDS: LEVOTHYROXINE SODIUM 112 MCG TABLET PO SCH (06:01)
--- NOTE | 2021-08-03 07:42 | Emergency Department Note ---
Impression & Plan Pleural effusion, right, Diffuse large B-cell lymphoma ED Provider Note CHIEF COMPLAINT: Shortness of breath, fever HISTORY OF PRESENT ILLNESS: This 80-year-old male patient presents to the em ergency department with complaints of shortness of breath and fever that developed today. Pt's explains that he was diagnosed with a R pleural effusion and has been seen by Dr. Logan. He was referred to thoracic surgery at [facility]. states pt developed a fever of 101+ degrees early this morning. Pt was scheduled for thoracostomy today in [place] as he states as was not a candidate for the thoracotomy per the surgeon d/t his multiple medical conditions. He did not feel well enough to make the appt and needed to come here. He did not take any tylenol prior to arrival. REVIEW OF SYSTEMS: A review of systems was performed with positives and pertinent negatives listed in the history of present illness. 10 systems were reviewed and are otherwise negative. ALLERGIES: see below MEDICATIONS: see below PMH: see below SOCIAL HISTORY: see below DDx: Reactive airway disease, pleural effusion, pneumonia, pneumothorax, COPD, CHF, infections, cardiac ischemia, pulmonary embolism, musculoskeletal, gastrointestinal, as well as other pathologies. PHYSICAL EXAM: Vital signs reviewed. General: Chronically ill appearing 80 yo male, in no significant distress. HEENT: No scleral icterus, PERRLA, neck supple. Moist mucous membranes. Cardiovascular: Regular rate and rhythm, no extra sounds. Pulmonary: Diminished breath sounds right greater than left, increased work of breathing. On nasal cannula oxygen. Abdomen: Soft, nontender, nondistended, positive bowel sounds. Musculoskeletal: Atraumatic, no peripheral edema. Neurologic: Patient awake alert and oriented x 3 Skin: Warm, dry, no rash EMERGENCY DEPARTMENT COURSE/MDM: This patient was evaluated and appeared to be in no significant distress. Patient is noted to be in a sinus tachycardia. Pt was hydrated with NSS. Blood cx and lactate were drawn. CXR reveals a large R pleural effusion. Lab work reveals leukopenia, hemoglobin and thrombocytopenia. IV zosyn and vancomycin were ordered. Case was d/w pulm med Dr. Logan who felt the pt should be referred to [facility] who stated they were unable to take the patient in transfer due to a lack of bed space. Case was discussed again with Dr. Logan in the hospitalist service. Patient will be evaluated for further management. Patient and were updated on the plan of care and agreed. MONITORING: An order for cardiac monitoring was placed and the patient is noted to be in a sinus tachycardia with premature supraventricular complexes at 102 beats per minute. RADIOLOGY: See below EKG:NSR at 98 bpm, premature supraventricular complexes. Nonspecific ST and T wave changes in inferior and lateral leads. QTc is 421. Normal axis. DISPOSITION: Admit Past Med/Surg History Medical History Adenocarcinoma of lung S/p wedge resection of RUL followed by lobectomy and mediastinal lymph node dissection (12/11). 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 Initialed diagnosed 2007. Previously received intermittent prednisone, chlorambucil, bendamustine, Rituxan. PET-CT (02/12) demonstrated increase in size, number and FDG of lymphadenopathy particularly in the neck. Initiated on ibrutinib (04/14) for CLL but then held (05/15) due to enarged L tonsil with narrowing of adjacent airway. Biopsy revealing diffuse large b-cell lymphoma. S/p 6 cycles of R-CHOP (10/16) with significant improvement in PET scan. S/p 1 cyhcle RICE (03/15). Currently managed with Venetoclax (04/15). Managed with allopruinol for ppx Erectile dysfunction Generalized osteoarthritis Multiple previous injuries, primarily of R shoulder, low back. Receiving corticosteroid injections previously. Followed by ortho GERD (gastroesophageal reflux disease) Glaucoma History of herpes zoster Episode of zoster (01/11) of R chest. Complicated with post-herpetic neuralgia. Originally prescribed opiates but has been discontinued. Kidney stones Nephrolithiasis Pancytopenia due to antineoplastic chemotherapy Pituitary hypogonadism Port-A-Cath in place right chest wall Prolactin secreting pituitary adenoma Restless leg syndrome SCC (squamous cell carcinoma) Vitamin D deficiency Surgical History H/O lymph node biopsy H/O Mohs micrographic surgery for skin cancer History of ankle surgery History of arthroscopy B/L KNEE History of cataract surgery B/L History of colonoscopy History of esophagogastroduodenoscopy History of laryngoscopy DIRECT LARYNGOSCOPY/BIOPSY= 05/15/18 AT [facility] History of lithotripsy History of lobectomy of lung RT LOBE History of tooth extraction Family History Brother Cancer Mother Dementia Hypertension Other No family history of adverse response to anesthesia No family history of bleeding disorder Denies family history of Ovarian cancer Prostate cancer Diabetes Myocardial infarction Breast cancer Colorectal cancer Stroke Social History Smoking Status: Former smoker Tobacco Type: Cigarettes and Smokeless Tobacco (Dip or Chew) Age Started Using Tobacco: 17; Age Quit Using Tobacco: 78; packs per day: 0.5; Years Smoked: 50; Cigarettes Per Day: QUIT "MANY" YEARS AGO; Second Hand Exposure: No; Do You Dip or Chew Tobacco: Yes; Hx Alcohol Use: No Hx Substance Use: No Preferred Language: Swiss Communication Ability: Impaired Visual Impairment: Limited Hearing Ability: Normal 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 Required: No Beliefs That Will Affect Care: None marital status: Current Living Situation: Spouse current occupational status: retired How many Children do You have: 2 Feels Safe at Home: No Is there a partner from a previous relationship who is making you feel unsafe now?: No Safety Concerns: Feels Safe At This Time Childhood Exposure to Second-Hand Smoke: Yes (stepdad did ) caffeine: Yes (coffee) Dental Care, Regularly: Yes Physical Activity Frequency: Does not Exercise Seatbelt Use: always Sunscreen Use: No Assistive Devices: None Allergies Allergies Allergy/AdvReac Type Severity Reaction Status Date / Time lisinopril Allergy Mild itching Verified 07/24/21 12:02 metoprolol Allergy Mild itching Verified 07/24/21 12:02 losartan AdvReac Mild RASH Verified 07/24/21 12:02 Home Meds Home Medications Medication Instructions Recorded Confirmed cholecalciferol (vitamin D3) 10 400 unit PO DAILY 06/06/19 08/02/21 mcg (400 unit) capsule (Vitamin D3) vfpvzobk-[id number]-[id number] acid 0.4 1 tab PO DAILY 06/06/19 08/02/21 mg-lycopene 300 mcg-lutein 250 mcg tablet (Centrum Silver) allopurinol 100 mg tablet 200 mg PO DAILY 02/06/20 08/02/21 loratadine 10 mg tablet (Claritin) 10 mg PO DAILY PRN 02/06/20 08/02/21 acalabrutinib 100 mg capsule 100 mg PO Q12H 02/18/21 08/02/21 ondansetron HCl 8 mg tablet 8 mg PO Q8H PRN 02/18/21 08/02/21 prochlorperazine maleate 10 mg 10 mg PO Q6H PRN 02/18/21 08/02/21 tablet (Compazine) cabergoline 0.5 mg tablet 0.25 mg PO 2XWK 07/24/21 08/02/21 mupirocin 2 % topical ointment 1 applic TOPICAL BID 07/24/21 08/02/21 ropinirole 2 mg tablet 2 mg PO HS 07/24/21 08/02/21 timolol maleate 0.25 % eye drops 1 drp OPB UD 07/24/21 08/02/21 Previous Rx's Medication Instructions Recorded albuterol sulfate 90 mcg/actuation 2 puff INHALATION Q4H PRN #18 g 06/15/20 aerosol inhaler (Ventolin HFA) fluticasone 250 mcg-salmeterol 50 1 inh INHALATION BID PRN #60 ea 07/22/20 mcg/dose blistr powdr for inhalation (Advair Diskus) testosterone 20.25 mg/1.25 gram 2 pump TOPICAL DAILY #225 gm 05/05/21 (1.62 %) transdermal gel pump (AndroGel) levothyroxine 112 mcg tablet 112 mcg PO QAM #30 tab 06/01/21 gabapentin 100 mg capsule 200 mg PO HS #60 cap 07/09/21 Oxygen Home #1 ea 07/23/21 Results & Data (ED) Vital Signs Vital Signs - 24 hr 08/02/21 08:09 08/02/21 09:22 08/02/21 11:19 Pulse Rate 100 H Pulse Rate [Apical] Pulse Rate [Right Finger] 95 H 101 H Pulse Rhythm [Apical] Respiratory Rate 18 18 18 Respiratory Effort / Characteristics Respiratory Depth Respiratory Pattern Blood Pressure [Right Arm] 97/62 L 103/59 L Blood Pressure Mean [Right Arm] 73 73 Blood Pressure Position [Right Arm] Pulse Oximetry 95 99 95 Oxygen Delivery Method Nasal Cannula Nasal Cannula Oxygen Flow Rate 2 2 08/02/21 12:40 Pulse Rate Pulse Rate [Apical] 103 H Pulse Rate [Right Finger] Pulse Rhythm [Apical] Regular Respiratory Rate 17 Respiratory Effort / Characteristics Non-Labored Spontaneous Respiratory Depth Normal Respiratory Pattern Regular Blood Pressure [Right Arm] 120/43 L Blood Pressure Mean [Right Arm] 68 Blood Pressure Position [Right Arm] Lying Pulse Oximetry 99 Oxygen Delivery Method Nasal Cannula Oxygen Flow Rate 3 Home Medications Current Medication List: was personally reviewed by me Laboratory Data Attestation: I reviewed the patient's lab results. Result diagrams: 08/04/21 05:40 08/04/21 05:40 Lab Results 08/02/21 08/02/21 08/02/21 Range/Units 06:00 06:08 06:08 WBC 3.88 L (4.8-10.8) K/uL RBC 3.39 L (4.7-6.1) M/uL Hgb 10.5 L (14.0-18.0) g/dL Hct 34.0 L (42-52) % MCV 100.3 H (80-100) fL MCH 31.0 (25-34) pg MCHC 30.9 L (32-36) g/dL RDW Std Deviation 55.1 H (36.4-46.3) fL RDW Coeff of Sveta 15.0 H (11.5-14.5) % Plt Count 50 L (130-400) K/uL MPV 11.5 H (7.4-10.4) fL Neutrophils % (Manual) 40.0 % Lymphocytes % (Manual) 25.2 % Monocytes % (Manual) 2.6 % Basophils % (Manual) 0.9 % Myelocytes % (Man) 0.9 % Neutrophils # (Manual) 1.55 (1.4-6.5) K/uL Total Absolute Neuts 1.55 (1.4-6.5) K/uL Lymphocytes # (Manual) 0.98 L (1.2-3.4) K/uL Total Abs Lymphocytes 2.16 (1.2-3.4) K/uL Monocytes # (Manual) 0.10 L (0.11-0.59) K/uL Basophils # (Manual) 0.03 (0-0.2) K/uL Myelocytes # (Manual) 0.03 H (0-0) K/uL Large Granular Lymphs 30.4 % # Lrg Granular Lymphs 1.18 K/uL PT (9.0-12.0) Seconds INR (0.9-1.1) APTT (21.0-31.0) Seconds PTT Ratio VBG pH (7.36-7.41) VBG pCO2 (38-50) mmHg VBG pO2 mmHg VBG HCO3 mmol/L VBG O2 Saturation % VBG Base Excess mEq/L Barometric Pressure mm/Hg Sodium 137 (136-145) mmol/L Potassium 3.9 (3.5-5.1) mmol/L Chloride 103 (98-107) mmol/L Carbon Dioxide 27 (21-32) mmol/L Anion Gap 7.0 (3-11) BUN 14 (7-18) mg/dl Creatinine 1.43 H (0.6-1.4) mg/dl Est Cr Clr Drug Dosing Not Reportable Est GFR ( Amer) 53.2 ml/min Est GFR (Non-Af Amer) 45.9 ml/min BUN/Creatinine Ratio 9.5 L (10-20) Glucose 106 H (70-99) mg/dl Lactate (0.4-2.0) mmol/L Calcium 8.9 (8.5-10.1) mg/dl Total Bilirubin 2.2 H (0.2-1) mg/dl AST 32 (15-37) U/L ALT 15 (12-78) Alkaline Phosphatase 163 H (45-117) U/L Troponin I < 0.015 (0-0.045) ng/ml NT-Pro-B Natriuret Pep 1639 (0-1800) pg/ml Total Protein 5.6 L (6.4-8.2) gm/dl Albumin 2.8 L (3.4-5.0) gm/dl Globulin 2.8 (2.5-4.0) gm/dl Albumin/Globulin Ratio 1.0 (0.9-2) Procalcitonin 0.52 H (0-0.5) ng/ml Nasal Screen MRSA (PCR) (Negative) SARS-CoV-2 (PCR) (Negative) Influenza Type A (PCR) (Neg) Influenza Type B (PCR) (Neg) RSV (RT-PCR) (Neg) 08/02/21 08/02/21 08/02/21 Range/Units 06:08 06:41 08:50 WBC (4.8-10.8) K/uL RBC (4.7-6.1) M/uL Hgb (14.0-18.0) g/dL Hct (42-52) % MCV (80-100) fL MCH (25-34) pg MCHC (32-36) g/dL RDW Std Deviation (36.4-46.3) fL RDW Coeff of Sveta (11.5-14.5) % Plt Count (130-400) K/uL MPV (7.4-10.4) fL Neutrophils % (Manual) % Lymphocytes % (Manual) % Monocytes % (Manual) % Basophils % (Manual) % Myelocytes % (Man) % Neutrophils # (Manual) (1.4-6.5) K/uL Total Absolute Neuts (1.4-6.5) K/uL Lymphocytes # (Manual) (1.2-3.4) K/uL Total Abs Lymphocytes (1.2-3.4) K/uL Monocytes # (Manual) (0.11-0.59) K/uL Basophils # (Manual) (0-0.2) K/uL Myelocytes # (Manual) (0-0) K/uL Large Granular Lymphs % # Lrg Granular Lymphs K/uL PT 11.9 (9.0-12.0) Seconds INR 1.2 H (0.9-1.1) APTT 34.7 H (21.0-31.0) Seconds PTT Ratio 1.3 VBG pH 7.39 (7.36-7.41) VBG pCO2 48 (38-50) mmHg VBG pO2 23 mmHg VBG HCO3 28 mmol/L VBG O2 Saturation < 60.0 % VBG Base Excess 2.6 mEq/L Barometric Pressure 726.9 mm/Hg Sodium (136-145) mmol/L Potassium (3.5-5.1) mmol/L Chloride (98-107) mmol/L Carbon Dioxide (21-32) mmol/L Anion Gap (3-11) BUN (7-18) mg/dl Creatinine (0.6-1.4) mg/dl Est Cr Clr Drug Dosing Est GFR ( Amer) ml/min Est GFR (Non-Af Amer) ml/min BUN/Creatinine Ratio (10-20) Glucose (70-99) mg/dl Lactate 3.6 H* (0.4-2.0) mmol/L Calcium (8.5-10.1) mg/dl Total Bilirubin (0.2-1) mg/dl AST (15-37) U/L ALT (12-78) Alkaline Phosphatase (45-117) U/L Troponin I (0-0.045) ng/ml NT-Pro-B Natriuret Pep (0-1800) pg/ml Total Protein (6.4-8.2) gm/dl Albumin (3.4-5.0) gm/dl Globulin (2.5-4.0) gm/dl Albumin/Globulin Ratio (0.9-2) Procalcitonin (0-0.5) ng/ml Nasal Screen MRSA (PCR) (Negative) SARS-CoV-2 (PCR) (Negative) Influenza Type A (PCR) (Neg) Influenza Type B (PCR) (Neg) RSV (RT-PCR) (Neg) 08/02/21 08/02/21 08/02/21 Range/Units 09:15 10:55 12:30 WBC (4.8-10.8) K/uL RBC (4.7-6.1) M/uL Hgb (14.0-18.0) g/dL Hct (42-52) % MCV (80-100) fL MCH (25-34) pg MCHC (32-36) g/dL RDW Std Deviation (36.4-46.3) fL RDW Coeff of Sveta (11.5-14.5) % Plt Count (130-400) K/uL MPV (7.4-10.4) fL Neutrophils % (Manual) % Lymphocytes % (Manual) % Monocytes % (Manual) % Basophils % (Manual) % Myelocytes % (Man) % Neutrophils # (Manual) (1.4-6.5) K/uL Total Absolute Neuts (1.4-6.5) K/uL Lymphocytes # (Manual) (1.2-3.4) K/uL Total Abs Lymphocytes (1.2-3.4) K/uL Monocytes # (Manual) (0.11-0.59) K/uL Basophils # (Manual) (0-0.2) K/uL Myelocytes # (Manual) (0-0) K/uL Large Granular Lymphs % # Lrg Granular Lymphs K/uL PT (9.0-12.0) Seconds INR (0.9-1.1) APTT (21.0-31.0) Seconds PTT Ratio VBG pH (7.36-7.41) VBG pCO2 (38-50) mmHg VBG pO2 mmHg VBG HCO3 mmol/L VBG O2 Saturation % VBG Base Excess mEq/L Barometric Pressure mm/Hg Sodium (136-145) mmol/L Potassium (3.5-5.1) mmol/L Chloride (98-107) mmol/L Carbon Dioxide (21-32) mmol/L Anion Gap (3-11) BUN (7-18) mg/dl Creatinine (0.6-1.4) mg/dl Est Cr Clr Drug Dosing Est GFR ( Amer) ml/min Est GFR (Non-Af Amer) ml/min BUN/Creatinine Ratio (10-20) Glucose (70-99) mg/dl Lactate 3.5 H* (0.4-2.0) mmol/L Calcium (8.5-10.1) mg/dl Total Bilirubin (0.2-1) mg/dl AST (15-37) U/L ALT (12-78) Alkaline Phosphatase (45-117) U/L Troponin I (0-0.045) ng/ml NT-Pro-B Natriuret Pep (0-1800) pg/ml Total Protein (6.4-8.2) gm/dl Albumin (3.4-5.0) gm/dl Globulin (2.5-4.0) gm/dl Albumin/Globulin Ratio (0.9-2) Procalcitonin (0-0.5) ng/ml Nasal Screen MRSA (PCR) Negative (Negative) SARS-CoV-2 (PCR) NEGATIVE (Negative) Influenza Type A (PCR) Negative (Neg) Influenza Type B (PCR) Negative (Neg) RSV (RT-PCR) Negative (Neg) Administered Medications Acetaminophen (Acetaminophen 325 Mg Tab) 650 mg PO Q4H PRN PRN Reason: Pain or Fever Stop: 09/01/21 16:06 Last Admin: 08/03/21 21:20 Dose: 650 mg Documented by: [id number] Admin: 08/02/21 18:26 Dose: 650 mg Documented by: [id number] Heparin Sodium (Porcine) (Heparin 100 Unit/Ml 5ml Flush) 5 ml FLUSH PRN PRN PRN Reason: Flush Stop: 09/02/21 02:10 Last Admin: 08/05/21 13:49 Dose: 5 ml Documented by: [id number] Admin: 08/05/21 10:21 Dose: 5 ml Documented by: [id number] Admin: 08/05/21 00:10 Dose: 5 ml Documented by: [id number] Lorazepam (Ativan) 0.5 mg in 1 mls @ 1 mls/min IV Q4H PRN PRN Reason: anxiety Stop: 09/03/21 12:05 Last Admin: 08/04/21 20:32 Dose: 1 mls/min Documented by: [id number] Miscellaneous (Cabergoline 0.5 Mg Tablet - Order Awaiting Action) 1 ea N/A QS BOBO Stop: 09/02/21 00:00 Last Admin: 08/05/21 09:30 Dose: Not Given Documented by: [id number] Admin: 08/05/21 01:50 Dose: Not Given Documented by: [id number] Admin: 08/04/21 17:39 Dose: Not Given Documented by: [id number] Admin: 08/04/21 10:11 Dose: Not Given Documented by: [id number] Admin: 08/04/21 00:30 Dose: Not Given Documented by: [id number] Admin: 08/03/21 14:09 Dose: Not Given Documented by: [id number] Admin: 08/03/21 08:57 Dose: Not Given Documented by: [id number] Admin: 08/02/21 22:25 Dose: Not Given Documented by: [id number] Miscellaneous (Testosterone [Androgel] 20.25 Mg/1.25 Gram (1.62 %) Gel In Meter - Order Awaiting Action) 1 ea N/A QS BOBO Stop: 09/02/21 00:00 Last Admin: 08/05/21 09:31 Dose: Not Given Documented by: [id number] Admin: 08/05/21 01:50 Dose: Not Given Documented by: [id number] Admin: 08/04/21 17:39 Dose: Not Given Documented by: [id number] Admin: 08/04/21 10:11 Dose: Not Given Documented by: [id number] Admin: 08/03/21 23:38 Dose: Not Given Documented by: [id number] Admin: 08/03/21 14:09 Dose: Not Given Documented by: [id number] Admin: 08/03/21 08:58 Dose: Not Given Documented by: [id number] Admin: 08/02/21 22:25 Dose: Not Given Documented by: [id number] Morphine Sulfate (Morphine Sulfate 2 Mg/Ml Carp) 2 mg IV Q2H PRN PRN Reason: Pain or air hunger Stop: 08/18/21 12:05 Last Admin: 08/05/21 13:49 Dose: 2 mg Documented by: [id number] Admin: 08/05/21 10:21 Dose: 2 mg Documented by: [id number] Admin: 08/05/21 06:18 Dose: 2 mg Documented by: [id number] Admin: 08/05/21 00:09 Dose: 2 mg Documented by: [id number] Timolol Maleate (Timolol Gfs 0.5% Oph Soln 74 Drops/5 Ml Btl) 1 drops OPB BID BOBO Stop: 09/01/21 20:59 Last Admin: 08/04/21 20:35 Dose: Not Given Documented by: [id number] Admin: 08/04/21 10:24 Dose: 1 drops Documented by: [id number] Admin: 08/03/21 21:20 Dose: 1 drops Documented by: [id number] Admin: 08/03/21 09:00 Dose: 1 drops Documented by: [id number] Admin: 08/02/21 21:58 Dose: 1 drops Documented by: [id number] Discontinued Medications Acetaminophen (Acetaminophen 325 Mg Tab) Confirm Administered Dose 650 mg .ROUTE .STK-MED ONE Stop: 08/02/21 14:03 Last Admin: 08/02/21 14:05 Dose: 650 mg Documented by: [id number] Allopurinol (Allopurinol 100 Mg Tab) 200 mg PO DAILY [facility] Stop: 09/02/21 08:59 Last Admin: 08/04/21 10:23 Dose: Not Given Documented by: [id number] Admin: 08/03/21 08:59 Dose: 200 mg Documented by: [id number] Gabapentin (Gabapentin 100 Mg Cap) 200 mg PO HS [facility] Stop: 09/01/21 20:59 Last Admin: 08/03/21 21:20 Dose: 200 mg Documented by: [id number] Admin: 08/02/21 21:58 Dose: 200 mg Documented by: [id number] Piperacillin Sod/Tazobactam Sod (Zosyn) 4.5 gm in 120 mls @ 240 mls/hr IV NOW ONE Stop: 08/02/21 08:38 Last Infusion: 08/02/21 11:01 Dose: 0 mls/hr Documented by: [id number] Admin: 08/02/21 09:10 Dose: 240 mls/hr Documented by: [id number] Sodium Chloride (Nss 1000ml) 1,000 mls @ 125 mls/hr IV .Q8H [facility] Stop: 08/02/21 16:14 Last Infusion: 08/03/21 00:10 Dose: 0 mls/hr Documented by: [id number] Admin: 08/02/21 16:02 Dose: 125 mls/hr Documented by: [id number] Vancomycin HCl 1,750 mg/ (Sodium Chloride) 535 mls @ 200 mls/hr IV NOW ONE Stop: 08/02/21 12:02 Last Infusion: 08/02/21 16:34 Dose: 0 mls/hr Documented by: [id number] Admin: 08/02/21 12:21 Dose: 200 mls/hr Documented by: [id number] Sodium Chloride (Nss 1000ml) 1,000 mls @ 999 mls/hr IV .Q1H1M ONE Stop: 08/02/21 10:33 Last Infusion: 08/02/21 13:25 Dose: 0 mls/hr Documented by: [id number] Admin: 08/02/21 09:09 Dose: 999 mls/hr Documented by: [id number] Piperacillin Sod/Tazobactam (Sod 3.375 gm/ Dextrose) 115 mls @ 230 mls/hr IV NOW ONE; Protocol Stop: 08/02/21 17:29 Last Infusion: 08/02/21 19:29 Dose: 0 mls/hr Documented by: [id number] Admin: 08/02/21 18:12 Dose: 230 mls/hr Documented by: [id number] Piperacillin Sod/Tazobactam (Sod 3.375 gm/ Dextrose) 115 mls @ 28.75 mls/hr IV Q8H BOBO; Protocol Stop: 08/10/21 00:00 Last Infusion: 08/04/21 12:19 Dose: 0 mls/hr Documented by: [id number] Admin: 08/04/21 10:23 Dose: 28.8 mls/hr Documented by: [id number] Infusion: 08/04/21 04:00 Dose: 0 mls/hr Documented by: [id number] Admin: 08/03/21 23:55 Dose: 28.8 mls/hr Documented by: [id number] Infusion: 08/03/21 21:40 Dose: 0 mls/hr Documented by: [id number] Admin: 08/03/21 17:30 Dose: 28.8 mls/hr Documented by: [id number] Infusion: 08/03/21 14:57 Dose: 0 mls/hr Documented by: [id number] Admin: 08/03/21 13:15 Dose: 28.8 mls/hr Documented by: [id number] Infusion: 08/03/21 04:11 Dose: 0 mls/hr Documented by: [id number] Admin: 08/02/21 23:59 Dose: 28.8 mls/hr Documented by: [id number] Sodium Chloride (Nss) 500 mls @ 125 mls/hr IV .Q4H BOBO Stop: 08/04/21 03:14 Last Infusion: 08/04/21 04:18 Dose: 0 mls/hr Documented by: [id number] Admin: 08/03/21 23:55 Dose: 125 mls/hr Documented by: [id number] Levothyroxine Sodium (Levothyroxine Sodium 112 Mcg Tablet) 112 mcg PO DAILYBB [facility] Stop: 09/02/21 06:29 Last Admin: 08/04/21 06:10 Dose: 112 mcg Documented by: [id number] Admin: 08/03/21 06:01 Dose: 112 mcg Documented by: [id number] Lidocaine HCl (Lidocaine 1% Local 20 Ml Vial) Confirm Administered Dose 20 ml .ROUTE .STK-MED ONE Stop: 08/03/21 10:35 Last Admin: 08/03/21 10:36 Dose: 20 ml Documented by: [id number] Multivitamins/Minerals (Cerovite Adv Formula Tab) 1 tab PO DAILY BOBO Stop: 09/02/21 08:59 Last Admin: 08/04/21 10:24 Dose: Not Given Documented by: [id number] Admin: 08/03/21 09:00 Dose: 1 tab Documented by: [id number] Ondansetron HCl (Ondansetron Inj 2 Mg/Ml 2 Ml Vial) 4 mg IV NOW STA Stop: 08/02/21 08:10 Last Admin: 08/02/21 08:25 Dose: 4 mg Documented by: [id number] Ropinirole HCl (Ropinirole Hcl 2 Mg Tablet) 2 mg PO HS BOBO Stop: 09/01/21 20:59 Last Admin: 08/03/21 21:20 Dose: 2 mg Documented by: [id number] Admin: 08/02/21 21:59 Dose: 2 mg Documented by: [id number] Vitamin D (Cholecalciferol 400 Units 10 Mcg Tab) 400 units PO DAILY BOBO Stop: 09/02/21 08:59 Last Admin: 08/04/21 10:24 Dose: Not Given Documented by: [id number] Admin: 08/03/21 08:59 Dose: 400 units Documented by: [id number] Imaging Data Radiologist's Impression: Chest X-Ray 08/02/21 05:34 XR chest 1V portable CLINICAL HISTORY: Dyspnea. COMPARISON STUDY: 07/24/2021 TECHNIQUE: 1 view of the chest FINDINGS: Single frontal view of the chest demonstrates the cardiomediastinal silhouette to be within normal limits. Compared to the previous examination, there is again evidence for large right pleural effusion and right lung atelectasis with only minimal aeration remaining present. Left hemithorax remains clear. There is no change in right jugular catheter. There is no left pleural effusion. There is no evidence for vascular congestion. There is no acute osseous pathology. IMPRESSION: Compared to the previous examination, large right pleural effusion with near complete atelectasis the right lung is again seen. Left hemithorax remains clear. ACT 112: Negative or not required by law. Electronically signed by: Ru Yap M.D. 08/02/2021 6:[address] 08/02/21 10:49 CT chest diagnostic wo con CLINICAL HISTORY: pleural effusion, needed prior to pleurX placement TECHNIQUE: Multidetector row helical CT of the chest was performed. Coronal and sagittal reformations were obtained. Automated dose lowering techniques and/or adjustment according to patient size were utilized for this exam. Comparison: None available at the time of this dictation. FINDINGS: Lungs and pleura: There is a large right pleural effusion with mild pleural thickening and associated atelectasis. Postsurgical changes are seen in the right lung. Heart and pericardium: Heart size is normal. No pericardial effusion. Vessels: The pulmonary trunk measures 35 mm in diameter. Mediastinum and perla: Multiple enlarged mediastinal lymph nodes are seen measuring up to 14 mm in diameter. Addition, there is a partially calcified s ubcarinal mass measuring 48 x 27 mm. Chest wall and lower neck: Numerous enlarged lymph nodes are seen most prominent in the right axilla measuring up to 26 mm, as well as in the bilateral supraclavicular chains measuring up to 13 mm on the left and 15 mm right. Left axillary lymph nodes measure up to 13 mm in diameter. Abdomen: Subcentimeter retroperitoneal and para-aortic nodes are seen. Bones: Unremarkable. IMPRESSION: 1. Larger pleural effusion with associated atelectasis. 2. Diffusely enlarged lymph nodes, most prominent in the right axilla. 3. Additional findings as above. ACT 112: Negative or not required by law. Electronically signed by: Addi Javier M.D. 08/02/2021 12:14 PM Gallbladder Ultrasound 08/02/21 11:18 US gallbladder Limited abdomen CLINICAL HISTORY: RUQ pain, assess for cholecystitis, CBD dilatation. COMPARISON: 06/07/2019 TECHNIQUE: Multiple grayscale and color images of the right upper quadrant of the abdomen. FINDINGS: This is a limited examination due to overlying bowel gas. Pancreas: The entire pancreas is not well seen. There is a hypoechoic density present in the region of the nuria hepatis measuring approximately 3.8 x 3.3 x 3.3 cm. This is not well-defined by ultrasound and follow-up CT is recommended. Liver: The liver is homogeneous in echogenicity There is no evidence for a focal mass. There is no intrahepatic biliary duct dilatation. Gallbladder: There is again evidence for cholelithiasis with no evidence for wall thickening or pericholecystic edema. There was reportedly a negative sonographic Tompkins's sign. Common Bile Duct: (CBD): It is normal in size measuring 6 mm. Inferior Vena Cava (IVC): The imaged IVC is patent. Right kidney: There is no evidence for hydronephrosis, calculus or gross renal mass. The kidney is normal in size. IMPRESSION: 1. Examination of the pancreas due to overlying bowel gas. However, there is a hypoechoic density in the nuria hepatis adjacent to the head of the pancreas. This is of uncertain etiology and follow-up CT of the abdomen with contrast is recommended. 2. There is again evidence for cholelithiasis with no ultrasound evidence for acute cholecystitis. ACT 112: Positive. There are findings on this exam that require communication between the performing entity and the patient following Patient Test Result Information Act ([place] Act 112) guidelines. Electronically signed by: Ru Yap M.D. 08/02/2021 12:13 PM Blood Pressure Blood Pressure Findings: Low blood pressure Blood Pressure Disposition: further management by hospitalist Discharge Plan Visit Data Chief Complaint: Shortness of Breath/Dyspnea Stated Complaint: SHORTNESS OF BREATH ED Provider: Joana William Discharge Problem: Pleural effusion, right, Diffuse large B-cell lymphoma Patient Disposition: Admitted As Inpatient Discharge Instructions Interventions: ED Discharge Assessment Last Done: 08/02/21 18:25 Discharge Problem: Diffuse large B-cell lymphoma Qualifiers: Lymphoma site: unspecified region Qualified Code(s): C83.30 - Diffuse large B- cell lymphoma, unspecified site
[2021-08-03 08:18] LABS: Hematocrit (blood only) 28.7 % (42-52); Hemoglobin 8.9 g/dL (14.0-18.0); Mean Corpuscular Hemoglobin 30.8 pg (25-34); Mean Corpuscular Volume 99.3 fL (80-100); RDW Standard Deviation 54.3 fL (36.4-46.3); Red Blood Count 2.89 M/uL (4.7-6.1); White Blood Count 2.29 K/uL (4.8-10.8)
[2021-08-03 08:39] LABS: Mean Platelet Volume 10.5 fL (7.4-10.4); Platelet Count 47 K/uL (130-400)
[2021-08-03 08:42] LABS: Immature Granulocytes # (auto) 0.18 K/uL (0.00-0.02); Immature Granulocytes % (auto) 7.9 %; Lymphocytes # (auto) 0.67 K/uL (1.2-3.4); Lymphocytes % (auto) 29.3 %; Monocytes # (auto) 0.05 K/uL (0.11-0.59); Monocytes % (auto) 2.2 %; Neutrophils # (auto) 1.39 K/uL (1.4-6.5); Neutrophils % (auto) 60.6 %
[2021-08-03 08:48] LABS: Albumin Level 2.2 gm/dl (3.4-5.0); BUN Creatinine Ratio 12.3 (10-20); Calcium 7.8 mg/dl (8.5-10.1); Creatinine Clr Calc Pharmacy 50.6 ml/min; Est GFR (African American) 56.1 ml/min; Est GFR (Non-African American) 48.4 ml/min; Potassium 3.6 mmol/L (3.5-5.1)
[2021-08-03 08:50] LABS: Albumin Globulin Ratio 0.8 (0.9-2); Bilirubin,Total 2.1 mg/dl (0.2-1); Globulin 2.6 gm/dl (2.5-4.0); Total Protein 4.8 gm/dl (6.4-8.2)
[2021-08-03] MEDS: allopurinoL 100 MG TAB PO SCH (08:59)
[2021-08-03] MEDS: CHOLECALCIFEROL 400 UNITS 10 MCG TAB PO SCH (08:59)
[2021-08-03] MEDS ORDERED: VANCOMYCIN HCL 1,250 MG in SODIUM CHLORIDE 0.9% 250 ML IV SCH (09:00)
[2021-08-03] MEDS: TIMOLOL GFS 0.5% OPH SOLN 74 DROPS/5 ML BTL OPB SCH ×2 (09:00→21:20)
[2021-08-03] MEDS: CEROVITE ADV FORMULA TAB PO SCH (09:00)
[2021-08-03] MEDS ORDERED: SODIUM CHLORIDE 0.9% 250 ML IV PRN (09:36)
[2021-08-03] MEDS ORDERED: LIDOCAINE 1% LOCAL 20 ML VIAL ONE (10:34)
--- NOTE | 2021-08-03 11:27 | Procedure Note ---
Procedure Note Date of Service August 03, 2021 Note Procedure: Ultrasound guided right Pleurx catheter placement. Indication: Recurrent hemothorax, likely related to malignancy Consent: Signed by patient and verified with timeout prior to procedure. Anesthesia: 20 mL's 1% lidocaine without epinephrine locally. Sedation: None Estimated blood loss: 10 mL School Clerk: Dr. Dominick Logan Procedure: The patient was identified. Standard monitoring was applied. Appropriate radiographic films had been reviewed prior to commencement of the procedure. Risks and benefits were again discussed with patient consent was verified. The patient was placed in the right side up lateral decubitus position. Limited thoracic ultrasound was performed which revealed a complicated pleural effusion with multiple septations and positive atelectatic lung with positive lung flap Site appropriate for the pleurotomy was marked. Skin was prepped and draped in normal sterile fashion. Using 1% lidocaine, the skin and soft tissues down to the pleura were anesthetized. A tract extending approximately 8 to 10 cm anteriorly from the pleurotomy site was also infiltrated and a site appropriate for the exit of the Pleurx catheter was marked. A 1 cm skin larry was made at the posterior site. The catheter over the needle apparatus was advanced into the pleural space with bloody pleural fluid easily aspirated. A wire was passed through the catheter after the needle was removed. The Pleurx catheter was then loaded on the tunneling device. A 1cm skin incision was made at the anterior catheter exit site. The tunneling device with the attached Pleurx catheter were passed from the anterior incision back to the posterior incision until the cuff of the Pleurx catheter resided within the subcutaneous tissues. The catheter was palpated along its course and no kinking was identified. Serial dilatation of the pleurotomy tract was then performed over the wire with the pull-away catheter being left in place. The Pleurx was removed from the tunneling mechanism and advanced through the peel-away catheter. The catheter sheath was then peeled back as the Pleurx catheter was advanced into the pleural space. The Pleurx catheter course was palpated and no kinks were felt. It was attached to wall suction with return of dark bloody fluid. Using 1-0 silk, 2 stitches were placed at the exit Pleurx site and the catheter secured in place. 3 small silk sutures were used to close the posterior incision. A sterile dressing was applied. The catheter was left to drain slowly and will stop drainage once the patient develops pain or if a liter of fluid is drained. We will plan on draining on a daily basis The patient tolerated the procedure well without obvious complication. Post procedure x-ray is pending. Coding CPT Codes Pulmonary/Thoracic - Pulmonary and Thoracic: 52560 Insert pleural cathereter w/cuff ([id number]) Pulmonary/Thoracic - Pulmonary and Thoracic: 85450 US, Chest, real time with imaging documentation ([id number]) [facility] [place] Procedure Codes (Charges) Pulmonary/Thoracic Procedure 1: Pulmonary and Thoracic: 83009 Insert pleural cathereter w/cuff Procedure 2: Pulmonary and Thoracic: 90993 US, Chest, real time with imaging documentation
--- NOTE | 2021-08-03 11:55 | XRay Report ---
XR chest 1V portable CLINICAL HISTORY: S/P Thoracentesis. COMPARISON STUDY: 08/02/2021 TECHNIQUE: 1 view of the chest FINDINGS: Single frontal view of the chest demonstrates the cardiomediastinal silhouette to be within normal li mits. Right jugular catheter is again seen. Compared to previous examination, there is evidence for i nterval right thoracentesis with decrease in right pleural effusion. There is still significant right pleural effusion with right middle lobe and right lower lobe atelectasis/collapse. There is no evide nce for pneumothorax. There is no evidence for left pleural effusion. There is no evidence for vascul ar congestion. There is no acute osseous pathology. IMPRESSION: Status post right thoracentesis with residual right pleural effusion and right middle lob e atelectasis/collapse. No evidence for pneumothorax. ACT 112: Negative or not required by law. Electronically signed by: Ru Yap M.D. 08/03/2021 11:54 AM
--- NOTE | 2021-08-03 12:34 | Pulmonology Progress Note ---
Date of Service August 03, 2021 Assessment & Plan (1) Recurrent right pleural effusion: (2) Acute respiratory failure with hypoxia: (3) Prolactin secreting pituitary adenoma: (4) COPD (chronic obstructive pulmonary disease): COPD type: unspecified COPD Qualified Code(s): J44.9 - Chronic obstructive pulmonary disease, unspecified (5) Diffuse large B-cell lymphoma: Lymphoma site: unspecified region Qualified Code(s): C83.30 - Diffuse large B-cell lymphoma, unspecified site (6) Adenocarcinoma of lung: Plan: Attending: Dr. Logan Impression: 80-year-old male with a history of adenocarcinoma of the lung, prolactin secreting pituitary adenoma, non-Hodgkin's B-cell lymphoma, thrombocytopenia, hypothyroidism, chronic anemia, chemotherapy, COPD, RLS, depression with anxiety, chronic low back pain, BPH. Patient presents to the emergency department with shortness of breath. He has complete opacification of the right lung secondary to layering pleural effusion. Was evaluated [facility] for VATS procedure and was told that he was too ill. He was sent home at that time. Right-sided Pleurx catheter placed 08/03/[address] Logan. Post procedure chest x-ray shows no pneumothorax. Paperwork submitted to case management for supplies on discharge. Patient received 1 unit of platelets last night secondary to platelet count of 37,000. Transfuse a second unit of platelets during the procedure this morning. Recommendations: 1. Recurrent right pleural effusion: * Palliative Pleurx catheter placed by Dr. Logan 08/03/2021 * Palliative care consulted and case discussed at length with the [facility]. Official consult canceled as cause of already been made to arrange discharge with palliative care/hospice care * Most likely reactive to chemotherapy/non-Hodgkin's lymphoma. Appears to be layered and most likely has some component of hemothorax * Previous thoracentesis with no malignant cells. * Telephone consent with patient's on the telephone as delegated by Dr. Logan * Would drain pleural daily with a limitation of 1 liter. If less than 100 ml of pleural fluid, can drain every other day. 2. COPD: * Home medications include albuterol HFA inhaler, Advair * Supplemental oxygen to maintain SaO2 between 88 and 92% * No PFTs available for review * Focus care on palliation * No outpatient follow-up as needed in the pulmonary office 3. Thrombocytopenia: * Patient undergoing palliative chemo therapy for B-cell lymphoma * Follow with Dr. George Newberry of [facility] * At this time chemotherapy has been held for least 6 weeks due to patient's acute illness. * Patient received 1 unit of platelets 08/02/2021 and another unit with procedure this morning 4. Hypoxia: * Most likely multifactorial to COPD and patient's opacification of the right lung secondary to pleural effusion * Continue supplemental oxygen for palliation as above * Hopefully the patient's hypoxia improves now that a pleural catheter has been inserted. 5. CODE STATUS: * Patient presented as a full resuscitation * Lengthy discussion with patient, , son who are all in agreement that focus should be on quality of life rather than heroic measures * CODE STATUS is level V -DNR/DNI * Continue with treatment of antibiotics and procedures for palliation * Further management per hospitalist team. Disposition: Patient's and 2 sons feel little bit better for the patient if he is placed for hospice care. This information was relayed on the case management and the hospitalist team. Thank you very much for including us in the care of this patient. The pulmonary service will sign off at this time. Please call or reconsult with additional concerns. Please refer to Dr. Logan's addendum for further recommendations. Admission and Anticipated Discharge Date Admission Date: August 02, 2021 Subjective Attending: Dr. Logan Patient seen and examined at bedside. Seems more confused this morning. Denies SOB with supplemental O2. No chest pain or tightness. No appetite. No n/v/d. Does have some incontinence of stool. General body pain that is chronic. He is unable to specify site or severity. Discussion with Vanessa on two occasions this morning. She will be in to visit at 2:00pm. Working towards placement for hospice care Review of Systems Review of Systems: All systems reviewed & are unremarkable except as noted in Subjective Physical Exam Physical Exam: GENERAL : No acute distress EYES: No icterus, gaze conjugate NOSE: No evidence of epistaxis MOUTH: No lesions or candidiasis NECK: Supple LUNGS: Decreased breath sounds on the right side. Bibasilar crackles. No bronchospasm appreciated. HEART: Regular, rate controlled ABDOMEN: Soft, NT, ND, BS Present EXTREMITIES: No LE edema, pedal pulses intact NEURO: Awake and alert. Seems somewhat confused this morning. Results & Data Results & Data ([facility]) Vital Signs (Past 12 Hours) Vital Signs Temp Pulse Pulse Resp BP BP Pulse Ox 08/03/21 10:19 36.8 C 105 H 20 96/63 L 98 08/03/21 07:35 36.3 C L 102 H 20 93/59 L 98 08/03/21 01:03 102 H Laboratory Results 08/03/21 07:30 08/03/21 07:30 INR 1.2 (0.9-1.1) H 08/02/21 06:08 Diagnostic Findings Chest X-Ray 08/03/21 11:21 XR chest 1V portable CLINICAL HISTORY: S/P Thoracentesis. COMPARISON STUDY: 08/02/2021 TECHNIQUE: 1 view of the chest FINDINGS: Single frontal view of the chest demonstrates the cardiomediastinal silhouette to be within normal limits. Right jugular catheter is again seen. Compared to previous examination, there is evidence for interval right thoracentesis with decrease in right pleural effusion. There is still significant right pleural effusion with right middle lobe and right lower lobe atelectasis/collapse. There is no evidence for pneumothorax. There is no evidence for left pleural effusion. There is no evidence for vascular congestion. There is no acute osseous pathology. IMPRESSION: Status post right thoracentesis with residual right pleural effusion and right middle lobe atelectasis/collapse. No evidence for pneumothorax. ACT 112: Negative or not required by law. Electronically signed by: Ru Yap M.D. 08/03/2021 11:54 AM PG Care Time/CCT Total # of Minutes Spent Total Time Spent with Patient: Total time spent is greater than 50% in coordination of care (as documented) at patient's floor/unit and/or counseling patient: 40 minutes including 2 discus sions with spouse of patient and time with patient independent of procedures Coding Level of Care Code 80854 Subseq Hosp Care Lvl 2 (25 - SIGNIFICANT, SEPARATELY IDENTIFIABLE ) Diagnoses Recurrent right pleural effusion J90 Acute respiratory failure with hypoxia J96.01 Prolactin secreting pituitary adenoma D35.2 COPD (chronic obstructive pulmonary disease) J44.9 COPD type: unspecified COPD Diffuse large B-cell lymphoma C83.30 Lymphoma site: unspecified region Adenocarcinoma of lung C34.90 Time Spent (min) 40
[2021-08-03] MEDS: PIPERACILLIN/TAZOBACTAM 3.375 GM in DEXTROSE 5% 100 ML IV SCH ×3 (13:15→23:55)
--- NOTE | 2021-08-03 15:21 | Communication Note ---
Date of Service: August 03, 2021 Lengthy conversation held with Suman Hernandez PA-C, ED Case management Ivone, and Ginger Regalado PA-C. Ultimately, patient is an 80 year old with adenocarcinoma of the lung and Non-Hodgkinds lymphoma. He has received palliative chemo with Dr. Newberry; however, became thrombocytopenic and is not able to receive chemotherapy for 6 weeks. His plt count was 50K and he received two doses of plts. There was a question on whether he could receive a VATS; however, no beds are available. A pleur-X catheter was placed for palliative support and the goal is to return home with hospice. The pt has concerns about her ability to care for him at home. Suggested the Russell with [facility] call her to discuss further. They are open with [facility] so this transition makes most sense from an agency standpoint. Russell was able to discuss with the and they decided to pursue hospice. Case management arranging. Please contact palliative medicine if a more official consultation is requested. Thanks for considering us.
[2021-08-03 15:48] LABS: Influenza A virus by PCR Negative (Neg); Influenza B virus by PCR Negative (Neg); RSV by PCR Negative (Neg); SARS CoV2 RNA(COVID-19) InHosp NEGATIVE (Negative)
--- NOTE | 2021-08-03 17:59 | Hospitalist Progress Note ---
Date of Service August 03, 2021 Assessment & Plan (1) Pleural effusion, right: Plan: -80-year-old white male with a past medical history of adenocarcinoma s/p RUL resection and subsequent non-Hodgkin's lymphoma (following Dr. Newberry). Hospitalized 07/24 through 07/25 for large pleural effusion s/p thoracentesis yielding hemothorax Was adamant to be discharged on 07/25. He was hemodynamically stable and discharged. Has since followed up with thoracic surgeon in [place] who deemed he was not a candidate for a VATS procedure but recommended a palliative Pleurx catheter to be placed In the interim, patient developed increasing shortness of breath and a fever of 101 prompting him to come back to the emergency department Seen by pulmonology yesterday with plan for Pleurx catheter today following platelet transfusion (presenting platelet count 36. Patient with chronic pancytopenia following chemotherapy which is now on hold) Platelet count this morning 47 and subsequently Pleurx catheter placed yielding 1000 cc of blood with allowance of daily draining with limitation of 1 L as managed by Pulm. Culture sent Likely due to thrombocytopenia and spontaneous hemorrhage especially in the setting of adenocarcinoma and B-cell lymphoma Lengthy discussion with patient and his regarding goals of care. He is aware that treatment options are limited at this point. He has designated that he does not want CPR or intubation in the event that his heart or his lungs were to stop working. He does not want any heroic measures at this point and would like to focus on quality of life. When asked what that looks like, ideally he would like to remain home with his but is aware that he requires more care than she is able to provide. He is agreeable to go to a nursing facility in hopes that his can still visit with him often and he can talk with her on the phone. He does have children that are very involved as well. He is agreeable to placement with consideration of initiation of hospice in the near future to focus on comfort (2) Sinus pause: Plan: Per monitor technician tech, patient had a 5.8-second sinus pause. Was an isolated event. Nursing staff reports patient was asymptomatic during this Patient hemodynamically stable at present time. Has a mild sinus tachycardia (104) and his blood pressure was 106/66 Patient is not on any AV node modifying agents. We will hold off on cardiology consult as patient wants no heroic measures and considering discharge with hospice (3) Chronic respiratory failure with hypoxia: Plan: Patient with underlying COPD along with adenocarcinoma of the lung s/p RUL resection Continue oxygen supplementation to maintain a pulse ox of 88 to 90% Focus is palliative medicine at this point (4) Pancytopenia due to antineoplastic chemotherapy: Plan: Chronic Presenting platelet count was 36 S/p transfusion 2 units platelets in order to pursue Pleurx catheter placement (5) Adenocarcinoma of lung: Plan: S/p RUL resection (6) Diffuse large B-cell lymphoma: Plan: Following Dr. Newberry Plan: Again, lengthy discussion with both patient and his (on 2 separate occasions) regarding goals of care. They have realistic expectations. They want no heroic measures. He is a DNR/DNI. Plan at this point is for discharge to half-way facility with then initiation of hospice services. Case management on board Admission and Anticipated Discharge Date Admission Date: August 02, 2021 Subjective Patient seen on daily rounds today. Hospitalized with a fever of 101.6 without an underlying identifying cause. Recently hospitalized 07/24 through 07/25 for a right pleural effusion. Had a thoracentesis and subsequently found to have a hemothorax. Was adamant to be discharged and subsequently recommended to follow-up with thoracic surgeon to determine if a VATS procedure was encouraged. Patient apparently followed up with a thoracic surgeon in [place] and told that he was not a candidate for VATS procedure and that a Pleurx catheter was encouraged. This was to be arranged but in the interim, he had developed increasing shortness of breath and a fever 101 prompting him to come back to the emergency department. He did have a temp of 101.66. He was pancytopenic (which is chronic) with no bands. CT of the chest showed a large right-sided pleural effusion but no obvious source of pneumonia. Covid negative. Influenza negative. Given platelets due to a platelet count of 36 with anticipation for Pleurx catheter. Follow-up platelet count 47. Did have an additional unit of platelets running during his Pleurx catheter procedure today which he tolerated well. Yielded 1000 cc of blood (stopped at that point). Seen again in the afternoon with at bedside who would like to pursue place ment with eventual consideration for hospice. She wants no heroic measures at this point. Of side note, patient had an approximate 5.8-second pause early this morning. It was a single episode. Since, he has had a mild sinus tachycardia in the low 100s. He is not on any rate reducing medications like beta-blockers or calcium channel blockers. Review of Systems Review of Systems: All systems reviewed and are unremarkable except as noted in HPI and below Denies fevers, chills, headache, nasal congestion, sore throat, cough, chest pain, palpitations, orthopnea, PND, abdominal pain, nausea, vomiting, diarrhea, constipation, dysuria, hematuria, frequency, back pain, joint pain or swelling, easy bruising or bleeding, skin lesions or rashes. Physical Exam Physical Exam: General: Resting comfortably in his hospital bed. Breathing comfortably on supplemental oxygen. Appears chronically ill but not acutely ill or toxic. NAD. HEENT: Head is AT/NC buccal mucosa is moist and pink Neck: No JVD. Negative hepatojugular reflex Cardiac: Diminished heart sounds without M/G/R Lungs: Speaking full sentences on supplemental oxygen. No accessory muscle use. Despite known pleural effusion on the right, he has breath sounds bilaterally without W/R/R Abdomen: Normoactive X4. Soft and nontender in all quadrants. Extremities: No peripheral clubbing cyanosis or edema Neuro: A&O X4 cranial nerves II through XII are grossly intact no focal neuro deficits Skin: No obvious skin lesions or rashes Psych: Appropriate affect pleasant and cooperative Results & Data Results & Data ([facility]) Vital Signs (Past 12 Hours) Vital Signs Temp Pulse Pulse Resp BP BP Pulse Ox 08/03/21 15:33 36.5 C 103 H 20 106/66 97 08/03/21 12:22 36.8 C 120 H 18 95/61 L 08/03/21 11:22 36.6 C 120 H 18 94/68 L 94 08/03/21 10:50 36.6 C 114 H 18 101/63 97 08/03/21 10:35 36.8 C 105 H 18 96/63 L 98 08/03/21 10:19 36.8 C 105 H 20 96/63 L 98 08/03/21 07:35 36.3 C L 102 H 20 93/59 L 98 08/03/21 06:50 101 H Laboratory Results 08/03/21 07:30 08/03/21 07:30 PG Care Time/CCT Total # of Minutes Spent Total Time Spent with Patient: Total time spent is greater than 50% in coordination of care (as documented) at patient's floor/unit and/or counseling patient: Coding Level of Care Code 97061 Subseq Hosp Care Lvl 3 Diagnoses Pleural effusion, right J90 Chronic respiratory failure with hypoxia J96.11 Pancytopenia due to antineoplastic chemotherapy D61.810; T45.1X5A Adenocarcinoma of lung C34.90 Diffuse large B-cell lymphoma C83.30 Lymphoma site: unspecified region Sinus pause I45.5 (1) Diffuse large B-cell lymphoma Lymphoma site: unspecified region Qualified Code(s): C83.30 - Diffuse large B-cell lymphoma, unspecified site
[2021-08-03] MEDS: GABAPENTIN 100 MG CAP PO SCH (21:20)
[2021-08-03] MEDS: ACETAMINOPHEN 325 MG TAB PO PRN (21:20)
[2021-08-03] MEDS: rOPINIRole HCL 2 MG TABLET PO SCH (21:20)
[2021-08-03] MEDS ORDERED: SODIUM CHLORIDE 0.9% 500 ML IV SCH (23:15)
[2021-08-04 05:59] LABS: Hematocrit (blood only) 29.2 % (42-52); Hemoglobin 8.9 g/dL (14.0-18.0); Mean Corpuscular Hemoglobin 30.5 pg (25-34); Mean Corpuscular Hgb Conc 30.5 g/dL (32-36); RDW Coefficient of Variation 14.8 % (11.5-14.5); RDW Standard Deviation 54.3 fL (36.4-46.3); Red Blood Count 2.92 M/uL (4.7-6.1); White Blood Count 2.03 K/uL (4.8-10.8)
[2021-08-04] MEDS: LEVOTHYROXINE SODIUM 112 MCG TABLET PO SCH (06:10)
[2021-08-04 06:31] LABS: BUN Creatinine Ratio 18.5 (10-20); Calcium 8.3 mg/dl (8.5-10.1); Est GFR (African American) 54.6 ml/min; Est GFR (Non-African American) 47.1 ml/min; Magnesium 1.9 mg/dl (1.8-2.4); Potassium 3.6 mmol/L (3.5-5.1)
[2021-08-04 06:32] LABS: Platelet Count 42 K/uL (130-400)
--- NOTE | 2021-08-04 07:09 | XRay Report ---
XR chest 1V portable at 8:54 PM CLINICAL HISTORY: tachypnea, recent pleur x placed. Follow-up right pleural effusion COMPARISON STUDY: 08/03/2021 at 11:21 AM TECHNIQUE: 1 view of the chest FINDINGS: Single frontal view of the chest demonstrates the cardiomediastinal silhouette to be within normal li mits. Reported right-sided Pleurx catheter is not well imaged by this study. There is again no eviden ce for pneumothorax. There is again evidence for residual right pleural effusion with right middle lo be and right lower lobe atelectasis. Left hemithorax remains clear. There is no evidence for left ple ural effusion. There is no evidence for vascular congestion. There is no acute osseous pathology. IMPRESSION: No change in residual right pleural effusion and right middle lobe and right lower lobe a telectasis. Right-sided Pleurx catheter is not well imaged on this study. There is no evidence for pn eumothorax. ACT 112: Negative or not required by law. Electronically signed by: Ru Yap M.D. 08/04/2021 7:08 AM
[2021-08-04 07:34] LABS: Basophils # (auto) 0.01 K/uL (0-0.2); Basophils % (auto) 0.5 %; Dohle Bodies 1+; Eosinophils # (auto) 0.02 K/uL (0-0.5); Immature Granulocytes # (auto) 0.13 K/uL (0.00-0.02); Immature Granulocytes % (auto) 6.4 %; Lymphocytes % (auto) 29.6 %; Monocytes # (auto) 0.11 K/uL (0.11-0.59); Monocytes % (auto) 5.4 %; Neutrophils # (auto) 1.16 K/uL (1.4-6.5); Neutrophils % (auto) 57.1 %
[2021-08-04] MEDS ORDERED: VANCOMYCIN TROUGH ONE (08:30)
[2021-08-04 08:47] LABS: Bilirubin Direct 0.8 mg/dl (0-0.2); Bilirubin,Total 1.5 mg/dl (0.2-1); Total Protein 4.6 gm/dl (6.4-8.2)
--- NOTE | 2021-08-04 09:16 | XRay Report ---
XR chest 1V portable HISTORY: 80 years-old Male s/p pleurx catheter status post placement of a right-sided chest tube COMPARISON: Chest radiograph 08/03/2021, chest CT 08/02/2021. TECHNIQUE: Portable AP view of the chest FINDINGS: Unchanged positioning of the right IJ [id number] catheter. A right-sided chest tube is in place wi th distal tip projected over the right lung apex. No definite pneumothorax. Mildly decreased size of the large right pleural effusion. Postoperative changes with volume loss of the right lung redemonstr ated. The left lung is generally clear. Subjacent emphysema of the right lateral chest wall. No acute fracture. IMPRESSION: 1. Right-sided chest tube in place without pneumothorax. There is slightly decreased size of the larg e right pleural effusion. 2. Mild subcutaneous emphysema of the right lateral chest wall. ACT 112: Negative or not required by law. The above report was generated using voice recognition software. It may contain grammatical, syntax o r spelling errors. Electronically signed by: Asher Stanley M.D. 08/04/2021 9:15 AM
[2021-08-04] MEDS: allopurinoL 100 MG TAB PO SCH (10:23)
[2021-08-04] MEDS: PIPERACILLIN/TAZOBACTAM 3.375 GM in DEXTROSE 5% 100 ML IV SCH (10:23)
[2021-08-04] MEDS: CHOLECALCIFEROL 400 UNITS 10 MCG TAB PO SCH (10:24)
[2021-08-04] MEDS: TIMOLOL GFS 0.5% OPH SOLN 74 DROPS/5 ML BTL OPB SCH ×2 (10:24→20:35)
[2021-08-04] MEDS: CEROVITE ADV FORMULA TAB PO SCH (10:24)
[2021-08-04] MEDS ORDERED: LORazepam 0.5 MG/1 ML VIAL IV PRN (12:06)
--- NOTE | 2021-08-04 14:55 | XCELERA ---
[id number] \\[id number]}___[id number]
--- NOTE | 2021-08-04 16:03 | Hospitalist Progress Note ---
Date of Service August 04, 2021 Assessment & Plan (1) Pleural effusion, right: Plan: -80-year-old white male with a past medical history of adenocarcinoma s/p RUL resection and subsequent non-Hodgkin's lymphoma (following Dr. Newberry). Hospitalized 07/24 through 07/25 for large pleural effusion s/p thoracentesis yielding hemothorax Was adamant to be discharged on 07/25. He was hemodynamically stable and discharged. Has since followed up with thoracic surgeon in [place] who deemed he was not a candidate for a VATS procedure but recommended a palliative Pleurx catheter to be placed In the interim, patient developed increasing shortness of breath and a fever of 101 prompting him to come back to the emergency department Seen by pulmonology and palliative Pleurx catheter placed on 08/04 following total of 2 units of platelets being transfused for a platelet count of 36 (was 47 at time of Pleurx placement)following platelet transfusion Culture sentno organisms/growth to date Likely due to thrombocytopenia and spontaneous hemorrhage especially in the setting of adenocarcinoma and B-cell lymphoma During this hospitalization, discussion with patient and his regarding goals of care. He is aware that treatment options are limited at this point. He has designated that he does not want CPR or intubation in the event that his heart or his lungs were to stop working. He does not want any heroic measures at this point and would like to focus on quality of life. When asked what that looks like, ideally he would like to remain home with his but is aware that he requires more care than she is able to provide. He is agreeable to go to a nursing facility in hopes that his can still visit with him often and he can talk with her on the phone. He does have children that are very involved as well. He is agreeable to placement with consideration of initiation of hospice in the near future to focus on comfort When seen on daily rounds 08/04: Patient has had a significant decline. He is excessively somnolent. His BP is dropping. He is becoming tachypneic with increasingly shallow breathing. He has not had any oral intake. He is incontinent of urine and has only had one wet brief within the past 24 hours. It seems like he may be in the early stages of actively dying. I had a lengthy discussion with both his and his son Aidan who are on board with transition to comfort measures. They are completely aware and realistic that his prognosis is grave at best at this point. I am not sure that he would survive a transition to a fci facility and again, appears to be actively declining/passing. Plan is to watch him for the next 24 to 48 hours and should he actively declinekeep him here for palliative care. It is possible that he may pass within that time. He has been transitioned to comfort measures only. I have stopped his home medications and the antibiotics on board. We will utilize morphine for pain/air hunger, Ativan for anxiety, Zofran for nausea, and atropine ophthalmic solution by mouth as needed for excessive oral secretions. Could also add a scopolamine patch if needed. I have made arrangements for patient to be moved to a private room and for family to come in outside of visiting hours to spend time with him (2) Sinus pause: Plan: Per environmental monitoring technician tech, patient had a 5.8-second sinus pause. Was an isolated event. Nursing staff reports patient was asymptomatic during this Patient has been transitioned to comfort measures only at this time (3) Chronic respiratory failure with hypoxia: Plan: Patient with underlying COPD along with adenocarcinoma of the lung s/p RUL resection Can continue oxygen for comfort. 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 Overall prognosis grave (6) Diffuse large B-cell lymphoma: Plan: Following Dr. Newberry Patient transitioned to CML on 08/04. Overall prognosis grave Admission and Anticipated Discharge Date Admission Date: August 02, 2021 Subjective Patient seen on daily rounds today. More somnolent but arousable. Somnolence progressive throughout the course of the day. When seen earlier this morning was resting comfortably but throughout the afternoon has developed shallow breathing and some tachypnea. Has not had any complaints of pain or shortness of breath. Did have an additional 600 cc of fluid drained from his Pleurx catheter this morning. Was stopped prematurely as he did develop pain with lung reinflation. Nursing staff reports he has had little to no oral intake. He is incontinent and has only had 1 wet briefs thus far today. Review of Systems Review of Systems: Question reliability. Currently denies fevers, chills, chest pain, shortness of breath, abdominal pain, nausea or vomiting. Physical Exam Physical Exam: General: Excessively somnolent but arousable. Able to answer yes/no questions but not conversant as he was yesterday. Shallow breathing and mildly tachypneic without labored breathing HEENT: Head is AT/NC buccal mucosa is moist and pink Neck: No JVD. Negative hepatojugular reflex Cardiac: Distant heart sounds Lungs: Shallow breathing. Mildly tachypneic. Breathing otherwise nonlabored. Diminished breath sounds throughout. Coarse scattered rhonchi that mobilizes with coughing Abdomen: Normoactive X4. Soft and nontender in all quadrants. Extremities: No peripheral clubbing cyanosis or edema Neuro: A&O X4 cranial nerves II through XII are grossly intact no focal neuro deficits Skin: No obvious skin lesions or rashes Psych: Appropriate affect pleasant and cooperative Results & Data Results & Data ([facility]) Vital Signs (Past 12 Hours) Vital Signs Temp Pulse Pulse Resp BP Pulse Ox 08/04/21 10:53 36.9 C 80 18 90/56 L 98 08/04/21 07:21 36.8 C 99 H 18 90/50 L 95 08/04/21 07:00 95 H 08/04/21 04:00 36.5 C 92 H 24 90/59 L 98 PG Care Time/CCT Total # of Minutes Spent Total Time Spent with Patient: Total time spent is greater than 50% in coordination of care (as documented) at patient's floor/unit and/or counseling patient: Coding Level of Care Code 47648 Subseq Hosp Care Lvl 3 Diagnoses Pleural effusion, right J90 Sinus pause I45.5 Chronic respiratory failure with hypoxia J96.11 Pancytopenia due to antineoplastic chemotherapy D61.810; T45.1X5A Adenocarcinoma of lung C34.90 Diffuse large B-cell lymphoma C83.30 Lymphoma site: unspecified region (1) Diffuse large B-cell lymphoma Lymphoma site: unspecified region Qualified Code(s): C83.30 - Diffuse large B-cell lymphoma, unspecified site
[2021-08-05] MEDS: MoRPHine SULFATE 2 MG/ML CARP IV PRN ×6 (00:09→22:41)
[2021-08-05] MEDS: HEPARIN 100 UNIT/ML 5ML FLUSH FLUSH PRN ×5 (00:10→22:41)
[2021-08-05] MEDS: TIMOLOL GFS 0.5% OPH SOLN 74 DROPS/5 ML BTL OPB SCH ×2 (14:24→21:06)
--- NOTE | 2021-08-05 16:04 | Hospitalist Progress Note ---
Date of Service August 05, 2021 Assessment & Plan (1) Comfort measures only status: Plan: Patient seen on daily rounds 08/04 and noted to have active signs of dying. He was becoming more obtunded. Breathing was becoming shallow with tachypnea and tachycardia Lengthy discussion with patient's son and who had complete realistic expectations. They are aware that patient appears to be actively dying and his overall prognosis is grave Decision made to transition to comfort measures/palliative care I do not believe patient warrants transfer to a facility at this point as he seems to be in the active stages of dying On 08/05 seems to have declined further. He is no longer opening his eyes. There is clearly a rattle noted at bedside. Blood pressure is dropping. He has had no oral intake in 24 hours. He is still producing urine that is unmeasurable as he is incontinent but very scant amounts. Some mottling noted of his legs Focus is comfort Morphine for pain/air hunger Ativan for anxiety/agitation Atropine for oral secretions. If needed, will add scopolamine patch (2) Pleural effusion, right: Plan: -80-year-old white male with a past medical history of adenocarcinoma s/p RUL resection and subsequent non-Hodgkin's lymphoma (following Dr. Newberry). Hospitalized 07/24 through 07/25 for large pleural effusion s/p thoracentesis yielding hemothorax Was adamant to be discharged on 07/25. He was hemodynamically stable and discharged. Has since followed up with thoracic surgeon in [place] who deemed he was not a candidate for a VATS procedure but recommended a palliative Pleurx catheter to be placed In the interim, patient developed increasing shortness of breath and a fever of 101 prompting him to come back to the emergency department Seen by pulmonology and palliative Pleurx catheter placed on 08/04 following total of 2 units of platelets being transfused for a platelet count of 36 (was 47 at time of Pleurx placement)following platelet transfusion Culture sentno organisms/growth to date Likely due to thrombocytopenia and spontaneous hemorrhage especially in the setting of adenocarcinoma and B-cell lymphoma During this hospitalization, discussion with patient and his regarding goals of care. He is aware that treatment options are limited at this point. He has designated that he does not want CPR or intubation in the event that his heart or his lungs were to stop working. He does not want any heroic measures at this point and would like to focus on quality of life. When asked what that looks like, ideally he would like to remain home with his but is aware that he requires more care than she is able to provide. He is agreeable to go to a nursing facility in hopes that his can still visit with him often and he can talk with her on the phone. He does have children that are very involved as well. He is agreeable to placement with consideration of initiation of hospice in the near future to focus on comfort When seen on daily rounds 08/04: Patient has had a significant decline. He is excessively somnolent. BP dropping. He was becoming tachypneic with increasingly shallow breathing. He has not had any oral intake. He is incontinent of urine and has only had one wet brief within the past 24 hours. It seemed to be in the early stages of actively dying. I had a lengthy discussion with both his and his son iAdan who are on board with transition to comfort measures. They are completely aware and realistic that his prognosis is grave at best at this point. Over the past 24 hours, he has shown continued decline and is very actively dying. He seems comfortable He has been transitioned to comfort measures only. I have stopped his home medications and the antibiotics on board. I have made arrangements for patient to be moved to a private room and for family to come in outside of visiting hours to spend time with him (3) Sinus pause: Plan: Per monitoring engineer tech, patient had a 5.8-second sinus pause. Was an isolated event. Nursing staff reports patient was asymptomatic during this Patient has been transitioned to comfort measures only at this time (4) Chronic respiratory failure with hypoxia: Plan: Patient with underlying COPD along with adenocarcinoma of the lung s/p RUL resection Can continue oxygen for comfort. No need to maintain a pulse ox goal Patient has been transitioned to FINANCIAL AID MANAGER (5) Pancytopenia due to antineoplastic chemotherapy: Plan: Chronic Presenting platelet count was 36 S/p transfusion 2 units platelets in order to pursue Pleurx catheter placement As outlined above, patient has been transitioned to FINANCIAL AID MANAGER (6) Adenocarcinoma of lung: Plan: S/p RUL resection Patient transitioned to CML on 08/04. Overall prognosis grave (7) Diffuse large B-cell lymphoma: Plan: Following Dr. Newberry Patient transitioned to CML on 08/04. Overall prognosis grave Admission and Anticipated Discharge Date Admission Date: August 02, 2021 Subjective Patient seen on daily rounds today. He is comfort measures only Family members at bedside Patient obtunded and unable to participate in much of the exam/assessment today He is moving his arms but up into this point, family says he has been very comfortable. He is receiving morphine approximately every 4 hours but has not seemed to be in any distress He has had no oral intake. He is having urinary incontinence. Has had a few wet briefs. Staff did drain 600 cc from the right Pleurx this morning Review of Systems Review of Systems: Unobtainable Physical Exam Physical Exam: General: Laying in hospital bed. Some movements of his arms but otherwise obtunded and nonverbal. There is a bedside rattle noted Heart: Distant heart sounds with sinus tachycardia Lungs: rattle appreciated at bedside. Patient having mild tachypnea open disease in the 20s) with very shallow breaths. Pleurx catheter noted to right chest wall Abdomen: Normoactive X4. Abdomen soft and nondistended Extremities: No peripheral clubbing cyanosis or edema Results & Data Results & Data ([facility]) Laboratory Results no lab data PG Care Time/CCT Total # of Minutes Spent Total Time Spent with Patient: Total time spent is greater than 50% in coordination of care (as documented) at patient's floor/unit and/or counseling patient: Coding Level of Care Code 27168 Subseq Hosp Care Lvl 2 Diagnoses Pleural effusion, right J90 Sinus pause I45.5 Chronic respiratory failure with hypoxia J96.11 Pancytopenia due to antineoplastic chemotherapy D61.810; T45.1X5A Adenocarcinoma of lung C34.90 Diffuse large B-cell lymphoma C83.30 Lymphoma site: unspecified region Comfort measures only status Z51.5 (1) Diffuse large B-cell lymphoma Lymphoma site: unspecified region Qualified Code(s): C83.30 - Diffuse large B-cell lymphoma, unspecified site
[2021-08-05] MEDS: ATROPINE SULFATE 1% OP SOLN 5 ML BTL OP PRN ×2 (21:06→23:21)
--- NOTE | 2021-08-06 06:05 | Communication Note ---
Date of Service: August 06, 2021 Subjective: Nursing notified me that the patient was not breathing on exam. Objective: Patient seen at bedside and was not breathing, I listened to breath sounds and for heart beat for 2 minutes while watching for chest rise. No heart or lung sounds heard and no chest rise seen. Pupils fixed. Skin cold. A/p: patient pronounced at 5:45 cause of - malignant effusion
--- NOTE | 2021-08-06 16:27 | Discharge Summary ---
Date of Service August 06, 2021 Admission HPI Per Admitting Provider Jem Dowell is an 80 year old male with diffuse B-cell lymphoma who presents to the ER with shortness of breath and fever. He has a recent history of right non-traumatic hemothorax, hospitalized here from July 24 - 2020 with thoracocentesis showing no malignant cells. He is not on any antiplatelets or anticoagulants. He was followed up by Dr Stratton at [facility] who recommended PleurX catheter placement that was planned for today however he spiked a fever therefore recommend he comes to the ER. He is short of breath but this is not acutely worse and wears 2LPM O2 at home. He has a complex oncological history best summarized in recent oncology notes but with right upper lobe lung adenocarcinoma [id number] s/p wedge resection followed by lobectomy, diffuse large cell B-cell lymphoma diagnosed initial diagnosed 2007 with intermittent prednisone, clorambucil, bendamustine and rituxin, subsequently spread to his neck causing airway narrowing in 2017 and started on ibrutinib, R-CHOP 09/2018 and 1 cycle of RICE 02/2019. He received Venetoclax and Duvelisib and is now maintained on acalabrutinib. Per patient and his this has been held for 6 weeks due to pancytopenia. ER physician discussed case with [facility] for possible transfer. This will be discussed at their multi disciplinary meeting around 1pm however given he has already been deemed not a VATS candidate and Plaurx can be placed here likelihood is not to recommend transfer at this time. Principal Diagnosis 1. Acute respiratory failuredirect cause of 2. Secondary to malignant effusion 3. Secondary to lung CA Discharge Exam No exam performed by myself as patient /ceased to breathe prior to my shift. See corresponding communication note Discharge Data Allergies Allergy/AdvReac Type Severity Reaction Status Date / Time lisinopril Allergy Mild itching Verified 07/24/21 12:02 metoprolol Allergy Mild itching Verified 07/24/21 12:02 losartan AdvReac Mild RASH Verified 07/24/21 12:02 Consultations 08/02/21 10:28 ED Decision to Admit Stat Ordered Studies 08/02/21 10:49 CT chest diagnostic wo con Stat 08/02/21 11:18 US gallbladder Stat 08/03/21 09:42 US point of care ultrasound Routine Hospital Course (1) Comfort measures only status: Patient seen on daily rounds 08/04 and noted to have active signs of dying. He was becoming more obtunded. Breathing was becoming shallow with tachypnea and tachycardia Lengthy discussion with patient's son and who had complete realistic expectations. They are aware that patient appears to be actively dying and his overall prognosis is grave Decision made to transition to comfort measures/palliative care I do not believe patient warrants transfer to a facility at this point as he seems to be in the active stages of dying On 08/05 seems to have declined further. He is no longer opening his eyes. There is clearly a rattle noted at bedside. Blood pressure is dropping. He has had no oral intake in 24 hours. He is still producing urine that is unmeasurable as he is incontinent but very scant amounts. Some mottling noted of his legs Focus is comfort Morphine for pain/air hunger Ativan for anxiety/agitation Atropine for oral secretions. If needed, will add scopolamine patch Patient remained comfortable in the overnight hours. Overnight estate attorney notified that patient was not breathing. He was examined at bedside and noted to not be breathing. He had no breath sounds or heart sounds or rise in his chest. His pupils were fixed and his skin was cold. Time of pronounced: 545 (2) Pleural effusion, right: -80-year-old white male with a past medical history of adenocarcinoma s/p RUL resection and subsequent non-Hodgkin's lymphoma (following Dr. Newberry). Hospitalized 07/24 through 07/25 for large pleural effusion s/p thoracentesis yielding hemothorax Was adamant to be discharged on 07/25. He was hemodynamically stable and discharged. Has since followed up with thoracic surgeon in [place] who deemed he was not a candidate for a VATS procedure but recommended a palliative Pleurx catheter to be placed In the interim, patient developed increasing shortness of breath and a fever of 101 prompting him to come back to the emergency department Seen by pulmonology and palliative Pleurx catheter placed on 08/04 following total of 2 units of platelets being transfused for a platelet count of 36 (was 47 at time of Pleurx placement)following platelet transfusion Culture sentno organisms/growth to date Likely due to thrombocytopenia and spontaneous hemorrhage especially in the setting of adenocarcinoma and B-cell lymphoma During this hospitalization, discussion with patient and his regarding goals of care. He is aware that treatment options are limited at this point. He has designated that he does not want CPR or intubation in the event that his heart or his lungs were to stop working. He does not want any heroic measures at this point and would like to focus on quality of life. When asked what that looks like, ideally he would like to remain home with his but is aware that he requires more care than she is able to provide. He is agreeable to go to a nursing facility in hopes that his can still visit with him often and he can talk with her on the phone. He does have children that are very involved as well. He is agreeable to placement with consideration of initiation of hospice in the near future to focus on comfort When seen on daily rounds 08/04: Patient has had a significant decline. He is excessively somnolent. BP dropping. He was becoming tachypneic with increasingly shallow breathing. He has not had any oral intake. He is incontinent of urine and has only had one wet brief within the past 24 hours. It seemed to be in the early stages of actively dying. I had a lengthy discussion with both his and his son Aidan who are on board with transition to comfort measures. They are completely aware and realistic that his prognosis is grave at best at this point. Over the past 24 hours, he has shown continued decline and is very actively dying. He seems comfortable He has been transitioned to comfort measures only. I have stopped his home medications and the antibiotics on board. I have made arrangements for patient to be moved to a private room and for family to come in outside of visiting hours to spend time with him (3) Sinus pause: Per jazz singer tech, patient had a 5.8-second sinus pause. Was an isolated event. Nursing staff reports patient was asymptomatic during this Patient has been transitioned to comfort measures only at this time (4) Chronic respiratory failure with hypoxia: Patient with underlying COPD along with adenocarcinoma of the lung s/p RUL resection Can continue oxygen for comfort. No need to maintain a pulse ox goal Patient has been transitioned to MANUFACTURING ENGINEER MACHINING (5) Pancytopenia due to antineoplastic chemotherapy: Chronic Presenting platelet count was 36 S/p transfusion 2 units platelets in order to pursue Pleurx catheter placement As outlined above, patient has been transitioned to MANUFACTURING ENGINEER MACHINING (6) Adenocarcinoma of lung: S/p RUL resection Patient transitioned to CML on 08/04. Overall prognosis grave (7) Diffuse large B-cell lymphoma: Followed Dr. Newberry Patient transitioned to CML on 08/04. Overall prognosis grave Total Time Total Time Spent Total Time Spent (In Minutes): 15 Discharge Plan Discharge Items Patient Disposition: Other Date/Time: 08/06/21 05:45 Supervising Physician Co-Signing Physician Notes Patient examined on the day of discharge. I agree with the discharge summary by Ginger ULLOA. Patient peacefully while on comfort measures. He from respiratory failure associated with malignant effusion from lung CA. Family notified and certificate completed. Coding Level of Care Code D/C DAY MANAGEMENT <30 MINS Diagnoses Comfort measures only status Z51.5 Pleural effusion, right J90 Sinus pause I45.5 Chronic respiratory failure with hypoxia J96.11 Pancytopenia due to antineoplastic chemotherapy D61.810; T45.1X5A Adenocarcinoma of lung C34.90 Diffuse large B-cell lymphoma C83.30 Lymphoma site: unspecified region
== END 2021-08-06 07:09 | disposition expired | DRG 180 ==
LOC: ED 04:58 → SUATTDRO 13:18 → EDINP 13:18 → 2N 18:09 → 3E 08-04 13:18
DX: C34.11 Malignant neoplasm of upper lobe, right bronchus or lung; N40.0 Benign prostatic hyperplasia without lower urinary tract symptoms; D61.810 Antineoplastic chemotherapy induced pancytopenia; K21.9 Gastro-esophageal reflux disease without esophagitis; Z66 Do not resuscitate; J91.0 Malignant pleural effusion; Z90.2 Acquired absence of lung [part of]; Z51.5 Encounter for palliative care; J94.2 Hemothorax; J96.21 Acute and chronic respiratory failure with hypoxia; J44.9 Chronic obstructive pulmonary disease, unspecified; Z87.891 Personal history of nicotine dependence; C83.38 Diffuse large B-cell lymphoma, lymph nodes of multiple sites; J18.9 Pneumonia, unspecified organism